=== PATIENT | male | born 1950 | race Caucasian/White ===

== ENCOUNTER 2019-10-24 09:00 | Observation (INO) | payer MEDICARE, OTHER, SELFPAY ==
[2019-10-24] VITALS (35 sets, daily range): BP systolic 107–151; BP diastolic 73–107; PULSE 61–119; RESP 15–30; TEMP 36.2–37.1; O2SAT 95–99; BMI 28.7
--- NOTE | ~2019-10-24 | XR_ITS ---
EXAMINATION: XR chest 2V DATE: 10/24/2019 09:44 INDICATION: Shortness of breath and hypotension TECHNIQUE: PA and lateral views of the chest are obtained. COMPARISON: None available FINDINGS: There are minimal airspace opacities of the right middle lobe. There is no pleural effusion or pneumothorax. The cardiomediastinal silhouette is normal. There is moderate thoracic spondylosis. A cardiac loop recorder is implanted in the left anterior chest wall. IMPRESSION: 1. Minimal opacities of the right middle lobe, consistent with atelectasis versus pneumonia. Reviewed, dictated and finalized at location B. IMPRESSION: 1. Minimal opacities of the right middle lobe, consistent with atelectasis vers us pneumonia.
--- NOTE | 2019-10-24 09:10 | ECG_ITS ---
Measurements Intervals [place] Rate: 97 P: CT: 0 QRS: -2 QRSD: 97 T: 62 QT: 355 QTc: 453 Interpretive Statements ATRIAL FIBRILLATION INCOMPLETE RIGHT BUNDLE BRANCH BLOCK BASELINE ARTIFACT- II, III, AVF ABNORMAL ECG Electronically Signed On 10-24-2019 10:02:33 CDT by Mathew Grove D.O.
[2019-10-24 09:33] LABS: Basophils Percent Auto 0.7 % (0.2-1.2); Eosinophils Absolute Auto 0.3 K/mm3 (0-0.3); Eosinophils Percent Auto 4.9 % (0-4.4); Hematocrit 42.9 % (42.0-52.0); Hemoglobin 14.4 g/dL (14.0-18.0); Immature Granulocyte Absolute 0.01 K/mm3 (0.00-0.031); Immature Granulocyte Percent A 0.2 % (0-0.5); Lymphocytes Absolute Auto 2.38 K/mm3 (0.9-3.2); Lymphocytes Percent Auto 39.9 % (18.3-44.2); Mean Corpuscular HGB Conc 33.6 g/dl (32-36); Mean Corpuscular Hemoglobin 30.3 pg (26-34); Mean Corpuscular Volume 90.1 fl (80-100); Mean Platelet Volume 9.9 fl (7.4-10.4); Monocytes Absolute Auto 0.5 K/mm3 (0.1-0.6); Monocytes Percent Auto 8.7 % (2.6-8.5); Neutrophils Absolute Auto 2.7 K/mm3 (1.3-6.7); Neutrophils Percent Auto 45.6 % (45.5-73.1); Platelet Count Result 158 k/mm3 (150-375); Red Blood Count 4.76 M/mm3 (4.6-6.20); Red Cell Distribution Width 14.1 % (11.5-14.5)
[2019-10-24 09:39] LABS: Anion Gap 14.1 mmol/L (7-16); Blood Urea Nitrogen 9 mg/dL (9-20); Calcium 8.9 mg/dL (8.4-10.2); Carbon Dioxide 23 mmol/L (22-30); Chloride 100 mmol/L (98-107); Estimated CRCL calculation 86 ml/min; Estimated Glomerular Filt Rate > 60; Glucose 112 mg/dL (75-110); Potassium 4.1 mmol/L (3.4-5.0); Sodium 133 mmol/L (137-145)
[2019-10-24] MEDS: dilTIAZem HCl INJ 25 MG/5 ML VIAL 10 MG IV PUSH (09:58)
--- NOTE | 2019-10-24 09:58 | ED.ARRPALP ---
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 It makes him feel short of breath. He has chronic COPD, but does not wear oxygen at home. He has had no cough, fever,, or sweats. He quit smoking 7 years ago. He does have intermittent wheezing. He has coronary artery disease with a stent. He is on Xarelto. His legs swell up every day, and that overnight they clear. He does not have chest pain. He has pain in his feet at night. He has not been sick in the last couple weeks. MD complaint: rapid heart beat and irregular heart beat Onset (ago): hour(s) Duration: constant Severity: moderate Context: occurred during rest Arrhythmia history: atrial fibrillation and on anti-coagulants Associated symptoms: shortness of breath Related Data Home Medications Medication Instructions Recorded Confirmed albuterol sulfate 2 puff INHALATION QID 10/24/19 atorvastatin 80 mg PO DAILY 10/24/19 levothyroxine 125 mcg PO DAILY 10/24/19 loratadine 10 mg PO DAILY 10/24/19 metoprolol tartrate 50 mg PO DAILY 10/24/19 rivaroxaban 20 mg PO DAILY 10/24/19 sotalol 80 mg PO BID 10/24/19 tiotropium bromide 2 puff INHALATION DAILY 10/24/19 Allergies Allergy/AdvReac Type Severity Reaction Status Date / Time No Known Allergies Allergy Verified 10/24/19 09:01 Review of Systems Review of Systems: Narrative: CONSTITUTIONAL: Denies fever, chills, or sweats. EYES: Denies visual changes, redness, or discharge. ENT: Denies rhinorrhea, congestion, sore throat, or otalgia. CARDIOVASCULAR: Denies chest pain, but has palpitations, and edema. RESPIRATORY: Denies cough, but has some shortness of breath. GASTROINTESTINAL: Denies abdominal pain, nausea, vomiting, or diarrhea. GENITOURINARY: Denies dysuria or hematuria. SKIN: Denies rash or itching. MUSCULOSKELETAL: Denies back pain, joint pain, or myalgia. NEUROLOGIC: Denies headache, numbness, or weakness. PSYCHIATRIC: Denies anxiety or depression. [facility] Past Medical History Medical History Atrial fibrillation with rapid ventricular response Social History Social History (Updated 10/24/19 @ 10:22 by Catia Ahmadi MD) Smoking status: Former smoker Alcohol intake: current Substance use: never Gender identity (if verbalized by the patient): Male Exam Narrative: Exam Narrative: GENERAL: Elderly, disheveled, man in no distress. HEAD: Normocephalic, atraumatic. EYES: PERRLA and EOMI. ENT: Nares clear, no rhinorrhea or epistaxis. Mucous membranes moist. NECK: Supple. CHEST: Clear to auscultation. No respiratory distress. HEART: Irregular rhythm. no murmur heard. Normal peripheral pulses. ABDOMEN: Soft, nontender, nondistended, normal active bowel sounds. EXTREMITIES: Normal range of motion. Moderate edema. SKIN: Warm, dry, no rash. NEURO: No focal deficits. Alert and oriented x3. PSYCH: Normal mood and affect. Const: General: no acute distress and alert Orientation/consciousness: patient oriented x3 Course Reevaluation(s) Reevaluation #1: Checked on the patient and his heart rate is down to 76. He is much more comfortable. I explained about the admission process and that he would see 1 of our cardiologists. His windows desktop engineer is at the [place]. Date: 10/24/19 Time: 12:15 Consultations Consultation #1: Call the hospitalist for admission. Dr. Antoine accepts, and requests a cardiology consult. Date: 10/24/19 Time: 10:24 Consultation #2: Call Dr. Dorsey, and Araceli Lee called back. She accepts the consult for the group. Date: 10/24/19 Time: 12:12 Vital Signs Vital signs: Vital Signs Temperature 98.1 F 10/24/19 09:10 Pulse Rate 113 H 10/24/19 09:10 Respiratory Rate 30 H 10/24/19 09:10 Blood Pressure 1
[2019-10-24 10:18] LABS: NT Pro B Type Natriuretic Pept 181 PG/ML (5-100); Troponin I < 0.012 ng/mL (0.000-0.034)
--- NOTE | 2019-10-24 13:23 | ADMGEN ---
This patient, Bobby Cabral, was admitted to IMU Room 207-01 @ 1315. pt a/o x3 - IV Cardizem drip infusing at 5 mg/hr- monitor on atrial fibrillation 60's. BP 112/ 74-Denies SOB or any pain. Patient to hospital policies and general routines including ID bracelet, bed and alarms, visiting hours, pain management, procedures, bathroom and other care routines, personal items, smoking policy, room service/diet, and visiting hours. Valuables list has been completed.
--- NOTE | 2019-10-24 14:54 | PM.CNCAR ---
Assessment and Plan Additional Plan 69-year-old man with a history of paroxysmal atrial fibrillation presenting with an asymptomatic recurrence. Since the pasteurizing supervisor at the [place] has been planning rhythm control with sotalol on going to recommend advancing the dosage of that to 120 mg q.12 hours and stopping the metoprolol. Systemic anticoagulation with Xarelto was important when will be continued if AF persists we will plan DC cardioversion probably tomorrow I would recommend having the [employer] rep interrogate the LINQ device to determine the exact onset of the episode of atrial fib at this time Prabhakar Edwards MD [facility] History of Present Illness History of Present Illness Consult date/time: date of service:10/24/19 14:54 Consult reason: atrial fibrillation Reason For Visit: a fib with rvr Narrative: This is a 69-year-old man with a history of atrial fibrillation being seen at the request of the hospitalist for assistance with management and evaluation of this. The patient has not been here at [facility] previously and is unknown to me prior to this encounter. He states he and he has a history of atrial fibrillation and sees a pasteurizing supervisor at the [facility] for evaluation of this and treatment. He indicates that he has a history of atrial fibrillation for about 5 or 6 years he takes sotalol at a dosage of 80 mg twice daily for this and he states that generally he is in normal sinus rhythm. Patient states that he became concerned last night when he started to notice that his a digital sphygmomanometer was reporting his heart rate is being of variable and somewhat chaotic. The patient states that he really was not having much in the way of significant symptoms or complaints at the time he checks his blood pressure several times since then and continues to notice that his heart rate is chaotic and for that reason his brought him into the emergency room. He indicates that none of his physicians are located at this hospital rather he gets his care at the [facility] but his did not want to drive him to the [place] so she came here because is closer to their home. In the emergency room he was found to be in atrial fib with rapid ventricular response he was of course treated with intravenous diltiazem and admitted to the IMU. For his atrial fibrillation he normally takes sotalol at the dosage mentioned above. Interestingly he also takes a low-dose of metoprolol tartrate is well any systemically anticoagulated with Xarelto he is cut compliant with all of his medication. Had a lengthy discussion with the patient about the plans and indicated that he has a recurrence of atrial fibrillation his pasteurizing supervisor at the [place] has obviously been trying to control the rhythm rather images the heart rate. He does mention that he had a [employer] LINQ loop recorder implanted by his pasteurizing supervisor at the [place] about a year ago. He does not specify the exact reason for having that implant performed. Presumably it is to monitor for recurrent AF and AF burden. Review of Systems Constitutional: Constitutional: Reports no additional constitutional complaints Eyes: Eyes: Reports no additional eye complaints ENT: Reports system reviewed and no additional complaints, except as documented Cardiovascular: Cardiovascular: Reports no additional cardiovascular complaints Respiratory: Respiratory: Reports no additional respiratory complaints Gastrointestinal: Gastrointestinal: Reports no additional gastrointestinal complaints Genitourinary: Genitourinary: Reports no additional male genitourinary complaints Musculoskeletal: Musculoskeletal: Reports no additional musculoskeletal complaints Integumentary/Breasts: Skin/Breast: Reports system reviewed and no additional complaints, except as docu Neurologic: Reports system reviewed and no additional complaints, except as documented Psychiatric: Psychiatric: Reports no additional psychiatric compl
[2019-10-24 15:49] LABS: Troponin I < 0.012 ng/mL (0.000-0.034)
[2019-10-24 18:35] LABS: Troponin I < 0.012 ng/mL (0.000-0.034)
[2019-10-24] MEDS: SOTALOL HCL 40 MG, SOTALOL HCL 80 MG 120 MG PO (20:05)
--- NOTE | 2019-10-24 22:00 | PM.IMHP ---
H&P: HPI History of Present Illness Chief complaint: Palpitations, shortness of breath. Narrative: Bobby Cabral is A 69-year-old male with paroxysmal atrial fibrillation, coronary artery disease, hypertension, hypothyroidism, and COPD who presented to the emergency department earlier today for evaluation of palpitations and shortness of breath. He has chronic dyspnea on exertion due to his COPD however he reports increasing short of breath this morning with associated racing heart/palpitations. Last evening he noted that his blood pressure cuff was reporting a variable heart rate that seemed to be chaotic but he was not really symptomatic at that time. He was found to be in atrial fibrillation with rapid ventricular response on arrival to the emergency department, and his heart rate has improved after receiving IV diltiazem in the emergency department. He has intermittent lower extremity edema which improves overnight. He sleeps in bed on 4 pillows, and this is unchanged. He does get short of breath occasionally at nighttime for which he will use his rescue inhaler. He denies concerns for sleep apnea, specifically denying snoring, waking up gasping for air, and daytime somnolence. He has not had exertional chest pain or pleuritic pain. No nausea, vomiting, or sweats. At the time my evaluation he reports feeling much better is not having any palpitations or chest pain. He states compliance with all of his medications. Review of Systems Review of Systems: Narrative: Twelve systems were reviewed with pertinent positives and negatives as per HPI. He has occasional lightheadedness. Weight has remained stable. He occasionally has a cough which he attributes to his COPD. He frequently wheezes who when even walking about the home, and this is unchanged. He has never been diagnosed with BPH but he does could up to urinate 1 to 2 times a night and has noticed that his stream is decreased. No history of venous thromboembolism. Except as documented, all other systems were reviewed and are negative. [facility] Past Medical History Medical History (Updated 10/25/19 @ 00:23 by Delia Shen PA-C) Chronic obstructive pulmonary disease Congestive heart failure Coronary artery disease With history of stent. Followed by a level vial curvature gauger at the [place]. Former smoker Hyperlipidemia Hypertension Hypothyroidism Paroxysmal atrial fibrillation Surgical History Surgical History (Updated 10/25/19 @ 00:22 by Delia Shen PA-C) History of appendectomy History of arthroscopic knee surgery History of heart artery stent History of loop recorder Patient is unclear as to why this was inserted. Family History Family History Father Diabetes mellitus Acute myocardial infarction Mother Anemia Breast cancer Sibling Breast cancer Social History Social History (Updated 10/25/19 @ 00:17 by Delia Shen PA-C) Social History: Surrogate decision maker: Jody Cabral, spouse. Code status: Full code. Smoking packs per day: 1.5 Smoking cigarettes per day: 30.0 Years smoked: 40 Smoking pack-years: 60.00 Smoking status: Former smoker Tobacco type: cigarettes Alcohol intake: former Substance use: never Additional living arrangements comments: The patient lives with his in [place], [place]. Additional occupation/education comments: Retired from working in [employer]. Gender identity (if verbalized by the patient): Male Spiritual care concerns: No Meds Home Medications and Allergies Home Medications Medication Instructions Recorded Confirmed Type albuterol sulfate 2 puff INHALATION QID 10/24/19 10/24/19 History atorvastatin 40 mg PO DAILY 10/24/19 10/24/19 History levothyroxine 125 mcg PO DAILY 10/24/19 10/24/19 History loratadine 10 mg PO DAILY 10/24/19 10/24/19 History metoprolol tartrate 25 mg PO Q12H 10/24/19 10/24/19 History rivavish
[2019-10-25] VITALS (7 sets, daily range): BP systolic 108–134; BP diastolic 71–93; PULSE 62–95; RESP 16–20; TEMP 36.1–36.7; O2SAT 95–97
[2019-10-25 05:20] LABS: Anion Gap 10.1 mmol/L (7-16); Blood Urea Nitrogen 10 mg/dL (9-20); Calcium 8.5 mg/dL (8.4-10.2); Carbon Dioxide 25 mmol/L (22-30); Chloride 102 mmol/L (98-107); Estimated CRCL calculation 79 ml/min; Estimated Glomerular Filt Rate > 60; Glucose 98 mg/dL (75-110); Potassium 4.1 mmol/L (3.4-5.0); Sodium 133 mmol/L (137-145)
[2019-10-25] MEDS: LEVOTHYROXINE SODIUM 125 MCG TABLET PO (05:45)
[2019-10-25] MEDS: LORATADINE 10 MG TABLET PO (08:34)
[2019-10-25] MEDS: ATORVASTATIN 40 MG TABLET PO (08:34)
[2019-10-25] MEDS: SOTALOL HCL 40 MG, SOTALOL HCL 80 MG 120 MG PO (08:34)
[2019-10-25] MEDS: ALBUTEROL SULFATE (*SP) AEROSOL 1 PUFF 2 PUFF INHALATION (08:35)
[2019-10-25] MEDS: RIVAROXABAN 20 MG TABLET PO (08:36)
--- NOTE | 2019-10-25 10:12 | ECG_ITS ---
Measurements Intervals [place] Rate: 66 P: 64 [place]: 174 QRS: 16 QRSD: 89 T: 63 QT: 420 QTc: 441 Interpretive Statements SINUS RHYTHM INCOMPLETE RIGHT BUNDLE BRANCH BLOCK BASELINE ARTIFACT- II, III, AVF BORDERLINE ECG Electronically Signed On 10-25-2019 10:38:37 CDT by Mathew Grove D.O.
--- NOTE | 2019-10-25 10:24 | PM.PNCARD ---
Progress Note: A&P Assessment and Plan (1) PAF (paroxysmal atrial fibrillation): Code(s): I48.0 - Paroxysmal atrial fibrillation Status: Acute Assessment and Plan: Converted to normal sinus rhythm on 10/25/2019 at 8:27 a.m.. Sotalol was increased to 120 mg every 12 hours. EKG this morning reveals a sinus rhythm at a rate of 66 beats per minute. QTc is 433 milliseconds. Interrogation of his loop recorder reveals that he has episodes of paroxysmal atrial fibrillation. Since September 12, 2019 he has had 19 episodes with a % of 80/AF at 16%. He does note that he occasionally misses his 2nd dose of sotalol and metoprolol. He has not missed any doses of Xarelto. Additional Plan OK to discharge from a cardiac standpoint. Follow-up with his stock parts inspector at the [place]. Follow-up with his primary care provider regarding his TSH of 6.460. T4 is still pending. Plan discussed with Dr Dorsey 1100 10/25/2019 Subjective Date/time seen: 10/25/19 10:24 Interval history: Follow-up for: paroxysmal atrial fibrillation, group home use of anticoagulation with Xarelto. Date of service: 10/25/2019 Subjective: Denied chest discomfort, shortness of breath, lightheadedness or palpitations. Review of Systems Constitutional: Constitutional: Denies chills, Denies fatigue and Denies fever(s) Eyes: Eyes: Denies blurry vision ENT: Reports Normal hearing present Cardiovascular: Cardiovascular: Denies chest pain, Denies rapid heart rate, Denies pedal edema, Denies leg edema, Reports dyspnea, Denies dyspnea on exertion and Denies orthopnea Respiratory: Respiratory: Denies cough and Denies dyspnea on exertion Gastrointestinal: Gastrointestinal: Denies nausea and Denies vomiting Genitourinary: Genitourinary: Denies hematuria Musculoskeletal: Musculoskeletal: Denies back pain and Denies myalgias Integumentary/Breasts: Skin/Breast: Denies lesions and Denies erythema Neurologic: Reports Normal hearing present Psychiatric: Psychiatric: Denies anxiety Endocrine: Endocrine: Denies fatigue and Denies flushing Hematologic/Lymphatic: Hematologic/Lymphatic: Denies easy bleeding and Denies easy bruising Allergic/Immunologic: Allergic/Immunologic: Denies throat swelling, Denies tongue swelling and Denies wheezing Exam Const: General: comfortable and no acute distress Other: Pleasant cooperative white male ini no apparent distress watching television laying flat in bed. HENMT: Mouth: Yes dry mucous membranes Eyes: Sclera: sclerae normal Pupils: Equal, round and reactive pupils present Neck: Neck: supple and no JVD Other: carotid pulses intact no bruits are audible Resp: Effort & Inspection: normal respiratory effort and able to speak in complete sentences Auscultation: diminished lung sounds diffuse Other: breath sounds are clear but diminished somewhat in both lung collado Cardio: Rate: regular rate Rhythm: regular rhythm GI: GI Palp: Yes Soft to palpation Auscultation: normal bowel sounds Skin: General skin exam: normal color Lesions: no lesions Rashes: no rashes Neuro: General: patient oriented x3 Cranial nerves: Yes Equal, round and reactive pupils present Cognition (Neuro): normal cognition Speech: normal speech Gait exam (Neuro): Normal gait present Extrem: General: normal to inspection and no clubbing, cyanosis or edema Psych: Appearance: grossly normal Mental Status: mental status grossly normal Speech and movement: Normal speech and movement present Affect: normal affect Attitude: cooperative Thought process: Normal thought process present Thought content: Yes Normal thought content present Insight: Good insight present (Psych) Judgement: Good judgement present (Psych) Objective Data Vital Signs Vital Signs: Vital Signs - 24 hr 10/24/19 10:30 10/24/19 10:31 10/24/19 10:49 Temperature Pulse Rate 76 73 70 Respiratory Rate 19 17 23 H Blood Pressure 117/73
[2019-10-25 13:17] LABS: Total Triiodothyronine (T3) 0.96 NG/ML (0.97-1.69)
--- NOTE | 2019-11-11 16:30 | PM.DS ---
DS: Admitting Diagnosis Admitting Diagnosis Admitting Diagnosis: Palpitations, shortness of breath. DS: Discharge Diagnosis Discharge Diagnosis (1) Atrial fibrillation with rapid ventricular response: Code(s): I48.91 - Unspecified atrial fibrillation Status: Acute Assessment and Plan: Per Dr. Edwards is recommendations, discontinue metoprolol. Continue sotolol. Continue Xarelto for stroke prophylaxis. Pt is stable for discharge (2) Hypertension: Code(s): I10 - Essential (primary) hypertension Status: Acute Assessment and Plan: Blood pressures were reviewed and they are well controlled. (3) Chronic obstructive pulmonary disease: Code(s): J44.9 - Chronic obstructive pulmonary disease, unspecified Status: Acute Assessment and Plan: Patient reports being at his baseline. Continue maintenance inhalers. (4) Hypothyroidism: Code(s): E03.9 - Hypothyroidism, unspecified Status: Acute Assessment and Plan: Continue levothyroxine and check TSH. DS: Summary Time Spent with Patient Time attestation: Total time spent providing and/or coordinating discharge services:40 minutes on day of discharge Exam Narrative: Exam Narrative: General: Well-developed male sitting up in bed in no distress. HEENT: PERRLA Neck: Supple. Respiratory: Lung sounds are clear Cardiovascular: Irregular rate and rhythm with S1-S2. Gastrointestinal: Abdomen is soft, nontender, and nondistended with positive bowel sounds. Skin: Warm and dry. No rash or lesions on limited exam. Extremities: No cyanosis. Mild clubbing of the fingernails. He has trace lower extremity bilaterally. Negative Michelle sign bilaterally. Radial and pedal pulses intact. Neurological: Alert. Cranial nerves 2-12 are grossly intact. No gross focal deficits to casual conversation. Psychiatric: Pleasant and cooperative with normal mood and affect. Judgment and insight intact. Discharge Plan Discharge Attending physician on discharge: Rosalinda Camarena Consulting providers: Eric Dorsey ; Halley Lee ; Papa Benjamin ; Prabhakar Edwards ; Delia Shen ; Mathew Grove Discharging Clinician: Rosalinda Camarena Anticipated Discharge Date/Time: 10/25/19 11:38 Patient Disposition: Home, Self-Care Activity: as tolerated Diet: heart healthy Wound Care Instructions: follow printed instructions Discharge Instructions: Cardiology discharge instructions: ACTIVITY: activity as tolerated with precautions to avoid falls. FOLLOW-UP: Follow-up with relief charge nurse 1-2 weeks. Follow-up with your primary care provider 1-2 weeks regarding your thyroid Follow-up with his relief charge nurse at the [place]. Follow-up with his primary care provider regarding his TSH of 6.460. T4 is still pending. Patient Instructions: Antibiotic Form, Rivaroxaban (By mouth), Heart Failure (DC) Stand Alone Forms: General Discharge Information Follow-up/Referrals: [facility], [Primary Care Provider] - Discharge Medications: New sotalol [Sorine] 120 mg Tablet 120 mg PO Q12HR Qty: 90 RF: 0 Continued atorvastatin 80 mg Tablet 40 mg PO DAILY RF: 0 levothyroxine 125 mcg Tablet 125 mcg PO DAILY RF: 0 albuterol sulfate 90 mcg/actuation Hfa Aerosol Inhaler 2 puff INHALATION QID RF: 0 loratadine 10 mg Tablet 10 mg PO DAILY RF: 0 rivaroxaban 20 mg Tablet 20 mg PO DAILY RF: 0 tiotropium bromide 2.5 mcg/actuation Mist 2 puff INHALATION DAILY RF: 0 Changed sotalol 80 mg Tablet 120 mg PO Q12H Qty: 90 RF: 3 Discontinued metoprolol tartrate 50 mg Tablet
== END 2019-10-25 12:20 | disposition home or self-care (01) ==
LOC: ANHED 10:26 → ANHIMU 14:46
PROVIDERS: Physician Assistant; Admitting Provider Family Medicine; Emergency Provider Emergency Medicine; Visit Provider Family Medicine
DX: I48.0 Paroxysmal atrial fibrillation (principal); R00.2 Palpitations; J44.9 Chronic obstructive pulmonary disease, unspecified; Z87.891 Personal history of nicotine dependence; I25.10 Atherosclerotic heart disease of native coronary artery without angina pectoris; Z95.5 Presence of coronary angioplasty implant and graft; Z79.01 Long term (current) use of anticoagulants; I11.0 Hypertensive heart disease with heart failure; I50.9 Heart failure, unspecified; E03.9 Hypothyroidism, unspecified
CPT/HCPCS: 36415; 71046; 80048; 83880; 84439; 84443; 84480; 84484; 85025; 93005; 94640; 96365; 96366; 99285; A9270; G0378

== ENCOUNTER 2019-12-12 17:23 | Emergency (ER) | payer MEDICARE, OTHER, SELFPAY ==
[2019-12-12 18:14] VITALS: BP 174/95; PULSE 64; RESP 20; TEMP 36.3; O2SAT 100
[2019-12-12 19:28] VITALS: BP 149/93; PULSE 61; RESP 22; O2SAT 97
--- NOTE | 2019-12-12 19:37 | PC.NURSE ---
pt presents to ED Intake desk and notifies this RN and Rafael Sandoval RN that he cannot wait any longer. pt states his ride has to leave.
== END 2019-12-12 19:47 | disposition left against medical advice (07) ==
DX: Z53.21 Procedure and treatment not carried out due to patient leaving prior to being seen by health care provider (principal)
CPT/HCPCS: 99199

== ENCOUNTER 2024-05-01 15:35 | Inpatient (IN) | payer MEDICARE, OTHER, SELFPAY ==
--- NOTE | ~2024-05-01 | XR_ITS ---
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 RESULT: Lines, tubes, and devices: An electronic device projects over the left upper chest. Lungs and pleura: Clear. Cardiomediastinal silhouette: Stable. Other: No acute osseous or upper abdominal finding. IMPRESSION: No acute cardiopulmonary process. Reviewed, dictated and finalized at location K. AL SHELTER WORKER
--- NOTE | ~2024-05-01 | XR_ITS ---
Portable chest x-ray Comparison: 10/24/2019 Clinical History: Shortness of breath Findings: Lungs are clear, without focal consolidation or pleural effusion. Cardiomediastinal silho uette is stable. Bones and soft tissues are unremarkable. Electronic device overlies the upper left c hest. Impression: Clear lungs. Reviewed, dictated and finalized at location M. ROL OFFICER Impression: Clear lungs.
--- NOTE | 2024-05-01 15:35 | ADMGEN ---
This patient, Bobby Cabral, was admitted to 2nd Floor Room 203-1. Patient/family oriented to hospital policies and general routines including ID bracelet, bed and alarms, visiting hours, pain management, procedures, bathroom and other care routines, personal items, smoking policy, room service/diet, and visiting hours. Information on how to activate the Rapid Response Team has been discussed. Patient/Family are encouraged to report perceived risks to care and to ask questions if they do not understand what they are told or what they should do.
--- OUTSIDE RECORDS SUMMARY | 2024-05-01 15:50 | XMS_ITS | Encounter Summary ---
Author Organization [facility] Healthcare Address [address] [place] [address] Care Team Providers Care Welt Edge Rounder Name Role Phone [facility] Primary Care Provider [phone] Pawan Brown MD Unavailable [phone] Encounter Details Date Type Department Care Team (Late st Contact Info) Description 04/26/2024 Orders Only [employer] [facility] at [address] [place] [id number] Cielo Ambrose RN Social History Tobacco Use Types Packs/Day Years Used Date Smoking Tobacco: Former Cigarettes [facility] Utilities Answer Date Recorded In the past 12 months has [employer], gas, oil, or water company threatened to shut off services in your home? No 04/27/2024 Social Connection and Isolat ion Panel [NHANES] Answer Date Recorded In a typical week, how many times do you talk on the phone with family, friends, or neighbors? More than three times a week 04/27/2024 How often do you get togethe r with friends or relatives? More than three times a week 04/27/2024 How often do you attend chur ch or druze services? Never 04/27/2024 Do you belong to any clubs o r organizations such as congregation groups, unions, fraternal or athletic groups, or school groups? No 04/27/2024 How often do you attend meet ings of the clubs or organizations you belong to? Never 04/27/2024 Are you , , di vorced, , never , or living with a partner? 04/27/2024 AUDIT-C Answer Date Recorded Frequency of Alcohol Consumption Not on file 04/22/2024 Q2: How many drinks containi ng alcohol do you have on a typical day when you are drinking? Patient does not drink Frequency of Binge Drinking Not on file 03/31 Overall Financial Resource Strain (CARDIA) Answe r Date Recorded How hard is it for you to pa y for the very basics like food, housing, medical care, and heating? Not hard at all 04/27/2024 PHQ-2 Answer Date Recorded PHQ-2 Total Score (If total score is 3 or more points, staff should administer the PHQ-9) 0 04/21/2024 Hunger Vital Sign Answer Date Recorded Within the past 12 months, y ou worried that your food would run out before you got the money to buy more. Never true 04/27/19 25 Within the past 12 months, t he food you bought just didn't last and you didn't have money to get more. Never true 04/27/2024 PRAPARE - Transportation Answer Date Re corded In the past 12 months, has l ack of transportation kept you from medical appointments or from getting medications? No 03/31 In the past 12 months, has l ack of transportation kept you from meetings, work, or from getting things needed for daily living? No 04/27/2024 Housing Stability Vital Sign Answer Evan e Recorded In the last 12 months, was t here a time when you were not able to pay the mortgage or rent on time? No 04/27/2024 In the past 12 months, how m any times have you moved where you were living? 0 04/27/2024 At any time in the past 12 m [facility], were you homeless or living in a mcc (including now)? No 04/27/2024 Personal Safety Answer Date Recorded Have you ever been in or are you currently in a harmful physical or emotional relationship or is someone making you feel afraid or unsafe? 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
--- OUTSIDE RECORDS SUMMARY | 2024-05-01 15:50 | XMS_ITS | Encounter Summary ---
Author Organization [facility] Healthcare Address [address] [place] [address] Care Team Providers Care Behavior Support Specialist Name Role Phone Mikey [facility] [place] Care Provider [phone] Pawan Brown MD Unavailable [phone] Encounter Details Date Type Department Care Team (Late st Contact Info) Description 04/26/[address] [facility] [address] [place], [place] [id number] Cielo Ambrose RN Social History Tobacco Use Types Packs/Day Years Used Date Smoking Tobacco: Former Cigarettes [facility] Utilities Answer Date Recorded In the past 12 months has [employer] electric, gas, oil, or water company threatened [...] often do you attend chur ch or latter-day services? Never 04/27/2024 Do you belong to any clubs o r organizations such as yazidism groups, unions, fraternal or athletic groups, or [...] any time in the past 12 m [facility], were you homeless or living in a fpc (including now)? 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
--- OUTSIDE RECORDS SUMMARY | 2024-05-01 15:51 | XMS_ITS | Clinical Summary ---
Author Organization [facility] [address] Address [address] [place] [address] Care Team Providers Care Vision Rehabilitation Therapist Name Role Phone Caryn, [facility] Primary Care Provider [phone] Pawan Brown MD Unavailable [phone] Allergies No known active allergies Medications sotaloL (BETAPACE) 120 mg tablet Take 1 tablet (120 mg total) by mouth 2 (two) times a day Active rosuvastatin (CRESTOR) 10 mg tablet Take 1 tablet (10 mg total) by mouth daily Active rivaroxaban (XARELTO) 20 mg tablet Take 1 tablet (20 mg total) by mouth Active furosemide (LASIX) 20 mg tablet Take 1 tablet (20 mg total) by mouth 2 (two) times a day Active digoxin (LANOXIN) 250 mcg (0.25 mg) tablet Take 1 tablet (250 mcg total) by mouth daily 30 tablet 5 05/27/19 25 Active fluticasone propion-salmeter oL (ADVAIR DISKUS) 250-50 mcg/dose diskus inhaler Inhale 1 puff 2 (two) times a day Rinse mouth with water after use. Do not swallow. 60 each 5 Active tiotropium bromide (SPIRIVA RESPIMAT) 2.5 mcg/actuation inhaler Inhale 2 puffs daily 4 g 5 05/26/19 25 Active levothyroxine (SYNTHROID) 125 mcg tablet Take 1 tablet (125 mcg total) by mouth immigration lawyer before breakfast 5 07/02/19 25 Active doxycycline (MONODOX) 100 mg capsuleIndicatio ns:COPD Exacerbation Take 1 capsule (100 mg total) by mouth 2 (two) times a day for 1 dose 5 05/02/19 25 Active aspirin 81 mg enteric coated tablet Take 1 tablet (81 mg total) by mouth daily 04/26/19 25 Discontin ued(Stop Taking at Discharge ) levothyroxine (SYNTHROID) 75 mcg tablet Take 1.5 tablets (112.5 mcg total) by mouth immigration lawyer before breakfast 05/01/19 25 Discontin ued(Stop Taking at Discharge ) Active Problems Problem Noted Date Diagnosed Date Acute on chronic congestive heart failure (CMS/H CC) 04/28/2024 Hypoxia 04/28/2024 COPD exacerbation 04/27/2024 Atrial fibrillation with RVR (CMS/HCC) Tachy-naga syndrome (CMS/HCC) 04/26/2024 Intertrochanteric fracture o f right femur, closed, initial encounter 04/21/2024 Encounters Date Type Department Care Team Description 04/26/2024 8:50 PM SHOP SUPERVISOR - 05/01/2024 2:39 PM SHOP SUPERVISOR Hospital Encounter [facility] Acute Medicine [address] [place] [id number] Bethany Peace MD Petters, Ekanga Sunday, MD Kheirkhahan, Nazanin, MD COPD exacerbation (HCC) (Primary Dx); Acute on chronic congestive heart failure, unspecified heart failure type (HCC); Hypoxia; Atrial fibrillation with RVR (CMS/HCC) (HCC) Discharge Disposition: Discharge to SNF 04/26/2024 8:30 PM SHOP SUPERVISOR - 04/26/2024 11:59 PM SHOP SUPERVISOR Hospital Encounter [facility]ULANCE BILLING Discharge Disposition: Discharge to home or self care 04/26/2024 3:07 PM SHOP SUPERVISOR - 04/26/2024 11:59 PM SHOP SUPERVISOR Hospital Encounter [facility] BILLING Discharge Disposition: Discharge to home or self care 04/26/2024 2:00 PM SHOP SUPERVISOR - 04/26/2024 11:59 PM SHOP SUPERVISOR Hospital Encounter [facility] Cardiology [address] [place] [id number] Bradycardia Discharge Disposition: Discharge to home or self care 04/26/2024 Orders Only Elbe Tank Car Loader at [facility] 2 [facility] [address] [place] [phone] Cielo Ambrose RN 04/26/2024 Documentation [facility] IMU [address] [place] [address] Cielo Ambrose RN 04/22/2024 9:45 AM SHOP SUPERVISOR - 04/22/2024 11:40 AM SHOP SUPERVISOR Surgery [facility] Operating Room [address] [place] [address] Pawan Brown MD CEPHALOMEDULLARY NAILING HIP FIXATION 04/22/2024 9:14 AM SHOP SUPERVISOR Anesthesia Event [facility] Operating Room [address] [place] [address] Isabelle Jacobson MD Williams, Calvin E., MD 04/21/2024 11:14 AM SHOP SUPERVISOR - 04/26/2024 1:35 PM SHOP SUPERVISOR Hospital Encounter [facility] Surgery Care [address] [place] [address] Adrienne Gaviria MD Nations, Matthew Austin, DO Sargsyan, Narine, MD Bradycardia (Primary Dx); Intertrochanteric fracture of right femur, closed, initial encounter ([facility]); Tachy-naga syndrome ([facility]) ([facility]); Atrial fibrillation with RVR ([facility] ([facility]) Discharge Disposition: Discharge to SNF 04/21/2024 10:43 AM SHOP SUPERVISOR - 04/21/2024 11:59 PM SHOP SUPERVISOR Hospital Encounter [facility] Emergency, Room R Discharge Disposition: Discharge to home or self care from Last 3 Months Medical History Medical History Date Comments CHF (congestive heart failure) ([facility] ([facility]) A-fib ([facility] ([facility]) Lung disease Hypothyroidism Social History Tobacco Use Types Packs/Day Years Used Date Smoking Tobacco: Former Cigarettes Tobacco Cessation:Counseling Given: No [employer] Utilities Answer Date Recorded In the past 12 months has [employer], gas, oil, or water [employer] threatened to shut off services in your [...] often do you attend chur ch or holiness services? Never 04/27/2024 Do you belong to any clubs o r organizations such as anabaptist groups, unions, fraternal or athletic groups, or [...] any time in the past 12 m [facility], were you homeless or living in a senior care (including now)? No 04/27/2024 Personal Safety Answer [...] on file Sexual Orientation Not on file Obstetrics History Last Filed Vital Signs Vital Sign Reading Time Taken Comments Blood Pressure 138/80 05/01/2024 7:00 AM SHOP SUPERVISOR Pulse 60 05/01/2024 9:08 AM SHOP SUPERVISOR Temperature 36.4 ??C (97.6 ??F) 05/01/2024 7:00 AM CS T Respiratory Rate 20 05/01/2024 7:00 AM SHOP SUPERVISOR Oxygen Saturation 95% 05/01/2024 1:53 PM SHOP SUPERVISOR Inhaled Oxygen Concentration - - Weight 107.2 kg (236 lb 5.3 oz) 04/30/2024 5:00 AM SHOP SUPERVISOR Height 182.9 cm (6') 04/27/2024 2:49 AM SHOP SUPERVISOR Body Mass Index 32.05 04/27/2024 2:49 AM SHOP SUPERVISOR Plan of Treatment Health Maintenance Due Date Last Done Comments Colon Cancer Screening-Colonoscopy 1950 Hepatitis C Screening 1950 Pneumococcal vaccine 65+ (1 of 2 - PCV) 1958 Hepatitis B Screening 1970 Zoster Vaccine (1 of 2) 2002 DTaP/Tdap/Td Vaccine (1 - Tdap) 09/28/2002 3 Abdominal Aortic Aneurysm (AAA) Screen 2017 Well Visit 65+ 2017 Influenza Vaccine (#1) 2023 Depression Screening 04/21/2025 04/21/2024 Fall Risk Assessment 05/01/2025 05/01/2024 Medical Devices Implanted Type Area Bearing Press Machine Operator Device Identifier Shelf Expiration Date Model / Serial / Lot Synthes Tfn-Advanced Lateral Relief Cut 11mm 170mm Cannulated Femoral [id number] - [id number] Implanted:Qty: 1 on 04/22/2024 by Pawan Brown MD at [facility] Right: Hip Synthes I [id number] 04/29/2033142 S / / [id number] Synthes 10.35mm 115mm Cannulated Femoral Proximal Screw Bone Titanium 04.038.115s - [id number] Implanted:Qty: 1 on 04/22/2024 by Pawan Brown MD at [facility] Right: Hip Synthes I [id number] 09/26/2024 04.038.115 S / / [id number] Synthes 5mm 4.3mm 36mm Lock Self Tap Blunt Tip 2 Lead Tibial T25 Full 04.005.526s - [id number] Implanted:Qty: 1 on 04/22/2024 by Pawan Brown MD at [facility] Right: Hip Synthes 08/27/2033 04.005.526 S / / [id number] Procedures Procedure Name Priority Date/Time Associated Diagnosis Comments EGFR Routine 05/01/2024 3:46 AM SHOP SUPERVISOR DIFFERENTIAL AUTO Routine 05/01/2024 3:4 6 AM SHOP SUPERVISOR CBC WITH AUTO DIFFERENTIAL Routine 05/01/2024 3:46 AM SHOP SUPERVISOR MAGNESIUM Routine 05/01/2024 3:46 AM SHOP SUPERVISOR COMPREHENSIVE METABOLIC PANEL Routine 05/01/2024 3:46 AM SHOP SUPERVISOR EGFR Routine 04/30/2024 2:29 AM SHOP SUPERVISOR DIFFERENTIAL AUTO Routine 04/30/2024 2:2 9 AM SHOP SUPERVISOR CBC WITH AUTO DIFFERENTIAL Routine 04/30/2024 2:29 AM SHOP SUPERVISOR MAGNESIUM Routine 04/30/2024 2:29 AM SHOP SUPERVISOR COMPREHENSIVE METABOLIC PANEL Routine 04/30/2024 2:29 AM SHOP SUPERVISOR EGFR Routine 04/29/2024 2:17 AM SHOP SUPERVISOR DIFFERENTIAL AUTO Routine 04/29/2024 2:1 7 AM SHOP SUPERVISOR CBC WITHOUT DIFFERENTIAL Routine 04/29/2024 2:17 AM SHOP SUPERVISOR CBC WITH AUTO DIFFERENTIAL Routine 04/29/2024 2:17 AM SHOP SUPERVISOR MAGNESIUM Routine 04/29/2024 2:17 AM SHOP SUPERVISOR COMPREHENSIVE METABOLIC PANEL Routine 04/29/2024 2:17 AM SHOP SUPERVISOR EGFR Routine 04/28/2024 3:05 AM SHOP SUPERVISOR DIFFERENTIAL AUTO Routine 04/28/2024 3:0 5 AM SHOP SUPERVISOR DIGOXIN LEVEL Routine 04/28/2024 3:05 AM SHOP SUPERVISOR CBC WITHOUT DIFFERENTIAL Routine 04/28/2024 3:05 AM SHOP SUPERVISOR CBC WITH AUTO DIFFERENTIAL Routine 04/28/2024 3:05 AM SHOP SUPERVISOR MAGNESIUM Routine 04/28/2024 3:05 AM SHOP SUPERVISOR COMPREHENSIVE METABOLIC PANEL Routine 04/28/2024 3:05 AM SHOP SUPERVISOR POCT GLUCOSE DEVICE Routine 04/27/2024 4 :45 PM SHOP SUPERVISOR EGFR Routine 04/27/2024 9:08 AM SHOP SUPERVISOR BASIC METABOLIC PANEL Routine 04/27/2024 9:08 AM SHOP SUPERVISOR CBC WITHOUT DIFFERENTIAL Routine 04/27/2024 9:08 AM SHOP SUPERVISOR MAGNESIUM Routine 04/27/2024 9:08 AM SHOP SUPERVISOR TROPONIN T HIGH-SENSITIVITY 2-HOUR Timed 04/26/2024 11:[address] CHEST PE W CONTRAST ED 04/26/2024 9:55 PM SHOP SUPERVISOR XR CHEST 1 VIEW ED 04/26/2024 9:32 PM SHOP SUPERVISOR ECG 12-LEAD STAT 04/26/2024 9:12 PM SHOP SUPERVISOR T4, FREE Routine 04/26/2024 9:06 PM SHOP SUPERVISOR EGFR STAT 04/26/2024 9:06 PM SHOP SUPERVISOR DIFFERENTIAL AUTO STAT 04/26/2024 9:0 6 PM SHOP SUPERVISOR THYROID FUNCTION CASCADE Routine 04/26/2024 9:06 PM SHOP SUPERVISOR MAGNESIUM Routine 04/26/2024 9:06 PM SHOP SUPERVISOR PRO B-TYPE NATRIURETIC PEPTIDE STAT 04/26/2024 9:06 PM SHOP SUPERVISOR SEPSIS LACTATE WITH REFLEX Routine 04/26/2024 9:06 PM SHOP SUPERVISOR APTT STAT 04/26/2024 9:06 PM SHOP SUPERVISOR TROPONIN T HIGH-SENSITIVITY SERIES (BASELINE, 2HR, 4HR, 6HR) STAT 04/26/2024 9:06 PM SHOP SUPERVISOR COMPREHENSIVE METABOLIC PANEL STAT 04/26/2024 9:06 PM SHOP SUPERVISOR CBC WITH AUTO DIFFERENTIAL STAT 04/26/2024 9:06 PM SHOP SUPERVISOR INFLUENZA A/B, RSV, AND COVID-19 PCR Routine 04/26/2024 9:06 PM SHOP SUPERVISOR EGFR Routine 04/26/2024 3:48 AM SHOP SUPERVISOR DIFFERENTIAL AUTO Routine 04/26/2024 3:4 8 AM SHOP SUPERVISOR CBC WITH AUTO DIFFERENTIAL Routine 04/26/2024 3:48 AM SHOP SUPERVISOR BASIC METABOLIC PANEL Routine 04/26/2024 3:48 AM SHOP SUPERVISOR EGFR Routine 04/25/2024 3:07 AM SHOP SUPERVISOR DIFFERENTIAL AUTO Routine 04/25/2024 3:0 7 AM SHOP SUPERVISOR CBC WITH AUTO DIFFERENTIAL Routine 04/25/2024 3:07 AM SHOP SUPERVISOR BASIC METABOLIC PANEL Routine 04/25/2024 3:07 AM SHOP SUPERVISOR XR CHEST 1 VIEW ED Urgent/IP Urgent 04/24/2024 4:49 AM SHOP SUPERVISOR PRO B-TYPE NATRIURETIC PEPTIDE Add-On 04/24/2024 4:36 AM SHOP SUPERVISOR EGFR Routine 04/24/2024 4:36 AM SHOP SUPERVISOR DIFFERENTIAL AUTO Routine 04/24/2024 4:3 6 AM SHOP SUPERVISOR BLOOD GAS, VENOUS Routine 04/24/2024 4:3 6 AM SHOP SUPERVISOR CBC WITH AUTO DIFFERENTIAL Routine 04/24/2024 4:36 AM SHOP SUPERVISOR BASIC METABOLIC PANEL Routine 04/24/2024 4:36 AM SHOP SUPERVISOR EGFR Routine 04/23/2024 3:30 AM SHOP SUPERVISOR DIFFERENTIAL AUTO Routine 04/23/2024 3:3 0 AM SHOP SUPERVISOR CBC WITHOUT DIFFERENTIAL Routine 04/23/2024 3:30 AM SHOP SUPERVISOR CBC WITH AUTO DIFFERENTIAL Routine 04/23/2024 3:30 AM SHOP SUPERVISOR BASIC METABOLIC PANEL Routine 04/23/2024 3:30 AM SHOP SUPERVISOR XR PELVIS ORTHO VIEW IP Routine 04/22/2024 11:20 AM SHOP SUPERVISOR FL FLUOROSCOPY < 1 HOUR IP Routine 04/22/2024 10:14 AM SHOP SUPERVISOR XR HIP RIGHT 2 OR 3 VIEWS IP Routine 04/22/2024 10:14 AM SHOP SUPERVISOR Intertrochanteric fracture of right femur, closed, initial encounter (HCC) UT AN ELECTIVE ENDOTRACHEAL AIRWAY Routine 04/22/2024 9:55 AM SHOP SUPERVISOR NAILING HIP FIXATION - ASNIS MAGNA 04/22/2024 8:53 AM SHOP SUPERVISOR RIGHT HIP FRACTURE EGFR Routine 04/22/2024 5:13 AM SHOP SUPERVISOR DIFFERENTIAL AUTO Routine 04/22/2024 5:1 3 AM SHOP SUPERVISOR CBC WITH AUTO DIFFERENTIAL Routine 04/22/2024 5:13 AM SHOP SUPERVISOR BASIC METABOLIC PANEL Routine 04/22/2024 5:13 AM SHOP SUPERVISOR TROPONIN T HIGH-SENSITIVITY 4-HR Timed 04/21/2024 4:19 PM SHOP SUPERVISOR TRANSTHORACIC ECHO (TTE) COMPLETE W DOPPLER/CF W CONTRAST STAT 04/21/2024 2:[address] HEAD WO CONTRAST ED 04/21/2024 2 :16 PM SHOP SUPERVISOR TROPONIN T HIGH-SENSITIVITY 2-HOUR Timed 04/21/2024 1:45 PM SHOP SUPERVISOR XR CHEST 1 VIEW ED 04/21/2024 1:39 PM SHOP SUPERVISOR ECG 12-LEAD Routine 04/21/2024 1:27 PM SHOP SUPERVISOR XR PELVIS 1 OR 2 VIEWS ED 04/21/2024 11:45 AM SHOP SUPERVISOR XR HIP RIGHT 2 OR 3 VIEWS ED 04/21/2024 11:45 AM SHOP SUPERVISOR TROPONIN T HIGH-SENSITIVITY SERIES (BASELINE, 2HR, 4HR, 6HR) STAT 04/21/2024 11:30 AM SHOP SUPERVISOR EGFR STAT 04/21/2024 11:30 AM SHOP SUPERVISOR DIFFERENTIAL AUTO STAT 04/21/2024 11: 30 AM SHOP SUPERVISOR PROTIME-INR STAT 04/21/2024 11:30 AM SHOP SUPERVISOR COMPREHENSIVE METABOLIC PANEL STAT 04/21/2024 11:30 AM SHOP SUPERVISOR CBC WITH AUTO DIFFERENTIAL STAT 04/21/2024 11:30 AM SHOP SUPERVISOR from Last 3 Months Results * eGFR (05/01/2024 3:46 AM SHOP SUPERVISOR) eGFR 79 >=60 mL/min/1. 73 m2 Comment: Interpretive Data Reference Interval Normal ?>/= 90 mL/min/1.73m2 Mildly decreased* ? 60 - 89 mL/min/1.73m2 Mildly to moderately decreased ?45 - 59 mL/min/1.73m2 Moderately to severely decreased ??30 - 44 mL/min/1.73m2 Severely decreased ?15 - 29 mL/min/1.73m2 Kidney Failure ?< 15 ??mL/min/1.73m2 *Relative to young adult level Estimated glomerular filtration rate is determined by the 2020 CKD-EPI equation recommended by the National Kidney Foundation (A Unifying Approach to GFR Estimation: Recommendations of the NKF-ASK Task Force on Reassessing the Inclusion of Race in Diagnosing Kidney Disease, JASN 202). The CKD-EPI equation should not be used for patients with unstable renal function and has not been validated in children and those over 70. Current interpretive data was last reviewed 2021. Blood 05/01/2024 3:46 AM SHOP SUPERVISOR 05/01/2024 4:16 AM SHOP SUPERVISOR us Maggi Vaughn MD LAB BLOOD ORDERABLES Fi nal Result [facility] ([place]) 1 [facility] Department [place] [address] * (ABNORMAL) Differential, auto (05/01/2024 3:46 AM SHOP SUPERVISOR) Neutrophil abs 7.3(H) 1.5 - 6.5 K/cumm Imm gran abs 0.1 0.0 - 0.1 K/cumm [facility] ([place]) Lymphocyte abs 2.1 0.8 - 3.3 K/cumm [facility] ([place]) Monocyte abs 1.0(H) 0.2 - 0.8 K/cumm [facility] ([place]) Eosinophil abs 0.0 0.0 - 0.5 K/cumm [facility] ([place]) Basophil abs 0.0 0.0 - 0.1 K/cumm [facility] ([place]) Neutrophil pct 69.5 % [facility] ([place]) Comment: Interpretive Data Percent cell count reference ranges are not reported, since discordance with absolute values may lead to misinterpretation of CBC data. Current Interpretive Data was last revised on 2017. Imm gran pct 1.1 % [facility] ([place]) Comment: Interpretive Data Percent cell count reference ranges are not reported, since discordance with absolute values may lead to misinterpretation of CBC data. Current Interpretive Data was last revised on 2017. Lymphocyte pct 19.7 % [facility] ([place]) Comment: Interpretive Data Percent cell count reference ranges are not reported, since discordance with absolute values may lead to misinterpretation of CBC data. Current Interpretive Data was last revised on 2017. Monocyte pct 9.1 % [facility] ([place]) Comment: Interpretive Data Percent cell count reference ranges are not reported, since discordance with absolute values may lead to misinterpretation of CBC data. Current Interpretive Data was last revised on 2017. Eosinophil pct 0.4 % [facility] ([place]) Comment: Interpretive Data Percent cell count reference ranges are not reported, since discordance with absolute values may lead to misinterpretation of CBC data. Current Interpretive Data was last revised on 2017. Basophil pct 0.2 % [facility] ([place]) Comment: Interpretive Data Percent cell count reference ranges are not reported, since discordance with absolute values may lead to misinterpretation of CBC data. Current Interpretive Data was last revised on 2017. Blood 05/01/2024 3:46 AM SHOP SUPERVISOR 05/01/2024 4:14 AM SHOP SUPERVISOR Maggi Vaughn MD LAB BLOOD ORDERABLES Fi nal Result [facility] ([place]) 1 [facility] Department [place] [address] * (ABNORMAL) CBC with auto differential (05/01/2024 3:46 AM SHOP SUPERVISOR) WBC 10.5(H) 3.8 - 9.9 K/cumm Hgb 12.5(L) 13.0 - 17.5 g/dL [facility] ([place]) Hct 38.0(L) 38.9 - 50.3 % [facility] ([place]) Plt 192 150 - 400 K/cumm [facility] ([place]) MPV 10.2 9.1 - 12.3 fL [facility] ([place]) RBC 3.93(L) 4.30 - 5.80 M/cumm [facility] ([place]) MCV 96.7(H) 81.3 - 96.4 fL [facility] ([place]) MCH 31.8 27.1 - 33.3 pg [facility] ([place]) MCHC 32.9 32.3 - 35.7 g/dL [facility] ([place]) RDW CV 16.4(H) 11.1 - 14.9 % [facility] ([place]) RDW SD 57.0(H) 35.7 - 48.1 fL [facility] ([place]) NRBC abs 0.00 0.00 - 0.01 K/cumm [facility] ([place]) Blood 05/01/2024 3:46 AM SHOP SUPERVISOR 05/01/2024 4:14 AM SHOP SUPERVISOR us Maggi Vaughn MD LAB BLOOD ORDERABLES Fi nal Result [facility]NIE [facility] ([place]) 1 [facility] [place] [address] * Magnesium (05/01/2024 3:46 AM SHOP SUPERVISOR) Magnesium 2.4 1.4 - 2.5 mg/dL Blood 05/01/2024 3:46 AM SHOP SUPERVISOR 05/01/2024 4:16 AM SHOP SUPERVISOR Maggi Vaughn MD LAB BLOOD ORDERABLES Fi nal Result Performing Organization Address [facility] de Phone Number RONNIE GRI[facility] ([place]) 1 [facility] [place] [address] * (ABNORMAL) Comprehensive metabolic panel (05/01/2024 3:46 AM SHOP SUPERVISOR) Pathologist [facility] Sodium 137 135 - 145 mmol/L Potassium, pl 4.5 3.3 - 4.9 mmol/L [facility] ([place]) Chloride 99 97 - 110 mmol/L [facility] ([place]) CO2 26 22 - 32 mmol/L [facility] ([place]) Anion gap 13 2 - 15 mmol/L [facility] ([place]) BUN 34(H) 6 - 25 mg/dL [facility] ([place]) Creatinine 1.02 0.80 - 1.30 mg/dL [facility] ([place]) Glucose 118 70 - 199 mg/dL [facility] ([place]) Comment: Interpretive Data Fasting glucose >/= 126 mg/dl is diagnostic for diabetes. ?? Fasting is defined as no caloric intake for at least 8 hours. Fasting glucose between 100 mg/dl to 125 mg/dl is diagnostic of prediabetes. In a patient with classic symptoms of hyperglycemia or hyperglycemic crisis, a random glucose >/= 200 mg/dl is diagnostic for diabetes. In the absence of unequivocal hyperglycemia, results should be confirmed by repeat testing. The classification and Diagnosis of Diabetes Diabetes Care 2021; 46: S19-S40. Current interpretive data was last revised 2022. Calcium 9.2 8.5 - 10.3 mg/dL [facility] ([place]) Bilirubin, total 0.9 0.1 - 1.2 mg/dL [facility] ([place] Protein, pl 6.1(L) 6.5 - 8.5 g/dL [facility] ([place]) Albumin 3.7 3.5 - 5.0 g/dL [facility] ([place]) Alk phos 74 40 - 130 Units/L [facility] ([place]) ALT 18 7 - 55 Units/L [facility] ([place]) AST 21 10 - 50 Units/L [facility] ([place]) Comment:Slightly Hemolyzed S pecimen Blood 05/01/2024 3:46 AM SHOP SUPERVISOR 05/01/2024 4:16 AM SHOP SUPERVISOR us Maggi Vaughn MD LAB BLOOD ORDERABLES Fi nal Result [facility] ([place]) 1 [facility] Department [place] [address] * eGFR (04/30/2024 2:29 AM SHOP SUPERVISOR) eGFR 79 >=60 mL/min/1. 73 m2 Comment: Interpretive Data Reference Interval Normal ?>/= 90 mL/min/1.73m2 Mildly decreased* ? 60 - 89 mL/min/1.73m2 Mildly to moderately decreased ?45 - 59 mL/min/1.73m2 Moderately to severely decreased ??30 - 44 mL/min/1.73m2 Severely decreased ?15 - 29 mL/min/1.73m2 Kidney Failure ?< 15 ??mL/min/1.73m2 *Relative to young adult level Estimated glomerular filtration rate is determined by the 2020 CKD-EPI equation recommended by the National Kidney Foundation (A Unifying Approach to GFR Estimation: Recommendations of the NKF-ASK Task Force on Reassessing the Inclusion of Race in Diagnosing Kidney Disease, JASN 2020). The CKD-EPI equation should not be used for patients with unstable renal function and has not been validated in children and those over 70. Current interpretive data was last reviewed 2021. Blood 04/30/2024 2:29 AM SHOP SUPERVISOR 04/30/2024 2:59 AM SHOP SUPERVISOR us Maggi Vaughn MD LAB BLOOD ORDERABLES Fi nal Result [facility] ([place]) 1 [facility] Department [place] [address] * (ABNORMAL) Differential, auto (04/30/2024 2:29 AM SHOP SUPERVISOR) Neutrophil abs 7.7(H) 1.5 - 6.5 K/cumm Imm gran abs 0.1 0.0 - 0.1 K/cumm [facility] ([place]) Lymphocyte abs 1.9 0.8 - 3.3 K/cumm [facility] ([place]) Monocyte abs 1.1(H) 0.2 - 0.8 K/cumm [facility] ([place]) Eosinophil abs 0.0 0.0 - 0.5 K/cumm [facility] ([place]) Basophil abs 0.0 0.0 - 0.1 K/cumm [facility] ([place]) Neutrophil pct 71.3 % [facility] ([place]) Comment: Interpretive Data Percent cell count reference ranges are not reported, since discordance with absolute values may lead to misinterpretation of CBC data. Current Interpretive Data was last revised on 2017. Imm gran pct 1.0 % [facility] ([place]) Comment: Interpretive Data Percent cell count reference ranges are not reported, since discordance with absolute values may lead to misinterpretation of CBC data. Current Interpretive Data was last revised on 2017. Lymphocyte pct 17.2 % [facility] ([place]) Comment: Interpretive Data Percent cell count reference ranges are not reported, since discordance with absolute values may lead to misinterpretation of CBC data. Current Interpretive Data was last revised on 2017. Monocyte pct 10.3 % [facility] ([place]) Comment: Interpretive Data Percent cell count reference ranges are not reported, since discordance with absolute values may lead to misinterpretation of CBC data. Current Interpretive Data was last revised on 2017. Eosinophil pct 0.1 % [facility] ([place]) Comment: Interpretive Data Percent cell count reference ranges are not reported, since discordance with absolute values may lead to misinterpretation of CBC data. Current Interpretive Data was last revised on 2017. Basophil pct 0.1 % [facility] ([place]) Comment: Interpretive Data Percent cell count reference ranges are not reported, since discordance with absolute values may lead to misinterpretation of CBC data. Current Interpretive Data was last revised on 2017. Blood 04/30/2024 2:29 AM SHOP SUPERVISOR 04/30/2024 2:58 AM SHOP SUPERVISOR us Maggi Vaughn MD LAB BLOOD ORDERABLES [facility] Result [facility] ([place]) 1 [facility] Department [place] [address] * (ABNORMAL) CBC with auto differential (04/30/2024 2:29 AM SHOP SUPERVISOR) WBC 10.8(H) 3.8 - 9.9 K/cumm Hgb 12.1(L) 13.0 - 17.5 g/dL [facility] ([place]) Hct 36.1(L) 38.9 - 50.3 % [facility] ([place]) Plt 193 150 - 400 K/cumm [facility] ([place]) MPV 10.4 9.1 - 12.3 fL [facility] ([place]) RBC 3.85(L) 4.30 - 5.80 M/cumm [facility] ([place]) MCV 93.8 81.3 - 96.4 fL [facility] ([place]) MCH 31.4 27.1 - 33.3 pg [facility] ([place]) MCHC 33.5 32.3 - 35.7 g/dL [facility] ([place]) RDW CV 16.2(H) 11.1 - 14.9 % [facility] ([place]) RDW SD 53.3(H) 35.7 - 48.1 fL [facility] ([place]) NRBC abs 0.00 0.00 - 0.01 K/cumm [facility] ([place]) Blood 04/30/2024 2:29 AM SHOP SUPERVISOR 04/30/2024 2:58 AM SHOP SUPERVISOR Maggi Vaughn MD LAB BLOOD ORDERABLES Fi nal Result RONNIE [facility] ([place]) 1 [facility] [place] [address] * Magnesium (04/30/2024 2:29 AM SHOP SUPERVISOR) Pathologist [facility] Magnesium 2.5 1.4 - 2.5 mg/dL Blood 04/30/2024 2:29 AM SHOP SUPERVISOR 04/30/2024 2:59 AM SHOP SUPERVISOR Maggi Vauhgn MD LAB BLOOD ORDERABLES Fi nal Result Performing Organization Address City/[facility]/ZIP Co de Phone Number RONNIE G[facility]ER ([place]) 1 [facility] [place] [address] * (ABNORMAL) Comprehensive metabolic panel (04/30/2024 2:29 AM SHOP SUPERVISOR) Sodium 138 135 - 145 mmol/L Potassium, pl 4.2 3.3 - 4.9 mmol/L [facility] ([place]) Chloride 101 97 - 110 mmol/L [facility] ([place] CO2 28 22 - 32 mmol/L [facility] ([place]) Anion gap 9 2 - 15 mmol/L [facility] ([place]) BUN 25 6 - 25 mg/dL [facility] ([place]) Creatinine 1.02 0.80 - 1.30 mg/dL [facility] ([place]) Glucose 112 70 - 199 mg/dL [facility] ([place]) Comment: Interpretive Data Fasting glucose >/= 126 mg/dl is diagnostic for diabetes. ?? Fasting is defined as no caloric intake for at least 8 hours. Fasting glucose between 100 mg/dl to 125 mg/dl is diagnostic of prediabetes. In a patient with classic symptoms of hyperglycemia or hyperglycemic crisis, a random glucose >/= 200 mg/dl is diagnostic for diabetes. In the absence of unequivocal hyperglycemia, results should be confirmed by repeat testing. The classification and Diagnosis of Diabetes Diabetes Care 202; 46: S19-S40. Current interpretive data was last revised 2022. Calcium 8.9 8.5 - 10.3 mg/dL [facility] ([place]) Bilirubin, total 0.8 0.1 - 1.2 mg/dL [facility] ([place]) Protein, pl 6.0(L) 6.5 - 8.5 g/dL [facility] ([place]) Albumin 3.7 3.5 - 5.0 g/dL [facility] ([place]) Alk phos 71 40 - 130 Units/L [facility] ([place]) ALT 15 7 - 55 Units/L [facility] ([place]) AST 22 10 - 50 Units/L [facility] ([place]) Blood 04/30/2024 2:29 AM SHOP SUPERVISOR 04/30/2024 2:59 AM SHOP SUPERVISOR us Maggi Vaughn MD LAB BLOOD ORDERABLES Fi nal Result [facility] ([place]) 1 [facility] Department [place] [address] * eGFR (04/29/2024 2:17 AM SHOP SUPERVISOR) eGFR 81 >=60 mL/min/1. 73 m2 Comment: Interpretive Data Reference Interval Normal ?>/= 90 mL/min/1.73m2 Mildly decreased* ? 60 - 89 mL/min/1.73m2 Mildly to moderately decreased ?45 - 59 mL/min/1.73m2 Moderately to severely decreased ??30 - 44 mL/min/1.73m2 Severely decreased ?15 - 29 mL/min/1.73m2 Kidney Failure ?< 15 ??mL/min/1.73m2 *Relative to young adult level Estimated glomerular filtration rate is determined by the 2020 CKD-EPI equation recommended by the National Kidney Foundation (A Unifying Approach to GFR Estimation: Recommendations of the NKF-ASK Task Force on Reassessing the Inclusion of Race in Diagnosing Kidney Disease, JASN 2020). The CKD-EPI equation should not be used for patients with unstable renal function and has not been validated in children and those over 70. Current interpretive data was last reviewed 2021. Blood 04/29/2024 2:17 AM SHOP SUPERVISOR 04/29/2024 3:48 AM SHOP SUPERVISOR us Maggi Vaughn MD LAB BLOOD ORDERABLES Fi nal Result [facility] ([place]) 1 [facility] Department [place] [address] * Differential, auto (04/29/2024 2:17 AM SHOP SUPERVISOR) Neutrophil abs 6.5 1.5 - 6.5 K/cumm Imm gran abs 0.1 0.0 - 0.1 K/cumm [facility] ([place]) Lymphocyte abs 0.8 0.8 - 3.3 K/cumm [facility] ([place]) Monocyte abs 0.3 0.2 - 0.8 K/cumm [facility] ([place]) Eosinophil abs 0.0 0.0 - 0.5 K/cumm [facility] ([place]) Basophil abs 0.0 0.0 - 0.1 K/cumm [facility] ([place]) Neutrophil pct 84.9 % [facility] ([place]) Comment: Interpretive Data Percent cell count reference ranges are not reported, since discordance with absolute values may lead to misinterpretation of CBC data. Current Interpretive Data was last revised on 2017. Imm gran pct 0.8 % [facility] ([place]) Comment: Interpretive Data Percent cell count reference ranges are not reported, since discordance with absolute values may lead to misinterpretation of CBC data. Current Interpretive Data was last revised on 2017. Lymphocyte pct 10.5 % [facility] ([place]) Comment: Interpretive Data Percent cell count reference ranges are not reported, since discordance with absolute values may lead to misinterpretation of CBC data. Current Interpretive Data was last revised on 2017. Monocyte pct 3.8 % [facility] ([place]) Comment: Interpretive Data Percent cell count reference ranges are not reported, since discordance with absolute values may lead to misinterpretation of CBC data. Current Interpretive Data was last revised on 2017. Eosinophil pct 0.0 % [facility] ([place]) Comment: Interpretive Data Percent cell count reference ranges are not reported, since discordance with absolute values may lead to misinterpretation of CBC data. Current Interpretive Data was last revised on 2017. Basophil pct 0.0 % [facility] ([place]) Comment: Interpretive Data Percent cell count reference ranges are not reported, since discordance with absolute values may lead to misinterpretation of CBC data. Current Interpretive Data was last revised on 2017. Blood 04/29/2024 2:17 AM SHOP SUPERVISOR 04/29/2024 3:46 AM SHOP SUPERVISOR us Maggi Vaughn MD LAB BLOOD ORDERABLES Fi nal Result RONNIE GRIER ([place]) 1 [facility] Department [place] [address] * (ABNORMAL) CBC with auto differential (04/29/2024 2:17 AM SHOP SUPERVISOR) WBC 7.7 3.8 - 9.9 K/cumm Hgb 10.9(L) 13.0 - 17.5 g/dL [facility] ([place]) Hct 32.5(L) 38.9 - 50.3 % [facility] ([place]) Plt 166 150 - 400 K/cumm [facility] ([place]) MPV 10.6 9.1 - 12.3 fL [facility] ([place]) RBC 3.43(L) 4.30 - 5.80 M/cumm [facility] ([place]) MCV 94.8 81.3 - 96.4 fL [facility] ([place]) MCH 31.8 27.1 - 33.3 pg [facility] ([place]) MCHC 33.5 32.3 - 35.7 g/dL [facility] ([place]) RDW CV 15.9(H) 11.1 - 14.9 % [facility] ([place]) RDW SD 52.7(H) 35.7 - 48.1 fL [facility] ([place]) NRBC abs 0.00 0.00 - 0.01 K/cumm [facility] ([place]) Blood 04/29/2024 2:17 AM SHOP SUPERVISOR 04/29/2024 3:46 AM SHOP SUPERVISOR us Maggi Vaughn MD LAB BLOOD ORDERABLES Fi nal Result [facility] ([place]) 1 [facility] Department [place] [address] * (ABNORMAL) CBC without differential (04/29/2024 2:17 AM SHOP SUPERVISOR) WBC 7.7 3.8 - 9.9 K/cumm Hgb 10.9(L) 13.0 - 17.5 g/dL [facility] ([place]) Hct 32.5(L) 38.9 - 50.3 % [facility] ([place]) Plt 166 150 - 400 K/cumm [facility] ([place]) MPV 10.6 9.1 - 12.3 fL [facility] ([place]) RBC 3.43(L) 4.30 - 5.80 M/cumm [facility] ([place]) MCV 94.8 81.3 - 96.4 fL [facility] ([place]) MCH 31.8 27.1 - 33.3 pg [facility] ([place]) MCHC 33.5 32.3 - 35.7 g/dL [facility] ([place]) RDW CV 15.9(H) 11.1 - 14.9 % [facility] ([place]) RDW SD 52.7(H) 35.7 - 48.1 fL [facility] ([place]) NRBC abs 0.00 0.00 - 0.01 K/cumm [facility] ([place]) Blood 04/29/2024 2:17 AM SHOP SUPERVISOR 04/29/2024 3:46 AM SHOP SUPERVISOR Karissa Mchugh MD LAB BLOOD ORDERABLES Umm l Result [facility] ([place]) 1 [facility] [place] [address] * Magnesium (04/29/2024 2:17 AM SHOP SUPERVISOR) Pathologist [facility] Magnesium 2.4 1.4 - 2.5 mg/dL Blood 04/29/2024 2:17 AM SHOP SUPERVISOR 04/29/2024 3:48 AM SHOP SUPERVISOR us Maggi Vaughn MD LAB BLOOD ORDERABLES Fi nal Result Performing Organization Address City/[facility]/ZIP Co de Phone Number [facility] ([place]) 1 [facility] [place] [address] * (ABNORMAL) Comprehensive metabolic panel (04/29/2024 2:17 AM SHOP SUPERVISOR) Sodium 138 135 - 145 mmol/L Potassium, pl 3.9 3.3 - 4.9 mmol/L [facility] ([place]) Chloride 99 97 - 110 mmol/L [facility] ([place]) CO2 29 22 - 32 mmol/L [facility] ([place]) Anion gap 11 2 - 15 mmol/L [facility] ([place]) BUN 24 6 - 25 mg/dL [facility] ([place]) Creatinine 0.99 0.80 - 1.30 mg/dL [facility] ([place]) Glucose 133 70 - 199 mg/dL [facility] ([place]) Comment: Interpretive Data Fasting glucose >/= 126 mg/dl is diagnostic for diabetes. ?? Fasting is defined as no caloric intake for at least 8 hours. Fasting glucose between 100 mg/dl to 125 mg/dl is diagnostic of prediabetes. In a patient with classic symptoms of hyperglycemia or hyperglycemic crisis, a random glucose >/= 200 mg/dl is diagnostic for diabetes. In the absence of unequivocal hyperglycemia, results should be confirmed by repeat testing. The classification and Diagnosis of Diabetes Diabetes Care 202; 46: S19-S40. Current interpretive data was last revised 2022. Calcium 9.1 8.5 - 10.3 mg/dL [facility] ([place]) Bilirubin, total 1.0 0.1 - 1.2 mg/dL [facility] ([place]) Protein, pl 6.1(L) 6.5 - 8.5 g/dL [facility] ([place]) Albumin 3.9 3.5 - 5.0 g/dL [facility] ([place]) Alk phos 70 40 - 130 Units/L [facility] ([place]) ALT 11 7 - 55 Units/L [facility] ([place]) AST 20 10 - 50 Units/L [facility] ([place]) Blood 04/29/2024 2:17 AM SHOP SUPERVISOR 04/29/2024 3:48 AM SHOP SUPERVISOR us Maggi Vaughn MD LAB BLOOD ORDERABLES Fi nal Result [facility] ([place]) 1 [facility] Department [place] [address] * eGFR (04/28/2024 3:05 AM SHOP SUPERVISOR) eGFR 76 >=60 mL/min/1. 73 m2 Comment: Interpretive Data Reference Interval Normal ?>/= 90 mL/min/1.73m2 Mildly decreased* ? 60 - 89 mL/min/1.73m2 Mildly to moderately decreased ?45 - 59 mL/min/1.73m2 Moderately to severely decreased ??30 - 44 mL/min/1.73m2 Severely decreased ?15 - 29 mL/min/1.73m2 Kidney Failure ?< 15 ??mL/min/1.73m2 *Relative to young adult level Estimated glomerular filtration rate is determined by the 2020 CKD-EPI equation recommended by the National Kidney Foundation (A Unifying Approach to GFR Estimation: Recommendations of the NKF-ASK Task Force on Reassessing the Inclusion of Race in Diagnosing Kidney Disease, JASN 2020). The CKD-EPI equation should not be used for patients with unstable renal function and has not been validated in children and those over 70. Current interpretive data was last reviewed 2021. Blood 04/28/2024 3:05 AM SHOP SUPERVISOR 04/28/2024 4:33 AM SHOP SUPERVISOR us Maggi Vaughn MD LAB BLOOD ORDERABLES Fi nal Result [facility] ([place]) 1 [facility] Department [place] [address] * (ABNORMAL) Differential, auto (04/28/2024 3:05 AM SHOP SUPERVISOR) Neutrophil abs 6.9(H) 1.5 - 6.5 K/cumm Imm gran abs 0.0 0.0 - 0.1 K/cumm [facility] ([place]) Lymphocyte abs 0.8 0.8 - 3.3 K/cumm [facility] ([place]) Monocyte abs 0.4 0.2 - 0.8 K/cumm [facility] ([place]) Eosinophil abs 0.0 0.0 - 0.5 K/cumm [facility] ([place]) Basophil abs 0.0 0.0 - 0.1 K/cumm [facility] ([place]) Neutrophil pct 84.8 % [facility] ([place]) Comment: Interpretive Data Percent cell count reference ranges are not reported, since discordance with absolute values may lead to misinterpretation of CBC data. Current Interpretive Data was last revised on 2017. Imm gran pct 0.5 % [facility] ([place]) Comment: Interpretive Data Percent cell count reference ranges are not reported, since discordance with absolute values may lead to misinterpretation of CBC data. Current Interpretive Data was last revised on 2017. Lymphocyte pct 9.9 % [facility] ([place]) Comment: Interpretive Data Percent cell count reference ranges are not reported, since discordance with absolute values may lead to misinterpretation of CBC data. Current Interpretive Data was last revised on 2017. Monocyte pct 4.7 % [facility] ([place]) Comment: Interpretive Data Percent cell count reference ranges are not reported, since discordance with absolute values may lead to misinterpretation of CBC data. Current Interpretive Data was last revised on 2017. Eosinophil pct 0.0 % [facility] ([place]) Comment: Interpretive Data Percent cell count reference ranges are not reported, since discordance with absolute values may lead to misinterpretation of CBC data. Current Interpretive Data was last revised on 2017. Basophil pct 0.1 % [facility] ([place]) Comment: Interpretive Data Percent cell count reference ranges are not reported, since discordance with absolute values may lead to misinterpretation of CBC data. Current Interpretive Data was last revised on 2017. Blood 04/28/2024 3:05 AM SHOP SUPERVISOR 04/28/2024 4:31 AM SHOP SUPERVISOR us Maggi Vaughn MD LAB BLOOD ORDERABLES Fi nal Result [facility] ([place]) 1 [facility] Department [place] [address] * (ABNORMAL) CBC with auto differential (04/28/2024 3:05 AM SHOP SUPERVISOR) WBC 8.1 3.8 - 9.9 K/cumm Hgb 11.1(L) 13.0 - 17.5 g/dL [facility] ([place]) Hct 33.0(L) 38.9 - 50.3 % [facility] ([place]) Plt 164 150 - 400 K/cumm [facility] ([place]) MPV 11.2 9.1 - 12.3 fL [facility] ([place]) RBC 3.51(L) 4.30 - 5.80 M/cumm [facility] ([place]) MCV 94.0 81.3 - 96.4 fL [facility] ([place]) MCH 31.6 27.1 - 33.3 pg [facility] ([place]) MCHC 33.6 32.3 - 35.7 g/dL [facility] ([place]) RDW CV 15.6(H) 11.1 - 14.9 % [facility] ([place]) RDW SD 51.1(H) 35.7 - 48.1 fL [facility] ([place]) NRBC abs 0.00 0.00 - 0.01 K/cumm [facility] ([place]) Blood 04/28/2024 3:05 AM SHOP SUPERVISOR 04/28/2024 4:31 AM SHOP SUPERVISOR us Maggi Vaughn MD LAB BLOOD ORDERABLES Fi nal Result [facility] ([place]) 1 [facility] Department [place] [address] * (ABNORMAL) CBC without differential (04/28/2024 3:05 AM SHOP SUPERVISOR) WBC 8.1 3.8 - 9.9 K/cumm Hgb 11.1(L) 13.0 - 17.5 g/dL [facility] ([place]) Hct 33.0(L) 38.9 - 50.3 % [facility] ([place]) Plt 164 150 - 400 K/cumm [facility] ([place]) MPV 11.2 9.1 - 12.3 fL [facility] ([place]) RBC 3.51(L) 4.30 - 5.80 M/cumm [facility] ([place]) MCV 94.0 81.3 - 96.4 fL [facility] ([place]) MCH 31.6 27.1 - 33.3 pg [facility] ([place]) MCHC 33.6 32.3 - 35.7 g/dL [facility] ([place]) RDW CV 15.6(H) 11.1 - 14.9 % [facility] ([place]) RDW SD 51.1(H) 35.7 - 48.1 fL [facility] ([place]) NRBC abs 0.00 0.00 - 0.01 K/cumm [facility] ([place]) Blood 04/28/2024 3:05 AM SHOP SUPERVISOR 04/28/2024 4:31 AM SHOP SUPERVISOR Karissa Mchugh MD LAB BLOOD ORDERABLES Umm l Result Performing Organization Address [facility]/ZIP Co de Phone Number [facility]IE [facility] ([place]) 1 [facility] [place] [address] * Magnesium (04/28/2024 3:05 AM SHOP SUPERVISOR) Magnesium 2.5 1.4 - 2.5 mg/dL Blood 04/28/2024 3:05 AM SHOP SUPERVISOR 04/28/2024 4:33 AM SHOP SUPERVISOR Maggi Vaughn MD LAB BLOOD ORDERABLES Fi nal Result Performing Organization Address [facility] de Phone Number [facility] ([place]) 1 [facility] [place] [address] * Digoxin level (04/28/2024 3:05 AM SHOP SUPERVISOR) Digoxin 0.7 0.5 - 1.2 ng/mL Comment: Interpretive data The therapeutic range for digoxin varies by indication: Heart failure: 0.5 to 0.8 ng/mL Atrial fibrillation: less than 1.2 ng/mL Toxicity: >2.4. Normal or low digoxin does not rule out toxicity. Current interpretive data was last revised on 2023. Blood 04/28/2024 3:05 AM SHOP SUPERVISOR 04/28/2024 4:33 AM SHOP SUPERVISOR Karissa Mchugh MD LAB BLOOD ORDERABLES Umm l Result Performing Organization Address [facility] [[email or web address]] Co de Phone Number [facility]ONNIE [facility] ([place]) 1 [facility] [place] [address] * (ABNORMAL) Comprehensive metabolic panel (04/28/2024 3:05 AM SHOP SUPERVISOR) Sodium 136 135 - 145 mmol/L Potassium, pl 4.3 3.3 - 4.9 mmol/L [facility] ([place]) Chloride 96(L) 97 - 110 mmol/L [facility] ([place]) CO2 29 22 - 32 mmol/L [facility] ([place]) Anion gap 11 2 - 15 mmol/L [facility] ([place]) BUN 22 6 - 25 mg/dL [facility] ([place]) Creatinine 1.05 0.80 - 1.30 mg/dL [facility] ([place]) Glucose 132 70 - 199 mg/dL [facility] ([place]) Comment: Interpretive Data Fasting glucose >/= 126 mg/dl is diagnostic for diabetes. ?? Fasting is defined as no caloric intake for at least 8 hours. Fasting glucose between 100 mg/dl to 125 mg/dl is diagnostic of prediabetes. In a patient with classic symptoms of hyperglycemia or hyperglycemic crisis, a random glucose >/= 200 mg/dl is diagnostic for diabetes. In the absence of unequivocal hyperglycemia, results should be confirmed by repeat testing. The classification and Diagnosis of Diabetes Diabetes Care 2021; 46: S19-S40. Current interpretive data was last revised 2022. Calcium 9.2 8.5 - 10.3 mg/dL [facility] ([place]) Bilirubin, total 1.2 0.1 - 1.2 mg/dL [facility] ([place]) Protein, pl 6.2(L) 6.5 - 8.5 g/dL [facility] ([place]) Albumin 3.8 3.5 - 5.0 g/dL [facility] ([place]) Alk phos 70 40 - 130 Units/L [facility] ([place]) ALT 9 7 - 55 Units/L [facility] ([place]) AST 25 10 - 50 Units/L [facility] ([place]) Comment: Hemolysis present. ??Results may be affected. Slightly Hemolyzed Specimen Blood 04/28/2024 3:05 AM SHOP SUPERVISOR 04/28/2024 4:33 AM SHOP SUPERVISOR Maggi Vaughn MD LAB BLOOD ORDERABLES Fi nal Result [facility] ([place]) 1 [facility] Department [place] [address] * POCT glucose (04/27/2024 4:45 PM SHOP SUPERVISOR) Pathologist [facility] Glucose, POC 153 70 - 199 mg/dL Blood 04/27/2024 4:45 PM SHOP SUPERVISOR 04/27/2024 4:45 PM SHOP SUPERVISOR Karissa Mchugh MD LAB POCT ORDERABLES - DEV ICE Final Result Performing Organization Address City/[facility] [[email or web address]] Co de Phone Number [facility]ONNIE G[facility] ([place]) 1 [facility] [employer] [place] [address] * eGFR (04/27/2024 9:08 AM SHOP SUPERVISOR) [facility] eGFR 80 >=60 mL/min/1. 73 m2 Comment: Interpretive Data Reference Interval Normal ?>/= 90 mL/min/1.73m2 Mildly decreased* ? 60 - 89 mL/min/1.73m2 Mildly to moderately decreased ?45 - 59 mL/min/1.73m2 Moderately to severely decreased ??30 - 44 mL/min/1.73m2 Severely decreased ?15 - 29 mL/min/1.73m2 Kidney Failure ?< 15 ??mL/min/1.73m2 *Relative to young adult level Estimated glomerular filtration rate is determined by the 2020 CKD-EPI equation recommended by the National Kidney Foundation (A Unifying Approach to GFR Estimation: Recommendations of the NKF-ASK Task Force on Reassessing the Inclusion of Race in Diagnosing Kidney Disease, JASN 2020). The CKD-EPI equation should not be used for patients with unstable renal function and has not been validated in children and those over 70. Current interpretive data was last reviewed 2021. Blood 04/27/2024 9:08 AM SHOP SUPERVISOR 04/27/2024 9:11 AM SHOP SUPERVISOR Karissa Mchugh MD LAB BLOOD ORDERABLES Umm l Result Performing Organization Address City/[facility]/ZIP Co de Phone Number [facility] ([place]) 1 [facility] [employer] [place] [address] * (ABNORMAL) CBC without differential (04/27/2024 9:08 AM SHOP SUPERVISOR) WBC 6.5 3.8 - 9.9 K/cumm Hgb 12.4(L) 13.0 - 17.5 g/dL [facility] ([place]) Hct 36.8(L) 38.9 - 50.3 % [facility] ([place]) Plt 158 150 - 400 K/cumm [facility] ([place]) MPV 10.7 9.1 - 12.3 fL [facility] ([place]) RBC 3.99(L) 4.30 - 5.80 M/cumm [facility] ([place]) MCV 92.2 81.3 - 96.4 fL [facility] ([place]) MCH 31.1 27.1 - 33.3 pg [facility] ([place]) MCHC 33.7 32.3 - 35.7 g/dL [facility] ([place]) RDW CV 15.1(H) 11.1 - 14.9 % [facility] ([place]) RDW SD 49.1(H) 35.7 - 48.1 fL [facility] ([place]) NRBC abs 0.00 0.00 - 0.01 K/cumm [facility] ([place]) Blood 04/27/2024 9:08 AM SHOP SUPERVISOR 04/27/2024 9:11 AM SHOP SUPERVISOR us Karissa Mchugh MD LAB BLOOD ORDERABLES Umm l Result Performing Organization Address City/[facility]/ZIP Co de Phone Number [facility] ([place]) 1 [facility] [employer] [place] [address] * Magnesium (04/27/2024 9:08 AM SHOP SUPERVISOR) Magnesium 2.2 1.4 - 2.5 mg/dL Blood 04/27/2024 9:08 AM SHOP SUPERVISOR 04/27/2024 9:55 AM SHOP SUPERVISOR us Maggi Vaughn MD LAB BLOOD ORDERABLES Fi nal Result [facility] ([place]) 1 [facility] Department [place] [address] * (ABNORMAL) Basic metabolic panel (04/27/2024 9:08 AM SHOP SUPERVISOR) Sodium 134(L) 135 - 145 mmol/L Potassium, pl 4.5 3.3 - 4.9 mmol/L [facility] ([place]) Chloride 94(L) 97 - 110 mmol/L [facility] ([place]) CO2 26 22 - 32 mmol/L [facility] ([place]) Anion gap 14 2 - 15 mmol/L [facility] ([place]) BUN 22 6 - 25 mg/dL [facility] ([place]) Creatinine 1.01 0.80 - 1.30 mg/dL [facility] ([place]) Comment:Icteric sample, test results may be affected. Glucose 178 70 - 199 mg/dL [facility] ([place]) Comment: Interpretive Data Fasting glucose >/= 126 mg/dl is diagnostic for diabetes. ?? Fasting is defined as no caloric intake for at least 8 hours. Fasting glucose between 100 mg/dl to 125 mg/dl is diagnostic of prediabetes. In a patient with classic symptoms of hyperglycemia or hyperglycemic crisis, a random glucose >/= 200 mg/dl is diagnostic for diabetes. In the absence of unequivocal hyperglycemia, results should be confirmed by repeat testing. The classification and Diagnosis of Diabetes Diabetes Care 202; 46: S19-S40. Current interpretive data was last revised 2022. Calcium 9.2 8.5 - 10.3 mg/dL [facility] ([place]) Blood 04/27/2024 9:08 AM SHOP SUPERVISOR 04/27/2024 9:11 AM SHOP SUPERVISOR Karissa Mchugh MD LAB BLOOD ORDERABLES Umm l Result Performing Organization Address [facility] [[email or web address]] Co de Phone Number RONNIE [facility]RI[facility] ([place]) 1 [facility] [place] [address] * Troponin T high-sensitivity 2-hour (04/26/2024 11:40 PM SHOP SUPERVISOR) Trop T hs 13 <=22 ng/L Comment: Interpretive Data For further hscTnT resources including the diagnostic algorithm and an aid in interpretation, copy and paste this link: [email or web address].testcatalog.org/show/[email or web address] Current Interpretive Data last revised 2020. Trop T hs delta 1 ng/L [facility] ([place]) Trop T hs interp Insignificant [facility] ([place]) Blood 04/26/2024 11:4 0 PM SHOP SUPERVISOR 04/26/2024 11:43 PM SHOP SUPERVISOR Rosa Elena IBARRA LAB BLOOD ORDERABLES Umm l Result Performing Organization Address [facility] [[email or web address]] Co de Phone Number RONNIE GRIER ([place]) [address] [facility] [place] [address] * CT Chest PE (CTA) W Contrast (04/26/2024 9:55 PM SHOP SUPERVISOR) Anatomical Region Laterality Modality Body N/A Computed Tomogra phy 04/26/2024 9:56 PM SHOP SUPERVISOR Narrative 04/26/2024 10:12 PM SHOP SUPERVISOR EXAM DESCRIPTION: ?? CT CHEST PE (CTA) W CONTRAST REASON FOR STUDY: ?? Chest pain, PE suspected, high prob ?? Pt had hip replacement on Thursday, shortness of breath and low O2 saturations today at the rehab facility. Concern for PE ?? TECHNIQUE: CT angiogram of the chest performed with intravenous contrast using helical scanning technique with dynamic intravenous contrast injection. Reconstructed coronal and sagittal MPR images reviewed. All images stored on PACS. ?? 3D MIP images rendered on scanning unit and reviewed at time of interpretation. ??Automated exposure control was used as a dose optimization technique for this examination. CONTRAST TYPE/DOSE: ?? 100mL of IOVERSOL 350 MG IODINE/ML INTRAVENOUS SYRINGE ?? injected COMPARISON: ?? 04/18/2024, 09/16/2024 FINDINGS: VASCULATURE: ?? No CT evidence of pulmonary embolism. ??Normal size of the main pulmonary arteries no aortic aneurysm or aortic dissection. ?? Coronary artery atherosclerotic calcifications are present. LUNGS: ?? Moderate upper lobe predominant bilateral pulmonary emphysema with scattered bilateral pulmonary parenchymal scarring most pronounced in the left lung apex. ??No confluence pulmonary parenchymal consolidation or pulmonary edema. ??Left anterior pleural/juxtapleural nodular thickening/scarring ?? measuring up to 6 mm at slice position 46. ??There is a right lower lobe juxta diaphragmatic noncalcified solid pulmonary nodule measuring 5 mm at slice position 95. ??A few additional pulmonary micro nodules measuring smaller than 3 mm are also present. ??Mild bilateral bronchial wall thickening. PLEURA: ?? No pleural effusion. ??No pneumothorax. MEDIASTINUM/BUCK: ?? No identified masses or lymphadenopathy. ??No supraclavicular lymphadenopathy. ??The esophagus is within normal limits. HEART: ?? Heart size is normal with no pericardial effusion. AXILLA: ?? No adenopathy. CHEST WALL: ?? No masses. ??No subcutaneous air. HARDWARE/LINES/TUBES: ?? None. UPPER ABDOMEN: ?? No significant abnormality. MUSCULOSKELETAL: ?? No acute fractures or aggressive osseous lesions. ??Mild osteopenia. IMPRESSION: 1. ??No CT evidence of pulmonary embolism. 2. ??Noncalcified pulmonary nodules measuring up to 5 mm. ??According to updated Fleischner Society guidelines, if the patient is at high risk for development of lung cancer, follow-up chest CT in 12 months could be considered. Reference :Radiographics. 2018 Nov-Dec;38(5):5721-4173 3. ??Moderate upper lobe predominant bilateral pulmonary emphysema. THIS IS AN ELECTRONICALLY VERIFIED FINAL REPORT 04/26/2024 10:12 PM - Electronically signed by ??Eleuterio Bullard M.D. AT: AT D: ??04/26/2024 10:12 PM T: ??04/26/2024 10:12 PM Report ID: [id number] Reading Location: ??[id number] Procedure Note Eleuterio Bullard MD - 04/26/2024 EXAM DESCRIPTION: CT CHEST PE (CTA) W CONTRAST REASON FOR STUDY: Chest pain, PE suspected, high prob Pt had hip replacement on Thursday, shortness of breath and low R1jnbfbwecent today at the rehab facility. Concern for PE TECHNIQUE: CT angiogram of the chest performed with intravenous contrastusing helical scanning technique with dynamic intravenous contrast injection. Reconstructed coronal and sagittal MPR images reviewed. All images storedon PACS. 3D MIP images rendered on scanning unit and reviewed at time of interpretation. Automated exposure control was used as a doseoptimization technique for this examination. CONTRAST TYPE/DOSE: 100mL of IOVERSOL 350 MG IODINE/ML INTRAVENOUSSYRINGE injected COMPARISON: 04/18/2024, 09/16/2024 FINDINGS: VASCULATURE: No CT evidence of pulmonary embolism. Normal size of themain pulmonary arteries no aortic aneurysm or aortic dissection. Coronaryartery atherosclerotic calcifications are present. LUNGS: Moderate upper lobe predominant bilateral pulmonary emphysemawith scattered bilateral pulmonary parenchymal scarring most pronounced in theleft lung apex. No confluence pulmonary parenchymal consolidation or pulmonary edema. Left anterior pleural/juxtapleural nodular thickening/scarring measuring up to 6 mm at slice position 46. There is a right lower lobejuxta diaphragmatic noncalcified solid pulmonary nodule measuring 5 mm at slice position 95. A few additional pulmonary micro nodules measuring smallerthan 3 mm are also present. Mild bilateral bronchial wall thickening. PLEURA: No pleural effusion. No pneumothorax. MEDIASTINUM/BUCK: No identified masses or lymphadenopathy. No supraclavicular lymphadenopathy. The esophagus is within normal limits. HEART: Heart size is normal with no pericardial effusion. AXILLA: No adenopathy. CHEST WALL: No masses. No subcutaneous air. HARDWARE/LINES/TUBES: None. UPPER ABDOMEN: No significant abnormality. MUSCULOSKELETAL: No acute fractures or aggressive osseous lesions. Mild osteopenia. IMPRESSION: 1. No CT evidence of pulmonary embolism. 2. Noncalcified pulmonary nodules measuring up to 5 mm. According toupdated Fleischner Society guidelines, if the patient is at high risk fordevelopment of lung cancer, follow-up chest CT in 12 months could be considered. Reference :Radiographics. 2018 Nov-Dec;38(5):5784-8644 3. Moderate upper lobe predominant bilateral pulmonary emphysema. THIS IS AN ELECTRONICALLY VERIFIED FINAL REPORT 04/26/2024 10:12 PM - Electronically signed by Eleuterio Bullard M.D. AT: AT Report ID: [id number] Reading Location: [id number] Rosa Elena IBARRA IMG CT PROCEDURES Final R esult * XR Chest 1 Vw Portable (04/26/2024 9:32 PM SHOP SUPERVISOR) Anatomical Region Laterality Modality Body, Chest N/A Computed Radiogr aphy 04/26/2024 9:34 PM SHOP SUPERVISOR Narrative 04/26/2024 9:40 PM SHOP SUPERVISOR EXAM DESCRIPTION: XR CHEST 1 VIEW REASON FOR STUDY: sob ?? PT BIBEMS from [facility] w c/o SOB, HR in the 150's. Recent dx of A-fib, hx of COPD and CHF. Pt was satting 95% on 5L. EMS gave douneb on route. Pt had right hip surgery and was discharged to [facility] today. Pt denies any pain and is satting 97 on RA upon ED ?? arrival. ? TECHNIQUE: Frontal radiographic view(s) of the chest. COMPARISON: 04/24/2024. FINDINGS: LUNGS: ??Low lung volumes. ??No focal opacity, pleural effusion, or pneumothorax. ?? HEART/MEDIASTINUM: ??Cardiac silhouette normal in size. Mediastinal and hilar contours appear normal. LINES/TUBES: ??None. BONES: ??No acute osseous abnormality. IMPRESSION: Low lung volumes. ??No evidence of an acute cardiopulmonary abnormality. THIS IS AN ELECTRONICALLY VERIFIED FINAL REPORT 04/26/2024 9:40 PM - Electronically signed by ??Tom Miranda M.D. CH: D: ??04/26/2024 9:40 PM T: ??04/26/2024 9:40 PM Report ID: [id number] Reading Location: ??[id number] Procedure Note Tom Miranda Jr., MD - 04/26/2024 EXAM DESCRIPTION: XR CHEST 1 VIEW REASON FOR STUDY: sob PT BIBEMS from [facility] w c/o SOB, HR in the 150's. Recent dx of A-fib, hx ofCOPD and CHF. Pt was satting 95% on 5L. EMS gave douneb on route. Pt had righthip surgery and was discharged to [facility] today. Pt denies any pain and issatting 97 on RA upon ED arrival. TECHNIQUE: Frontal radiographic view(s) of the chest. COMPARISON: 04/24/2024. FINDINGS: LUNGS: Low lung volumes. No focal opacity, pleural effusion, or pneumothorax. HEART/MEDIASTINUM: Cardiac silhouette normal in size. Mediastinal andhilar contours appear normal. LINES/TUBES: None. BONES: No acute osseous abnormality. IMPRESSION: Low lung volumes. No evidence of an acute cardiopulmonary abnormality. THIS IS AN ELECTRONICALLY VERIFIED FINAL REPORT 04/26/2024 9:40 PM - Electronically signed by Tom Miranda M.D. CH: ANAHI Report ID: [id number] Reading Location: [id number] Rosa Elena IBARRA IMG XR PROCEDURES Final R esult * ECG 12 lead (04/26/2024 9:12 PM SHOP SUPERVISOR) 04/26/2024 9:12 PM SHOP SUPERVISOR Narrative [facility] - 04/27/2024 6:40 AM SHOP SUPERVISOR Vent Rate: 124 bpm RR Interval: 481 msec UT Interval: 0 msec QRS Duration: 139 msec QT Interval: 360 msec QTC Interval: 434 msec P-R-T Java: [id number] - 27 - 20 degrees IMPRESSION: ATRIAL FIBRILLATION WITH RAPID VENTRICULAR RESPONSE INDETERMINATE AXIS RIGHT BUNDLE BRANCH BLOCK ??[120+ ms QRS DURATION, UPRIGHT V1, 40+ ms S IN I/aVL/V4/V5/V6] ST DEPRESSION, CONSIDER SUBENDOCARDIAL INJURY ??[0.1+ mV ST DEPRESSION] ABNORMAL ECG NO CHANGE FROM PREVIOUS TRACING NOTED Electronically Signed By: Ruiz Arreaga MD Rosa Elena IBARRA ECG ORDERABLES Final Res ult [facility] * Troponin T high-sensitivity series (baseline, 2hr, 4hr, 6hr) (04/26/2024 9:06 PM SHOP SUPERVISOR) Pathologist [facility] Trop T hs 12 <=22 ng/L Comment: Interpretive Data For further hscTnT resources including the diagnostic algorithm and an aid in interpretation, copy and paste this link: https://nrl.testcatalog.org/show/hsTrop Current Interpretive Data last revised 2020. Blood 04/26/2024 9:06 PM SHOP SUPERVISOR 04/26/2024 9:09 PM SHOP SUPERVISOR Rosa Elena IBARRA LAB BLOOD ORDERABLES Umm l Result Performing Organization Address City/[facility]/ZIP Co de Phone Number [facility] ([place]) 1 [facility] [place] [address] * Influenza A/B, RSV, and COVID-19 PCR Nasopharyngeal (04/26/2024 9:06 PM SHOP SUPERVISOR) [facility] COVID-19 RNA Negative Negative Influenza A RNA Negative Negative [facility] ([place]) Influenza B RNA Negative Negative [facility] ([place]) RSV RNA Negative Negative [facility] ([place]) Comment: Interpretive data: Testing performed by [facility]. This test is performed using the [employer]pi[employer] Xpert Xpress CoV-2/Flu/RSV plus assay. This is a multiplex, real- time reverse transcriptase PCR assay intended for the qualitative detection of nucleic acid from SARS-CoV-2, influenza A, influenza B, and respiratory syncytial virus. This assay has been cleared by the [place] Food and Drug administration. The performance characteristics have been verified by the [facility]. ?? Results must be considered in the clinical context, and a negative result does not rule out infection. Interpretive Data last revised 2023 Nasopharyngeal 04/26/2024 9: 06 PM SHOP SUPERVISOR 04/26/2024 9:09 PM SHOP SUPERVISOR Narrative [facility] ([place]) - 04/26/2024 9:47 PM SHOP SUPERVISOR Is the Patient experiencing symptoms consistent with COVID?->Yes Rosa Elena IBARRA LAB MICROBIOLOGY - GENERA L ORDERABLES Final Result [facility] ([place]) 1 [facility] [place] [address] * Sepsis Lactate w/ Reflex (04/26/2024 9:06 PM SHOP SUPERVISOR) Pathologist [facility] Sepsis Lactate 2.0 0.7 - 2.0 mmol/L Blood 04/26/2024 9:06 PM SHOP SUPERVISOR 04/26/2024 9:09 PM SHOP SUPERVISOR Rosa Elena IBARRA LAB BLOOD ORDERABLES Umm l Result Performing Organization Address City/[facility]/ZIP Co de Phone Number [facility] ([place]) 1 [facility] [place] [address] * eGFR (04/26/2024 9:06 PM SHOP SUPERVISOR) eGFR 70 >=60 mL/min/1. 73 m2 Comment: Interpretive Data Reference Interval Normal ?>/= 90 mL/min/1.73m2 Mildly decreased* ? 60 - 89 mL/min/1.73m2 Mildly to moderately decreased ?45 - 59 mL/min/1.73m2 Moderately to severely decreased ??30 - 44 mL/min/1.73m2 Severely decreased ?15 - 29 mL/min/1.73m2 Kidney Failure ?< 15 ??mL/min/1.73m2 *Relative to young adult level Estimated glomerular filtration rate is determined by the 2020 CKD-EPI equation recommended by the National Kidney Foundation (A Unifying Approach to GFR Estimation: Recommendations of the NKF-ASK Task Force on Reassessing the Inclusion of Race in Diagnosing Kidney Disease, JASN 2020). The CKD-EPI equation should not be used for patients with unstable renal function and has not been validated in children and those over 70. Current interpretive data was last reviewed 2021. Blood 04/26/2024 9:06 PM SHOP SUPERVISOR 04/26/2024 9:09 PM SHOP SUPERVISOR us Rosa Elena IBARRA LAB BLOOD ORDERABLES Umm bernal Result [facility] ([place]) 1 [facility] Department [place] [address] * Differential, auto (04/26/2024 9:06 PM SHOP SUPERVISOR) Neutrophil abs 6.1 1.5 - 6.5 K/cumm Imm gran abs 0.0 0.0 - 0.1 K/cumm [facility] ([place]) Lymphocyte abs 1.8 0.8 - 3.3 K/cumm [facility] ([place]) Monocyte abs 0.7 0.2 - 0.8 K/cumm [facility] ([place]) Eosinophil abs 0.2 0.0 - 0.5 K/cumm [facility] ([place]) Basophil abs 0.0 0.0 - 0.1 K/cumm [facility] ([place]) Neutrophil pct 68.7 % [facility] ([place]) Comment: Interpretive Data Percent cell count reference ranges are not reported, since discordance with absolute values may lead to misinterpretation of CBC data. Current Interpretive Data was last revised on 2017. Imm gran pct 0.5 % [facility] ([place]) Comment: Interpretive Data Percent cell count reference ranges are not reported, since discordance with absolute values may lead to misinterpretation of CBC data. Current Interpretive Data was last revised on 2017. Lymphocyte pct 20.3 % [facility] ([place]) Comment: Interpretive Data Percent cell count reference ranges are not reported, since discordance with absolute values may lead to misinterpretation of CBC data. Current Interpretive Data was last revised on 2017. Monocyte pct 7.9 % [facility] ([place]) Comment: Interpretive Data Percent cell count reference ranges are not reported, since discordance with absolute values may lead to misinterpretation of CBC data. Current Interpretive Data was last revised on 2017. Eosinophil pct 2.1 % [facility] ([place]) Comment: Interpretive Data Percent cell count reference ranges are not reported, since discordance with absolute values may lead to misinterpretation of CBC data. Current Interpretive Data was last revised on 2017. Basophil pct 0.5 % [facility] ([place]) Comment: Interpretive Data Percent cell count reference ranges are not reported, since discordance with absolute values may lead to misinterpretation of CBC data. Current Interpretive Data was last revised on 2017. Blood 04/26/2024 9:06 PM SHOP SUPERVISOR 04/26/2024 9:09 PM SHOP SUPERVISOR us Rosa Elena IBARRA LAB BLOOD ORDERABLES Umm bernal Result [facility] ([place]) 1 [facility] Department [place] [address] * (ABNORMAL) Pro B-type natriuretic peptide (04/26/2024 9:06 PM SHOP SUPERVISOR) NT-proBNP 1,996(H) <=300 pg/mL Comment: Interpretive Comments: A. Dyspnea in Acute Care Setting All Ages: ?< 300 pg/ml, acute heart failure unlikely. < 50 yrs: ?300 - 450 pg/ml, further investigation warranted. ? > 450 pg/ml, acute heart failure likely. 50 - 74 yrs: ? 300 - 900 pg/ml, further investigation warranted. ? > 900 pg/ml, acute heart failure likely . > or = 75 yrs: ? 450 - 1800 pg/ml, further investigation warranted. ? > 1800 pg/ml, acute heart failure likely. B. Non-acute Setting < 75 yrs ? < 125 pg/ml, rules out heart failure. ? > or = 125 pg/ml, further investigation warranted. > or = 75 yrs ?< 450 pg/ml, rules out heart failure. ? > or = 450 pg/ml, further investigation warranted. - Knowledge of each individual patient's NT-proBNP range may be more useful than using similar cut-points for every patient. Please note that marked elevations in NT-proBNP levels may be observed in state other than Left Ventricular Congestive Failure, including: acute coronary syndromes, right heart strain/failure (including pulmonary embolism and cor pulmonale), critical illness, renal failure, as well as advanced age. - References: 1. Sheila VITALE et.al. Eur Heart J. 2006:27:330-337. 2. Tyra RW, Cintia AM. J. AM Rupa Cardiol: Cardiovasc Imag. 2009;2: 216- 225. Interpretive Data Last Revised Date: 2017. Blood 04/26/2024 9:06 PM SHOP SUPERVISOR 04/26/2024 9:20 PM SHOP SUPERVISOR us Rosa Elena IBARRA LAB BLOOD ORDERABLES Umm l Result [facility] ([place] 1 [facility] Department [place] [address] * (ABNORMAL) Thyroid Function [place] (04/26/2024 9:06 PM SHOP SUPERVISOR) TSH 10.28(H) 0.30 - 4.20 mcIUnit/mL Blood 04/26/2024 9:06 PM SHOP SUPERVISOR 04/26/2024 9:20 PM SHOP SUPERVISOR Rosa Elena IBARRA LAB BLOOD ORDERABLES Umm l Result [facility] ([place]) 1 [facility] Department [place] [address] * (ABNORMAL) CBC with auto differential (04/26/2024 9:06 PM SHOP SUPERVISOR) [facility] WBC 8.9 3.8 - 9.9 K/cumm Hgb 12.9(L) 13.0 - 17.5 g/dL [facility] ([place]) Hct 38.4(L) 38.9 - 50.3 % [facility] ([place]) Plt 159 150 - 400 K/cumm [facility] ([place]) MPV 10.7 9.1 - 12.3 fL [facility] ([place]) RBC 4.19(L) 4.30 - 5.80 M/cumm [facility] ([place]) MCV 91.6 81.3 - 96.4 fL [facility] ([place]) MCH 30.8 27.1 - 33.3 pg [facility] ([place]) MCHC 33.6 32.3 - 35.7 g/dL [facility] ([place]) RDW CV 14.6 11.1 - 14.9 % [facility] ([place]) RDW SD 48.3(H) 35.7 - 48.1 fL [facility] ([place]) NRBC abs 0.02(H) 0.00 - 0.01 K/cumm [facility] ([place]) Blood 04/26/2024 9:06 PM SHOP SUPERVISOR 04/26/2024 9:09 PM SHOP SUPERVISOR Rosa Elena IBARRA LAB BLOOD ORDERABLES Umm l Result [facility] ([place]) 1 [facility] Department [place] [address] * aPTT (04/26/2024 9:06 PM SHOP SUPERVISOR) [facility] aPTT 35 28 - 38 sec [facility] ([place]) Comment: Interpretive Data Heparin therapeutic range: 66.0 - 100.0 seconds. Range based on correlation with therapeutic heparin activity range of 0.3 - 0.7 Units/mL. Current interpretive data was last revised on 2022. Blood 04/26/2024 9:06 PM SHOP SUPERVISOR 04/26/2024 9:09 PM SHOP SUPERVISOR Rosa Elena IBARRA LAB BLOOD ORDERABLES Umm l Result [facility] ([place]) 1 [facility] [place] [address] * T4, free (04/26/2024 9:06 PM SHOP SUPERVISOR) Free T4 1.59 0.90 - 1.70 ng/dL Blood 04/26/2024 9:06 PM SHOP SUPERVISOR 04/26/2024 9:20 PM SHOP SUPERVISOR Narrative [facility] ([place]) - 04/26/2024 11:37 PM SHOP SUPERVISOR This test was reflexed from a TSH result. Rosa Elena IBARRA LAB BLOOD ORDERABLES Umm l Result Performing Organization Address [facility] [[email or web address]] Co de Phone Number [facility] ([place]) 1 [facility] [place] [address] * Magnesium (04/26/2024 9:06 PM SHOP SUPERVISOR) Magnesium 2.4 1.4 - 2.5 mg/dL Blood 04/26/2024 9:06 PM SHOP SUPERVISOR 04/26/2024 9:20 PM SHOP SUPERVISOR Rosa Elena IBARRA LAB BLOOD ORDERABLES Umm l Result [facility]IE [facility] ([place]) 1 [facility] [place] [address] * (ABNORMAL) Comprehensive metabolic panel (04/26/2024 9:06 PM SHOP SUPERVISOR) Sodium 134(L) 135 - 145 mmol/L Potassium, pl 3.8 3.3 - 4.9 mmol/L [facility] ([place]) Chloride 92(L) 97 - 110 mmol/L [facility] ([place]) CO2 31 22 - 32 mmol/L [facility] ([place]) Anion gap 12 2 - 15 mmol/L [facility] ([place]) BUN 21 6 - 25 mg/dL [facility] ([place]) Creatinine 1.12 0.80 - 1.30 mg/dL [facility] ([place]) Comment:Icteric sample, test results may be affected. Glucose 122 70 - 199 mg/dL [facility] ([place]) Comment: Interpretive Data Fasting glucose >/= 126 mg/dl is diagnostic for diabetes. ?? Fasting is defined as no caloric intake for at least 8 hours. Fasting glucose between 100 mg/dl to 125 mg/dl is diagnostic of prediabetes. In a patient with classic symptoms of hyperglycemia or hyperglycemic crisis, a random glucose >/= 200 mg/dl is diagnostic for diabetes. In the absence of unequivocal hyperglycemia, results should be confirmed by repeat testing. The classification and Diagnosis of Diabetes Diabetes Care 2021; 46: S19-S40. Current interpretive data was last revised 2022. Calcium 9.4 8.5 - 10.3 mg/dL [facility] ([place]) Bilirubin, total 1.4(H) 0.1 - 1.2 mg/dL [facility] ([place]) Protein, pl 7.0 6.5 - 8.5 g/dL [facility] ([place]) Albumin 4.0 3.5 - 5.0 g/dL [facility] ([place]) Alk phos 80 40 - 130 Units/L [facility] ([place]) ALT 10 7 - 55 Units/L [facility] ([place]) AST 24 10 - 50 Units/L [facility] ([place]) Blood 04/26/2024 9:06 PM SHOP SUPERVISOR 04/26/2024 9:09 PM SHOP SUPERVISOR Rosa Elena IBARRA LAB BLOOD ORDERABLES Umm l Result [facility] ([place]) 1 [facility] Department [place] [address] * eGFR (04/26/2024 3:48 AM SHOP SUPERVISOR) [facility] eGFR 70 >=60 mL/min/1. 73 m2 Comment: Interpretive Data Reference Interval Normal ?>/= 90 mL/min/1.73m2 Mildly decreased* ? 60 - 89 mL/min/1.73m2 Mildly to moderately decreased ?45 - 59 mL/min/1.73m2 Moderately to severely decreased ??30 - 44 mL/min/1.73m2 Severely decreased ?15 - 29 mL/min/1.73m2 Kidney Failure ?< 15 ??mL/min/1.73m2 *Relative to young adult level Estimated glomerular filtration rate is determined by the 2020 CKD-EPI equation recommended by the National Kidney Foundation (A Unifying Approach to GFR Estimation: Recommendations of the NKF-ASK Task Force on Reassessing the Inclusion of Race in Diagnosing Kidney Disease, JASN 2020). The CKD-EPI equation should not be used for patients with unstable renal function and has not been validated in children and those over 70. Current interpretive data was last reviewed 2021. Blood 04/26/2024 3:48 AM SHOP SUPERVISOR 04/26/2024 3:53 AM SHOP SUPERVISOR us Anjali Meza MD LAB BLOOD ORDERABLES F inal Result [facility] ([place]) 1 [facility] Department [place] [address] * Differential, auto (04/26/2024 3:48 AM SHOP SUPERVISOR) Pathologist [facility] Neutrophil abs 4.4 1.5 - 6.5 K/cumm Imm gran abs 0.0 0.0 - 0.1 K/cumm [facility] ([place]) Lymphocyte abs 2.1 0.8 - 3.3 K/cumm [facility] ([place]) Monocyte abs 0.7 0.2 - 0.8 K/cumm [facility] ([place]) Eosinophil abs 0.2 0.0 - 0.5 K/cumm [facility] ([place]) Basophil abs 0.1 0.0 - 0.1 K/cumm [facility] ([place]) Neutrophil pct 59.5 % [facility] ([place]) Comment: Interpretive Data Percent cell count reference ranges are not reported, since discordance with absolute values may lead to misinterpretation of CBC data. Current Interpretive Data was last revised on 2017. Imm gran pct 0.4 % [facility] ([place]) Comment: Interpretive Data Percent cell count reference ranges are not reported, since discordance with absolute values may lead to misinterpretation of CBC data. Current Interpretive Data was last revised on 2017. Lymphocyte pct 27.7 % [facility] ([place]) Comment: Interpretive Data Percent cell count reference ranges are not reported, since discordance with absolute values may lead to misinterpretation of CBC data. Current Interpretive Data was last revised on 2017. Monocyte pct 9.4 % [facility] ([place]) Comment: Interpretive Data Percent cell count reference ranges are not reported, since discordance with absolute values may lead to misinterpretation of CBC data. Current Interpretive Data was last revised on 2017. Eosinophil pct 2.3 % [facility] ([place]) Comment: Interpretive Data Percent cell count reference ranges are not reported, since discordance with absolute values may lead to misinterpretation of CBC data. Current Interpretive Data was last revised on 2017. Basophil pct 0.7 % [facility] ([place]) Comment: Interpretive Data Percent cell count reference ranges are not reported, since discordance with absolute values may lead to misinterpretation of CBC data. Current Interpretive Data was last revised on 2017. Blood 04/26/2024 3:48 AM SHOP SUPERVISOR 04/26/2024 3:56 AM SHOP SUPERVISOR us Anjali Meza MD LAB BLOOD ORDERABLES F inal Result [facility] ([place]) 1 [facility] [employer] [place] [address] * (ABNORMAL) CBC with auto differential (04/26/2024 3:48 AM SHOP SUPERVISOR) Pathologist [facility] WBC 7.5 3.8 - 9.9 K/cumm Hgb 12.3(L) 13.0 - 17.5 g/dL [facility] ([place]) Hct 36.5(L) 38.9 - 50.3 % [facility] ([place]) Plt 139(L) 150 - 400 K/cumm [facility] ([place]) MPV 10.7 9.1 - 12.3 fL [facility] ([place]) RBC 3.95(L) 4.30 - 5.80 M/cumm [facility] ([place]) MCV 92.4 81.3 - 96.4 fL [facility] ([place]) MCH 31.1 27.1 - 33.3 pg [facility] ([place]) MCHC 33.7 32.3 - 35.7 g/dL [facility] ([place]) RDW CV 14.6 11.1 - 14.9 % [facility] ([place]) RDW SD 48.9(H) 35.7 - 48.1 fL [facility] ([place]) NRBC abs 0.00 0.00 - 0.01 K/cumm [facility] ([place]) Blood 04/26/2024 3:48 AM SHOP SUPERVISOR 04/26/2024 3:56 AM SHOP SUPERVISOR us Anjali Meza MD LAB BLOOD ORDERABLES F inal Result [facility] ([place]) 1 [facility] [place] [address] * (ABNORMAL) Basic metabolic panel (04/26/2024 3:48 AM SHOP SUPERVISOR) Pathologist [facility] Sodium 135 135 - 145 mmol/L Potassium, pl 3.5 3.3 - 4.9 mmol/L [facility] ([place]) Chloride 93(L) 97 - 110 mmol/L [facility] ([place]) CO2 28 22 - 32 mmol/L [facility] ([place]) Anion gap 14 2 - 15 mmol/L [facility] ([place]) BUN 25 6 - 25 mg/dL [facility] ([place]) Creatinine 1.12 0.80 - 1.30 mg/dL [facility] ([place]) Glucose 112 70 - 199 mg/dL [facility] ([place]) Comment: Interpretive Data Fasting glucose >/= 126 mg/dl is diagnostic for diabetes. ?? Fasting is defined as no caloric intake for at least 8 hours. Fasting glucose between 100 mg/dl to 125 mg/dl is diagnostic of prediabetes. In a patient with classic symptoms of hyperglycemia or hyperglycemic crisis, a random glucose >/= 200 mg/dl is diagnostic for diabetes. In the absence of unequivocal hyperglycemia, results should be confirmed by repeat testing. The classification and Diagnosis of Diabetes Diabetes Care 202; 46: S19-S40. Current interpretive data was last revised 2022. Calcium 9.0 8.5 - 10.3 mg/dL [facility] ([place]) Blood 04/26/2024 3:48 AM SHOP SUPERVISOR 04/26/2024 3:53 AM SHOP SUPERVISOR us Anjali Meza MD LAB BLOOD ORDERABLES F inal Result [facility] ([place]) 1 [facility] Department [place] [address] * eGFR (04/25/2024 3:07 AM SHOP SUPERVISOR) eGFR 65 >=60 mL/min/1. 73 m2 Comment: Interpretive Data Reference Interval Normal ?>/= 90 mL/min/1.73m2 Mildly decreased* ? 60 - 89 mL/min/1.73m2 Mildly to moderately decreased ?45 - 59 mL/min/1.73m2 Moderately to severely decreased ??30 - 44 mL/min/1.73m2 Severely decreased ?15 - 29 mL/min/1.73m2 Kidney Failure ?< 15 ??mL/min/1.73m2 *Relative to young adult level Estimated glomerular filtration rate is determined by the 2020 CKD-EPI equation recommended by the National Kidney Foundation (A Unifying Approach to GFR Estimation: Recommendations of the NKF-ASK Task Force on Reassessing the Inclusion of Race in Diagnosing Kidney Disease, JASN 2020). The CKD-EPI equation should not be used for patients with unstable renal function and has not been validated in children and those over 70. Current interpretive data was last reviewed 2021. Blood 04/25/2024 3:07 AM SHOP SUPERVISOR 04/25/2024 4:31 AM SHOP SUPERVISOR us Anjali Meza MD LAB BLOOD ORDERABLES F inal Result [facility] ([place]) 1 [facility] Department [place] [address] * (ABNORMAL) Differential, auto (04/25/2024 3:07 AM SHOP SUPERVISOR) Neutrophil abs 5.3 1.5 - 6.5 K/cumm Imm gran abs 0.0 0.0 - 0.1 K/cumm [facility] ([place]) Lymphocyte abs 2.1 0.8 - 3.3 K/cumm [facility] ([place]) Monocyte abs 0.9(H) 0.2 - 0.8 K/cumm [facility] ([place]) Eosinophil abs 0.1 0.0 - 0.5 K/cumm [facility] ([place]) Basophil abs 0.0 0.0 - 0.1 K/cumm [facility] ([place]) Neutrophil pct 62.6 % [facility] ([place]) Comment: Interpretive Data Percent cell count reference ranges are not reported, since discordance with absolute values may lead to misinterpretation of CBC data. Current Interpretive Data was last revised on 2017. Imm gran pct 0.5 % [facility] ([place]) Comment: Interpretive Data Percent cell count reference ranges are not reported, since discordance with absolute values may lead to misinterpretation of CBC data. Current Interpretive Data was last revised on 2017. Lymphocyte pct 24.8 % [facility] ([place]) Comment: Interpretive Data Percent cell count reference ranges are not reported, since discordance with absolute values may lead to misinterpretation of CBC data. Current Interpretive Data was last revised on 2017. Monocyte pct 10.1 % [facility] ([place]) Comment: Interpretive Data Percent cell count reference ranges are not reported, since discordance with absolute values may lead to misinterpretation of CBC data. Current Interpretive Data was last revised on 2017. Eosinophil pct 1.5 % [facility] ([place]) Comment: Interpretive Data Percent cell count reference ranges are not reported, since discordance with absolute values may lead to misinterpretation of CBC data. Current Interpretive Data was last revised on 2017. Basophil pct 0.5 % [facility] ([place]) Comment: Interpretive Data Percent cell count reference ranges are not reported, since discordance with absolute values may lead to misinterpretation of CBC data. Current Interpretive Data was last revised on 2017. Blood 04/25/2024 3:07 AM SHOP SUPERVISOR 04/25/2024 3:26 AM SHOP SUPERVISOR us Anjali Meza MD LAB BLOOD ORDERABLES F inal Result [facility] ([place]) 1 [facility] Department [place] [address] * (ABNORMAL) CBC with auto differential (04/25/2024 3:07 AM SHOP SUPERVISOR) WBC 8.4 3.8 - 9.9 K/cumm Hgb 12.2(L) 13.0 - 17.5 g/dL [facility] ([place]) Hct 37.4(L) 38.9 - 50.3 % [facility] ([place]) Plt 108(L) 150 - 400 K/cumm [facility] ([place]) MPV 10.7 9.1 - 12.3 fL [facility] ([place]) RBC 3.95(L) 4.30 - 5.80 M/cumm [facility] ([place]) MCV 94.7 81.3 - 96.4 fL [facility] ([place]) MCH 30.9 27.1 - 33.3 pg [facility] ([place]) MCHC 32.6 32.3 - 35.7 g/dL [facility] ([place]) RDW CV 14.6 11.1 - 14.9 % [facility] ([place]) RDW SD 51.0(H) 35.7 - 48.1 fL [facility] ([place]) NRBC abs 0.00 0.00 - 0.01 K/cumm [facility] ([place]) Blood 04/25/2024 3:07 AM SHOP SUPERVISOR 04/25/2024 3:26 AM SHOP SUPERVISOR us Anjali Meza MD LAB BLOOD ORDERABLES F inal Result [facility] ([place]) 1 [facility] Department [place] [address] * (ABNORMAL) Basic metabolic panel (04/25/2024 3:07 AM SHOP SUPERVISOR) Sodium 135 135 - 145 mmol/L Potassium, pl 3.9 3.3 - 4.9 mmol/L [facility] ([place]) Chloride 96(L) 97 - 110 mmol/L [facility] ([place]) CO2 23 22 - 32 mmol/L [facility] ([place]) Anion gap 16(H) 2 - 15 mmol/L [facility] ([place]) BUN 28(H) 6 - 25 mg/dL [facility] ([place]) Creatinine 1.19 0.80 - 1.30 mg/dL [facility] ([place]) Glucose 106 70 - 199 mg/dL [facility] ([place]) Comment: Interpretive Data Fasting glucose >/= 126 mg/dl is diagnostic for diabetes. ?? Fasting is defined as no caloric intake for at least 8 hours. Fasting glucose between 100 mg/dl to 125 mg/dl is diagnostic of prediabetes. In a patient with classic symptoms of hyperglycemia or hyperglycemic crisis, a random glucose >/= 200 mg/dl is diagnostic for diabetes. In the absence of unequivocal hyperglycemia, results should be confirmed by repeat testing. The classification and Diagnosis of Diabetes Diabetes Care 2021; 46: S19-S40. Current interpretive data was last revised 2022. Calcium 8.7 8.5 - 10.3 mg/dL [facility] ([place]) Blood 04/25/2024 3:07 AM SHOP SUPERVISOR 04/25/2024 3:26 AM SHOP SUPERVISOR us Anjali Meza MD LAB BLOOD ORDERABLES F inal Result [facility] ([place]) 1 [facility] Department [place] [address] * XR CHEST 1 VIEW PORTABLE (04/24/2024 4:49 AM SHOP SUPERVISOR) Anatomical Region Laterality Modality Body, Chest N/A Computed Radiogr aphy 04/24/2024 5:46 AM SHOP SUPERVISOR Narrative 04/24/2024 5:46 AM SHOP SUPERVISOR EXAM DESCRIPTION: ?? XR CHEST 1 VIEW REASON FOR STUDY: ?? Shortness of breath ?? SOB Tonight. ?Ex-Smoker ??AFIB ??CHF ?? TECHNIQUE: Single radiographic view of the chest. COMPARISON: ?? Chest x-ray of April 21, 2024. FINDINGS: LUNGS/PLEURA: ?? No focal consolidation or pneumothorax. No pleural effusion. ?? There is no significant change as compared to previous study. ?? HEART/MEDIASTINUM: Cardiac silhouette is ??normal. ??Remaining mediastinal silhouettes are unremarkable. HARDWARE/LINES/TUBES: ?? EKG leads overlie the film. BONES: ?? No acute findings. IMPRESSION: ??No acute cardiopulmonary abnormality. THIS IS AN ELECTRONICALLY VERIFIED FINAL REPORT 04/24/2024 5:46 AM - Electronically signed by ??Addie Mackenzie M.D. SN: SN D: ??04/24/2024 5:46 AM T: ??04/24/2024 5:46 AM Report ID: [id number] Reading Location: ??[id number] Procedure Addie Lester MD - 04/24/2024 EXAM DESCRIPTION: XR CHEST 1 VIEW REASON FOR STUDY: Shortness of breath SOB Tonight. Ex-Smoker AFIB CHF TECHNIQUE: Single radiographic view of the chest. COMPARISON: Chest x-ray of April 21, 2024. FINDINGS: LUNGS/PLEURA: No focal consolidation or pneumothorax. No pleuraleffusion. There is no significant change as compared to previous study. HEART/MEDIASTINUM: Cardiac silhouette is normal. Remaining mediastinal silhouettes are unremarkable. HARDWARE/LINES/TUBES: EKG leads overlie the film. BONES: No acute findings. IMPRESSION: No acute cardiopulmonary abnormality. THIS IS AN ELECTRONICALLY VERIFIED FINAL REPORT 04/24/2024 5:46 AM - Electronically signed by Addie Mackenzie M.D. SN: SN Report ID: [id number] Reading Location: [id number] Jeremias Arredondo MD IMG XR PROCEDURES Final Result * eGFR (04/24/2024 4:36 AM SHOP SUPERVISOR) eGFR 69 >=60 mL/min/1. 73 m2 Comment: Interpretive Data Reference Interval Normal ?>/= 90 mL/min/1.73m2 Mildly decreased* ? 60 - 89 mL/min/1.73m2 Mildly to moderately decreased ?45 - 59 mL/min/1.73m2 Moderately to severely decreased ??30 - 44 mL/min/1.73m2 Severely decreased ?15 - 29 mL/min/1.73m2 Kidney Failure ?< 15 ??mL/min/1.73m2 *Relative to young adult level Estimated glomerular filtration rate is determined by the 2020 CKD-EPI equation recommended by the National Kidney Foundation (A Unifying Approach to GFR Estimation: Recommendations of the NKF-ASK Task Force on Reassessing the Inclusion of Race in Diagnosing Kidney Disease, JASN 2020). The CKD-EPI equation should not be used for patients with unstable renal function and has not been validated in children and those over 70. Current interpretive data was last reviewed 2021. Blood 04/24/2024 4:36 AM SHOP SUPERVISOR 04/24/2024 4:58 AM SHOP SUPERVISOR us Anjali Meza MD LAB BLOOD ORDERABLES F inal Result [facility] ([place]) 1 [facility] Department [place] [address] * Differential, auto (04/24/2024 4:36 AM SHOP SUPERVISOR) Neutrophil abs 6.3 1.5 - 6.5 K/cumm Imm gran abs 0.1 0.0 - 0.1 K/cumm [facility] ([place]) Lymphocyte abs 2.0 0.8 - 3.3 K/cumm [facility] ([place]) Monocyte abs 0.8 0.2 - 0.8 K/cumm [facility] ([place]) Eosinophil abs 0.1 0.0 - 0.5 K/cumm [facility] ([place]) Basophil abs 0.0 0.0 - 0.1 K/cumm [facility] ([place]) Neutrophil pct 68.4 % [facility] ([place]) Comment: Interpretive Data Percent cell count reference ranges are not reported, since discordance with absolute values may lead to misinterpretation of CBC data. Current Interpretive Data was last revised on 2017. Imm gran pct 0.5 % [facility] ([place]) Comment: Interpretive Data Percent cell count reference ranges are not reported, since discordance with absolute values may lead to misinterpretation of CBC data. Current Interpretive Data was last revised on 2017. Lymphocyte pct 21.7 % [facility] ([place]) Comment: Interpretive Data Percent cell count reference ranges are not reported, since discordance with absolute values may lead to misinterpretation of CBC data. Current Interpretive Data was last revised on 2017. Monocyte pct 8.1 % [facility] ([place]) Comment: Interpretive Data Percent cell count reference ranges are not reported, since discordance with absolute values may lead to misinterpretation of CBC data. Current Interpretive Data was last revised on 2017. Eosinophil pct 1.0 % [facility] ([place]) Comment: Interpretive Data Percent cell count reference ranges are not reported, since discordance with absolute values may lead to misinterpretation of CBC data. Current Interpretive Data was last revised on 2017. Basophil pct 0.3 % [facility] ([place]) Comment: Interpretive Data Percent cell count reference ranges are not reported, since discordance with absolute values may lead to misinterpretation of CBC data. Current Interpretive Data was last revised on 2017. Blood 04/24/2024 4:36 AM SHOP SUPERVISOR 04/24/2024 4:50 AM SHOP SUPERVISOR us Anjali Meza MD LAB BLOOD ORDERABLES F inal Result [facility] ([place]) 1 [facility] Department [place] [address] * (ABNORMAL) Pro B-type natriuretic peptide (04/24/2024 4:36 AM SHOP SUPERVISOR) NT-proBNP 1,533(H) <=300 pg/mL Comment: Interpretive Comments: A. Dyspnea in Acute Care Setting All Ages: ?< 300 pg/ml, acute heart failure unlikely. < 50 yrs: ?300 - 450 pg/ml, further investigation warranted. ? > 450 pg/ml, acute heart failure likely. 50 - 74 yrs: ? 300 - 900 pg/ml, further investigation warranted. ? > 900 pg/ml, acute heart failure likely . > or = 75 yrs: ? 450 - 1800 pg/ml, further investigation warranted. ? > 1800 pg/ml, acute heart failure likely. B. Non-acute Setting < 75 yrs ? < 125 pg/ml, rules out heart failure. ? > or = 125 pg/ml, further investigation warranted. > or = 75 yrs ?< 450 pg/ml, rules out heart failure. ? > or = 450 pg/ml, further investigation warranted. - Knowledge of each individual patient's NT-proBNP range may be more useful than using similar cut-points for every patient. Please note that marked elevations in NT-proBNP levels may be observed in state other than Left Ventricular Congestive Failure, including: acute coronary syndromes, right heart strain/failure (including pulmonary embolism and cor pulmonale), critical illness, renal failure, as well as advanced age. - References: 1. Sheila VITALE et.al. Eur Heart J. 2006:27:330-337. 2. Tyra RW, Cintia WANG. J. AM Rupa Cardiol: Cardiovasc Imag. 2009;2: 216- 225. Interpretive Data Last Revised Date: 2017. Blood 04/24/2024 4:36 AM SHOP SUPERVISOR 04/24/2024 10:26 AM SHOP SUPERVISOR us Vianney Mclain DO LAB BLOOD ORDERABLES F inal Result [facility] ([place]) 0 [facility] Department [place] [address] * (ABNORMAL) CBC with auto differential (04/24/2024 4:36 AM SHOP SUPERVISOR) WBC 9.2 3.8 - 9.9 K/cumm Hgb 11.8(L) 13.0 - 17.5 g/dL [facility] ([place]) Hct 35.2(L) 38.9 - 50.3 % [facility] ([place]) Plt 104(L) 150 - 400 K/cumm [facility] ([place]) MPV 10.7 9.1 - 12.3 fL [facility] ([place]) RBC 3.79(L) 4.30 - 5.80 M/cumm [facility] ([place]) MCV 92.9 81.3 - 96.4 fL [facility] ([place]) MCH 31.1 27.1 - 33.3 pg [facility] ([place]) MCHC 33.5 32.3 - 35.7 g/dL [facility] ([place]) RDW CV 14.9 11.1 - 14.9 % [facility] ([place]) RDW SD 50.7(H) 35.7 - 48.1 fL [facility] ([place]) NRBC abs 0.00 0.00 - 0.01 K/cumm [facility] ([place]) Blood 04/24/2024 4:36 AM SHOP SUPERVISOR 04/24/2024 4:50 AM SHOP SUPERVISOR us Anjali Meza MD LAB BLOOD ORDERABLES F inal Result [facility] ([place]) 1 [facility] Department [place] [address] * Blood gas, venous (04/24/2024 4:36 AM SHOP SUPERVISOR) pH, Venous 7.42 7.32 - 7.43 PCO2, Venous 45 40 - 50 mmHg [facility] ([place]) PO2, Venous 162 mmHg [facility] A ([place]) Comment: Interpretive Data No reference range established. Current interpretive data was last revised 2017. HCO3 Venous, Calculated 29 20 - 30 mmol/L [facility] ([place]) BE, venous 4 mmol/L [facility] ([place]) Comment: Interpretive Data No Reference Range Established Current Interpretive Data was last revised on 2017. Blood 04/24/2024 4:36 AM SHOP SUPERVISOR 04/24/2024 4:56 AM SHOP SUPERVISOR us Jeremias Arredondo MD LAB BLOOD ORDERABLES Final Resu lt [facility] ([place]) 1 [facility] Department [place] [address] * (ABNORMAL) Basic metabolic panel (04/24/2024 4:36 AM SHOP SUPERVISOR) Sodium 134(L) 135 - 145 mmol/L Potassium, pl 4.1 3.3 - 4.9 mmol/L [facility] ([place]) Chloride 97 97 - 110 mmol/L [facility] ([place] CO2 26 22 - 32 mmol/L [facility] ([place]) Anion gap 11 2 - 15 mmol/L [facility] ([place]) BUN 25 6 - 25 mg/dL [facility] ([place]) Creatinine 1.14 0.80 - 1.30 mg/dL [facility] ([place]) Glucose 124 70 - 199 mg/dL [facility] ([place]) Comment: Interpretive Data Fasting glucose >/= 126 mg/dl is diagnostic for diabetes. ?? Fasting is defined as no caloric intake for at least 8 hours. Fasting glucose between 100 mg/dl to 125 mg/dl is diagnostic of prediabetes. In a patient with classic symptoms of hyperglycemia or hyperglycemic crisis, a random glucose >/= 200 mg/dl is diagnostic for diabetes. In the absence of unequivocal hyperglycemia, results should be confirmed by repeat testing. The classification and Diagnosis of Diabetes Diabetes Care 202; 46: S19-S40. Current interpretive data was last revised 2022. Calcium 8.7 8.5 - 10.3 mg/dL [facility] ([place]) Blood 04/24/2024 4:36 AM SHOP SUPERVISOR 04/24/2024 4:50 AM SHOP SUPERVISOR us Anjali Meza MD LAB BLOOD ORDERABLES F inal Result [facility]IE [facility] ([place]) 1 [facility] Department [place] [address] * eGFR (04/23/2024 3:30 AM SHOP SUPERVISOR) eGFR 69 >=60 mL/min/1. 73 m2 Comment: Interpretive Data Reference Interval Normal ?>/= 90 mL/min/1.73m2 Mildly decreased* ? 60 - 89 mL/min/1.73m2 Mildly to moderately decreased ?45 - 59 mL/min/1.73m2 Moderately to severely decreased ??30 - 44 mL/min/1.73m2 Severely decreased ?15 - 29 mL/min/1.73m2 Kidney Failure ?< 15 ??mL/min/1.73m2 *Relative to young adult level Estimated glomerular filtration rate is determined by the 2020 CKD-EPI equation recommended by the National Kidney Foundation (A Unifying Approach to GFR Estimation: Recommendations of the NKF-ASK Task Force on Reassessing the Inclusion of Race in Diagnosing Kidney Disease, JASN 2020). The CKD-EPI equation should not be used for patients with unstable renal function and has not been validated in children and those over 70. Current interpretive data was last reviewed 2021. Blood 04/23/2024 3:30 AM SHOP SUPERVISOR 04/23/2024 3:46 AM SHOP SUPERVISOR us Anjali Meza MD LAB BLOOD ORDERABLES F inal Result [facility] ([place]) 1 [facility] Department [place] [address] * (ABNORMAL) Differential, auto (04/23/2024 3:30 AM SHOP SUPERVISOR) Neutrophil abs 8.6(H) 1.5 - 6.5 K/cumm Imm gran abs 0.1 0.0 - 0.1 K/cumm [facility] ([place]) Lymphocyte abs 1.5 0.8 - 3.3 K/cumm [facility] ([place]) Monocyte abs 0.9(H) 0.2 - 0.8 K/cumm [facility] ([place]) Eosinophil abs 0.1 0.0 - 0.5 K/cumm [facility] ([place]) Basophil abs 0.0 0.0 - 0.1 K/cumm [facility] ([place]) Neutrophil pct 77.6 % [facility] ([place]) Comment: Interpretive Data Percent cell count reference ranges are not reported, since discordance with absolute values may lead to misinterpretation of CBC data. Current Interpretive Data was last revised on 2017. Imm gran pct 0.5 % [facility] ([place]) Comment: Interpretive Data Percent cell count reference ranges are not reported, since discordance with absolute values may lead to misinterpretation of CBC data. Current Interpretive Data was last revised on 2017. Lymphocyte pct 13.1 % [facility] ([place]) Comment: Interpretive Data Percent cell count reference ranges are not reported, since discordance with absolute values may lead to misinterpretation of CBC data. Current Interpretive Data was last revised on 2017. Monocyte pct 8.1 % [facility] ([place]) Comment: Interpretive Data Percent cell count reference ranges are not reported, since discordance with absolute values may lead to misinterpretation of CBC data. Current Interpretive Data was last revised on 2017. Eosinophil pct 0.5 % [facility] ([place]) Comment: Interpretive Data Percent cell count reference ranges are not reported, since discordance with absolute values may lead to misinterpretation of CBC data. Current Interpretive Data was last revised on 2017. Basophil pct 0.2 % [facility] ([place]) Comment: Interpretive Data Percent cell count reference ranges are not reported, since discordance with absolute values may lead to misinterpretation of CBC data. Current Interpretive Data was last revised on 2017. Blood 04/23/2024 3:30 AM SHOP SUPERVISOR 04/23/2024 3:47 AM SHOP SUPERVISOR us Anjali Meza MD LAB BLOOD ORDERABLES F inal Result [facility] ([place]) 1 [facility] Department [place] [address] * (ABNORMAL) CBC with auto differential (04/23/2024 3:30 AM SHOP SUPERVISOR) WBC 11.1(H) 3.8 - 9.9 K/cumm Hgb 12.5(L) 13.0 - 17.5 g/dL [facility] ([place]) Hct 38.7(L) 38.9 - 50.3 % [facility] ([place]) Plt 106(L) 150 - 400 K/cumm [facility] ([place]) MPV 10.3 9.1 - 12.3 fL [facility] ([place]) RBC 4.08(L) 4.30 - 5.80 M/cumm [facility] ([place]) MCV 94.9 81.3 - 96.4 fL [facility] ([place]) MCH 30.6 27.1 - 33.3 pg [facility] ([place]) MCHC 32.3 32.3 - 35.7 g/dL [facility] ([place]) RDW CV 14.8 11.1 - 14.9 % [facility] ([place]) RDW SD 51.6(H) 35.7 - 48.1 fL [facility] ([place]) NRBC abs 0.00 0.00 - 0.01 K/cumm [facility] ([place]) Blood 04/23/2024 3:30 AM SHOP SUPERVISOR 04/23/2024 3:47 AM SHOP SUPERVISOR us Anjali Meza MD LAB BLOOD ORDERABLES F inal Result [facility] ([place]) 1 [facility] [place] [address] * (ABNORMAL) CBC without differential (04/23/2024 3:30 AM SHOP SUPERVISOR) WBC 11.1(H) 3.8 - 9.9 K/cumm Hgb 12.5(L) 13.0 - 17.5 g/dL [facility] ([place]) Hct 38.7(L) 38.9 - 50.3 % [facility] ([place]) Plt 106(L) 150 - 400 K/cumm [facility] ([place]) MPV 10.3 9.1 - 12.3 fL [facility] ([place]) RBC 4.08(L) 4.30 - 5.80 M/cumm [facility] ([place]) MCV 94.9 81.3 - 96.4 fL [facility] ([place]) MCH 30.6 27.1 - 33.3 pg [facility] ([place]) MCHC 32.3 32.3 - 35.7 g/dL [facility] ([place]) RDW CV 14.8 11.1 - 14.9 % [facility] ([place]) RDW SD 51.6(H) 35.7 - 48.1 fL [facility] ([place]) NRBC abs 0.00 0.00 - 0.01 K/cumm [facility] ([place]) Blood 04/23/2024 3:30 AM SHOP SUPERVISOR 04/23/2024 3:47 AM SHOP SUPERVISOR us Kamilah IBARRA LAB BLOOD ORDERABLES Final Result [facility] ([place]) 1 [facility] Department [place] [address] * (ABNORMAL) Basic metabolic panel (04/23/2024 3:30 AM SHOP SUPERVISOR) Sodium 131(L) 135 - 145 mmol/L Potassium, pl 4.5 3.3 - 4.9 mmol/L [facility] ([place]) Chloride 96(L) 97 - 110 mmol/L [facility] ([place]) CO2 22 22 - 32 mmol/L [facility] ([place]) Anion gap 13 2 - 15 mmol/L [facility] ([place]) BUN 25 6 - 25 mg/dL [facility] ([place]) Creatinine 1.14 0.80 - 1.30 mg/dL [facility] ([place]) Glucose 134 70 - 199 mg/dL [facility] ([place]) Comment: Interpretive Data Fasting glucose >/= 126 mg/dl is diagnostic for diabetes. ?? Fasting is defined as no caloric intake for at least 8 hours. Fasting glucose between 100 mg/dl to 125 mg/dl is diagnostic of prediabetes. In a patient with classic symptoms of hyperglycemia or hyperglycemic crisis, a random glucose >/= 200 mg/dl is diagnostic for diabetes. In the absence of unequivocal hyperglycemia, results should be confirmed by repeat testing. The classification and Diagnosis of Diabetes Diabetes Care 202; 46: S19-S40. Current interpretive data was last revised 2022. Calcium 8.6 8.5 - 10.3 mg/dL [facility] ([place]) Blood 04/23/2024 3:30 AM SHOP SUPERVISOR 04/23/2024 3:46 AM SHOP SUPERVISOR us Anjali Meza MD LAB BLOOD ORDERABLES F inal Result [facility] ([place]) 1 [facility] Department [place] [address] * XR Pelvis Ortho View (04/22/2024 11:20 AM SHOP SUPERVISOR) Anatomical Region Laterality Modality Body, Pelvis N/A Computed Radiogr aphy 04/22/2024 12:1 9 PM SHOP SUPERVISOR Narrative 04/22/2024 12:19 PM SHOP SUPERVISOR EXAM DESCRIPTION: XR PELVIS ORTHO VIEW REASON FOR STUDY: in pacu s/p right hip nailing ?? Post op right hip nailing ? FINDINGS: Single-view submitted with comparison 04/21/2024. There has been interval reduction and nailing of an intertrochanteric proximal right femur fracture. ??Soft tissue gas is present. ??Arterial atherosclerosis is present. IMPRESSION: Interval reduction and nailing of an intertrochanteric proximal right femur fracture. THIS IS AN ELECTRONICALLY VERIFIED FINAL REPORT 04/22/2024 12:19 PM - Electronically signed by ??Prabhakar Perdomo M.D. MF: JUAN C D: ??04/22/2024 12:19 PM T: ??04/22/2024 12:19 PM Report ID: [id number] Reading Location: ??[id number] Procedure Note Prabhakar Perdomo MD - 04/22/2024 EXAM DESCRIPTION: XR PELVIS ORTHO VIEW REASON FOR STUDY: in pacu s/p right hip nailing Post op right hip nailing FINDINGS: Single-view submitted with comparison 04/21/2024. There has been interval reduction and nailing of an intertrochantericproximal right femur fracture. Soft tissue gas is present. Arterialatherosclerosis is present. IMPRESSION: Interval reduction and nailing of an intertrochanteric proximal rightfemur fracture. THIS IS AN ELECTRONICALLY VERIFIED FINAL REPORT 04/22/2024 12:19 PM - Electronically signed by Prabhakar Perdomo M.D. MF: JUAN C Report ID: [id number] Reading Location: [id number] Kamilah IBARRA IMG XR PROCEDURES Fin al Result * FL Fluoroscopy < 1 Hour (04/22/2024 10:14 AM SHOP SUPERVISOR) Narrative [facility] - 04/22/2024 10:15 AM SHOP SUPERVISOR The images from this study are not interpreted by Radiology. ??Please refer to the physician's procedure / OR operative note. us Pawan Brown MD IMG FLUOROSCOPY PROCEDUR ES Final Result Performing Organization Address City/State/[facility] [[email or web address]] Co de Phone Number [facility] * XR Hip Right 2 or 3 Views (04/22/2024 10:14 AM SHOP SUPERVISOR) Anatomical Region Laterality Modality Lower Extremities, Hip, Pelvis Right R adio Fluoroscopy 04/22/2024 11:1 4 AM SHOP SUPERVISOR Narrative 04/22/2024 11:15 AM SHOP SUPERVISOR EXAM DESCRIPTION: XR HIP RIGHT 2 OR 3 VIEWS REASON FOR STUDY: pain ?? Right hip nailing ??Fluoro time: 25.2 sec ??Mgy: 5 ? FINDINGS: Multiple fluoroscopic images consisting of ??2 ??view(s) submitted with comparison ??04/19/2024 . ?? Dose area product equals ??0.85871 ??mGym*2. Fluoroscopic images demonstrate an in progress ??reduction and nailing of an intertrochanteric proximal right femur fracture . ??Soft tissue gas is present. IMPRESSION: In progress reduction and nailing of an intertrochanteric proximal right femur fracture. THIS IS AN ELECTRONICALLY VERIFIED FINAL REPORT 04/22/2024 11:15 AM - Electronically signed by ??Prabhakar Perdomo M.D. MF: JUAN C D: ??04/22/2024 11:15 AM T: ??04/22/2024 11:15 AM Report ID: [id number] Reading Location: ??[id number] Procedure Note Prabhakar Perdomo MD - 04/22/2024 EXAM DESCRIPTION: XR HIP RIGHT 2 OR 3 VIEWS REASON FOR STUDY: pain Right hip nailing Fluoro time: 25.2 sec Mgy: 5 FINDINGS: Multiple fluoroscopic images consisting of 2 view(s) submitted with comparison 04/19/2024 . Dose area product equals 0.80453 mGym*2. Fluoroscopic images demonstrate an in progress reduction and nailing ofan intertrochanteric proximal right femur fracture . Soft tissue gas ispresent. IMPRESSION: In progress reduction and nailing of an intertrochanteric proximal right femur fracture. THIS IS AN ELECTRONICALLY VERIFIED FINAL REPORT 04/22/2024 11:15 AM - Electronically signed by Prabhakar Perdomo M.D. MF: JUAN C Report ID: [id number] Reading Location: [id number] Pawan Brown MD IMG XR PROCEDURES Final Result * UT AN ELECTIVE ENDOTRACHEAL AIRWAY (04/22/2024 9:55 AM SHOP SUPERVISOR) Narrative Amara Egan CRNA - 04/22/2024 9:55 AM SHOP SUPERVISOR Amara Egan CRNA ? 04/22/2024 ??9:57 AM Airway Patient location: OR Urgency: elective Indications for airway management: anesthesia Difficult airway: no Staff: Placed by: MARBLEIZER: [place], Amara A., MARBLEIZER Emergent airway documentation: Risks and benefits discussed: yes Consent obtained: yes Consent given by: patient Airway prep: Preoxygenated: yes Patient position: sniffing Mask difficulty assessment: 0 - not attempted Spontaneous ventilation during airway: absent Sedation level during airway: GA Final airway details: Final airway type: endotracheal airway Tube type: ETT ETT size: 7.5 mm Cuffed: yes Technique used for successful ETT placement: video laryngoscopy Devices/Methods used in placement: cricoid pressure and stylet Insertion site: oral Video blade type: Chun Blade size: 4 Cormack-Lehane (video): grade IIa - partial view of glottis Cuff inflated with: air ETT to lips: 22 cm Placement verified by: auscultation and CO2 detection Airway secured with: silk tape Number of attempts: 1 Additional comments: rsi us Isabelle Jacobson MD ANESTHESIA ORDERABLES Fi nal Result * eGFR (04/22/2024 5:13 AM SHOP SUPERVISOR) eGFR 63 >=60 mL/min/1. 73 m2 Comment: Interpretive Data Reference Interval Normal ?>/= 90 mL/min/1.73m2 Mildly decreased* ? 60 - 89 mL/min/1.73m2 Mildly to moderately decreased ?45 - 59 mL/min/1.73m2 Moderately to severely decreased ??30 - 44 mL/min/1.73m2 Severely decreased ?15 - 29 mL/min/1.73m2 Kidney Failure ?< 15 ??mL/min/1.73m2 *Relative to young adult level Estimated glomerular filtration rate is determined by the 2020 CKD-EPI equation recommended by the National Kidney Foundation (A Unifying Approach to GFR Estimation: Recommendations of the NKF-ASK Task Force on Reassessing the Inclusion of Race in Diagnosing Kidney Disease, JASN 2020). The CKD-EPI equation should not be used for patients with unstable renal function and has not been validated in children and those over 70. Current interpretive data was last reviewed 2021. Blood 04/22/2024 5:13 AM SHOP SUPERVISOR 04/22/2024 6:14 AM SHOP SUPERVISOR us Anjali Meza MD LAB BLOOD ORDERABLES F inal Result [facility] ([place]) 1 [facility] Department [place] [address] * (ABNORMAL) Differential, auto (04/22/2024 5:13 AM SHOP SUPERVISOR) Neutrophil abs 8.3(H) 1.5 - 6.5 K/cumm Imm gran abs 0.1 0.0 - 0.1 K/cumm [facility] ([place]) Lymphocyte abs 1.8 0.8 - 3.3 K/cumm [facility] ([place]) Monocyte abs 0.7 0.2 - 0.8 K/cumm [facility] ([place]) Eosinophil abs 0.0 0.0 - 0.5 K/cumm [facility] ([place]) Basophil abs 0.0 0.0 - 0.1 K/cumm [facility] ([place]) Neutrophil pct 75.9 % [facility] ([place]) Comment: Interpretive Data Percent cell count reference ranges are not reported, since discordance with absolute values may lead to misinterpretation of CBC data. Current Interpretive Data was last revised on 2017. Imm gran pct 0.6 % [facility] ([place]) Comment: Interpretive Data Percent cell count reference ranges are not reported, since discordance with absolute values may lead to misinterpretation of CBC data. Current Interpretive Data was last revised on 2017. Lymphocyte pct 16.3 % [facility] ([place]) Comment: Interpretive Data Percent cell count reference ranges are not reported, since discordance with absolute values may lead to misinterpretation of CBC data. Current Interpretive Data was last revised on 2017. Monocyte pct 6.6 % [facility] ([place]) Comment: Interpretive Data Percent cell count reference ranges are not reported, since discordance with absolute values may lead to misinterpretation of CBC data. Current Interpretive Data was last revised on 2017. Eosinophil pct 0.2 % [facility] ([place]) Comment: Interpretive Data Percent cell count reference ranges are not reported, since discordance with absolute values may lead to misinterpretation of CBC data. Current Interpretive Data was last revised on 2017. Basophil pct 0.4 % [facility] ([place]) Comment: Interpretive Data Percent cell count reference ranges are not reported, since discordance with absolute values may lead to misinterpretation of CBC data. Current Interpretive Data was last revised on 2017. Blood 04/22/2024 5:13 AM SHOP SUPERVISOR 04/22/2024 6:14 AM SHOP SUPERVISOR us Anjali Meza MD LAB BLOOD ORDERABLES F inal Result [facility] ([place]) 1 [facility] Department [place] [address] * (ABNORMAL) CBC with auto differential (04/22/2024 5:13 AM SHOP SUPERVISOR) WBC 10.9(H) 3.8 - 9.9 K/cumm Hgb 14.5 13.0 - 17.5 g/dL [facility] ([place]) Hct 43.7 38.9 - 50.3 % [facility] ([place]) Plt 128(L) 150 - 400 K/cumm [facility] ([place]) MPV 10.2 9.1 - 12.3 fL [facility] ([place]) RBC 4.67 4.30 - 5.80 M/cumm [facility] ([place]) MCV 93.6 81.3 - 96.4 fL [facility] ([place]) MCH 31.0 27.1 - 33.3 pg [facility] ([place]) MCHC 33.2 32.3 - 35.7 g/dL [facility] ([place]) RDW CV 15.1(H) 11.1 - 14.9 % [facility] ([place]) RDW SD 52.3(H) 35.7 - 48.1 fL [facility] ([place]) NRBC abs 0.00 0.00 - 0.01 K/cumm [facility] ([place]) Blood 04/22/2024 5:13 AM SHOP SUPERVISOR 04/22/2024 6:14 AM SHOP SUPERVISOR us Anjali Meza MD LAB BLOOD ORDERABLES F inal Result [facility] ([place]) 1 [facility] Department [place] [address] * Basic metabolic panel (04/22/2024 5:13 AM SHOP SUPERVISOR) Sodium 136 135 - 145 mmol/L Potassium, pl 4.7 3.3 - 4.9 mmol/L [facility] ([place]) Chloride 97 97 - 110 mmol/L [facility] ([place]) CO2 26 22 - 32 mmol/L [facility] ([place]) Anion gap 13 2 - 15 mmol/L [facility] ([place]) BUN 19 6 - 25 mg/dL [facility] ([place]) Creatinine 1.22 0.80 - 1.30 mg/dL [facility] ([place]) Comment:Icteric sample, test results may be affected. Glucose 148 70 - 199 mg/dL [facility] ([place] Comment: Interpretive Data Fasting glucose >/= 126 mg/dl is diagnostic for diabetes. ?? Fasting is defined as no caloric intake for at least 8 hours. Fasting glucose between 100 mg/dl to 125 mg/dl is diagnostic of prediabetes. In a patient with classic symptoms of hyperglycemia or hyperglycemic crisis, a random glucose >/= 200 mg/dl is diagnostic for diabetes. In the absence of unequivocal hyperglycemia, results should be confirmed by repeat testing. The classification and Diagnosis of Diabetes Diabetes Care 2021; 46: S19-S40. Current interpretive data was last revised 2022. Calcium 9.2 8.5 - 10.3 mg/dL [facility] ([place]) Blood 04/22/2024 5:13 AM SHOP SUPERVISOR 04/22/2024 6:14 AM SHOP SUPERVISOR us Anjali Meza MD LAB BLOOD ORDERABLES F inal Result Performing Organization Address [facility] [[email or web address]] Co de Phone Number RONN[facility] GRIER ([place]) 1 [facility] [place] [address] * Troponin T high-sensitivity 4-hour (04/21/2024 4:19 PM SHOP SUPERVISOR) Trop T hs 8 <=22 ng/L Comment: Interpretive Data For further hscTnT resources including the diagnostic algorithm and an aid in interpretation, copy and paste this link: https://nrl.testcatalog.org/show/hsTrop Current Interpretive Data last revised 2020. Trop T hs delta 0 ng/L [facility] ([place]) Trop T hs interp Insignificant [facility] ([place]) Blood 04/21/2024 4:19 PM SHOP SUPERVISOR 04/21/2024 4:22 PM SHOP SUPERVISOR Adrienne Gaviria MD LAB BLOOD ORDERABLES Umm l Result Performing Organization Address [facility] [[email or web address]] Co de Phone Number RONN[facility] G[facility] ([place]) 1 [facility] [place] [address] * TRANSTHORACIC ECHO (TTE) COMPLETE W DOPPLER/CF W CONTRAST (04/21/2024 2:45 PM SHOP SUPERVISOR) LV EF 60 % CONS SCIMAGE Anatomical Region Laterality Modality Ultrasound 04/21/2024 2:24 PM SHOP SUPERVISOR Narrative 04/21/2024 4:44 PM SHOP SUPERVISOR [address] [place] [address] Echocardiogram Report Patient Name: ELEN CABRAL L : 1950 Study Date: 04/21/2024 2:24:19 PM Gender: M Tech: AA Location: ED02 Ref Provider: VIANNEY MCLAIN ?Height(Cm): BSA: ??Weight(Kg): Quality: Good Order Provider: VIANNEY MCLAIN ?? PROCEDURES: Echocardiographic Report: Transthoracic echocardiogram with complete 2D, M-Mode, color Doppler examination and contrast. ?? INDICATIONS: cardiac clearance for broken hip surgery. ?? MEASUREMENTS: 2D/MM ?Value ?Range ?Doppler ?Value ? Range Estimated EF ? 60 % ?MARCO Vmax ? 2.38 cm2 LA Dimension MM ?4.07 cm ?[ 3.00 - 4.00 ] ?AV Mean PG ? 3 mmHg AoR Diam MM ?2.81 cm ?[ 3.10 - 3.70 ] ?AV Peak Sy ?1.06 m/s ?[ 1.00 - 1.70 ] ACS MM ? 1.69 cm ?[ 1.50 - 2.60 ] ?AV VTI ? 20.85 cm LVOT Diam ?2.21 cm LVOT Peak Sy ?0.66 m/s ?[ 0.70 - 1.10 ] LVOT VTI ? 12.46 cm MV E Peak Sy ?0.57 m/s ?[ 0.60 - 1.30 ] MV A Peak Sy ?0.57 m/s ?[ 1.00 - 1.20 ] MV Mean PG ? 1 mmHg MV PHT ? 58 msec ? [ 20 - 100 ] MVA ?2.10 MV Decel Time ?235 msec ?[ 104 - 258 ] PV Peak Sy ?0.68 m/s ?[ 0.40 - 0.80 ] TR Peak Sy ?2.34 m/s ?[ 1.00 - 2.80 ] TR Peak PG ? 22 mmHg RVSP ? 27.00 mmHg ?[ 10.00 - 36.00 ] E` ? 0.05 m/s E/E` ? 10.65 ? [ <= 10.00 ] PA Pressure ?5.00 mmHg ? [ 10.00 - 36.00 ] 2D/MM ?Value ?Range ?Doppler ?Value ? Range - ?? FINDINGS: Atrial Septum: The atrial septum is not well visualized. Left Ventricle: Normal left ventricular size. Left ventricle not well visualized. Normal global left ventricular systolic function. Ejection Fraction is estimated to be 60 %. Left Atrium: The left atrium is normal in size. Right Ventricle: Normal right ventricular size. Normal right ventricular systolic function. Right Atrium: The right atrium is normal in size. Aortic Valve: Aortic valve not well visualized. Mitral Valve: Normal structure of the mitral valve. Mitral valve is not well visualized. Pulmonic Valve: Pulmonic valve not well visualized. Tricuspid Valve: Tricuspid valve not well visualized. Pericardium: Normal pericardium with no significant pericardial effusion. Aorta: Aortic root not well visualized. IVC: The IVC is not well visualized. ?? CONCLUSIONS: Normal left ventricular size. Left ventricle not well visualized. Normal global left ventricular systolic function. Ejection Fraction is estimated to be 60 %. Normal right ventricular size. Normal right ventricular systolic function. Normal structure of the mitral valve. Mitral valve is not well visualized. Aortic valve not well visualized. Tricuspid valve not well visualized. Technically difficult study with limited views. Electronically Signed By: Terence Mas MD [facility] 04/21/2024 4:43:44 PM SHOP SUPERVISOR Procedure Note Terence Mas MD - 04/21/[address] [address] Echocardiogram Report Patient Name: ELEN CABRAL L : 1950 Study Date: 04/21/2024 2:24:19 PM Gender: M Tech: Location: [address] Provider: VIANNEY MCLAIN Height(Cm): BSA: Weight(Kg): Quality: Good Order Provider: VIANNEY MCLAIN PROCEDURES: Echocardiographic Report: Transthoracic echocardiogram with complete 2D, M-Mode, color Dopplerexamination and contrast. INDICATIONS: cardiac clearance for broken hip surgery. MEASUREMENTS: 2D/MM Value Range Doppler ValueRange Estimated EF 60 % MARCO Vmax 2.38cm2 LA Dimension MM 4.07 cm [ 3.00 - 4.00 ] AV Mean PG 3 mmHg AoR Diam MM 2.81 cm [ 3.10 - 3.70 ] AV Peak Sy 1.06 m/s[ 1.00 - 1.70 ] ACS MM 1.69 cm [ 1.50 - 2.60 ] AV VTI 20.85cm LVOT Diam 2.21 cm LVOT Peak Sy 0.66 m/s [ 0.70 - 1.10 ] LVOT VTI 12.46 cm MV E Peak Sy 0.57 m/s [ 0.60 - 1.30 ] MV A Peak Sy 0.57 m/s [ 1.00 - 1.20 ] MV Mean PG 1 mmHg MV PHT 58 msec [ 20 - 100 ] MVA 2.10 MV Decel Time 235 msec [ 104 - 258 ] PV Peak Sy 0.68 m/s [ 0.40 - 0.80 ] TR Peak Sy 2.34 m/s [ 1.00 - 2.80 ] TR Peak PG 22 mmHg RVSP 27.00 mmHg [ 10.00 - 36.00 ] E` 0.05 m/s E/E` 10.65 [ <= 10.00 ] PA Pressure 5.00 mmHg [ 10.00 - 36.00 ] 2D/MM Value Range Doppler ValueRange - FINDINGS: Atrial Septum: The atrial septum is not well visualized. Left Ventricle: Normal left ventricular size. Left ventricle not well visualized. Normalglobal left ventricular systolic function. Ejection Fraction is estimated to be 60%. Left Atrium: The left atrium is normal in size. Right Ventricle: Normal right ventricular size. Normal right ventricular systolicfunction. Right Atrium: The right atrium is normal in size. Aortic Valve: Aortic valve not well visualized. Mitral Valve: Normal structure of the mitral valve. Mitral valve is not wellvisualized. Pulmonic Valve: Pulmonic valve not well visualized. Tricuspid Valve: Tricuspid valve not well visualized. Pericardium: Normal pericardium with no significant pericardial effusion. Aorta: Aortic root not well visualized. IVC: The IVC is not well visualized. CONCLUSIONS: Normal left ventricular size. Left ventricle not well visualized. Normalglobal left ventricular systolic function. Ejection Fraction is estimated to be 60%. Normal right ventricular size. Normal right ventricular systolicfunction. Normal structure of the mitral valve. Mitral valve is not wellvisualized. Aortic valve not well visualized. Tricuspid valve not well visualized. Technically difficult study with limited views. Electronically Signed By: Terence MANZANARES 04/21/2024 4:43:44 PM SHOP SUPERVISOR Vianney Joel [facility] DO CV ECHO PROCEDURES Fin al Result * CT Head WO Contrast (04/21/2024 2:16 PM SHOP SUPERVISOR) Anatomical Region Laterality Modality Head and Neck N/A Computed Tomogra phy 04/21/2024 2:24 PM SHOP SUPERVISOR Narrative 04/21/2024 2:25 PM SHOP SUPERVISOR EXAM DESCRIPTION: CT HEAD WO CONTRAST REASON FOR STUDY: No provided patient complaints in a patient status post fall on ice today, and denies closed head injury or LOC pursuant to event. Per imaging record, right hip fracture. TECHNIQUE: Axial images acquired through the brain without intravenous contrast. ??Images stored on PACS. ?? Automated exposure control was used as a dose optimization technique for this examination. COMPARISON: No prior neuro imaging available at time of interpretation. FINDINGS: BRAIN: ?? No acute intra-axial hemorrhage. ??No edema, mass effect, midline shift, or herniation. ? No evidence of acute territorial ischemia/infarct. ?No suspicious focal white matter lesions with preservation of the parson-white junction. EXTRA-AXIAL SPACES: ?? No extra-axial fluid collection. ??No unenhanced CT evidence of extra-axial mass. ?? CALVARIUM: ?? No acute calvarial fracture. SINUSES/MASTOIDS: ?? Paranasal sinuses clear. ??Mastoid air cells well-developed and well aerated. ORBITS: ?? No acute abnormality. ??Ocular lenses and globes normal in conformation and position. OTHER: ?? No other significant abnormality. IMPRESSION: No acute intracranial process. THIS IS AN ELECTRONICALLY VERIFIED FINAL REPORT 04/21/2024 2:25 PM - Electronically signed by ??Wilmer Johnson M.D. JINA: JINA D: ??04/21/2024 2:25 PM T: ??04/21/2024 2:25 PM Report ID: [id number] Reading Location: ??[id number] Procedure Note Wilmer Johnson MD - 04/21/2024 EXAM DESCRIPTION: CT HEAD WO CONTRAST REASON FOR STUDY: No provided patient complaints in a patient status postfall on ice today, and denies closed head injury or LOC pursuant to event. Per imaging record, right hip fracture. TECHNIQUE: Axial images acquired through the brain without intravenous contrast. Images stored on PACS. Automated exposure control was used asa dose optimization technique for this examination. COMPARISON: No prior neuro imaging available at time of interpretation. FINDINGS: BRAIN: No acute intra-axial hemorrhage. No edema, mass effect, midline shift, or herniation. No evidence of acute territorialischemia/infarct. No suspicious focal white matter lesions with preservation of thegray-white junction. EXTRA-AXIAL SPACES: No extra-axial fluid collection. No unenhanced CT evidence of extra-axial mass. CALVARIUM: No acute calvarial fracture. SINUSES/MASTOIDS: Paranasal sinuses clear. Mastoid air cellswell-developed and well aerated. ORBITS: No acute abnormality. Ocular lenses and globes normal in conformation and position. OTHER: No other significant abnormality. IMPRESSION: No acute intracranial process. THIS IS AN ELECTRONICALLY VERIFIED FINAL REPORT 04/21/2024 2:25 PM - Electronically signed by Wilmer Johnson M.D. JINA: JINA Report ID: [id number] Reading Location: [place] [address] us Adrienne Gaviria MD IMG CT PROCEDURES Final R esult * Troponin T high-sensitivity 2-hour (04/21/2024 1:45 PM SHOP SUPERVISOR) Trop T hs 7 <=22 ng/L Comment: Interpretive Data For further hscTnT resources including the diagnostic algorithm and an aid in interpretation, copy and paste this link: https://nrl.testcatalog.org/show/hsTrop Current Interpretive Data last revised 2020. Trop T hs delta -1 ng/L [facility] ([place]) Trop T hs interp Insignificant [facility] ([place]) Blood 04/21/2024 1:45 PM SHOP SUPERVISOR 04/21/2024 1:48 PM SHOP SUPERVISOR us Adrienne Gaviria MD LAB BLOOD ORDERABLES Umm l Result [facility] ([place]) 1 [facility] Department [place] [address] * XR Chest 1 Vw Portable (04/21/2024 1:39 PM SHOP SUPERVISOR) Anatomical Region Laterality Modality Body, Chest N/A Computed Radiogr aphy 04/21/2024 1:51 PM SHOP SUPERVISOR Narrative 04/21/2024 1:52 PM SHOP SUPERVISOR EXAM DESCRIPTION: ?? XR CHEST 1 VIEW REASON FOR STUDY: ?? fx ?? Fell earlier---fx right hip ?? TECHNIQUE: ??Single-view COMPARISON: ??None available FINDINGS: Central vascularity have normal caliber. ??Aortic arch well-defined on the left. Lungs are well expanded without consolidation, effusion or pneumothorax. IMPRESSION: No acute findings. THIS IS AN ELECTRONICALLY VERIFIED FINAL REPORT 04/21/2024 1:52 PM - Electronically signed by ??Elen Fraser M.D. RB: RB D: ??04/21/2024 1:52 PM T: ??04/21/2024 1:52 PM Report ID: [id number] Reading Location: ??[id number] Procedure Note Elen Fraser MD - 04/21/2024 EXAM DESCRIPTION: XR CHEST 1 VIEW REASON FOR STUDY: fx Fell earlier---fx right hip TECHNIQUE: Single-view COMPARISON: None available FINDINGS: Central vascularity have normal caliber. Aortic arch well-defined on the left. Lungs are well expanded without consolidation, effusion or pneumothorax. IMPRESSION: No acute findings. THIS IS AN ELECTRONICALLY VERIFIED FINAL REPORT 04/21/2024 1:52 PM - Electronically signed by Elen Fraser M.D. RB: RB Report ID: [id number] Reading Location: [id number] Adrienne Gaviria MD IMG XR PROCEDURES Final R esult * ECG 12 lead (04/21/2024 1:27 PM SHOP SUPERVISOR) 04/21/2024 1:27 PM SHOP SUPERVISOR Narrative [facility] - 04/22/2024 1:26 PM SHOP SUPERVISOR Vent Rate: 119 bpm RR Interval: 504 msec UT Interval: 0 msec QRS Duration: 135 msec QT Interval: 357 msec QTC Interval: 427 msec P-R-T Java: [id number] - 59 - 59 degrees IMPRESSION: ATRIAL FIBRILLATION WITH RAPID VENTRICULAR RESPONSE INDETERMINATE AXIS RIGHT BUNDLE BRANCH BLOCK ??[120+ ms QRS DURATION, UPRIGHT V1, 40+ ms S IN I/aVL/V4/V5/V6] ABNORMAL ECG INTERPRETATION BASED ON A DEFAULT AGE OF 40 YEARS Compared to prior EKG atrial fibrillation has replaced sinus bradycardia Electronically Signed By: Terence MURPHYB us Anjali Meza MD ECG ORDERABLES Final Result [facility] * XR Pelvis 1 or 2 Views (04/21/2024 11:45 AM SHOP SUPERVISOR) Anatomical Region Laterality Modality Body, Pelvis N/A Computed Radiogr aphy 04/21/2024 12:0 5 PM SHOP SUPERVISOR Narrative 04/21/2024 12:08 PM SHOP SUPERVISOR EXAM DESCRIPTION: XR PELVIS 1 OR 2 VIEWS; XR HIP RIGHT 2 OR 3 VIEWS REASON FOR STUDY: fall ?? s/p fall with right hip pain. Pt slipped and fell on the ice ? TECHNIQUE: AP ??radiographic view(s) of the ??pelvis and frontal and frogleg lateral views of the right hip . COMPARISON: None FINDINGS: BONES/JOINTS: There is an acute intratrochanteric fracture of the right proximal femur, with a degree of impaction, displacement and mild angulation. ?? There is osteoarthritis of both hips. ??No other evidence of acute fracture. ?? The pubic rami are intact. ??The SI joints are symmetric in appearance. SOFT TISSUES: Atherosclerotic calcifications. ??Pelvic phleboliths. IMPRESSION: 1. ?? Acute comminuted, mildly displaced, angulated and impacted intratrochanteric fracture of the right proximal femur. 2. ?? Osteoarthritis of the hips and SI joints. THIS IS AN ELECTRONICALLY VERIFIED FINAL REPORT 04/21/2024 12:08 PM - Electronically signed by ??Cortney Islas M.D. TW: OSEAS D: ??04/21/2024 12:08 PM T: ??04/21/2024 12:08 PM Report ID: [id number] Reading Location: ??[id number] Procedure Note Cortney Islas MD - 04/21/2024 EXAM DESCRIPTION: XR PELVIS 1 OR 2 VIEWS; XR HIP RIGHT 2 OR 3 VIEWS REASON FOR STUDY: fall s/p fall with right hip pain. Pt slipped and fell on the ice TECHNIQUE: AP radiographic view(s) of the pelvis and frontal and frogleg lateral views of the right hip . COMPARISON: None FINDINGS: BONES/JOINTS: There is an acute intratrochanteric fracture of the right proximal femur, with a degree of impaction, displacement and mildangulation. There is osteoarthritis of both hips. No other evidence of acutefracture. The pubic rami are intact. The SI joints are symmetric in appearance. SOFT TISSUES: Atherosclerotic calcifications. Pelvic phleboliths. IMPRESSION: 1. Acute comminuted, mildly displaced, angulated and impacted intratrochanteric fracture of the right proximal femur. 2. Osteoarthritis of the hips and SI joints. THIS IS AN ELECTRONICALLY VERIFIED FINAL REPORT 04/21/2024 12:08 PM - Electronically signed by Cortney Islas M.D. TW: OSEAS Report ID: [id number] Reading Location: [id number] us Anjali Meza MD IMG XR PROCEDURES Umm l Result * XR Hip Right 2 or 3 Views (04/21/2024 11:45 AM SHOP SUPERVISOR) Anatomical Region Laterality Modality Lower Extremities, Hip, Pelvis Right C omputed Radiography 04/21/2024 12:0 5 PM SHOP SUPERVISOR Narrative 04/21/2024 12:08 PM SHOP SUPERVISOR EXAM DESCRIPTION: XR PELVIS 1 OR 2 VIEWS; XR HIP RIGHT 2 OR 3 VIEWS REASON FOR STUDY: fall ?? s/p fall with right hip pain. Pt slipped and fell on the ice ? TECHNIQUE: AP ??radiographic view(s) of the ??pelvis and frontal and frogleg lateral views of the right hip . COMPARISON: None FINDINGS: BONES/JOINTS: There is an acute intratrochanteric fracture of the right proximal femur, with a degree of impaction, displacement and mild angulation. ?? There is osteoarthritis of both hips. ??No other evidence of acute fracture. ?? The pubic rami are intact. ??The SI joints are symmetric in appearance. SOFT TISSUES: Atherosclerotic calcifications. ??Pelvic phleboliths. IMPRESSION: 1. ?? Acute comminuted, mildly displaced, angulated and impacted intratrochanteric fracture of the right proximal femur. 2. ?? Osteoarthritis of the hips and SI joints. THIS IS AN ELECTRONICALLY VERIFIED FINAL REPORT 04/21/2024 12:08 PM - Electronically signed by ??Cortney Islas M.D. TW: OSEAS D: ??04/21/2024 12:08 PM T: ??04/21/2024 12:08 PM Report ID: [id number] Reading Location: ??[id number] Procedure Note Cortney Islas MD - 04/21/2024 EXAM DESCRIPTION: XR PELVIS 1 OR 2 VIEWS; XR HIP RIGHT 2 OR 3 VIEWS REASON FOR STUDY: fall s/p fall with right hip pain. Pt slipped and fell on the ice TECHNIQUE: AP radiographic view(s) of the pelvis and frontal and frogleg lateral views of the right hip . COMPARISON: None FINDINGS: BONES/JOINTS: There is an acute intratrochanteric fracture of the right proximal femur, with a degree of impaction, displacement and mildangulation. There is osteoarthritis of both hips. No other evidence of acutefracture. The pubic rami are intact. The SI joints are symmetric in appearance. SOFT TISSUES: Atherosclerotic calcifications. Pelvic phleboliths. IMPRESSION: 1. Acute comminuted, mildly displaced, angulated and impacted intratrochanteric fracture of the right proximal femur. 2. Osteoarthritis of the hips and SI joints. THIS IS AN ELECTRONICALLY VERIFIED FINAL REPORT 04/21/2024 12:08 PM - Electronically signed by Cortney Islas M.D. TW: TW Report ID: [id number] Reading Location: [id number] us Anjali Meza MD IMG XR PROCEDURES Umm l Result * Troponin T high-sensitivity series (baseline, 2hr, 4hr, 6hr) (04/21/2024 11:30 AM SHOP SUPERVISOR) Trop T hs 8 <=22 ng/L Comment: Interpretive Data For further hscTnT resources including the diagnostic algorithm and an aid in interpretation, copy and paste this link: https://nrl.testcatalog.org/show/hsTrop Current Interpretive Data last revised 2020. Blood 04/21/2024 11:3 0 AM SHOP SUPERVISOR 04/21/2024 1:37 PM [employer] SUPERVISOR us Adrienne Gaviria MD LAB BLOOD ORDERABLES Umm l Result [facility] [place]) 1 [facility] Department [place] [address] * eGFR (04/21/2024 11:30 AM SHOP SUPERVISOR) eGFR 66 >=60 mL/min/1. 73 m2 Comment: Interpretive Data Reference Interval Normal ?>/= 90 mL/min/1.73m2 Mildly decreased* ? 60 - 89 mL/min/1.73m2 Mildly to moderately decreased ?45 - 59 mL/min/1.73m2 Moderately to severely decreased ??30 - 44 mL/min/1.73m2 Severely decreased ?15 - 29 mL/min/1.73m2 Kidney Failure ?< 15 ??mL/min/1.73m2 *Relative to young adult level Estimated glomerular filtration rate is determined by the 2020 CKD-EPI equation recommended by the National Kidney Foundation (A Unifying Approach to GFR Estimation: Recommendations of the NKF-ASK Task Force on Reassessing the Inclusion of Race in Diagnosing Kidney Disease, JASN 2020). The CKD-EPI equation should not be used for patients with unstable renal function and has not been validated in children and those over 70. Current interpretive data was last reviewed 2021. Blood 04/21/2024 11:3 0 AM SHOP SUPERVISOR 04/21/2024 11:31 AM SHOP SUPERVISOR us Anjali Meza MD LAB BLOOD ORDERABLES F inal Result [facility] ([place] 1 [facility] Department [place] [address] * Differential, auto (04/21/2024 11:30 AM SHOP SUPERVISOR) Neutrophil abs 6.2 1.5 - 6.5 K/cumm Imm gran abs 0.0 0.0 - 0.1 K/cumm [facility] ([place]) Lymphocyte abs 2.0 0.8 - 3.3 K/cumm [facility] ([place]) Monocyte abs 0.5 0.2 - 0.8 K/cumm [facility] ([place]) Eosinophil abs 0.3 0.0 - 0.5 K/cumm [facility] ([place]) Basophil abs 0.1 0.0 - 0.1 K/cumm [facility] ([place]) Neutrophil pct 68.5 % [facility] ([place]) Comment: Interpretive Data Percent cell count reference ranges are not reported, since discordance with absolute values may lead to misinterpretation of CBC data. Current Interpretive Data was last revised on 2017. Imm gran pct 0.4 % [facility] ([place]) Comment: Interpretive Data Percent cell count reference ranges are not reported, since discordance with absolute values may lead to misinterpretation of CBC data. Current Interpretive Data was last revised on 2017. Lymphocyte pct 22.5 % [facility] ([place]) Comment: Interpretive Data Percent cell count reference ranges are not reported, since discordance with absolute values may lead to misinterpretation of CBC data. Current Interpretive Data was last revised on 2017. Monocyte pct 5.2 % [facility] ([place]) Comment: Interpretive Data Percent cell count reference ranges are not reported, since discordance with absolute values may lead to misinterpretation of CBC data. Current Interpretive Data was last revised on 2017. Eosinophil pct 2.8 % [facility] ([place]) Comment: Interpretive Data Percent cell count reference ranges are not reported, since discordance with absolute values may lead to misinterpretation of CBC data. Current Interpretive Data was last revised on 2017. Basophil pct 0.6 % [facility] ([place]) Comment: Interpretive Data Percent cell count reference ranges are not reported, since discordance with absolute values may lead to misinterpretation of CBC data. Current Interpretive Data was last revised on 2017. Blood 04/21/2024 11:3 0 AM SHOP SUPERVISOR 04/21/2024 11:32 AM SHOP SUPERVISOR us Anjali Meza MD LAB BLOOD ORDERABLES F inal Result [facility] ([place]) 1 [facility] Department [place] [address] * (ABNORMAL) CBC with auto differential (04/21/2024 11:30 AM SHOP SUPERVISOR) WBC 9.0 3.8 - 9.9 K/cumm Hgb 15.5 13.0 - 17.5 g/dL [facility]) Hct 46.1 38.9 - 50.3 % [facility]) Plt 145(L) 150 - 400 K/cumm [facility] ([place]) MPV 10.1 9.1 - 12.3 fL [facility] ([place]) RBC 4.98 4.30 - 5.80 M/cumm [facility] ([place]) MCV 92.6 81.3 - 96.4 fL [facility] ([place]) MCH 31.1 27.1 - 33.3 pg [facility] ([place]) MCHC 33.6 32.3 - 35.7 g/dL [facility] ([place]) RDW CV 14.6 11.1 - 14.9 % [facility] ([place]) RDW SD 49.8(H) 35.7 - 48.1 fL [facility] ([place]) NRBC abs 0.00 0.00 - 0.01 K/cumm [facility] ([place]) Blood 04/21/2024 11:3 0 AM SHOP SUPERVISOR 04/21/2024 11:32 AM SHOP SUPERVISOR us Anjali Meza MD LAB BLOOD ORDERABLES F inal Result Performing Organization Address City/[facility] [[email or web address]] Co de Phone Number [facility] ([place]) [address] [place] [address] [employer] [place] [address] * (ABNORMAL) Protime-INR (04/21/2024 11:30 AM SHOP SUPERVISOR) PT 25.0(H) 9.7 - 13.0 sec [facility] ([place]) INR 2.28(H) 0.90 - 1.20 [facility] ([place]) Comment: Interpretive data Oral anticoagulant therapeutic ranges: Venous thromboembolism prophylaxis or treatment: 2.0-3.0 CARDIOLOGY Standard range: 2.0-3.0 High-intensity range: 2.5-3.5 Refer to indication-specific guidelines for appropriate target ranges for prosthetic heart valve replacement. Current interpretive data was last revised on 2019. Blood 04/21/2024 11:3 0 AM SHOP SUPERVISOR 04/21/2024 11:31 AM SHOP SUPERVISOR us Anjali Meza MD LAB BLOOD ORDERABLES F inal Result [facility] ([place]) 1 [facility] [place] [address] * Comprehensive metabolic panel (04/21/2024 11:30 AM SHOP SUPERVISOR) Sodium 138 135 - 145 mmol/L Potassium, pl 4.3 3.3 - 4.9 mmol/L [facility] Chloride 99 97 - 110 mmol/L [facility]) CO2 29 22 - 32 mmol/L [facility]) Anion gap 9 2 - 15 mmol/L [facility]) BUN 12 6 - 25 mg/dL [facility]) Creatinine 1.18 0.80 - 1.30 mg/dL [facility]) Glucose 135 70 - 199 mg/dL [facility]) Comment: Interpretive Data Fasting glucose >/= 126 mg/dl is diagnostic for diabetes. ?? Fasting is defined as no caloric intake for at least 8 hours. Fasting glucose between 100 mg/dl to 125 mg/dl is diagnostic of prediabetes. In a patient with classic symptoms of hyperglycemia or hyperglycemic crisis, a random glucose >/= 200 mg/dl is diagnostic for diabetes. In the absence of unequivocal hyperglycemia, results should be confirmed by repeat testing. The classification and Diagnosis of Diabetes Diabetes Care 2021; 46: S19-S40. Current interpretive data was last revised 2022. Calcium 9.4 8.5 - 10.3 mg/dL [facility] Bilirubin, total 0.7 0.1 - 1.2 mg/dL [facility] ([place]) Protein, pl 6.9 6.5 - 8.5 g/dL [facility]) Albumin 4.0 3.5 - 5.0 g/dL [facility]) Alk phos 92 40 - 130 Units/L [facility]) ALT 13 7 - 55 Units/L [facility]) AST 18 10 - 50 Units/L [facility]) Blood 04/21/2024 11:3 0 AM SHOP SUPERVISOR 04/21/2024 11:31 AM SHOP SUPERVISOR us Anjali Meza MD LAB BLOOD ORDERABLES F inal Result [facility] ([place]) 1 [facility] Department [place] [address] from Last 3 Months Insurance MEDICARE [facility] [employer] [facility] MEDICARE FOR LIFE Advance Directives For more information, please contact: [phone] * Full Code (Latest Code Status on File) Date Activated Date Inactivated Comments 04/27/2024 2:43 AM * Full Code Date Activated Date Inactivated Comments 04/22/2024 1:10 PM 04/26/2024 5:35 PM * Full Code Date Activated Date Inactivated Comments 04/21/2024 3:34 PM 04/22/2024 1:10 PM Care Teams Vision Rehabilitation Therapist Relationship Specialty Start Date End Date [facility] [address] [place] [address] PCP - General 10/24/19 Pawan Brown MD [address] [facility] [place] [address] Surgeon Orthopedic Surgery 04/26/24
--- OUTSIDE RECORDS SUMMARY | 2024-05-01 15:51 | XMS_ITS | Referral Summary ---
Author Organization [facility] [address] Address [address] [place] [address] Care Team Providers Care Appian Bpm Developer Name Role Phone Caryn [facility] Primary Care Provider [phone] Pawan Brown MD Unavailable [phone] Encounters Date Type Department Care Team Description 04/26/2024 8:50 PM OBSTETRICS GYN PHYSICIAN - 05/01/2024 2:39 PM OBSTETRICS GYN PHYSICIAN Hospital Encounter [facility] Acute Medicine [address] [place] [address] Bethany Peace MD Petters, Ekanga Sunday, MD Kheirkhahan, Nazanin, MD COPD exacerbation (HCC) (Primary Dx); Acute on chronic congestive heart failure, unspecified heart failure type (HCC); Hypoxia; Atrial fibrillation with RVR (CMS/HCC) (HCC) Discharge Disposition: Discharge to SNF 04/26/2024 8:30 PM OBSTETRICS GYN PHYSICIAN - 04/26/2024 11:59 PM OBSTETRICS GYN PHYSICIAN Hospital Encounter [facility] Discharge Disposition: Discharge to home or self care 04/26/2024 3:07 PM OBSTETRICS GYN PHYSICIAN - 04/26/2024 11:59 PM OBSTETRICS GYN PHYSICIAN Hospital Encounter [facility] Discharge Disposition: Discharge to home or self care 04/26/2024 2:00 PM OBSTETRICS GYN PHYSICIAN - 04/26/2024 11:59 PM OBSTETRICS GYN PHYSICIAN Hospital Encounter [facility] Cardiology [address] [place] [address] Bradycardia Discharge Disposition: Discharge to home or self care 04/26/2024 Orders Only [place] [employer] at [facility] 2 [facility] [address] [place] [address] Cielo Ambrose RN 04/26/2024 Documentation [facility] IMU [address] [place] [address] Cielo Ambrose RN 04/21/2024 11:14 AM OBSTETRICS GYN PHYSICIAN - 04/26/2024 1:35 PM OBSTETRICS GYN PHYSICIAN Hospital Encounter [facility] Surgery Care [address] [place] [address] Adrienne Gaviria MD Nations, Matthew Austin, DO Sargsyan, Narine, MD Bradycardia (Primary Dx); Intertrochanteric fracture of right femur, closed, initial encounter (HCC); Tachy-naga syndrome (CMS/HCC) (HCC); Atrial fibrillation with RVR (CMS/HCC) (HCC) Discharge Disposition: Discharge to SNF 04/22/2024 9:45 AM OBSTETRICS GYN PHYSICIAN - 04/22/2024 11:40 AM OBSTETRICS GYN PHYSICIAN Surgery [facility] Operating Room [address] [place] [address] Pawan Brown MD CEPHALOMEDULLARY NAILING HIP FIXATION 04/22/2024 9:14 AM OBSTETRICS GYN PHYSICIAN Anesthesia Event [facility] Operating Room [address] [place] [id number] Isabelle Jacobson MD Williams, Calvin E., MD 04/21/2024 10:43 AM OBSTETRICS GYN PHYSICIAN - 04/21/2024 11:59 PM OBSTETRICS GYN PHYSICIAN Hospital Encounter [facility] Emergency, Room R Discharge Disposition: Discharge to home or self care from Last 3 Months Allergies No known active allergies Medications sotaloL [...] 1 tablet (125 mcg total) by mouth onion topper before breakfast 5 07/02/19 25 Active doxycycline [...] 1.5 tablets (112.5 mcg total) by mouth onion topper before breakfast 05/01/19 25 Discontin ued(Stop Taking at Discharge ) Active Problems Problem Noted Date Diagnosed Date Acute on chronic congestive heart failure ([facility]) 04/28/2024 Hypoxia 04/28/2024 COPD exacerbation 04/27/2024 Atrial fibrillation with RVR ([facility]) Tachy-naga syndrome ([facility]) 04/26/2024 Intertrochanteric fracture o f right femur, closed, initial encounter 04/21/2024 Social History Tobacco Use Types Packs/Day Years Used Date Smoking Tobacco: Former Cigarettes Tobacco Cessation:Counseling Given: No [facility] Utilities Answer Date Recorded In the past 12 months has ki work, oil, or water [employer] threatened to shut off services in your [...] week 04/27/2024 How often do you attend [facility] or restorationism services? Never 04/27/2024 Do you belong to any clubs o r organizations such as hinduism groups, unions, fraternal or athletic groups, or [...] any time in the past 12 m [facility], were you homeless or living in a skilled nursing (including now)? No 04/27/2024 Personal Safety Answer [...] on file Sexual Orientation Not on file Last Filed Vital Signs Vital Sign Reading Time Taken Comments Blood Pressure 138/80 05/01/2024 7:00 AM OBSTETRICS GYN PHYSICIAN Pulse 60 05/01/2024 9:08 AM OBSTETRICS GYN PHYSICIAN Temperature 36.4 ??C (97.6 ??F) 05/01/2024 7:00 AM CS T Respiratory Rate 20 05/01/2024 7:00 AM OBSTETRICS GYN PHYSICIAN Oxygen Saturation 95% 05/01/2024 1:53 PM OBSTETRICS GYN PHYSICIAN Inhaled Oxygen Concentration - - Weight 107.2 kg (236 lb 5.3 oz) 04/30/2024 5:00 AM OBSTETRICS GYN PHYSICIAN Height 182.9 cm (6') 04/27/2024 2:49 AM OBSTETRICS GYN PHYSICIAN Body Mass Index 32.05 04/27/2024 2:49 AM OBSTETRICS GYN PHYSICIAN Plan of Treatment Not on file Medical Devices Implanted Type Area Automobile Inspector Device Identifier Shelf Expiration Date Model / Serial / Lot Synthes Tfn-Advanced Lateral Relief Cut 11mm 170mm Cannulated Femoral 04.037.142s - [id number] Implanted:Qty: 1 on 04/22/2024 by Pawan Brown MD at [facility] Right: Hip Synthes I [id number] 04/29/2033 04.037.142 S / / [id number] Synthes 10.35mm 115mm Cannulated Femoral Proximal Screw Bone Titanium 04.038.115s - [id number] Implanted:Qty: 1 on 04/22/2024 by Pawan Brown MD at [facility] Right: Hip Synthes I [id number] 09/26/2024 04.038.115 S / / [id number] Synthes 5mm 4.3mm 36mm Lock Self Tap Blunt Tip 2 Lead Tibial T25 Full 04.005.526s - [id number] Implanted:Qty: 1 on 04/22/2024 by Pawan Brown MD at [facility] Right: Hip Synthes 08/27/2033 04.005.526 S / / [id number] Procedures Procedure Name Priority Date/Time Associated Diagnosis Comments EGFR Routine 05/01/2024 3:46 AM OBSTETRICS GYN PHYSICIAN DIFFERENTIAL AUTO Routine 05/01/2024 3:4 6 AM OBSTETRICS GYN PHYSICIAN CBC WITH AUTO DIFFERENTIAL Routine 05/01/2024 3:46 AM OBSTETRICS GYN PHYSICIAN MAGNESIUM Routine 05/01/2024 3:46 AM OBSTETRICS GYN PHYSICIAN COMPREHENSIVE METABOLIC PANEL Routine 05/01/2024 3:46 AM OBSTETRICS GYN PHYSICIAN EGFR Routine 04/30/2024 2:29 AM OBSTETRICS GYN PHYSICIAN DIFFERENTIAL AUTO Routine 04/30/2024 2:2 9 AM OBSTETRICS GYN PHYSICIAN CBC WITH AUTO DIFFERENTIAL Routine 04/30/2024 2:29 AM OBSTETRICS GYN PHYSICIAN MAGNESIUM Routine 04/30/2024 2:29 AM OBSTETRICS GYN PHYSICIAN COMPREHENSIVE METABOLIC PANEL Routine 04/30/2024 2:29 AM OBSTETRICS GYN PHYSICIAN EGFR Routine 04/29/2024 2:17 AM OBSTETRICS GYN PHYSICIAN DIFFERENTIAL AUTO Routine 04/29/2024 2:1 7 AM OBSTETRICS GYN PHYSICIAN CBC WITHOUT DIFFERENTIAL Routine 04/29/2024 2:17 AM OBSTETRICS GYN PHYSICIAN CBC WITH AUTO DIFFERENTIAL Routine 04/29/2024 2:17 AM OBSTETRICS GYN PHYSICIAN MAGNESIUM Routine 04/29/2024 2:17 AM OBSTETRICS GYN PHYSICIAN COMPREHENSIVE METABOLIC PANEL Routine 04/29/2024 2:17 AM OBSTETRICS GYN PHYSICIAN EGFR Routine 04/28/2024 3:05 AM OBSTETRICS GYN PHYSICIAN DIFFERENTIAL AUTO Routine 04/28/2024 3:0 5 AM OBSTETRICS GYN PHYSICIAN DIGOXIN LEVEL Routine 04/28/2024 3:05 AM OBSTETRICS GYN PHYSICIAN CBC WITHOUT DIFFERENTIAL Routine 04/28/2024 3:05 AM OBSTETRICS GYN PHYSICIAN CBC WITH AUTO DIFFERENTIAL Routine 04/28/2024 3:05 AM OBSTETRICS GYN PHYSICIAN MAGNESIUM Routine 04/28/2024 3:05 AM OBSTETRICS GYN PHYSICIAN COMPREHENSIVE METABOLIC PANEL Routine 04/28/2024 3:05 AM OBSTETRICS GYN PHYSICIAN POCT GLUCOSE DEVICE Routine 04/27/2024 4 :45 PM OBSTETRICS GYN PHYSICIAN EGFR Routine 04/27/2024 9:08 AM OBSTETRICS GYN PHYSICIAN BASIC METABOLIC PANEL Routine 04/27/2024 9:08 AM OBSTETRICS GYN PHYSICIAN CBC WITHOUT DIFFERENTIAL Routine 04/27/2024 9:08 AM OBSTETRICS GYN PHYSICIAN MAGNESIUM Routine 04/27/2024 9:08 AM OBSTETRICS GYN PHYSICIAN TROPONIN T HIGH-SENSITIVITY 2-HOUR Timed 04/26/2024 11:[address] CHEST PE W CONTRAST ED 04/26/2024 9:55 PM OBSTETRICS GYN PHYSICIAN XR CHEST 1 VIEW ED 04/26/2024 9:32 PM OBSTETRICS GYN PHYSICIAN ECG 12-LEAD STAT 04/26/2024 9:12 PM OBSTETRICS GYN PHYSICIAN T4, FREE Routine 04/26/2024 9:06 PM OBSTETRICS GYN PHYSICIAN EGFR STAT 04/26/2024 9:06 PM OBSTETRICS GYN PHYSICIAN DIFFERENTIAL AUTO STAT 04/26/2024 9:0 6 PM OBSTETRICS GYN PHYSICIAN THYROID FUNCTION CASCADE Routine 04/26/2024 9:06 PM OBSTETRICS GYN PHYSICIAN MAGNESIUM Routine 04/26/2024 9:06 PM OBSTETRICS GYN PHYSICIAN PRO B-TYPE NATRIURETIC PEPTIDE STAT 04/26/2024 9:06 PM OBSTETRICS GYN PHYSICIAN SEPSIS LACTATE WITH REFLEX Routine 04/26/2024 9:06 PM OBSTETRICS GYN PHYSICIAN APTT STAT 04/26/2024 9:06 PM OBSTETRICS GYN PHYSICIAN TROPONIN T HIGH-SENSITIVITY SERIES (BASELINE, 2HR, 4HR, 6HR) STAT 04/26/2024 9:06 PM OBSTETRICS GYN PHYSICIAN COMPREHENSIVE METABOLIC PANEL STAT 04/26/2024 9:06 PM OBSTETRICS GYN PHYSICIAN CBC WITH AUTO DIFFERENTIAL STAT 04/26/2024 9:06 PM OBSTETRICS GYN PHYSICIAN INFLUENZA A/B, RSV, AND COVID-19 PCR Routine 04/26/2024 9:06 PM OBSTETRICS GYN PHYSICIAN EGFR Routine 04/26/2024 3:48 AM OBSTETRICS GYN PHYSICIAN DIFFERENTIAL AUTO Routine 04/26/2024 3:4 8 AM OBSTETRICS GYN PHYSICIAN CBC WITH AUTO DIFFERENTIAL Routine 04/26/2024 3:48 AM OBSTETRICS GYN PHYSICIAN BASIC METABOLIC PANEL Routine 04/26/2024 3:48 AM OBSTETRICS GYN PHYSICIAN EGFR Routine 04/25/2024 3:07 AM OBSTETRICS GYN PHYSICIAN DIFFERENTIAL AUTO Routine 04/25/2024 3:0 7 AM OBSTETRICS GYN PHYSICIAN CBC WITH AUTO DIFFERENTIAL Routine 04/25/2024 3:07 AM OBSTETRICS GYN PHYSICIAN BASIC METABOLIC PANEL Routine 04/25/2024 3:07 AM OBSTETRICS GYN PHYSICIAN XR CHEST 1 VIEW ED Urgent/IP Urgent 04/24/2024 4:49 AM OBSTETRICS GYN PHYSICIAN PRO B-TYPE NATRIURETIC PEPTIDE Add-On 04/24/2024 4:36 AM OBSTETRICS GYN PHYSICIAN EGFR Routine 04/24/2024 4:36 AM OBSTETRICS GYN PHYSICIAN DIFFERENTIAL AUTO Routine 04/24/2024 4:3 6 AM OBSTETRICS GYN PHYSICIAN BLOOD GAS, VENOUS Routine 04/24/2024 4:3 6 AM OBSTETRICS GYN PHYSICIAN CBC WITH AUTO DIFFERENTIAL Routine 04/24/2024 4:36 AM OBSTETRICS GYN PHYSICIAN BASIC METABOLIC PANEL Routine 04/24/2024 4:36 AM OBSTETRICS GYN PHYSICIAN EGFR Routine 04/23/2024 3:30 AM OBSTETRICS GYN PHYSICIAN DIFFERENTIAL AUTO Routine 04/23/2024 3:3 0 AM OBSTETRICS GYN PHYSICIAN CBC WITHOUT DIFFERENTIAL Routine 04/23/2024 3:30 AM OBSTETRICS GYN PHYSICIAN CBC WITH AUTO DIFFERENTIAL Routine 04/23/2024 3:30 AM OBSTETRICS GYN PHYSICIAN BASIC METABOLIC PANEL Routine 04/23/2024 3:30 AM OBSTETRICS GYN PHYSICIAN XR PELVIS ORTHO VIEW IP Routine 04/22/2024 11:20 AM OBSTETRICS GYN PHYSICIAN FL FLUOROSCOPY < 1 HOUR IP Routine 04/22/2024 10:14 AM OBSTETRICS GYN PHYSICIAN XR HIP RIGHT 2 OR 3 VIEWS IP Routine 04/22/2024 10:14 AM OBSTETRICS GYN PHYSICIAN Intertrochanteric fracture of right femur, closed, initial encounter (HCC) [place] AN ELECTIVE ENDOTRACHEAL AIRWAY Routine 04/22/2024 9:55 AM OBSTETRICS GYN PHYSICIAN NAILING HIP FIXATION - ASNIS MAGNA 04/22/2024 8:53 AM OBSTETRICS GYN PHYSICIAN RIGHT HIP FRACTURE EGFR Routine 04/22/2024 5:13 AM OBSTETRICS GYN PHYSICIAN DIFFERENTIAL AUTO Routine 04/22/2024 5:1 3 AM OBSTETRICS GYN PHYSICIAN CBC WITH AUTO DIFFERENTIAL Routine 04/22/2024 5:13 AM OBSTETRICS GYN PHYSICIAN BASIC METABOLIC PANEL Routine 04/22/2024 5:13 AM OBSTETRICS GYN PHYSICIAN TROPONIN T HIGH-SENSITIVITY 4-HR Timed 04/21/2024 4:19 PM OBSTETRICS GYN PHYSICIAN TRANSTHORACIC ECHO (TTE) COMPLETE W DOPPLER/CF W CONTRAST STAT 04/21/2024 2:[address] HEAD WO CONTRAST ED 04/21/2024 2 :16 PM OBSTETRICS GYN PHYSICIAN TROPONIN T HIGH-SENSITIVITY 2-HOUR Timed 04/21/2024 1:45 PM OBSTETRICS GYN PHYSICIAN XR CHEST 1 VIEW ED 04/21/2024 1:39 PM OBSTETRICS GYN PHYSICIAN ECG 12-LEAD Routine 04/21/2024 1:27 PM OBSTETRICS GYN PHYSICIAN XR PELVIS 1 OR 2 VIEWS ED 04/21/2024 11:45 AM OBSTETRICS GYN PHYSICIAN XR HIP RIGHT 2 OR 3 VIEWS ED 04/21/2024 11:45 AM OBSTETRICS GYN PHYSICIAN TROPONIN T HIGH-SENSITIVITY SERIES (BASELINE, 2HR, 4HR, 6HR) STAT 04/21/2024 11:30 AM OBSTETRICS GYN PHYSICIAN EGFR STAT 04/21/2024 11:30 AM OBSTETRICS GYN PHYSICIAN DIFFERENTIAL AUTO STAT 04/21/2024 11: 30 AM OBSTETRICS GYN PHYSICIAN PROTIME-INR STAT 04/21/2024 11:30 AM OBSTETRICS GYN PHYSICIAN COMPREHENSIVE METABOLIC PANEL STAT 04/21/2024 11:30 AM OBSTETRICS GYN PHYSICIAN CBC WITH AUTO DIFFERENTIAL STAT 04/21/2024 11:30 AM OBSTETRICS GYN PHYSICIAN from Last 3 Months Results * eGFR (05/01/2024 3:46 AM OBSTETRICS GYN PHYSICIAN) [facility] [address] eGFR 79 >=60 mL/min/1. 73 m2 Comment: [...] last reviewed 2021. Blood 05/01/2024 3:46 AM OBSTETRICS GYN PHYSICIAN 05/01/2024 4:16 AM OBSTETRICS GYN PHYSICIAN us Maggi Vaughn MD LAB BLOOD ORDERABLES Fi nal Result RONNIE [facility] 1 [facility] Department [place] [address] * (ABNORMAL) Differential, auto (05/01/2024 3:46 AM OBSTETRICS GYN PHYSICIAN) Neutrophil abs 7.3(H) 1.5 - 6.5 K/cumm [...] Neutrophil pct 69.5 % [facility] ([place]) Comment: Interpretive [...] revised on 2017. Blood 05/01/2024 3:46 AM OBSTETRICS GYN PHYSICIAN 05/01/2024 4:14 AM OBSTETRICS GYN PHYSICIAN us Maggi Vaughn MD LAB BLOOD ORDERABLES Fi nal Result RONNIE [facility] ([place]) 1 [facility] Department [place] [address] * (ABNORMAL) CBC with auto differential (05/01/2024 3:46 AM OBSTETRICS GYN PHYSICIAN) WBC 10.5(H) 3.8 - 9.9 K/cumm Hgb [...] [facility]) Blood 05/01/2024 3:46 AM OBSTETRICS GYN PHYSICIAN 05/01/2024 4:14 AM OBSTETRICS GYN PHYSICIAN us Maggi Vaughn MD LAB BLOOD ORDERABLES Fi nal Result Performing Organization Address City/[facility]/ZIP Co de Phone Number RONNIE [facility] ([place]) 1 [facility] [employer] [place] [address] * Magnesium (05/01/2024 3:46 AM OBSTETRICS GYN PHYSICIAN) Magnesium 2.4 1.4 - 2.5 mg/dL Blood 05/01/2024 3:46 AM OBSTETRICS GYN PHYSICIAN 05/01/2024 4:16 AM OBSTETRICS GYN PHYSICIAN Maggi Vaughn MD LAB BLOOD ORDERABLES Fi nal Result RONNIE [facility] ([place]) 1 [facility] [employer] [place] [address] * (ABNORMAL) Comprehensive metabolic panel (05/01/2024 3:46 AM OBSTETRICS GYN PHYSICIAN) Sodium 137 135 - 145 mmol/L Potassium, [...] Bilirubin, total 0.9 0.1 - 1.2 mg/dL [facility] ([place]) Protein, pl 6.1(L) 6.5 - 8.5 g/dL [facility]) Albumin 3.7 3.5 - 5.0 g/dL [facility]) Alk phos 74 40 - 130 Units/L [facility] ALT 18 7 - 55 Units/L [facility] AST 21 10 - 50 Units/L [facility]) Comment:Slightly Hemolyzed S pecimen Blood 05/01/2024 3:46 AM OBSTETRICS GYN PHYSICIAN 05/01/2024 4:16 AM OBSTETRICS GYN PHYSICIAN Maggi Vaughn MD LAB BLOOD ORDERABLES Fi nal Result [facility]NIE [facility] ([place]) 1 [facility] [employer] [place] [address] * eGFR (04/30/2024 2:29 AM OBSTETRICS GYN PHYSICIAN) eGFR 79 >=60 mL/min/1. 73 m2 Comment: [...] last reviewed 2021. Blood 04/30/2024 2:29 AM OBSTETRICS GYN PHYSICIAN 04/30/2024 2:59 AM OBSTETRICS GYN PHYSICIAN us Maggi Vaughn MD LAB BLOOD ORDERABLES Fi nal Result RONNIE [facility] ([place]) 1 [facility] Department [place] [employer] [place] [address] * (ABNORMAL) Differential, auto (04/30/2024 2:29 AM OBSTETRICS GYN PHYSICIAN) Neutrophil abs 7.7(H) 1.5 - 6.5 K/cumm [...] revised on 2017. Blood 04/30/2024 2:29 AM OBSTETRICS GYN PHYSICIAN 04/30/2024 2:58 AM OBSTETRICS GYN PHYSICIAN Maggi Vaughn MD LAB BLOOD ORDERABLES Fi nal Result [facility] 1 [facility] [employer] [place] [address] * (ABNORMAL) CBC with auto differential (04/30/2024 2:29 AM OBSTETRICS GYN PHYSICIAN) WBC 10.8(H) 3.8 - 9.9 K/cumm Hgb [...] RDW CV 16.2(H) 11.1 - 14.9 % [facility]) RDW SD 53.3(H) 35.7 - 48.1 fL [facility]) NRBC abs 0.00 0.00 - 0.01 K/cumm [facility]) Blood 04/30/2024 2:29 AM OBSTETRICS GYN PHYSICIAN 04/30/2024 2:58 AM OBSTETRICS GYN PHYSICIAN Maggi Vaughn MD LAB BLOOD ORDERABLES Fi nal Result [facility] ([place]) 1 [facility] [place] [employer] [place] [address] * Magnesium (04/30/2024 2:29 AM OBSTETRICS GYN PHYSICIAN) Magnesium 2.5 1.4 - 2.5 mg/dL Blood 04/30/2024 2:29 AM OBSTETRICS GYN PHYSICIAN 04/30/2024 2:59 AM OBSTETRICS GYN PHYSICIAN us Maggi Vaughn MD LAB BLOOD ORDERABLES Fi nal Result [facility] ([place]) 1 [facility] Department [place] [address] * (ABNORMAL) Comprehensive metabolic panel (04/30/2024 2:29 AM OBSTETRICS GYN PHYSICIAN) Sodium 138 135 - 145 mmol/L Potassium, pl 4.2 3.3 - 4.9 mmol/L [facility] Chloride 101 97 - 110 mmol/L [facility] CO2 28 22 - 32 mmol/L [facility]) Anion gap 9 2 - 15 mmol/L [facility] BUN 25 6 - 25 mg/dL [facility] Creatinine 1.02 0.80 - 1.30 mg/dL [facility]) Glucose 112 70 - 199 mg/dL [facility] Comment: Interpretive Data Fasting glucose [...] Alk phos 71 40 - 130 Units/L [facility]) ALT 15 7 - 55 Units/L [facility] AST 22 10 - 50 Units/L [facility]) Blood 04/30/2024 2:29 AM OBSTETRICS GYN PHYSICIAN 04/30/2024 2:59 AM OBSTETRICS GYN PHYSICIAN us Maggi Vaughn MD LAB BLOOD ORDERABLES Fi nal Result [facility] ([place]) 1 [facility] Department [place] [address] * eGFR (04/29/2024 2:17 AM OBSTETRICS GYN PHYSICIAN) eGFR 81 >=60 mL/min/1. 73 m2 Comment: [...] last reviewed 2021. Blood 04/29/2024 2:17 AM OBSTETRICS GYN PHYSICIAN 04/29/2024 3:48 AM OBSTETRICS GYN PHYSICIAN us Maggi Vaughn MD LAB BLOOD ORDERABLES Fi nal Result [facility] 1 [facility] Department [place] [address] * Differential, auto (04/29/2024 2:17 AM OBSTETRICS GYN PHYSICIAN) Neutrophil abs 6.5 1.5 - 6.5 K/cumm Imm gran abs 0.1 0.0 - 0.1 K/cumm [facility]) Lymphocyte abs 0.8 0.8 - 3.3 K/cumm [facility]) Monocyte abs 0.3 0.2 - 0.8 K/cumm [facility]) Eosinophil abs 0.0 0.0 - 0.5 K/cumm [facility]) Basophil abs 0.0 0.0 - 0.1 K/cumm [facility] ([place]) Neutrophil pct 84.9 % [facility]) Comment: Interpretive Data Percent cell count reference [...] 2017. Monocyte pct 3.8 % [facility] Comment: Interpretive Data Percent cell count reference [...] revised on 2017. Blood 04/29/2024 2:17 AM OBSTETRICS GYN PHYSICIAN 04/29/2024 3:46 AM OBSTETRICS GYN PHYSICIAN us Maggi Vaughn MD LAB BLOOD ORDERABLES Fi nal Result [facility] ([place]) 1 [facility] Department [place] [address] * (ABNORMAL) CBC with auto differential (04/29/2024 2:17 AM OBSTETRICS GYN PHYSICIAN) WBC 7.7 3.8 - 9.9 K/cumm Hgb [...] [facility]) Blood 04/29/2024 2:17 AM OBSTETRICS GYN PHYSICIAN 04/29/2024 3:46 AM OBSTETRICS GYN PHYSICIAN us Maggi Vaughn MD LAB BLOOD ORDERABLES Fi nal Result [facility] ([place]) 1 [facility] Department [place] [address] * (ABNORMAL) CBC without differential (04/29/2024 2:17 AM OBSTETRICS GYN PHYSICIAN) WBC 7.7 3.8 - 9.9 K/cumm Hgb [...] [facility]) Blood 04/29/2024 2:17 AM OBSTETRICS GYN PHYSICIAN 04/29/2024 3:46 AM OBSTETRICS GYN PHYSICIAN us Karissa Mchugh MD LAB BLOOD ORDERABLES Umm l Result [facility] ([place]) 1 [facility] Department [place] [address] * Magnesium (04/29/2024 2:17 AM OBSTETRICS GYN PHYSICIAN) Pathologist [facility] Magnesium 2.4 1.4 - 2.5 mg/dL Blood 04/29/2024 2:17 AM OBSTETRICS GYN PHYSICIAN 04/29/2024 3:48 AM OBSTETRICS GYN PHYSICIAN us Maggi Vaughn MD LAB BLOOD ORDERABLES Fi nal Result [facility] ([place]) 1 [facility] Department [place] [address] * (ABNORMAL) Comprehensive metabolic panel (04/29/2024 2:17 AM OBSTETRICS GYN PHYSICIAN) Sodium 138 135 - 145 mmol/L Potassium, pl 3.9 3.3 - 4.9 mmol/L [facility] Chloride 99 97 - 110 mmol/L [facility] CO2 29 22 - 32 mmol/L [facility] Anion gap 11 2 - 15 mmol/L [facility]) BUN 24 6 - 25 mg/dL [facility]) Creatinine 0.99 0.80 - 1.30 mg/dL [facility]) Glucose 133 70 - 199 mg/dL [facility] ([place]) [...] ([place]) ALT 11 7 - 55 Units/L [facility] ([place]) AST 20 10 - 50 Units/L [facility] ([place]) Blood 04/29/2024 2:17 AM OBSTETRICS GYN PHYSICIAN 04/29/2024 3:48 AM OBSTETRICS GYN PHYSICIAN Maggi Vaughn MD LAB BLOOD ORDERABLES Fi nal Result RONNIE [facility] ([place]) 1 [facility] Department [place] [address] * eGFR (04/28/2024 3:05 AM OBSTETRICS GYN PHYSICIAN) eGFR 76 >=60 mL/min/1. 73 m2 Comment: [...] last reviewed 2021. Blood 04/28/2024 3:05 AM OBSTETRICS GYN PHYSICIAN 04/28/2024 4:33 AM OBSTETRICS GYN PHYSICIAN us Maggi Vaughn MD LAB BLOOD ORDERABLES Fi nal Result RON[facility]IE [facility] ([place]) 1 [facility] Department of Laboratories [place], [place] [id number] * (ABNORMAL) Differential, auto (04/28/2024 3:05 AM OBSTETRICS GYN PHYSICIAN) Neutrophil abs 6.9(H) 1.5 - 6.5 K/cumm Imm gran abs 0.0 0.0 - 0.1 K/cumm [facility]) Lymphocyte abs 0.8 0.8 - 3.3 K/cumm [facility] ([place]) Monocyte abs 0.4 0.2 - 0.8 K/cumm [facility] ([place]) Eosinophil abs 0.0 0.0 - 0.5 K/cumm [facility] ([place]) Basophil abs 0.0 0.0 - 0.1 K/cumm [facility] ([place]) Neutrophil pct 84.8 % [facility] ([place]) Comment: Interpretive Data Percent cell count reference ranges are not reported, since discordance with absolute values may lead to misinterpretation of CBC data. Current Interpretive Data was last revised on 2017. Imm gran pct 0.5 % [facility] ([place]) Comment: Interpretive Data Percent cell count reference ranges are not reported, since discordance with absolute values may lead to misinterpretation of CBC data. Current Interpretive Data was last revised on 2017. Lymphocyte pct 9.9 % [facility] ([place]) Comment: Interpretive Data Percent cell count reference ranges are not reported, since discordance with absolute values may lead to misinterpretation of CBC data. Current Interpretive Data was last revised on 2017. Monocyte pct 4.7 % [facility] ([place]) Comment: Interpretive Data Percent cell count reference [...] revised on 2017. Blood 04/28/2024 3:05 AM OBSTETRICS GYN PHYSICIAN 04/28/2024 4:31 AM OBSTETRICS GYN PHYSICIAN Maggi Vaughn MD LAB BLOOD ORDERABLES Fi nal Result [facility] ([place]) 1 [facility] [place] [address] * (ABNORMAL) CBC with auto differential (04/28/2024 3:05 AM OBSTETRICS GYN PHYSICIAN) WBC 8.1 3.8 - 9.9 K/cumm Hgb 11.1(L) 13.0 - 17.5 g/dL [facility] ([place]) Hct 33.0(L) 38.9 - 50.3 % [facility] ([place]) Plt 164 150 - 400 K/cumm [facility] [...] [facility] ([place]) Blood 04/28/2024 3:05 AM OBSTETRICS GYN PHYSICIAN 04/28/2024 4:31 AM OBSTETRICS GYN PHYSICIAN us Maggi Vaughn MD LAB BLOOD ORDERABLES Fi nal Result [facility] ([place]) 1 [facility] [employer] [place] [address] * (ABNORMAL) CBC without differential (04/28/2024 3:05 AM OBSTETRICS GYN PHYSICIAN) WBC 8.1 3.8 - 9.9 K/cumm Hgb 11.1(L) 13.0 - 17.5 g/dL [facility] ([place]) Hct 33.0(L) 38.9 - 50.3 % [facility] ([place]) Plt 164 150 - 400 K/cumm CERNER [...] [facility] ([place]) Blood 04/28/2024 3:05 AM OBSTETRICS GYN PHYSICIAN 04/28/2024 4:31 AM OBSTETRICS GYN PHYSICIAN us Karissa Mchugh MD LAB BLOOD ORDERABLES Umm l Result [facility] ([place]) 1 [facility] [employer] [place] [address] * Magnesium (04/28/2024 3:05 AM OBSTETRICS GYN PHYSICIAN) Magnesium 2.5 1.4 - 2.5 mg/dL Blood 04/28/2024 3:05 AM OBSTETRICS GYN PHYSICIAN 04/28/2024 4:33 AM OBSTETRICS GYN PHYSICIAN Maggi Vaughn MD LAB BLOOD ORDERABLES Fi nal Result Performing Organization Address [facility] Co de Phone Number RONNIE GRIER ([place]) 1 [place] [address] * Digoxin level (04/28/2024 3:05 AM OBSTETRICS GYN PHYSICIAN) Digoxin 0.7 0.5 - 1.2 ng/mL Comment: Interpretive data The therapeutic range for digoxin varies by indication: Heart failure: 0.5 to 0.8 ng/mL Atrial fibrillation: less than 1.2 ng/mL Toxicity: >2.4. Normal or low digoxin does not rule out toxicity. Current interpretive data was last revised on 2023. Blood 04/28/2024 3:05 AM OBSTETRICS GYN PHYSICIAN 04/28/2024 4:33 AM OBSTETRICS GYN PHYSICIAN Karissa Mchugh MD LAB BLOOD ORDERABLES Umm l Result Performing Organization Address City/[facility]/ZIP Co de Phone Number RONNIE GRIER ([place]) 1 [place] [address] * (ABNORMAL) Comprehensive metabolic panel (04/28/2024 3:05 AM OBSTETRICS GYN PHYSICIAN) Sodium 136 135 - 145 mmol/L Potassium, pl 4.3 3.3 - 4.9 mmol/L [facility] ([place]) Chloride 96(L) 97 - 110 mmol/L [facility] ([place]) CO2 29 22 - 32 mmol/L [facility] ([place]) Anion gap 11 2 - 15 mmol/L [facility] ([place]) BUN 22 6 - 25 mg/dL [facility] ([place]) Creatinine 1.05 0.80 - 1.30 mg/dL [facility] ([place]) Glucose 132 70 - 199 mg/dL [facility] ([place]) Comment: Interpretive Data Fasting glucose >/= [...] Slightly Hemolyzed Specimen Blood 04/28/2024 3:05 AM OBSTETRICS GYN PHYSICIAN 04/28/2024 4:33 AM OBSTETRICS GYN PHYSICIAN Maggi Vaughn MD LAB BLOOD ORDERABLES Fi nal Result Performing Organization Address City/[facility]/ZIP Co de Phone Number RONNIE GRIER ([place]) 1 [facility] [employer] [address] * POCT glucose (04/27/2024 4:45 PM OBSTETRICS GYN PHYSICIAN) Glucose, POC 153 70 - 199 mg/dL Blood 04/27/2024 4:45 PM OBSTETRICS GYN PHYSICIAN 04/27/2024 4:45 PM OBSTETRICS GYN PHYSICIAN Karissa Mchugh MD LAB POCT ORDERABLES - DEV ICE Final Result RONNIE GRIER ([place]) 1 [facility] [place] [address] * eGFR (04/27/2024 9:08 AM OBSTETRICS GYN PHYSICIAN) eGFR 80 >=60 mL/min/1. 73 m2 Comment: [...] last reviewed 2021. Blood 04/27/2024 9:08 AM OBSTETRICS GYN PHYSICIAN 04/27/2024 9:11 AM OBSTETRICS GYN PHYSICIAN us Karissa Mchugh MD LAB BLOOD ORDERABLES Umm gabe Result RONNIE GRIER ([place]) 1 [facility] Department [place] [address] * (ABNORMAL) CBC without differential (04/27/2024 9:08 AM OBSTETRICS GYN PHYSICIAN) WBC 6.5 3.8 - 9.9 K/cumm Hgb [...] 49.1(H) 35.7 - 48.1 fL [facility] ([place]) NRBC abs 0.00 0.00 - 0.01 K/cumm [facility] ([place]) Blood 04/27/2024 9:08 AM OBSTETRICS GYN PHYSICIAN 04/27/2024 9:11 AM OBSTETRICS GYN PHYSICIAN us Karissa Mchugh MD LAB BLOOD ORDERABLES Umm l Result Performing Organization Address City/[facility]/ZIP Co de Phone Number RONNIE GRIER ([place]) 1 [facility] [employer] [place] [address] * Magnesium (04/27/2024 9:08 AM OBSTETRICS GYN PHYSICIAN) Magnesium 2.2 1.4 - 2.5 mg/dL Blood 04/27/2024 9:08 AM OBSTETRICS GYN PHYSICIAN 04/27/2024 9:55 AM OBSTETRICS GYN PHYSICIAN us Maggi Vaughn MD LAB BLOOD ORDERABLES Fi nal Result Performing Organization Address City/[facility]/ZIP Co de Phone Number RONNIE GRIER ([place]) 1 [facility] Department [place] [employer] [place] [address] * (ABNORMAL) Basic metabolic panel (04/27/2024 9:08 AM OBSTETRICS GYN PHYSICIAN) Sodium 134(L) 135 - 145 mmol/L Potassium, pl 4.5 3.3 - 4.9 mmol/L [facility] ([place]) Chloride 94(L) 97 - 110 mmol/L [facility] ([place]) CO2 26 22 - 32 mmol/L [facility] ([place]) Anion gap 14 2 - 15 mmol/L [facility] ([place]) BUN 22 6 - 25 mg/dL [facility] ([place]) Creatinine 1.01 0.80 - 1.30 mg/dL [facility] ([place]) Comment:Icteric sample, test results may be affected. Glucose 178 70 - 199 mg/dL [facility] ([place]) Comment: Interpretive Data Fasting glucose >/= [...] 2022. Calcium 9.2 8.5 - 10.3 mg/dL [facility] ([place]) Blood 04/27/2024 9:08 AM OBSTETRICS GYN PHYSICIAN 04/27/2024 9:11 AM OBSTETRICS GYN PHYSICIAN Karissa Mchugh MD LAB BLOOD ORDERABLES Umm l Result [facility] ([place]) 1 [facility] Department [place] [address] * Troponin T high-sensitivity 2-hour (04/26/2024 11:40 PM OBSTETRICS GYN PHYSICIAN) Pathologist [facility] Trop T hs 13 <=22 ng/L Comment: Interpretive Data For further hscTnT resources including the diagnostic algorithm and an aid in interpretation, copy and paste this link: https://nrl.testcatalog.org/show/hsTrop Current Interpretive Data last revised 2020. Trop T hs delta 1 ng/L [facility] ([place]) Trop T hs interp Insignificant [facility] ([place]) Blood 04/26/2024 11:4 0 PM OBSTETRICS GYN PHYSICIAN 04/26/2024 11:43 PM OBSTETRICS GYN PHYSICIAN Rosa Elena IBARRA LAB BLOOD ORDERABLES Umm l Result RONNIE GRIER ([place]) 1 [facility] Department [place] [address] * CT Chest PE (CTA) W Contrast (04/26/2024 9:55 PM OBSTETRICS GYN PHYSICIAN) Anatomical Region Laterality Modality Body N/A Computed Tomogra phy 04/26/2024 9:56 PM OBSTETRICS GYN PHYSICIAN Narrative 04/26/2024 10:12 PM OBSTETRICS GYN PHYSICIAN EXAM DESCRIPTION: ?? CT CHEST PE (CTA) [...] months could be considered. Reference :Radiographics. 2018 Nov-Dec;38(5):4850-3666 3. ??Moderate upper lobe predominant bilateral pulmonary emphysema. THIS IS AN ELECTRONICALLY VERIFIED FINAL REPORT 04/26/2024 10:12 PM - Electronically signed by ??Eleuterio Bullard M.D. AT: AT D: ??04/26/2024 10:12 PM T: ??04/26/2024 10:12 PM Report ID: [id number] Reading Location: ??[id number] Procedure Note Eleuterio Bullard MD - 04/26/2024 EXAM DESCRIPTION: CT CHEST PE (CTA) W CONTRAST REASON FOR STUDY: Chest pain, PE suspected, high prob Pt had hip replacement on Thursday, shortness of breath and low [id number] today at the rehab facility. Concern for [...] months could be considered. Reference :Radiographics. 2018 Nov-Dec;38(5):8936-0806 3. Moderate upper lobe predominant bilateral pulmonary emphysema. THIS IS AN ELECTRONICALLY VERIFIED FINAL REPORT 04/26/2024 10:12 PM - Electronically signed by Eleuterio Bullard M.D. AT: AT Report ID: [id number] Reading Location: [id number] Rosa Elena IBARRA IMRangel CT PROCEDURES Final R esult * XR Chest 1 Vw Portable (04/26/2024 9:32 PM OBSTETRICS GYN PHYSICIAN) Anatomical Region Laterality Modality Body, Chest N/A Computed Radiogr aphy 04/26/2024 9:34 PM OBSTETRICS GYN PHYSICIAN Narrative 04/26/2024 9:40 PM OBSTETRICS GYN PHYSICIAN EXAM DESCRIPTION: XR CHEST 1 VIEW REASON FOR STUDY: sob ?? PT BIBEMS from [facility] w c/o SOB, HR in the 150's. Recent dx of A-fib, hx of COPD and CHF. Pt was satting 95% on 5L. EMS gave douneb on route. Pt had right hip surgery and was discharged to [facility] today. Pt denies any pain and is [...] PM T: ??04/26/2024 9:40 PM Report ID: [id number] Reading Location: ??[id number] Procedure Note Tom Miranda Jr., MD - 04/26/2024 EXAM DESCRIPTION: XR CHEST 1 VIEW REASON FOR STUDY: sob PT BIBEMS from [facility] w c/o SOB, HR in the 150's. Recent dx of A-fib, hx ofCOPD and CHF. Pt was satting 95% on 5L. EMS gave douneb on route. Pt had righthip surgery and was discharged to [facility] today. Pt denies any pain and issatting [...] Electronically signed by Tom Miranda M.D. CH: Report ID: [id number] Reading Location: [id number] Rosa Elena IBARRA IMG XR PROCEDURES Final R esult * ECG 12 lead (04/26/2024 9:12 PM OBSTETRICS GYN PHYSICIAN) 04/26/2024 9:12 PM OBSTETRICS GYN PHYSICIAN Narrative [facility] - 04/27/2024 6:40 AM OBSTETRICS GYN PHYSICIAN Vent Rate: 124 bpm RR Interval: 481 msec [place] Interval: 0 msec QRS Duration: 139 msec QT Interval: 360 msec QTC Interval: 434 msec P-R-T [place]: 24202 - 27 - 20 degrees IMPRESSION: ATRIAL FIBRILLATION WITH RAPID VENTRICULAR RESPONSE INDETERMINATE AXIS RIGHT BUNDLE BRANCH BLOCK ??[120+ ms QRS DURATION, UPRIGHT V1, 40+ ms S IN I/aVL/V4/V5/V6] ST DEPRESSION, CONSIDER SUBENDOCARDIAL INJURY ??[0.1+ mV ST DEPRESSION] ABNORMAL ECG NO CHANGE FROM PREVIOUS TRACING NOTED Electronically Signed By: Ruiz Arreaga MD Rosa Elena IBARRA ECG ORDERABLES Final Res ult [facility] * Troponin T high-sensitivity series (baseline, 2hr, 4hr, 6hr) (04/26/2024 9:06 PM OBSTETRICS GYN PHYSICIAN) Trop T hs 12 <=22 ng/L Comment: Interpretive Data For further hscTnT resources including the diagnostic algorithm and an aid in interpretation, copy and paste this link: https://nrl.testcatalog.org/show/hsTrop Current Interpretive Data last revised 2020. Blood 04/26/2024 9:06 PM OBSTETRICS GYN PHYSICIAN 04/26/2024 9:09 PM OBSTETRICS GYN PHYSICIAN Rosa Elena IBARRA LAB BLOOD ORDERABLES Umm l Result Performing Organization Address City/[facility]/ZIP Co de Phone Number RONNIE [facility] ([place]) 1 [facility] Department [place] [address] * Influenza A/B, RSV, and COVID-19 PCR Nasopharyngeal (04/26/2024 9:06 PM OBSTETRICS GYN PHYSICIAN) Pathologist [facility] COVID-19 RNA Negative Negative Influenza A RNA Negative Negative [facility] ([place]) Influenza B RNA Negative Negative [facility] ER [facility] ([place]) RSV RNA Negative Negative [facility] ([place]) Comment: Interpretive data: Testing performed by [facility]. This test is performed using the [employer]ally Xpert Xpress CoV-2/Flu/RSV plus assay. This is a multiplex, real- time reverse transcriptase PCR assay intended for the qualitative detection of nucleic acid from SARS-CoV-2, influenza A, influenza B, and respiratory syncytial virus. This assay has been cleared by the [place] Food and Drug administration. The performance characteristics have been verified by the [facility]. ?? Results must be considered in the clinical context, and a negative result does not rule out infection. Interpretive Data last revised 2023 Nasopharyngeal 04/26/2024 9: 06 PM OBSTETRICS GYN PHYSICIAN 04/26/2024 9:09 PM OBSTETRICS GYN PHYSICIAN Narrative [facility] ([place]) - 04/26/2024 9:47 PM OBSTETRICS GYN PHYSICIAN Is the Patient experiencing symptoms consistent with COVID?->Yes Rosa Elena IBARRA LAB MICROBIOLOGY - GENERA L ORDERABLES Final Result RONNIE GRIER ([place]) 1 [facility] Department [place] [address] * Sepsis Lactate w/ Reflex (04/26/2024 9:06 PM OBSTETRICS GYN PHYSICIAN) Pathologist [facility] Sepsis Lactate 2.0 0.7 - 2.0 mmol/L Blood 04/26/2024 9:06 PM OBSTETRICS GYN PHYSICIAN 04/26/2024 9:09 PM OBSTETRICS GYN PHYSICIAN Rosa Elena IBARRA LAB BLOOD ORDERABLES Umm l Result Performing Organization Address [facility] Co de Phone Number RONNIE GRIER ([place]) 1 [facility] Department [place] [address] * eGFR (04/26/2024 9:06 PM OBSTETRICS GYN PHYSICIAN) eGFR 70 >=60 mL/min/1. 73 m2 Comment: [...] last reviewed 2021. Blood 04/26/2024 9:06 PM OBSTETRICS GYN PHYSICIAN 04/26/2024 9:09 PM OBSTETRICS GYN PHYSICIAN Rosa Elena IBARRA LAB BLOOD ORDERABLES Umm l Result [facility] ([place]) 1 [facility] Department [place] [address] * Differential, auto (04/26/2024 9:06 PM OBSTETRICS GYN PHYSICIAN) Neutrophil abs 6.1 1.5 - 6.5 K/cumm [...] Neutrophil pct 68.7 % [facility] ([place]) Comment: Interpretive Data Percent cell count reference [...] revised on 2017. Monocyte pct 7.9 % [facility] ([place]) Comment: Interpretive Data Percent cell count reference ranges are not reported, since discordance with absolute values may lead to misinterpretation of CBC data. Current Interpretive Data was last revised on 2017. Eosinophil pct 2.1 % [facility] ([place]) Comment: Interpretive [...] revised on 2017. Blood 04/26/2024 9:06 PM OBSTETRICS GYN PHYSICIAN 04/26/2024 9:09 PM OBSTETRICS GYN PHYSICIAN us Rosa Elena IBARRA LAB BLOOD ORDERABLES Umm gabe Result [facility] ([place]) 1 [facility] Department [place] [address] * (ABNORMAL) Pro B-type natriuretic peptide (04/26/2024 9:06 PM OBSTETRICS GYN PHYSICIAN) NT-proBNP 1,996(H) <=300 pg/mL Comment: Interpretive Comments: [...] et.al. Eur Heart J. 2006:27:330-337. 2. Tyra DEUTSCH, Cintia WANG. J. AM Rupa Cardiol: Cardiovasc Imag. 2009;2: 216- 225. Interpretive Data Last Revised Date: 2017. Blood 04/26/2024 9:06 PM OBSTETRICS GYN PHYSICIAN 04/26/2024 9:20 PM OBSTETRICS GYN PHYSICIAN Rosa Elena IBARRA LAB BLOOD ORDERABLES Umm l Result Performing Organization Address [facility]/ZIP Co de Phone Number [facility] ([place]) 1 [facility] [employer] [address] * (ABNORMAL) Thyroid Function [place] (04/26/2024 9:06 PM OBSTETRICS GYN PHYSICIAN) TSH 10.28(H) 0.30 - 4.20 mcIUnit/mL Blood 04/26/2024 9:06 PM OBSTETRICS GYN PHYSICIAN 04/26/2024 9:20 PM OBSTETRICS GYN PHYSICIAN Rosa Elena IBARRA LAB BLOOD ORDERABLES Umm l Result Performing Organization Address City/[facility]/ZIP Co de Phone Number [facility] ([place]) 1 [facility] [place] [place] [address] * (ABNORMAL) CBC with auto differential (04/26/2024 9:06 PM OBSTETRICS GYN PHYSICIAN) WBC 8.9 3.8 - 9.9 K/cumm Hgb 12.9(L) 13.0 - 17.5 g/dL [facility] ([place]) Hct 38.4(L) 38.9 - 50.3 % [facility] ([place]) Plt 159 150 - 400 K/cumm [facility] ([place]) MPV 10.7 9.1 - 12.3 fL [facility] ([place]) RBC 4.19(L) 4.30 - 5.80 M/cumm [facility] ([place]) MCV 91.6 81.3 - 96.4 fL [facility] ([place]) MCH 30.8 27.1 - 33.3 pg [facility] ([place]) MCHC 33.6 32.3 - 35.7 g/dL [facility] ([place]) RDW CV 14.6 11.1 - 14.9 % [facility] ([place]) RDW SD 48.3(H) 35.7 - 48.1 fL [facility] ([place]) NRBC abs 0.02(H) 0.00 - 0.01 K/cumm [facility] ([place]) Blood 04/26/2024 9:06 PM OBSTETRICS GYN PHYSICIAN 04/26/2024 9:09 PM OBSTETRICS GYN PHYSICIAN Rosa Elena IBARRA LAB BLOOD ORDERABLES Umm l Result Performing Organization Address City/[facility]/ZIP Co de Phone Number RONNIE GRIER ([place]) 1 [facility] [employer] [place] [address] * aPTT (04/26/2024 9:06 PM OBSTETRICS GYN PHYSICIAN) aPTT 35 28 - 38 sec [facility] ([place]) Comment: Interpretive Data Heparin therapeutic range: 66.0 - 100.0 seconds. Range based on correlation with therapeutic heparin activity range of 0.3 - 0.7 Units/mL. Current interpretive data was last revised on 2022. Blood 04/26/2024 9:06 PM OBSTETRICS GYN PHYSICIAN 04/26/2024 9:09 PM OBSTETRICS GYN PHYSICIAN Rosa Elena IBARRA LAB BLOOD ORDERABLES Umm l Result Performing Organization Address City/[facility]/ZIP Co de Phone Number RONNIE GRIER ([place]) 1 [facility] [employer] [place] [address] * T4, free (04/26/2024 9:06 PM OBSTETRICS GYN PHYSICIAN) Pathologist [facility] Free T4 1.59 0.90 - 1.70 ng/dL Blood 04/26/2024 9:06 PM OBSTETRICS GYN PHYSICIAN 04/26/2024 9:20 PM OBSTETRICS GYN PHYSICIAN Narrative RONNIE GRIER ([place]) - 04/26/2024 11:37 PM OBSTETRICS GYN PHYSICIAN This test was reflexed from a TSH result. Rosa Elena IBARRA LAB BLOOD ORDERABLES Umm l Result RONNIE GRIER ([place]) 1 [facility] [place] [address] * Magnesium (04/26/2024 9:06 PM OBSTETRICS GYN PHYSICIAN) [facility] [address] Magnesium 2.4 1.4 - 2.5 mg/dL Blood 04/26/2024 9:06 PM OBSTETRICS GYN PHYSICIAN 04/26/2024 9:20 PM OBSTETRICS GYN PHYSICIAN Rosa Elena IBARRA LAB BLOOD ORDERABLES Umm l Result RONNIE GRIER ([place]) 1 [facility] [place] [address] * (ABNORMAL) Comprehensive metabolic panel (04/26/2024 9:06 PM OBSTETRICS GYN PHYSICIAN) [facility] [address] Sodium 134(L) 135 - 145 mmol/L Potassium, pl 3.8 3.3 - 4.9 mmol/L [facility] ([place]) Chloride 92(L) 97 - 110 mmol/L [facility] ([place]) CO2 31 22 - 32 mmol/L [facility] ([place]) Anion gap 12 2 - 15 mmol/L [facility] ([place]) BUN 21 6 - 25 mg/dL [facility] ([place]) Creatinine 1.12 0.80 - 1.30 mg/dL [facility] ([place]) Comment:Icteric sample, test results may be affected. Glucose 122 70 - 199 mg/dL [facility] ([place]) Comment: Interpretive Data Fasting glucose >/= [...] [facility] ([place]) Blood 04/26/2024 9:06 PM OBSTETRICS GYN PHYSICIAN 04/26/2024 9:09 PM OBSTETRICS GYN PHYSICIAN Rosa Elena IBARRA LAB BLOOD ORDERABLES Umm bernal Result [facility] ([place]) 1 [facility] Department [place] [address] * eGFR (04/26/2024 3:48 AM OBSTETRICS GYN PHYSICIAN) eGFR 70 >=60 mL/min/1. 73 m2 Comment: [...] last reviewed 2021. Blood 04/26/2024 3:48 AM OBSTETRICS GYN PHYSICIAN 04/26/2024 3:53 AM OBSTETRICS GYN PHYSICIAN us Anjali Meza MD LAB BLOOD ORDERABLES F inal Result [facility] ([place]) 1 [facility] Department [place] [address] * Differential, auto (04/26/2024 3:48 AM OBSTETRICS GYN PHYSICIAN) Neutrophil abs 4.4 1.5 - 6.5 K/cumm [...] revised on 2017. Blood 04/26/2024 3:48 AM OBSTETRICS GYN PHYSICIAN 04/26/2024 3:56 AM OBSTETRICS GYN PHYSICIAN us Anjali Meza MD LAB BLOOD ORDERABLES F inal Result RONNIE GRIER ([place]) 1 [facility] Department [place] [address] * (ABNORMAL) CBC with auto differential (04/26/2024 3:48 AM OBSTETRICS GYN PHYSICIAN) WBC 7.5 3.8 - 9.9 K/cumm Hgb 12.3(L) 13.0 - 17.5 g/dL [facility] ([place]) Hct 36.5(L) 38.9 - 50.3 % [facility] ([place]) Plt 139(L) 150 - 400 K/cumm [facility] ([place]) MPV 10.7 9.1 - 12.3 [...] NRBC abs 0.00 0.00 - 0.01 K/cumm [facility] Blood 04/26/2024 3:48 AM OBSTETRICS GYN PHYSICIAN 04/26/2024 3:56 AM OBSTETRICS GYN PHYSICIAN us Anjali Meza MD LAB BLOOD ORDERABLES F inal Result [facility] ([place]) 1 [facility] Department [place] [address] * (ABNORMAL) Basic metabolic panel (04/26/2024 3:48 AM OBSTETRICS GYN PHYSICIAN) Sodium 135 135 - 145 mmol/L Potassium, pl 3.5 3.3 - 4.9 mmol/L [facility] Chloride 93(L) 97 - 110 mmol/L [facility] ([place]) CO2 28 22 - 32 mmol/L [facility] ([place]) Anion gap 14 2 - 15 mmol/L [facility] BUN 25 6 - 25 mg/dL [facility] ([place] Creatinine 1.12 0.80 - 1.30 mg/dL [facility] ([place]) Glucose 112 70 - 199 mg/dL [facility] ([place]) [...] 2022. Calcium 9.0 8.5 - 10.3 mg/dL RONNIE GRIER ([place]) Blood 04/26/2024 3:48 AM OBSTETRICS GYN PHYSICIAN 04/26/2024 3:53 AM OBSTETRICS GYN PHYSICIAN us Anjali Meza MD LAB BLOOD ORDERABLES F inal Result RONNIE [facility] ([place]) 1 [facility] Department [place] [address] * eGFR (04/25/2024 3:07 AM OBSTETRICS GYN PHYSICIAN) eGFR 65 >=60 mL/min/1. 73 m2 Comment: [...] last reviewed 2021. Blood 04/25/2024 3:07 AM OBSTETRICS GYN PHYSICIAN 04/25/2024 4:31 AM OBSTETRICS GYN PHYSICIAN us Anjali Meza MD LAB BLOOD ORDERABLES F inal Result [facility] ([place] 1 [facility] Department [place] [address] * (ABNORMAL) Differential, auto (04/25/2024 3:07 AM OBSTETRICS GYN PHYSICIAN) Neutrophil abs 5.3 1.5 - 6.5 K/cumm [...] revised on 2017. Blood 04/25/2024 3:07 AM OBSTETRICS GYN PHYSICIAN 04/25/2024 3:26 AM OBSTETRICS GYN PHYSICIAN us Anjali Meza MD LAB BLOOD ORDERABLES F inal Result [facility] ([place]) 1 [facility] Department [place] [address] * (ABNORMAL) CBC with auto differential (04/25/2024 3:07 AM OBSTETRICS GYN PHYSICIAN) WBC 8.4 3.8 - 9.9 K/cumm Hgb 12.2(L) 13.0 - 17.5 g/dL [facility] ([place]) Hct 37.4(L) 38.9 - 50.3 % [...] - 0.01 K/cumm [facility] ([place]) Blood 04/25/2024 3:07 AM OBSTETRICS GYN PHYSICIAN 04/25/2024 3:26 AM OBSTETRICS GYN PHYSICIAN us Anjali Meza MD LAB BLOOD ORDERABLES F inal Result [facility] ([place]) 1 [facility] Department [place] [address] * (ABNORMAL) Basic metabolic panel (04/25/2024 3:07 AM OBSTETRICS GYN PHYSICIAN) Sodium 135 135 - 145 mmol/L Potassium, pl 3.9 3.3 - 4.9 mmol/L [facility] ([place]) Chloride 96(L) 97 - 110 mmol/L [facility] ([place]) CO2 23 22 - 32 mmol/L [facility] ([place]) Anion gap 16(H) 2 - 15 mmol/L [facility] ([place]) BUN 28(H) 6 - 25 mg/dL [facility] ([place]) Creatinine 1.19 0.80 - 1.30 mg/dL [facility] ([place]) Glucose 106 70 - 199 mg/dL [facility] ([place]) [...] - 10.3 mg/dL [facility] ([place]) Blood 04/25/2024 3:07 AM OBSTETRICS GYN PHYSICIAN 04/25/2024 3:26 AM OBSTETRICS GYN PHYSICIAN us Anjali Meza MD LAB BLOOD ORDERABLES F inal Result [facility] [place]) 1 [facility] Department [place] [address] * XR CHEST 1 VIEW PORTABLE (04/24/2024 4:49 AM OBSTETRICS GYN PHYSICIAN) Anatomical Region Laterality Modality Body, Chest N/A Computed Radiogr aphy 04/24/2024 5:46 AM OBSTETRICS GYN PHYSICIAN Narrative 04/24/2024 5:46 AM OBSTETRICS GYN PHYSICIAN EXAM DESCRIPTION: ?? XR CHEST 1 VIEW [...] AM T: ??04/24/2024 5:46 AM Report ID: [id number] Reading Location: ??[id number] Procedure Note Addie Mackenzie MD - 04/24/2024 EXAM DESCRIPTION: XR CHEST [...] Addie Mackenzie M.D. SN: SN Report ID: [id number] Reading Location: [place] [address] us Jeremias Arredondo MD IMG XR PROCEDURES Final Result * eGFR (04/24/2024 4:36 AM OBSTETRICS GYN PHYSICIAN) eGFR 69 >=60 mL/min/1. 73 m2 Comment: [...] last reviewed 2021. Blood 04/24/2024 4:36 AM OBSTETRICS GYN PHYSICIAN 04/24/2024 4:58 AM OBSTETRICS GYN PHYSICIAN us Anjali Meza MD LAB BLOOD ORDERABLES F inal Result [facility] ([place]) 1 [facility] Department [place] [address] * Differential, auto (04/24/2024 4:36 AM OBSTETRICS GYN PHYSICIAN) Neutrophil abs 6.3 1.5 - 6.5 K/cumm [...] revised on 2017. Blood 04/24/2024 4:36 AM OBSTETRICS GYN PHYSICIAN 04/24/2024 4:50 AM OBSTETRICS GYN PHYSICIAN us Anjali Meza MD LAB BLOOD ORDERABLES F inal Result [facility] ([place]) 1 [facility] Department [place] [address] * (ABNORMAL) Pro B-type natriuretic peptide (04/24/2024 4:36 AM OBSTETRICS GYN PHYSICIAN) NT-proBNP 1,533(H) <=300 pg/mL Comment: Interpretive Comments: [...] et.al. Eur Heart J. 2006:27:330-337. 2. Tyra DEUTSCH, Cintia WANG. J. AM Rupa Cardiol: Cardiovasc Imag. 2009;2: 216- 225. Interpretive Data Last Revised Date: 2017. Blood 04/24/2024 4:36 AM OBSTETRICS GYN PHYSICIAN 04/24/2024 10:26 AM OBSTETRICS GYN PHYSICIAN Vianney Joel [facility] DO LAB BLOOD ORDERABLES F inal Result [facility] ([place]) 1 [facility] Department [place] [address] * (ABNORMAL) CBC with auto differential (04/24/2024 4:36 AM OBSTETRICS GYN PHYSICIAN) WBC 9.2 3.8 - 9.9 K/cumm Hgb 11.8(L) 13.0 - 17.5 g/dL [facility] ([place]) Hct 35.2(L) 38.9 - 50.3 % [facility] ([place]) Plt 104(L) 150 - 400 K/cumm [facility] ([place]) MPV 10.7 9.1 - 12.3 fL [facility] ([place]) RBC 3.79(L) 4.30 - 5.80 M/cumm [facility] ([place]) MCV 92.9 81.3 - 96.4 fL [facility] ([place]) MCH 31.1 27.1 - 33.3 pg [facility] ([place]) MCHC 33.5 32.3 - 35.7 g/dL [facility] ([place]) RDW CV 14.9 11.1 - 14.9 % [facility] ([place]) RDW SD 50.7(H) 35.7 - 48.1 fL [facility] ([place]) NRBC abs 0.00 0.00 - 0.01 K/cumm [facility] [place]) Blood 04/24/2024 4:36 AM OBSTETRICS GYN PHYSICIAN 04/24/2024 4:50 AM OBSTETRICS GYN PHYSICIAN us Anjali Meza MD LAB BLOOD ORDERABLES F inal Result Performing Organization Address [facility] Co de Phone Number [facility] ([place]) 1 [facility] Department [place] [address] * Blood gas, venous (04/24/2024 4:36 AM OBSTETRICS GYN PHYSICIAN) Pathologist [facility] pH, Venous 7.42 7.32 - 7.43 PCO2, Venous 45 40 - 50 mmHg [facility] ([place]) PO2, Venous 162 mmHg [facility] ([place]) Comment: Interpretive Data No reference range established. Current interpretive data was last revised 2017. HCO3 Venous, Calculated 29 20 - 30 mmol/L [facility] BE, venous 4 mmol/L [facility] ([place]) Comment: Interpretive Data No Reference Range Established Current Interpretive Data was last revised on 2017. Blood 04/24/2024 4:36 AM OBSTETRICS GYN PHYSICIAN 04/24/2024 4:56 AM OBSTETRICS GYN PHYSICIAN us Jeremias Arredondo MD LAB BLOOD ORDERABLES Final Resu lt Performing Organization Address [facility] Co de Phone Number [facility] ([place]) 1 [facility] Department [place] [address] * (ABNORMAL) Basic metabolic panel (04/24/2024 4:36 AM OBSTETRICS GYN PHYSICIAN) Sodium 134(L) 135 - 145 mmol/L Potassium, pl 4.1 3.3 - 4.9 mmol/L [facility] ([place]) Chloride 97 97 - 110 mmol/L [facility] ([place]) CO2 26 22 - 32 mmol/L [facility]) Anion gap 11 2 - 15 mmol/L [facility] ([place]) BUN 25 6 - 25 mg/dL [facility] ([place]) Creatinine 1.14 0.80 - 1.30 mg/dL [facility] ([place]) Glucose 124 70 - 199 mg/dL [facility] ([place]) Comment: Interpretive Data Fasting glucose [...] 2022. Calcium 8.7 8.5 - 10.3 mg/dL [facility] ([place]) Blood 04/24/2024 4:36 AM OBSTETRICS GYN PHYSICIAN 04/24/2024 4:50 AM OBSTETRICS GYN PHYSICIAN us Anjali Meza MD LAB BLOOD ORDERABLES F inal Result [facility] ([place]) 1 [facility] Department [place] [address] * eGFR (04/23/2024 3:30 AM OBSTETRICS GYN PHYSICIAN) eGFR 69 >=60 mL/min/1. 73 m2 Comment: [...] last reviewed 2021. Blood 04/23/2024 3:30 AM OBSTETRICS GYN PHYSICIAN 04/23/2024 3:46 AM OBSTETRICS GYN PHYSICIAN us Anjali Meza MD LAB BLOOD ORDERABLES F inal Result [facility] ([place]) 1 [facility] Department [place] [address] * (ABNORMAL) Differential, auto (04/23/2024 3:30 AM OBSTETRICS GYN PHYSICIAN) Neutrophil abs 8.6(H) 1.5 - 6.5 K/cumm [...] revised on 2017. Blood 04/23/2024 3:30 AM OBSTETRICS GYN PHYSICIAN 04/23/2024 3:47 AM OBSTETRICS GYN PHYSICIAN us Anjali Meza MD LAB BLOOD ORDERABLES F inal Result [facility] ([place]) 1 [facility] Department [place] [address] * (ABNORMAL) CBC with auto differential (04/23/2024 3:30 AM OBSTETRICS GYN PHYSICIAN) WBC 11.1(H) 3.8 - 9.9 K/cumm Hgb [...] [facility] ([place]) Blood 04/23/2024 3:30 AM OBSTETRICS GYN PHYSICIAN 04/23/2024 3:47 AM OBSTETRICS GYN PHYSICIAN us Anjali Meza MD LAB BLOOD ORDERABLES F inal Result [facility] ([place]) 1 [facility] Department [place] [address] * (ABNORMAL) CBC without differential (04/23/2024 3:30 AM OBSTETRICS GYN PHYSICIAN) WBC 11.1(H) 3.8 - 9.9 K/cumm Hgb [...] [facility] ([place]) Blood 04/23/2024 3:30 AM OBSTETRICS GYN PHYSICIAN 04/23/2024 3:47 AM OBSTETRICS GYN PHYSICIAN Kamilah IBARRA LAB BLOOD ORDERABLES Final Result [facility] ([place]) 1 [facility] Department [place] [address] * (ABNORMAL) Basic metabolic panel (04/23/2024 3:30 AM OBSTETRICS GYN PHYSICIAN) Sodium 131(L) 135 - 145 mmol/L Potassium, [...] 2022. Calcium 8.6 8.5 - 10.3 mg/dL [facility] ([place]) Blood 04/23/2024 3:30 AM OBSTETRICS GYN PHYSICIAN 04/23/2024 3:46 AM OBSTETRICS GYN PHYSICIAN us Anjali Meza MD LAB BLOOD ORDERABLES F inal Result [facility] [place]) 5 [facility] Department [place] [address] * XR Pelvis Ortho View (04/22/2024 11:20 AM OBSTETRICS GYN PHYSICIAN) Anatomical Region Laterality Modality Body, Pelvis N/A Computed Radiogr aphy 04/22/2024 12:1 9 PM OBSTETRICS GYN PHYSICIAN Narrative 04/22/2024 12:19 PM OBSTETRICS GYN PHYSICIAN EXAM DESCRIPTION: XR PELVIS ORTHO VIEW REASON [...] PM T: ??04/22/2024 12:19 PM Report ID: [id number] Reading Location: ??[id number] Procedure Note Prabhakar Perdomo MD - 04/22/2024 [...] Perdomo M.D. MF: JUAN C Report ID: [id number] Reading Location: [id number] us Kamilah IBARRA IMG XR PROCEDURES Fin al Result * [place] Fluoroscopy < 1 Hour (04/22/2024 10:14 AM OBSTETRICS GYN PHYSICIAN) Narrative [facility] - 04/22/2024 10:15 AM OBSTETRICS GYN PHYSICIAN The images from this study are not interpreted by Radiology. ??Please refer to the physician's procedure / OR operative note. us Pawan Brown MD IMG FLUOROSCOPY PROCEDUR ES Final Result [facility] * XR Hip Right 2 or 3 Views (04/22/2024 10:14 AM OBSTETRICS GYN PHYSICIAN) Anatomical Region Laterality Modality Lower Extremities, Hip, Pelvis Right R adio Fluoroscopy 04/22/2024 11:1 4 AM OBSTETRICS GYN PHYSICIAN Narrative 04/22/2024 11:15 AM OBSTETRICS GYN PHYSICIAN EXAM DESCRIPTION: XR HIP RIGHT 2 OR 3 VIEWS REASON FOR STUDY: pain ?? Right hip nailing ??Fluoro time: 25.2 sec ??Mgy: 5 ? FINDINGS: Multiple fluoroscopic images consisting of ??2 ??view(s) submitted with comparison ??04/19/2024 . ?? Dose area product equals ??0.61263 ??mGym*2. Fluoroscopic images demonstrate an in progress [...] AM T: ??04/22/2024 11:15 AM Report ID: [id number] Reading Location: ??[id number] Procedure Note Prabhakar Perdomo MD - 04/22/2024 EXAM DESCRIPTION: XR HIP RIGHT 2 OR 3 VIEWS REASON FOR STUDY: pain Right hip nailing Fluoro time: 25.2 sec Mgy: 5 FINDINGS: Multiple fluoroscopic images consisting of 2 view(s) submitted with comparison 04/19/2024 . Dose area product equals 0.62289 mGym*2. Fluoroscopic images demonstrate an in progress reduction and nailing ofan intertrochanteric proximal right femur fracture . Soft tissue gas ispresent. IMPRESSION: In progress reduction and nailing of an intertrochanteric proximal right femur fracture. THIS IS AN ELECTRONICALLY VERIFIED FINAL REPORT 04/22/2024 11:15 AM - Electronically signed by Prabhakar Perdomo M.D. MF: JUAN C Report ID: [id number] Reading Location: [place] [address] us Pawan Brown MD IMG XR PROCEDURES Final Result * [place] AN ELECTIVE ENDOTRACHEAL AIRWAY (04/22/2024 9:55 AM OBSTETRICS GYN PHYSICIAN) Narrative Amara Egan CRNA - 04/22/2024 9:55 AM OBSTETRICS GYN PHYSICIAN Amara Egan CRNA ? 04/22/2024 ??9:57 AM Airway Patient location: OR Urgency: elective Indications for airway management: anesthesia Difficult airway: no Staff: Placed by: ASSISTED LIVING EXECUTIVE DIRECTOR: Amara Egan CRNA Emergent airway documentation: Risks and benefits discussed: [...] nal Result * eGFR (04/22/2024 5:13 AM OBSTETRICS GYN PHYSICIAN) eGFR 63 >=60 mL/min/1. 73 m2 Comment: [...] last reviewed 2021. Blood 04/22/2024 5:13 AM OBSTETRICS GYN PHYSICIAN 04/22/2024 6:14 AM OBSTETRICS GYN PHYSICIAN us Anjali Meza MD LAB BLOOD ORDERABLES F inal Result [facility] ([place]) 1 [employer] Department [place] [address] * (ABNORMAL) Differential, auto (04/22/2024 5:13 AM OBSTETRICS GYN PHYSICIAN) Neutrophil abs 8.3(H) 1.5 - 6.5 K/cumm [...] revised on 2017. Blood 04/22/2024 5:13 AM OBSTETRICS GYN PHYSICIAN 04/22/2024 6:14 AM OBSTETRICS GYN PHYSICIAN us Anjali Meza MD LAB BLOOD ORDERABLES F inal Result [facility] ([place]) 1 [facility] [place] [address] * (ABNORMAL) CBC with auto differential (04/22/2024 5:13 AM OBSTETRICS GYN PHYSICIAN) WBC 10.9(H) 3.8 - 9.9 K/cumm Hgb [...] [facility] ([place]) Blood 04/22/2024 5:13 AM OBSTETRICS GYN PHYSICIAN 04/22/2024 6:14 AM OBSTETRICS GYN PHYSICIAN us Anjali Meza MD LAB BLOOD ORDERABLES F inal Result [facility] ([place]) 1 [facility] [employer] [place] [address] * Basic metabolic panel (04/22/2024 5:13 AM OBSTETRICS GYN PHYSICIAN) Sodium 136 135 - 145 mmol/L Potassium, pl 4.7 3.3 - 4.9 mmol/L [facility] ([place]) Chloride 97 97 - 110 mmol/L [facility] ([place]) CO2 26 22 - 32 mmol/L [facility] ([place]) Anion gap 13 2 - 15 mmol/L [facility] BUN 19 6 - 25 mg/dL [facility] Creatinine 1.22 0.80 - 1.30 mg/dL [facility] ([place]) Comment:Icteric sample, test results may be affected. Glucose 148 70 - 199 mg/dL [facility] ([place]) Comment: Interpretive Data Fasting glucose [...] 2022. Calcium 9.2 8.5 - 10.3 mg/dL [facility] ([place]) Blood 04/22/2024 5:13 AM OBSTETRICS GYN PHYSICIAN 04/22/2024 6:14 AM OBSTETRICS GYN PHYSICIAN us Anjali Meza MD LAB BLOOD ORDERABLES F inal Result [facility] ([place]) 1 [facility] Department [place] [address] * Troponin T high-sensitivity 4-hour (04/21/2024 4:19 PM OBSTETRICS GYN PHYSICIAN) Trop T hs 8 <=22 ng/L Comment: Interpretive Data For further hscTnT resources including the diagnostic algorithm and an aid in interpretation, copy and paste this link: https://nrl.testcatalog.org/show/hsTrop Current Interpretive Data last revised 2020. Trop T hs delta 0 ng/L [facility] ([place]) Trop T hs interp Insignificant [facility] ([place]) Blood 04/21/2024 4:19 PM OBSTETRICS GYN PHYSICIAN 04/21/2024 4:22 PM OBSTETRICS GYN PHYSICIAN us Adrienne Gaviria MD LAB BLOOD ORDERABLES Umm gabe Result [facility] ([place]) 1 [facility] Department [place] [address] * TRANSTHORACIC ECHO (TTE) COMPLETE W DOPPLER/CF W CONTRAST (04/21/2024 2:45 PM OBSTETRICS GYN PHYSICIAN) LV EF 60 % CONS SCIMAGE Anatomical Region Laterality Modality Ultrasound 04/21/2024 2:24 PM OBSTETRICS GYN PHYSICIAN Narrative 04/21/2024 4:44 PM OBSTETRICS GYN PHYSICIAN [address] [address] Echocardiogram Report Patient Name: ELEN CABRAL L [...] views. Electronically Signed By: Terence Mas MD [facility] 04/21/2024 4:43:44 PM OBSTETRICS GYN PHYSICIAN Procedure Note Terence Mas MD - 04/21/[address] [address] Echocardiogram Report Patient Name: ELEN CABRAL L : 1950 Study Date: 04/21/2024 2:24:19 PM Gender: M Tech: AA Location: [address] Provider: VIANNEY MCLAIN Height(Cm): BSA: Weight(Kg): [...] views. Electronically Signed By: Terence Mas MD Lori 04/21/2024 4:43:44 PM OBSTETRICS GYN PHYSICIAN Vianney Joel [facility] DO CV ECHO PROCEDURES Fin al Result * CT Head WO Contrast (04/21/2024 2:16 PM OBSTETRICS GYN PHYSICIAN) Anatomical Region Laterality Modality Head and Neck N/A Computed Tomogra phy 04/21/2024 2:24 PM OBSTETRICS GYN PHYSICIAN Narrative 04/21/2024 2:25 PM OBSTETRICS GYN PHYSICIAN EXAM DESCRIPTION: CT HEAD WO CONTRAST REASON [...] PM T: ??04/21/2024 2:25 PM Report ID: [id number] Reading Location: ??[id number] Procedure Note Wilmer Johnson MD - 04/21/2024 [...] Wilmer Johnson M.D. JINA: JINA Report ID: [id number] Reading Location: [place] [address] Adrienne Gaviria MD IMG CT PROCEDURES Final R esult * Troponin T high-sensitivity 2-hour (04/21/2024 1:45 PM OBSTETRICS GYN PHYSICIAN) Trop T hs 7 <=22 ng/L Comment: Interpretive Data For further hscTnT resources including the diagnostic algorithm and an aid in interpretation, copy and paste this link: https://nrl.testcatalog.org/show/hsTrop Current Interpretive Data last revised 2020. Trop T hs delta -1 ng/L [facility] ([place]) Trop T hs interp Insignificant [facility] ([place]) Blood 04/21/2024 1:45 PM OBSTETRICS GYN PHYSICIAN 04/21/2024 1:48 PM OBSTETRICS GYN PHYSICIAN Adrienne Gaviria MD LAB BLOOD ORDERABLES Umm l Result [facility] ([place]) 1 [facility] Department [place] [address] * XR Chest 1 Vw Portable (04/21/2024 1:39 PM OBSTETRICS GYN PHYSICIAN) Anatomical Region Laterality Modality Body, Chest N/A Computed Radiogr aphy 04/21/2024 1:51 PM OBSTETRICS GYN PHYSICIAN Narrative 04/21/2024 1:52 PM OBSTETRICS GYN PHYSICIAN EXAM DESCRIPTION: ?? XR CHEST 1 VIEW [...] Electronically signed by ??Elen Fraser M.D. RB: SHABBIR D: ??04/21/2024 1:52 PM T: ??04/21/2024 1:52 PM Report ID: [id number] Reading Location: ??[id number] Procedure Note Elen Fraser MD - 04/21/2024 [...] Electronically signed by Elen Fraser M.D. RB: SHABBIR Report ID: [id number] Reading Location: [id number] Adrienne Gaviria MD IMG XR PROCEDURES Final R esult * ECG 12 lead (04/21/2024 1:27 PM OBSTETRICS GYN PHYSICIAN) 04/21/2024 1:27 PM OBSTETRICS GYN PHYSICIAN Narrative [facility] - 04/22/2024 1:26 PM OBSTETRICS GYN PHYSICIAN Vent Rate: 119 bpm RR Interval: 504 msec [place] Interval: 0 msec QRS Duration: 135 msec QT Interval: 357 msec QTC Interval: 427 msec P-R-T [place]: [id number] - 59 - 59 degrees IMPRESSION: ATRIAL FIBRILLATION WITH RAPID VENTRICULAR RESPONSE INDETERMINATE AXIS RIGHT BUNDLE BRANCH BLOCK ??[120+ ms QRS DURATION, UPRIGHT V1, 40+ ms S IN I/aVL/V4/V5/V6] ABNORMAL ECG INTERPRETATION BASED ON A DEFAULT AGE OF 40 YEARS Compared to prior EKG atrial fibrillation has replaced sinus bradycardia Electronically Signed By: Terence Mas MD [facility] us Anjali Meza MD ECG ORDERABLES Final Result [facility] * XR Pelvis 1 or 2 Views (04/21/2024 11:45 AM OBSTETRICS GYN PHYSICIAN) Anatomical Region Laterality Modality Body, Pelvis N/A Computed Radiogr aphy 04/21/2024 12:0 5 PM OBSTETRICS GYN PHYSICIAN Narrative 04/21/2024 12:08 PM OBSTETRICS GYN PHYSICIAN EXAM DESCRIPTION: XR PELVIS 1 OR 2 [...] PM T: ??04/21/2024 12:08 PM Report ID: [id number] Reading Location: ??[id number] Procedure Note Cortney Islas MD - 04/21/2024 [...] Cortney Islas M.D. TW: TW Report ID: [id number] Reading Location: [id number] us Anjali Meza MD IMG XR PROCEDURES Umm l Result * XR Hip Right 2 or 3 Views (04/21/2024 11:45 AM OBSTETRICS GYN PHYSICIAN) Anatomical Region Laterality Modality Lower Extremities, Hip, Pelvis Right C omputed Radiography 04/21/2024 12:0 5 PM OBSTETRICS GYN PHYSICIAN Narrative 04/21/2024 12:08 PM OBSTETRICS GYN PHYSICIAN EXAM DESCRIPTION: XR PELVIS 1 OR 2 [...] Electronically signed by ??Cortney Islas M.D. TW: TW D: ??04/21/2024 12:08 PM T: ??04/21/2024 12:08 PM Report ID: [id number] Reading Location: ??[id number] Procedure Note Cortney Islas MD - 04/21/2024 [...] Cortney Islas M.D. TW: OSEAS Report ID: [id number] Reading Location: [place] [address] us Anjali Meza MD IMG XR PROCEDURES Umm l Result * Troponin T high-sensitivity series (baseline, 2hr, 4hr, 6hr) (04/21/2024 11:30 AM OBSTETRICS GYN PHYSICIAN) Trop T hs 8 <=22 ng/L Comment: Interpretive Data For further hscTnT resources including the diagnostic algorithm and an aid in interpretation, copy and paste this link: https://nrl.testcatalog.org/show/hsTrop Current Interpretive Data last revised 2020. Blood 04/21/2024 11:3 0 AM OBSTETRICS GYN PHYSICIAN 04/21/2024 1:37 PM OBSTETRICS GYN PHYSICIAN us Adrienne Gaviria MD LAB BLOOD ORDERABLES Umm l Result [facility] [place]) 1 [facility] Department [place] [address] * eGFR (04/21/2024 11:30 AM OBSTETRICS GYN PHYSICIAN) eGFR 66 >=60 mL/min/1. 73 m2 Comment: [...] reviewed 2021. Blood 04/21/2024 11:3 0 AM OBSTETRICS GYN PHYSICIAN 04/21/2024 11:31 AM OBSTETRICS GYN PHYSICIAN us Anjali Meza MD LAB BLOOD ORDERABLES F inal Result [facility] ([place]) 1 [facility] Department [place] [address] * Differential, auto (04/21/2024 11:30 AM OBSTETRICS GYN PHYSICIAN) Neutrophil abs 6.2 1.5 - 6.5 K/cumm [...] Neutrophil pct 68.5 % [facility] ([place]) Comment: Interpretive Data Percent cell count reference [...] on 2017. Blood 04/21/2024 11:3 0 AM OBSTETRICS GYN PHYSICIAN 04/21/2024 11:32 AM OBSTETRICS GYN PHYSICIAN us Anjali Meza MD LAB BLOOD ORDERABLES F inal Result [facility] ([place]) 1 [facility] Department [place] [address] * (ABNORMAL) CBC with auto differential (04/21/2024 11:30 AM OBSTETRICS GYN PHYSICIAN) WBC 9.0 3.8 - 9.9 K/cumm Hgb [...] 14.9 % [facility] ([place]) RDW SD 49.8(H) 35.7 - 48.1 fL [facility] ([place]) NRBC abs 0.00 0.00 - 0.01 K/cumm [facility] ([place]) Blood 04/21/2024 11:3 0 AM OBSTETRICS GYN PHYSICIAN 04/21/2024 11:32 AM OBSTETRICS GYN PHYSICIAN us Anjali Meza MD LAB BLOOD ORDERABLES F inal Result [facility] ([place]) 1 [facility] [place] [address] * (ABNORMAL) Protime-INR (04/21/2024 11:30 AM OBSTETRICS GYN PHYSICIAN) PT 25.0(H) 9.7 - 13.0 sec [facility] ([place]) INR 2.28(H) 0.90 - 1.20 [facility] ([place]) Comment: Interpretive data Oral anticoagulant therapeutic ranges: Venous thromboembolism prophylaxis or treatment: 2.0-3.0 CARDIOLOGY Standard range: 2.0-3.0 High-intensity range: 2.5-3.5 Refer to indication-specific guidelines for appropriate target ranges for prosthetic heart valve replacement. Current interpretive data was last revised on 2019. Blood 04/21/2024 11:3 0 AM OBSTETRICS GYN PHYSICIAN 04/21/2024 11:31 AM OBSTETRICS GYN PHYSICIAN Anjali Meza MD LAB BLOOD ORDERABLES F inal Result Performing Organization Address City/[facility] Co de Phone Number [facility] ([place]) 1 [facility] [place] [address] * Comprehensive metabolic panel (04/21/2024 11:30 AM OBSTETRICS GYN PHYSICIAN) Sodium 138 135 - 145 mmol/L Potassium, pl 4.3 3.3 - 4.9 mmol/L [facility] ([place]) Chloride 99 97 - 110 mmol/L [facility] ([place]) CO2 29 22 - 32 mmol/L [facility] ([place]) Anion gap 9 2 - 15 mmol/L [facility] ([place]) BUN 12 6 - 25 mg/dL [facility] ([place]) Creatinine 1.18 0.80 - 1.30 mg/dL [facility] ([place]) Glucose 135 70 - 199 mg/dL [facility] ([place]) Comment: Interpretive Data Fasting glucose >/= [...] [facility]) Blood 04/21/2024 11:3 0 AM OBSTETRICS GYN PHYSICIAN 04/21/2024 11:31 AM OBSTETRICS GYN PHYSICIAN us Anjali Meza MD LAB BLOOD ORDERABLES F inal Result [facility] ([place]) 1 [facility] Department [place] [address] from Last 3 Months Insurance MEDICARE [employer] [facility] MEDICARE [facility] [employer] [facility] Advance Directives For more information, please contact: [phone] * Full Code (Latest Code Status on File) Date Activated Date Inactivated Comments 04/27/2024 2:43 AM * Full Code Date Activated Date Inactivated Comments 04/22/2024 1:10 PM 04/26/2024 5:35 PM * Full Code Date Activated Date Inactivated Comments 04/21/2024 3:34 PM 04/22/2024 1:10 PM Care Teams Appian Bpm Developer Relationship Specialty Start Date End Date [facility] [address] [place] [address] PCP - General 10/24/19 Pawan Brown MD [address] [facility] [address] [place] [address] Surgeon Orthopedic Surgery 04/26/24
--- OUTSIDE RECORDS SUMMARY | 2024-05-01 15:51 | XMS_ITS | Encounter Summary ---
Author Organization [facility] Healthcare Address [address] [place] [address] Care Team Providers Care National Sales Associate Name Role Phone Caryn [facility] Primary Care Provider [phone] Pawan Brown MD Unavailable [phone] Reason for Visit * Reason Comments Shortness of Breath * Auth/Cert (Routine) Specialty Diagnoses / Procedures Referred By Contac t Referred To Contact Diagnoses Hypoxia COPD exacerbation (HCC) Atrial fibrillation with RVR (CMS/HCC) (HCC) Acute on chronic congestive heart failure, unspecified heart failure type (HCC) Procedures na Referral ID Status Reason Start Date Expiration Date Visits Re quested Visits Authorized [id number] 1 1 Encounter Details Date Type Department Care Team (Latest Contact Info) Description 04/26/2024 8:50 PM HOME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 - 05/01/2024 2:39 PM HOME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 Hospital Encounter [facility] Acute Medicine [address] [place] [address] Bethany Peace MD [address] [place] [address] Maggi Vaughn MD [address] [place] [address] Karissa Mchugh MD [address] [place] [address] COPD exacerbation (HCC) (Primary Dx); Acute on chronic congestive heart failure, unspecified heart failure type (HCC); Hypoxia; Atrial fibrillation with RVR (CMS/HCC) (HCC) Discharge Disposition: Discharge to SNF Social History Tobacco Use Types Packs/Day Years Used Date Smoking Tobacco: Former Cigarettes [facility] Utilities Answer Date Recorded In the past 12 months has th e electric, gas, oil, or water company threatened [...] often do you attend chur ch or religion services? Never 04/27/2024 Do you belong to any clubs o r organizations such as voodoo groups, unions, fraternal or athletic groups, or [...] any time in the past 12 m ont, were you homeless or living in a long-term (including now)? No 04/27/2024 Personal Safety Answer [...] on file documented as of this encounter Last Filed Vital Signs Vital Sign Reading Time Taken Comments Blood Pressure 138/80 05/01/2024 7:00 AM HOME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 Pulse 60 05/01/2024 9:08 AM HOME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 Temperature 36.4 ??C (97.6 ??F) 05/01/2024 7:00 AM CS T Respiratory Rate 20 05/01/2024 7:00 AM HOME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 Oxygen Saturation 95% 05/01/2024 1:53 PM HOME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 Inhaled Oxygen Concentration - - Weight 107.2 kg (236 lb 5.3 oz) 04/30/2024 5:00 AM HOME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 Height 182.9 cm (6') 04/27/2024 2:49 AM HOME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 Body Mass Index 32.05 04/27/2024 2:49 AM HOME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 documented in this encounter Discharge Summaries * Karissa Mchugh MD - 05/01/2024 12:12 PM CST Images from the original note were not included. Inpatient Discharge Summary Patient Name - Elen Cabral Patient Age - 73 yrs Patient - [id number] [facility] - [id number] Document Creation Date: 05/01/2024 Admitting Provider, : Maggi Vaughn MD Discharge Provider, : Karissa Mchugh MD Primary Care Physician at Discharge: Mikey Rubin [phone] Admission Date: 04/26/2024 Discharge Date/time: 05/01/2024 Admission Location: [facility] LOS - LOS: 4 days DETAILS OF HOSPITAL STAY Hospital Problems/Diagnoses Principal Problem: Atrial fibrillation with RVR (CMS/HCC) ([facility]) Active Problems: COPD exacerbation (HCC) Acute on chronic congestive heart failure (CMS/[facility]) ([facility]) Hypoxia Reason for Hospitalization: 73-year-old male with medical history significant for CAD status post stents, diastolic CHF, COPD, atrial fibrillation on Xarelto, hypothyroidism hyperlipidemia and other comorbidities presented to ED with complaints of shortness of breaths. Of note patient was discharged from the hospital yesterday after he had a mechanical fall with right hip intertrochanteric fracture status post surgery on 04/22/2024. Patient reports after he got to rehab he started having some shortness of breath, endorses wheezing, he denies any chest pain, nausea, vomiting, abdominal pain, lightheadedness, diarrhea. Due to his shortness of breaths he was brought to the ED for further evaluation. In the ED vital signs significant for heart rate up to 137, respiratory rate up to 28, blood pressure soft 87/71 improved to 1 0 3/66, oxygen sats in the 90s. Lab work done shows elevated pro BNP 1996, TSH 10.28, troponin x2 unremarkable, hemoglobin 12.9, remaining lab work unremarkable. Rapid COVID rapid flu RSV negative. CTA chest shows no evidence of PE but noncalcified pulmonary nodules measuring up to 5 mm. Chest x-ray shows low lung volume no evidence of acute cardiopulmonary abnormality.Patient received DuoNeb, 125 mg IV Solu-Medrol, 500 cc normal saline bolus, cardiology consulted recommend continuing patient's home rate-controlling medication at this time. Patient was admitted forfurther management. Hospital Course: Acute hypoxic respiratory failure Severe COPD exacerbation Patient presented with chief complaint of shortness of breath FEV1 of 16% CTA was negative for PE Patient started on steroids and DuoNeb treatments plus doxycycline Patient required supplemental oxygen to maintain saturations in the 90s At time of discharge amputated walked is noted patient desatted into the low 80s with exertion patient recovered with 2 L. Patient will require 2 L oxygen for discharge Patient finished 5 day course of steroids, will need 1 last dose of doxycycline to finish course Discharged on home inhalers Advair and Spiriva Patient will need to follow up with pulmonology as outpatient AFib RVR -Patient was found initially to have a heart rate of up to 150 This is potentially tachycardia/bradycardia syndrome and patient will probably need a pacemaker, [facility] Currently past 24 hours heart rate has been controlled per Cardiology recommendation if patient becomes AFib RVR again to start patient on Cardizem 120 For now continue with digoxin 0.25 daily and Xarelto Patient currently with controlled rate Will need to follow up with [facility] in 2-3 weeks Hypothyroidism TSH found to be 10.28 patient's home medication with Synthroid 112.5 given the TSH finding Synthroid has been increased to 125 --> repeat TSH in 6 weeks Diastolic CHF not in exacerbation Will continue Lasix home medication Resume home medication Recent right hip intertrochanteric fracture status post surgery on 04/22/2024 PT/OT consult placed Fall precaution. SNF in [facility] swing bed Follow-up with as out pt CAD s/p 2013 Continue with Crestor Discharge Details Physical Exam at Discharge: Discharge Condition: stable Pulse: 60 Resp: 20 BP: 138/80 Temp: 36.4 ??C (97.6 ??F) Weight: 107.2 kg (236 lb 5.3 oz) Pertinent Exam Findings at Discharge: General: Patient no acute distress, on 2 L nc Eyes: EOMI, PAMELA, sclare non icteric Neck: supple, no cervical LAD Pharynx: No gross oral lesion, tongue midline, mucosa moist Lungs: Clear to auscultation Heart: [id number], no significant murmur or gallop Abd: +BS, Non Tender, Non distended, No gross hepatomegaly Lower Ext: +edema, pedal artery pulses are palpable bilaterally Neuro: No new deficits appreciated, alert and oriented X4, normal speech, moves all 4 extremities Musculoskeletal: no gross joint erythema, edema, tenderness Skin: no new changes Discharge Disposition: Discharge to SNF Code Status at Discharge: Full Code Active Issues & Recommended Plan for Follow-up: Acute hypoxic respiratory failure- patient will require 2 L of oxygen Will need to follow up with pulmonology COPD exacerbation- 1 dose of doxycycline , continue with Dorothea p.r.n., continue with Advair and Spiriva inhalers---follow-up with pulmonology AFib RVR- patient will need to follow up via Cardiology in 2-3 weeks Hypothyroidism- Synthroid increased to 125, will need TSH in 6 weeks Allergies: Patient has no known allergies. Discharge Medications: Your medication list START taking these medications Instructions Last Dose Given Next Dose Due doxycycline monohydrate 100 mg capsule Commonly known as: MONODOX 100 mg, oral, 2 times daily CHANGE how you take these medications Instructions Last Dose Given Next Dose Due levothyroxine 125 mcg tablet Commonly known as: SYNTHROID Start taking on: May 02, 2024 What changed: medication strength how much to take 125 mcg, oral, Daily (early AM) CONTINUE taking these medications Instructions Last Dose Given Next Dose Due digoxin 250 mcg (0.25 mg) tablet Commonly known as: LANOXIN 250 mcg, oral, Daily fluticasone propion-salmeteroL 250-50 mcg/dose diskus inhaler Commonly known as: ADVAIR DISKUS 1 puff, inhalation, 2 times daily, Rinse mouth with water after use. Do not swallow. furosemide 20 mg tablet Commonly known as: LASIX 20 mg, 2 times daily rivaroxaban 20 mg tablet Commonly known as: XARELTO 20 mg rosuvastatin 10 mg tablet Commonly known as: CRESTOR 10 mg, Daily sotaloL 120 mg tablet Commonly known as: BETAPACE 120 mg, 2 times daily tiotropium bromide 2.5 mcg/actuation inhaler Commonly known as: SPIRIVA RESPIMAT 2 puffs, inhalation, Daily Where to Get Your Medications Information about where to get these medications is not yet available Ask your nurse or doctor about these medications doxycycline monohydrate 100 mg capsule levothyroxine 125 mcg tablet Time Spent in Discharge Process: I have spent 40 minutes on discharge planning activities. Time spent was on discharge exam and parent/patient education Test Results Pending at Discharge (If Blank, None Found): Operative Procedures Performed (If Blank, None Found): Outpatient Follow-Up: Contact Information for Follow-ups [facility] Relationship: PCP - General [address] [facility] [address] Next Steps: Schedule an appointment as soon as possible for a visit in 1 week(s) Instructions: follow up after hospital visit Pawan Brown MD Specialty: Orthopedic Surgery Relationship: Surgeon [address] [place] [place] [address] Next Steps: Schedule an appointment as soon as possible for a visit Instructions: follow up after hospital visit Please schedule an appointment with the following provider(s): Caryn Mikey [facility] Jolie [address] Mikey [facility] [place] [address] Schedule an appointment as soon as possible for a visit in 1 week(s) follow up after hospital visit Pawan Brown MD [address] [place] [address] [address] [place] [address] Schedule an appointment as soon as possible for a visit follow up after hospital visit ANCILLARY INFORMATION Other Procedures & Diagnostic Tests: ECG 12 lead Result Date: 04/27/2024 Vent Rate: 124 bpm RR Interval: 481 msec HI Interval: 0 msec QRS Duration: 139 msec QT Interval: 360 msec QTC Interval: 434 msec P-R-T Rincon: [id number] - 27 - 20 degrees IMPRESSION: ATRIAL FIBRILLATION WITH RAPID VENTRICULAR RESPONSE INDETERMINATE AXIS RIGHT BUNDLE BRANCH BLOCK [120+ ms QRS DURATION, UPRIGHT V1, 40+ ms S IN I/aVL/V4/V5/V6] ST DEPRESSION, CONSIDER SUBENDOCARDIAL INJURY [0.1+ mV ST DEPRESSION] ABNORMAL ECG NO CHANGE FROM PREVIOUS TRACING NOTED Electronically Signed By: Ruiz Arreaga MD CT Chest PE (CTA) W Contrast Result Date: 04/26/2024 EXAM DESCRIPTION: CT CHEST PE (CTA) W CONTRAST REASON FOR STUDY: Chest pain, PE suspected, high prob Pt had hip replacement on Thursday, shortness of breath and low O2 saturations today at the rehab facility. Concern for PE TECHNIQUE: CT angiogram of the chest performed with intravenous contrast using helical scanning technique with dynamic intravenous contrast injection. Reconstructed coronal andsagittal MPR images reviewed. All images stored on PACS. 3D MIP images rendered on scanning unit and reviewed at time of interpretation. Automated exposure control was used as a dose optimization technique for this examination. CONTRAST TYPE/DOSE: 100mL of IOVERSOL 350 MG IODINE/ML INTRAVENOUS SYRINGE injected COMPARISON: 04/18/2024, 09/16/2024 FINDINGS: VASCULATURE: No CT evidence of pulmonary embolism. Normal size of the main pulmonary arteries no aortic aneurysm or aortic dissection. Coronary artery atherosclerotic calcifications are present. LUNGS: Moderate upper lobe predominant bilateral pulmonary emphysema with scattered bilateral pulmonary parenchymal scarring most pronounced in theleft lung apex. No confluence pulmonary parenchymal consolidation or pulmonary edema. Left anteriorpleural/juxtapleural nodular thickening/scarring measuring up to 6 mm at slice position 46. There is a right lower lobe juxta diaphragmatic noncalcified solid pulmonary nodule measuring 5 mm at sliceposition 95. A few additional pulmonary micro nodules measuring smaller than 3 mm are also present.Mild bilateral bronchial wall thickening. PLEURA: No pleural [...] nodules measuring up to 5 mm. According to updated Fleischner Society guidelines, if the patient is at high risk for development of lung cancer, follow-up chest CT in 12 months could be considered. Reference :Radiographics. 2018 Nov-Dec;38(5):1920-9077 3. Moderate upper lobe predominant bilateral pulmonary emphysema.THIS IS AN ELECTRONICALLY VERIFIED FINAL REPORT 04/26/2024 10:12 PM - Electronically signed by Eleuterio Bullard M.D. AT: AT ReportID: [id number] Reading Location: [place] [address] XR Chest 1 Vw Portable Result Date: 04/26/2024 EXAM DESCRIPTION: XR CHEST 1 VIEW REASON FOR STUDY: sob PT BIBEMS from [facility] w c/o SOB, HR in the 150's. Recent dx of A-fib, hx of COPD and CHF. Pt was satting 95% on 5L. EMS gave douneb on route. Pt had right hip surgery and was discharged to [facility] today. Pt denies any pain and is satting 97 on RA upon ED arrival. TECHNIQUE: Frontal radiographic view(s) of the chest. COMPARISON: 04/24/2024. FINDINGS: LUNGS: Low lung volumes. No focal opacity, pleural effusion, or pneumothorax. HEART/MEDIASTINUM: Cardiac silhouette normal in size. Mediastinal and hilar contours appear normal. LINES/TUBES: None. BONES: No acute osseous abnormality. IMPRESSION: Low lung volumes. No evidence of an acute cardiopu lmonary abnormality. THIS IS AN ELECTRONICALLY VERIFIED FINAL REPORT 04/26/2024 9:40 PM - Electronically signed by Tom Miranda M.D. CH: ANAHI Report ID: [id number] Reading Location: [id number] Recent Labs: Recent Labs Lab Units 05/01/2434504/30/2422804/29/24216 WBC K/cumm 10.5* 10.8* 7.7 7.7 HEMOGLOBIN g/dL 12.5* 12.1* 10.9* 10.9* HEMATOCRIT % 38.0* 36.1* 32.5* 32.5* PLATELETS K/cumm 192 193 166 166 Recent Labs Lab Units 05/01/2434504/30/2422804/29/24216 WBC K/cumm 10.5* 10.8* 7.7 7.7 HEMOGLOBIN g/dL 12.5* 12.1* 10.9* 10.9* HEMATOCRIT % 38.0* 36.1* 32.5* 32.5* PLATELETS K/cumm 192 193 166 166 NEUTROS PCT % 69.5 71.3 84.9 LYMPHS PCT % 19.7 17.2 10.5 MONOS PCT % 9.1 10.3 3.8 EOS PCT % 0.4 0.1 0.0 Recent Labs Lab Units 05/01/2434504/30/2422804/29/24216 SODIUM mmol/L 137 138 138 POTASSIUM PLASMA mmol/L 4.5 4.2 3.9 CHLORIDE mmol/L 99 101 99 CO2 mmol/L 26 28 29 BUN SERUM mg/dL 34* 25 24 CREATININE mg/dL 1.02 1.02 0.99 [id number] mL/min/1.73 m2 79 79 81 GLUCOSE mg/dL 118 112 133 CALCIUM mg/dL 9.2 8.9 9.1 ALBUMIN g/dL 3.7 3.7 3.9 Recent Labs Lab Units 05/01/2434504/30/2422825 0217 SODIUM mmol/L 137 138 138 POTASSIUM PLASMA mmol/L 4.5 4.2 3.9 CHLORIDE mmol/L 99 101 99 CO2 mmol/L 26 28 29 ANIONGAP mmol/L 13 9 11 GLUCOSE mg/dL 118 112 133 BUN SERUM mg/dL 34* 25 24 CREATININE mg/dL 1.02 1.02 0.99 CALCIUM mg/dL 9.2 8.9 9.1 ALBUMIN g/dL 3.7 3.7 3.9 ALK PHOS Units/L 74 71 70 ALT Units/L 18 15 11 AST Units/L 21 22 20 BILIRUBIN TOTAL mg/dL 0.9 0.8 1.0 Recent Labs Lab Units 05/01/24 0346 04/30/249 04/29/24 021 ALK PHOS Units/L 74 71 70 BILIRUBIN TOTAL mg/dL 0.9 0.8 1.0 TOTAL PROTEIN g/dL 6.1* 6.0* 6.1* ALT Units/L 18 15 11 AST Units/L 21 22 20 Recent Labs Lab Units 05/01/24 0346 04/30/24 0229 04/29/24216 MAGNESIUM mg/dL 2.4 2.5 2.4 Recent Labs Lab Units 04/26/24 2106 APTT sec 35 Lab Results Component Value Date GLUCOSE 118 05/01/2024 GLUCOSE 112 04/30/2024 GLUCOSE 133 04/29/2024 Implant Implants Type Not Specified Synthes Tfn-Advanced Lateral Relief Cut 11mm 170mm Cannulated Femoral 142s - [id number] - Implanted (Right) Hip Inventory item: SYNTHES Tfn-advanced Lateral Relief Cut 11mm 170mm Cannulated Femoral 142S Model/Cat number: [id number] Motorcycle Engine Assembler: Synthes I Lot number: [id number] Device identifier: [id number] Device identifier type: [id number] As of 04/22/2024 Status: Implanted Synthes 10.35mm 115mm Cannulated Femoral Proximal Screw Bone Titanium s - [id number] - Implanted (Right) Hip Inventory item: SYNTHES 10.35mm 115mm Cannulated Femoral Proximal Screw Bone Titanium S Model/Cat number: [id number] Motorcycle Engine Assembler: Synthes I Lot number: [id number] Device identifier: [id number] Device identifier type: GS1 As of 04/22/2024 Status: Implanted Synthes 5mm 4.3mm 36mm Lock Self Tap Blunt Tip 2 Lead Tibial T25 Full 526s - [id number] - Implanted (Right) Hip Inventory item: SYNTHES 5mm 4.3mm 36mm Lock Self Tap Blunt Tip 2 Lead Tibial T25 Full 526S Model/Cat number: [id number] Motorcycle Engine Assembler: Synthes Lot number: [id number] As of 04/22/2024 Status: Implanted General Precautions (If Blank, None Found): Weight Bearing Restrictions: Yes RLE Weight Bearing: As tolerated LLE Weight Bearing: As tolerated Weight Bearing Restrictions: Yes Isolation Status: No active isolations Nutritional Status and in-house recommendations: Dietary Orders (From admission, onward) Start Ordered 04/27/24 1700 Oral Nutrition Supplements ([facility]) Select Supplement: Ensure PLUS High Protein - Any Flavor All Meals Question: ([facility]) Select Supplement: Answer: Ensure PLUS High Protein - Any Flavor 04/27/24 1340 04/27/24 0244 Adult Diet Regular Diet effective now Question: ([facility]) Diet Type Answer: Regular 04/27/24 0243 Anticoagulation Indication: INR: 04/21/2024: 2.28 (H) Warfarin Administrations (last 168 hours) None Oxygen Status: O2 Therapy for the past 12 hrs: O2 Therapy O2 Flow Rate (L/min) 05/01/24 0832 None (Room air) -- 05/01/24 0700 Supplemental oxygen 1 L/min 05/01/24 0146 Supplemental oxygen 1 L/min Wound Care Instructions Wound 04/22/24 Incision Hip/trochanter Right;Lateral (Active) Wound Image 04/27/24 0314 Dressing Status Clean/Dry/Intact 05/01/24 0900 Site Assessment Clean;Dry 04/29/24 202 Micaela-wound Assessment Other (Comment) 04/28/24 0740 Interventions Cleansed 04/28/24 1230 Dressing Island dressing 04/28/24 2100 Margins Attached edges 04/28/24 1230 Closure Steri-strips 04/28/24 1230 Wound 04/27/24 Other (comment) Gluteal Cleft (vertical crease between the buttocks) (Active) Wound Image 04/27/24 0343 Dressing Status Clean/Dry/Intact 05/01/24 0900 Site Assessment Boring 04/28/24 2100 Shape & Pattern Circular 04/28/24 0740 Micaela-wound Assessment Dry;Intact 04/28/24 2100 Dressing Triad hydro 04/29/242020 Wound 04/22/24 Incision Hip/trochanter Right;Lateral (Active) Wound Image 04/27/24 0314 Dressing Status Clean/Dry/Intact 05/01/24 0900 Site Assessment Clean;Dry 04/29/242020 Micaela-wound Assessment Other (Comment) 04/28/24 0740 Interventions Cleansed 04/28/24 1230 Dressing [place] dressing 04/28/24 2100 Margins Attached edges 04/28/24 1230 Closure Steri-strips 04/28/24 1230 Wound 04/27/24 Other (comment) Gluteal Cleft (vertical crease between the buttocks) (Active) Wound Image 04/27/24 0343 Dressing Status Clean/Dry/Intact 05/01/24 0900 Site Assessment Boring 04/28/24 2100 Shape & Pattern Circular 04/28/24 0740 Micaela-wound Assessment Dry;Intact 04/28/24 2100 Dressing Triad hydro 04/29/242020 Other Instructions Call provider for: Call provider for: Temperature -Temperature greater than 101 degrees F Call provider for: difficulty breathing or chest pain Call provider for: extreme fatigue Call provider for: hives Call provider for: persistent dizziness or light-headedness Call provider for: persistent nausea or vomiting Call provider for: redness, tenderness, or signs of infection (pain, swelling, redness, odor or green/yellow discharge around incision site) Call provider for: severe uncontrolled pain Call provider for: headache, visual disturbances, weakness and speech changes Active LDAs (If Blank, None Found): Peripheral IV 04/26/24 20 G Anterior;Distal;Right;Upper Arm (Active) Placement Date/Time: 04/26/242112 Size (Gauge): 20 G Location Orientation: Anterior;Distal;Right;Upper Location: Arm Patient Emergency Contact: Primary Emergency Contact: JODY CABRAL Immunization Status at Discharge There is no immunization history on file for this patient. Karissa Mchugh MD 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 documented in this encounter Discharge Instructions * Discharge Instr - Diet* Rafael Calderon - 04/27/2024 11:06 AM HOME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 Continue to follow a Low Sodium diet and limit sodium intake to less than 2,000mg per day. Avoid foods that are high sources of sodium, such as fast foods, fried/breaded foods, pickled foods, canned goods, deli meats and gravies/sauces. Use alternatives to season foods such as . SAMANTHA and other he rbs. Additional resources are available online from the [place] [employer] at www.heart.org/en/healthy-living/healthy-eating If poor intakes and/or unintended weight loss occur on discharge follow up with primary care physician. Call [facility] Dietitian's office at [phone] for questions about your diet. If interested in nutrition counseling, ask your doctor for referral and call [phone] to make an appointment. Oral nutritional supplement 2 - 3 x daily until intakes consistently adequate. 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 documented in this encounter Medications at Time of Discharge digoxin (LANOXIN) 250 mcg (0.25 mg) tablet Take 1 tablet (250 mcg total) by mouth daily 30 tablet 04/27/2024 fluticasone propion-salmeteroL (ADVAIR DISKUS) 250-50 mcg/dose diskus inhaler Inhale 1 puff 2 (two) times a day Rinse mouth with water after use. Do not swallow. 60 each 04/26/2024 furosemide (LASIX) 20 mg tablet Take 1 tablet (20 mg total) by mouth 2 (two) times a day rivaroxaban (XARELTO) 20 mg tablet Take 1 tablet (20 mg total) by mouth rosuvastatin (CRESTOR) 10 mg tablet Take 1 tablet (10 mg total) by mouth daily sotaloL (BETAPACE) 120 mg tablet Take 1 tablet (120 mg total) by mouth 2 (two) times a day tiotropium bromide (SPIRIVA RESPIMAT) 2.5 mcg/actuation inhaler Inhale 2 puffs daily 4 g 04/26/2024 5 doxycycline (MONODOX) 100 mg capsuleIndications :COPD Exacerbation Take 1 capsule (100 mg total) by mouth 2 (two) times a day for 1 dose 05/01/2024 5 levothyroxine (SYNTHROID) 125 mcg tablet Take 1 tablet (125 mcg total) by mouth correctional case manager before breakfast 05/02/2024 5 documented as of this encounter Ordered Prescriptions Prescription Sig Dispense Quantity Refills Last Filled Start Date End Date doxycycline (MONODOX) 100 mg capsuleIndications :COPD Exacerbation Take 1 capsule (100 mg total) by mouth 2 (two) times a day for 1 dose 05/01/2024 5 levothyroxine (SYNTHROID) 125 mcg tablet Take 1 tablet (125 mcg total) by mouth correctional case manager before breakfast 05/02/2024 5 documented in this encounter Discharge Disposition Disposition Code Departure Means Destination Comment s Discharge to [facility] documented in this encounter Progress Notes * Karissa Mchugh MD - 04/30/2024 11:38 AM CST Medicine Daily Progress Note SUBJECTIVE 73-year-old male with medical history significant for CAD status post stents, diastolic CHF, COPD, atrial fibrillation on Xarelto, hypothyroidism hyperlipidemia and other comorbidities presented to ED with complaints of shortness of breaths. Pt admitted for afib RVR, acute hypoxic respiratory failur e secondary to COPD exacerbation. Interval History: Patient reports shortness of breath, no desaturation noted comfort place on 1L oxygen saturating at 96%. Will attempt to wean to room air. WBC slight elevation 10.8 OBJECTIVE Vitals: 24hr Min/Max: Temp Min: 36.4 ??C (97.5 ??F) Max: 36.9 ??C (98.4 ??F) Pulse Min: 78 Max: 113 BP Min: 105/81 Max: 156/50 Resp Min: 22 Max: 24 SpO2 Min: 95 % Max: 100 % Most Recent : Vitals: 04/30/24 1120 BP: 107/64 Pulse: 78 Resp: 24 Temp: 36.6 ??C (97.9 ??F) SpO2: 96% I/O last 2 completed shifts: In: 1260 [P.O.:1260] Out: 1250 [Urine:1250] I/O this shift: In: 0 Out: 125 [Urine:125] Physical Exam: General: Patient no acute distress, on 1L NC Eyes: EOMI, PAMELA, sclare non icteric Neck: supple, no cervical LAD Pharynx: No gross oral lesion, tongue midline, mucosa moist Lungs: Clear to auscultation Heart: [id number], no significant murmur or gallop Abd: +BS, Non Tender, Non distended, No gross hepatomegaly Lower Ext: +edema, pedal artery pulses are palpable bilaterally Neuro: No new deficits appreciated, alert and oriented X4, normal speech, moves all 4 extremities Musculoskeletal: no gross joint erythema, edema, tenderness Skin: no new changes Lab/Current Medication Review: Recent Results (from the past 24 hours) Comprehensive metabolic panel Collection Time: 04/30/24 2:29 AM Result Value Ref Range Sodium 138 135 - 145 mmol/L Potassium, pl 4.2 3.3 - 4.9 mmol/L Chloride 101 97 - 110 mmol/L CO2 28 22 - 32 mmol/L Anion gap 9 2 - 15 mmol/L BUN 25 6 - 25 mg/dL Creatinine 1.02 0.80 - 1.30 mg/dL Glucose 112 70 - 199 mg/dL Calcium 8.9 8.5 - 10.3 mg/dL Bilirubin, total 0.8 0.1 - 1.2 mg/dL Protein, pl 6.0 (L) 6.5 - 8.5 g/dL Albumin 3.7 3.5 - 5.0 g/dL Alk phos 71 40 - 130 Units/L ALT 15 7 - 55 Units/L AST 22 10 - 50 Units/L Magnesium Collection Time: 04/30/24 2:29 AM Result Value Ref Range Magnesium 2.5 1.4 - 2.5 mg/dL CBC with auto differential Collection Time: 04/30/24 2:29 AM Result Value Ref Range WBC 10.8 (H) 3.8 - 9.9 K/cumm Hgb 12.1 (L) 13.0 - 17.5 g/dL Hct 36.1 (L) 38.9 - 50.3 % Plt 193 150 - 400 K/cumm MPV 10.4 9.1 - 12.3 fL RBC 3.85 (L) 4.30 - 5.80 M/cumm MCV 93.8 81.3 - 96.4 fL MCH 31.4 27.1 - 33.3 pg MCHC 33.5 32.3 - 35.7 g/dL RDW CV 16.2 (H) 11.1 - 14.9 % RDW SD 53.3 (H) 35.7 - 48.1 fL NRBC abs 0.00 0.00 - 0.01 K/cumm Differential, auto Collection Time: 04/30/24 2:29 AM Result Value Ref Range Neutrophil abs 7.7 (H) 1.5 - 6.5 K/cumm Imm gran abs 0.1 0.0 - 0.1 K/cumm Lymphocyte abs 1.9 0.8 - 3.3 K/cumm Monocyte abs 1.1 (H) 0.2 - 0.8 K/cumm Eosinophil abs 0.0 0.0 - 0.5 K/cumm Basophil abs 0.0 0.0 - 0.1 K/cumm Neutrophil pct 71.3 % Imm gran pct 1.0 % Lymphocyte pct 17.2 % Monocyte pct 10.3 % Eosinophil pct 0.1 % Basophil pct 0.1 % eGFR Collection Time: 04/30/24 2:29 AM Result Value Ref Range eGFR 79 >=60 mL/min/1.73 m2 ECG 12 lead Result Date: 04/27/2024 Narrative: Vent Rate: 124 bpm RR Interval: 481 msec HI Interval: 0 msec QRS Duration: 139 msec QT Interval: 360 msec QTC Interval: 434 msec P-R-T Rincon: [id number] - 27 - 20 degrees IMPRESSION: ATRIAL FIBRILLATION WITH RAPID VENTRICULAR RESPONSE INDETERMINATE AXIS RIGHT BUNDLE BRANCH BLOCK [120+ ms QRS DURATION, UPRIGHT V1, 40+ ms S IN I/aVL/V4/V5/V6] ST DEPRESSION, CONSIDER SUBENDOCARDIAL INJURY [0.1+mV ST DEPRESSION] ABNORMAL ECG NO CHANGE FROM PREVIOUS TRACING NOTED Electronically Signed By: MD Cesar CT Chest PE (CTA) W Contrast Result Date: 04/26/2024 Narrative: EXAM DESCRIPTION: CT CHEST PE (CTA) W [...] images reviewed. All images stored on PACS. 3D MIP images rendered on scanning unit and reviewed at time of interpretation. Automated exposure control was used as a dose optimization technique for this examination. CONTRAST TYPE/DOSE: 100mL of IOVERSOL 350 MG IODINE/ML INTRAVENOUS SYRINGE injected COMPARISON: 04/18/2024, 09/16/2024 FINDINGS: VASCULATURE: No CT evidence of pulmonary embolism. Normal size of the main pulmonary arteries no aortic aneurysm or aortic dissection. Coronary artery atherosclerotic calcifications are present. LUNGS: Moderate upper lobe predominant bilateral pulmonary emphysema with scattered bilateral pulmonary parenchymal scarring most pronounced in the left lung apex. No confluence pulmonary parenchymal consolidation or pulmonary edema. Left anterior pleural/juxtapleural nodular thickening/scarring measuring up to 6 mm at slice position 46. There is a right lower lobe juxta diaphragmatic noncalcified solid pulmonary nodule measuring 5 mm at slice position 95. A few additional pulmonary micro nodules measuring smaller than 3 mm are also present. Mild bilateral bronchial wall thickening. PLEURA: No pleural effusion. No pneumothorax. ME DIASTINUM/BUCK: No identified masses or lymphadenopathy. No supraclavicular lymphadenopathy. The esophagus is within normal limits. HEART: Heart size is normal with no pericardial effusion. AXILLA: No adenopathy. CHEST WALL: No masses. No subcutaneous air. HARDWARE/LINES/TUBES: None. UPPER ABDOMEN:No significant abnormality. MUSCULOSKELETAL: No acute fractures or aggressive osseous lesions. Mildosteopenia. IMPRESSION: 1. No CT evidence of pulmonary embolism. 2. Noncalcified pulmonary nodules measuring up to 5 mm. According to updated Fleischner Society guidelines, if the patient is at high risk for development of lung cancer, follow-up chest CT in 12 months could be considered. Reference :Radiographics. 2018 Nov-Dec;38(5):1669-3451 3. Moderate upper lobe predominant bilateral pulmonary emphysema. THIS IS AN ELECTRONICALLY VERIFIED FINAL REPORT 04/26/2024 10:12 PM - Electronically signed by Eleuterio Bullard M.D. AT: AT Report ID: [id number] Reading Location: [id number] XR Chest 1 Vw Portable Result Date: 04/26/2024 Narrative: EXAM DESCRIPTION: XR CHEST 1 VIEW REASON FOR STUDY: [facility] w c/o SOB, HR in the 150's. Recent dx of A-fib, hx of COPD and CHF. Pt was satting 95% on 5L. EMS gave douneb onroute. Pt had right hip surgery and was discharged to [facility] today. Pt denies any pain and is [id number] on RA upon ED arrival. TECHNIQUE: Frontal radiographic view(s) of the chest. COMPARISON: 04/24/2024. FINDINGS: LUNGS: Low lung volumes. No focal opacity, pleural effusion, or pneumothorax. HEART/MEDIASTINUM: Cardiac silhouette normal in size. Mediastinal and hilar contours appear normal. LINES/TUBES: None. BONES: No acute osseous abnormality. IMPRESSION: Low lung volumes. No evidence of an acute cardiopulmonary abnormality. THIS IS AN ELECTRONICALLY VERIFIED FINAL REPORT 04/26/2024 9:40 PM -Electronically signed by Tom Miranda M.D. CH: ANAHI Report ID: [id number] Reading Location: [id number] XR CHEST 1 VIEW PORTABLE Result Date: 04/24/2024 Narrative: EXAM DESCRIPTION: XR CHEST 1 VIEW REASON FOR STUDY: Shortness of breath SOB Tonight. Ex-Smoker AFIB CHF TECHNIQUE: Single radiographic view of the chest. COMPARISON: Chest x-ray of 2024. FINDINGS: LUNGS/PLEURA: No focal consolidation or pneumothorax. No pleural effusion. There is no significant change as compared to previous study. HEART/MEDIASTINUM: Cardiac silhouette is normal. Remaining mediastinal silhouettes are unremarkable. HARDWARE/LINES/TUBES: EKG leads overlie the film. BONES: No acute findings. IMPRESSION: No acute cardiopulmonary abnormality. THIS IS AN ELECTRONICALLY VERIFIED FINAL REPORT 04/24/2024 5:46 AM - Electronically signed by Addie Mackenzie M.D. SN: Report ID: [id number] Reading Location: [id number] ECG 12 lead Result Date: 04/22/2024 Narrative: Vent Rate: 119 bpm RR Interval: 504 msec HI Interval: 0 msec QRS Duration: 135 msec QT Interval: 357 msec QTC Interval: 427 msec P-R-T Rincon: [id number] - 59 - 59 degrees IMPRESSION: ATRIAL FIBRILLATION WITH RAPID VENTRICULAR RESPONSE INDETERMINATE AXIS RIGHT BUNDLE BRANCH BLOCK [120+ ms QRS DURATION, UPRIGHT V1, 40+ ms S IN I/aVL/V4/V5/V6] ABNORMAL ECG INTERPRETATION BASED ON A DEFAULT AGE OF 40 YEARS Compared to prior EKG atrial fibrillation has replaced sinus bradycardia Electronically Signed By: Terence Mas MD [facility] XR Pelvis Ortho View Result Date: 04/22/2024 Narrative: EXAM DESCRIPTION: XR PELVIS ORTHO VIEW REASON FOR STUDY: in pacu s/p right hip nailing Post op right hip nailing FINDINGS: Single-view submitted with comparison 04/21/2024. There has been interval reduction and nailing of an intertrochanteric proximal right femur fracture. Soft tissue gas is present. Arterial atherosclerosis is present. IMPRESSION: Interval reduction and nailing of an intertrochanteric proximal right femur fracture. THIS IS AN ELECTRONICALLY VERIFIED FINAL REPORT 04/22/2024 12:19 PM - Electronically signed by Prabhakar Perdomo M.D. MF: JUAN C Report ID: [id number] Reading Location: [id number] XR Hip Right 2 or 3 Views Result Date: 04/22/2024 Narrative: EXAM DESCRIPTION: XR HIP RIGHT 2 OR 3 VIEWS REASON FOR STUDY: pain Right hip nailing Fluoro time: 25.2 sec Mgy: 5 FINDINGS: Multiple fluoroscopic images consisting of 2 view(s) submitted with comparison 04/19/2024 . Dose area product equals 0.64916 mGym*2. Fluoroscopic images demonstratean in progress reduction and nailing of an intertrochanteric proximal right femur fracture . Soft tissue gas is present. IMPRESSION: In progress reduction and nailing of an intertrochanteric proximalright femur fracture. THIS IS AN ELECTRONICALLY VERIFIED FINAL REPORT 04/22/2024 11:15 AM - Electronically signed by Prabhakar Perdomo M.D. MF: JUAN C Report ID: [id number] Reading Location: [id number] [place] Fluoroscopy < 1 Hour Result Date: 04/22/2024 Narrative: The images from this study are not interpreted by Radiology. Please refer to the physician's procedure / OR operative note. Transthoracic Echo (TTE) Complete W Doppler/CF Result Date: 04/21/2024 Narrative: [address] [place] [address] Echocardiogram Report Patient Name: ELEN CABRAL L : 1950 Study Date: 04/21/2024 2:24:19 PM Gender: M Tech: AA Location: 02 Ref Provider: VIANNEY MCLAIN Height(Cm): BSA: Weight(Kg): Quality: Good Order Provider: VIANNEY MCLAIN PROCEDURES: Echocardiographic Report: Transthoracic echocardiogram with complete 2D, M-Mode, colorDoppler examination and contrast. INDICATIONS: cardiac clearance for brokenhip surgery. MEASUREMENTS: 2D/MM Value Range Doppler Value Range Estimated EF 60 % MARCO Vmax 2.38 cm2 LA Dimension MM 4.07 cm [ 3.00 - 4.00 ] AV Mean PG 3 mmHg AoR Diam MM 2.81cm [ 3.10 - 3.70 ] AV Peak Sy 1.06 m/s [ 1.00 - 1.70 ] ACS MM 1.69 [...] MV PHT 58 msec [ 20 - 100] MVA 2.10 MV Decel Time 235 msec [ 104 - 258 ] PV Peak Sy 0.68 m/s [ 0.40 - 0.80 ] TR Peak Sy 2.34 m/s [ 1.00 - 2.80 ] TR Peak PG 22 mmHg RVSP 27.00 mmHg [ 10.00 - 36.00 ] E` 0.05 m/s E/E` 10.65 [<= 10.00 ] PA Pressure 5.00 mmHg [ 10.00 - 36.00 ] 2D/MM Value Range Doppler Value Range - ------ FINDINGS: Atrial Septum: The atrial septum is not well visualized. Left Ventricle: Normal left ventricular size. Left ventricle not well visualized. Normal global left ventricular systolic function. Ejection Fraction is estimated to be 60 %. Left Atrium: The left atrium is normal in size. Right Ventricle: Normal right ventricular size. Normal right ventricular systolic function.Right Atrium: The right atrium is normal in [...] Signed By: Terence MANZANARES 04/21/2024 4:43:44 PM 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 CT Head WO Contrast Result Date: 04/21/2024 Narrative: EXAM DESCRIPTION: CT HEAD WO CONTRAST REASON FOR STUDY: No provided patient complaints in a patient status post fall on ice today, and denies closed head injury or LOC pursuant to event. Per imaging record, right hip fracture. TECHNIQUE: Axial images acquired through the brain without intravenous contrast. Images stored on PACS. Automated exposure control was used as a dose optimization technique for this examination. COMPARISON: No prior neuro imaging available at time of interpretation. FINDINGS: BRAIN: No acute intra-axial hemorrhage. No edema, mass effect, midline shift, or herniation. No evidence of acute territorial ischemia/infarct. No suspicious focal white matter lesionswith preservation of the parson-white junction. EXTRA-AXIAL SPACES: No extra-axial fluid collection.No unenhanced CT evidence of extra-axial mass. CALVARIUM: No acute calvarial fracture. SINUSES/MASTOIDS: Paranasal sinuses clear. Mastoid air cells well-developed and well aerated. ORBITS: No acute abnormality. Ocular lenses and globes normal in conformation and position. OTHER: No other significant abnormality. IMPRESSION: No acute intracranial process. THIS IS AN ELECTRONICALLY VERIFIED FINAL REPORT 04/21/2024 2:25 PM - Electronically signed by Wilmer Johnson M.D. JINA: JINA Report ID: [id number] Reading Location: [id number] XR Chest 1 Vw Portable Result Date: 04/21/2024 Narrative: EXAM DESCRIPTION: XR CHEST 1 VIEW REASON FOR STUDY: fx Fell earlier---fx right hip TECHNIQUE: Single-view COMPARISON: None available FINDINGS: Central vascularity have normal caliber. Aortic arch well-defined on the left. Lungs are well expanded without consolidation, effusion or pneumoth orax. IMPRESSION: No acute findings. THIS IS AN ELECTRONICALLY VERIFIED FINAL REPORT 04/21/2024 1:52PM - Electronically signed by Elen Fraser M.D. RB: RB Report ID: [id number] Reading Location: [id number] XR Hip Right 2 or 3 Views Result Date: 04/21/2024 Narrative: EXAM DESCRIPTION: XR PELVIS 1 OR 2 [...] degree of impaction, displacement and mild angulation. There is osteoarthritis of both hips. No other evidence of acute fracture. The pubic rami are intact. The SI joints are symmetric in appearance. SOFT TISSUES: Atherosclerotic calcifications. Pelvic phleboliths. IMPRESSION: 1. Acute comminuted, mildly dis placed, angulated and impacted intratrochanteric fracture of the right proximal femur. 2. Osteoarthritis of the hips and SI joints. THIS IS AN ELECTRONICALLY VERIFIED FINAL REPORT 04/21/2024 12:08 PM - Electronically signed by Cortney Islas M.D. TW: OSEAS Report ID: [id number] Reading Location: [id number] XR Pelvis 1 or 2 Views Result Date: 04/21/2024 Narrative: EXAM DESCRIPTION: XR PELVIS 1 OR 2 [...] degree of impaction, displacement and mild angulation. There is osteoarthritis of both hips. No other evidence of acute fracture. The pubic rami are intact. The SI joints are symmetric in appearance. SOFT TISSUES: Atherosclerotic calcifications. Pelvic phleboliths. IMPRESSION: 1. Acute comminuted, mildly dis placed, angulated and impacted intratrochanteric fracture of the right proximal femur. 2. Osteoarthritis of the hips and SI joints. THIS IS AN ELECTRONICALLY VERIFIED FINAL REPORT 04/21/2024 12:08 PM - Electronically signed by Cortney Islas M.D. TW: OSEAS Report ID: [id number] Reading Location: [id number] Current Facility-Administered Medications Medication Dose Route Frequency Provider Last Rate Last Admin acetaminophen (TYLENOL) tablet 650 mg 650 mg oral Q4H PRN Maggi Vaughn MD 650 mg at 04/30/24 0346 budesonide-formoteroL (SYMBICORT) 80-4.5 mcg/actuation inhaler 2 puff 2 puff inhalation BID (RT) Maggi Vaughn MD 2 puff at 04/30/24 0836 digoxin (LANOXIN) tablet 250 mcg 250 mcg oral Daily Maggi Vaughn MD 250 mcg at 04/30/24 0842 doxycycline (VIBRAMYCIN) tablet/capsule 100 mg 100 mg oral BID - special Maggi Vaughn MD 100 mg at 04/30/24 0703 furosemide (LASIX) tablet 20 mg 20 mg oral BID Karissa Mchugh MD 20 mg at 04/30/24 0842 ipratropium-albuteroL (DUO-NEB) 0.5-2.5 mg/3 mL nebulizer solution 3 mL 3 mL nebulization Q6H CHESTER (RT) Karissa Mchugh MD 3 mL at 04/30/24 0836 levothyroxine (SYNTHROID) tablet 125 mcg 125 mcg oral Daily - 0600 Karissa Mchugh MD 125 mcgat 04/30/24 0703 ondansetron ODT (ZOFRAN-ODT) disintegrating tablet 4 mg 4 mg oral Q6H PRN Maggi Vaughn MD Or ondansetron (ZOFRAN) injection 4 mg 4 mg intravenous Q6H PRN aMggi Vaughn MD pantoprazole DR (PROTONIX) extended release tablet 40 mg 40 mg oral Daily Maggi Vaughn MD 40 mg at 04/30/24 0842 polyethylene glycol (MIRALAX) packet 17 g 17 g oral Daily PRN Maggi Vaughn MD predniSONE (DELTASONE) tablet 40 mg 40 mg oral Daily Karissa Mchugh MD 40 mg at 04/30/24 0842 ramelteon (ROZEREM) tablet 8 mg 8 mg oral Nightly PRN Maggi Vaughn MD rivaroxaban (XARELTO) tablet 20 mg 20 mg oral Daily with dinner Maggi Vaughn MD 20 mg at04/29/24 170 rosuvastatin (CRESTOR) tablet 10 mg 10 mg oral Daily Maggi Vaughn MD 10 mg at 04/30/24 0842 sotaloL (BETAPACE) tablet 120 mg 120 mg oral BID PetKita ordonezrubia Oliveros MD 120 mg at 04/30/24 0842 A/P: Principal Problem: Atrial fibrillation with RVR (CMS/HCC) ([facility]) Active Problems: COPD exacerbation ([facility]) Acute on chronic congestive heart failure (CMS/HCC) ([facility]) Hypoxia Resolved Problems: No resolved hospital problems. Acute hypoxic respiratory failure-resolved Severe COPD exacerbation Patient presented with chief complaint of shortness of breath FEV1 of 16% CTA was negative for PE Patient started on steroids and DuoNeb treatments plus doxycycline Patient required supplemental oxygen to maintain saturations in the 90s Patient wearing 1 L of oxygen secondary to comfort, low wean as tolerated Continue with DuoNebs plus prednisone plus doxycycline At time of discharge patient to resume home inhalers Advair and Spiriva as outpatient Will need a follow-up post discharge AFib RVR -Patient was found initially to have a heart rate of up to 150 This is potentially tachycardia/bradycardia syndrome and patient will probably need a pacemaker, patient would like to do it at a [facility] Currently past 24 hours heart rate has been controlled per Cardiology recommendation if patient becomes AFib RVR again to start patient on Cardizem 120 For now continue with digoxin 0.25 daily and Xarelto 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 Patient currently with controlled rate Hypothyroidism TSH found to be 10.28 patient's home medication with Synthroid 112.5 given the TSH finding Synthroid has been increased to 125 patient will need to repeat TSH in 6 weeks Diastolic CHF not in exacerbation Will continue Lasix home medication Lasix 40 iv once Recent right hip intertrochanteric fracture status post surgery on 04/22/2024 PT/OT consult placed Fall precaution. SNF in [facility] swing bed CAD s/p SD 2013 Continue with Crestor These fluid and electrolyte abnormalities are being treated, evaluated or monitored: No fluid or electrolyte disorders Voice recognition software [employer] Fluency Direct was used dictate and transcribe this document. Wastewater Project Engineer variances may occur. Despite proofreading, typographical errors may occur. 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 * Amelie Miller, OT - 04/30/2024 10:09 AM CST Occupational Therapy Treatment 04/30/24 0955 General Session Type Treatment OT Received On 04/30/24 Safe Environment Arm band checked;Patient found sitting at edge of bed;Gait belt utilized for all out of bed mobility Subjective Agreeable to Therapy Family/Caregiver Present No Precautions Precautions Fall risk RLE Weight Bearing WBAT LLE Weight Bearing WBAT Pain Assessment Pain Assessment No/denies pain Cognition Overall Cognitive Status WFL Arousal/Alertness Alert Attention Span Appears intact Memory Appears intact Current communication Appears Intact Orientation Oriented X4 (person, place, time, situation) Following Commands Follows all commands and directions without difficulty Compliance/Behavior Easy to engage Balance Balance Yes Static Sitting Balance Static Sitting-Balance Support Bilateral upper extremity supported;Feet supported Static Sitting-Sitting Surface Bed Static Sitting-Level of Assistance Independent Static Standing Balance Static Standing-Balance Support Bilateral upper extremity supported Static Standing-Standing Surface Floor Static Standing-Level of Assistance Contact guard ADL ADL Comments (Pt declined need to use the bathroom and grooming) Bed Mobility Bed Mobility Yes Bed Mobility 1 Bed Mobility From 1 Edge of bed Bed Mobility Type 1 To Bed Mobility to 1 Supine Level of Assistance 1 Minimum Assist Transfers Transfer Yes Transfer 1 Transfer From 1 Sit;Bed Transfer Type 1 To and from Transfer to 1 Stand Technique 1 Sit to stand;Stand to sit;Stand and step;To left Transfer Device 1 No device Transfer Level of Assistance 1 Contact Guard Assist Safe Environment End of Therapy Session Safe Environment End of Therapy Session Patient left supine in bed;RN notified;Call light within reach;Overbed table within reach;Bed in lowest position with wheels locked;Bed rails up per protocol Plan Plan Continue with current plan;If this is the last note, consider this the discharge summary Recommendation/Plan OT Recommendation Jail Facility Treatment/Interventions during current admission Bed mobility;Functional mobility training;Functional transfer training Progress during current admission Progressing toward goals 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 * Addie Cheng, PT - 04/30/2024 8:42 AM CST Physical Therapy 04/30/24 0826 PT Last Visit Session Type Treatment Safe Environment Arm band checked;Patient found sitting in chair;Session completed bedside Subjective Agreeable to Therapy (but states he's very out of breath this morning) Family/Caregiver Present No Precautions Precaution Comments 3L O2 Pain Assessment Pain Assessment No/denies pain Cognition Orientation Oriented X4 (person, place, time, situation) Following Commands Follows one step commands without difficulty Seated Seated-Exercise Comments pt was able to perform 10reps of ankle pumps, ankle cirlces, and LAQ before he asked to stop due to being too short of breath Ambulation 1 Ambulation Comments 1 declined Safe Environment End of Therapy Session Safe Environment End of Therapy Session Patient left in recliner;Call light within reach;Overbed table within reach Assessment Prognosis Fair Problem List Decreased endurance;Decreased ADLs;Pain Recommendation/Plan PT Recommendation/Plan Jail Facility PT Time Calculation PT Start Time 0826 PT Stop Time 0834 PT Time Calculation (min) 8 min Multi-Disciplinary Problems (from Physical Therapy) Active Problems Problem: PT [facility] Start Date: 04/27/24 Goal Start Date Expected End Date End Date PT [facility] - [facility] 1 04/27/24 05/04/24 -- Goal Details: Pt to require/be cga>sba with bed mobility consistently to increase functional mobility. Goal Start Date Expected End Date End Date PT [facility] - [facility] 2 04/27/24 05/04/24 -- Goal Details: Pt to require/be sba>cga, protected wb for the RLE with all transfers consistentlyto increase functional mobility and safety. Goal Start Date Expected End Date End Date PT [facility] - [facility] 3 04/27/24 05/04/24 -- Goal Details: Pt to ambulate 75' protected wb RLE with a fww consistently, to increase functional mobility and safety. 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 Pt admitted for afib RVR, acute hypoxic respiratory failur e secondary to COPD exacerbation. Interval History: Patient currently on room air, shortness of breath has improved. OBJECTIVE Vitals: 24hr Min/Max: Temp Min: 36.1 ??C (97 ??F) Max: 36.8 ??C (98.2 ??F) Pulse Min: 57 Max: 90 BP Min: 90/71 Max: 132/75 Resp Min: 22 Max: 24 SpO2 Min: 94 % Max: 100 % Most Recent : Vitals: 04/29/24 1106 BP: 103/66 Pulse: 57 Resp: 23 Temp: 36.8 ??C (98.2 ??F) SpO2: 98% I/O last 2 completed shifts: In: 354 [P.O.:354] Out: 1750 [Urine:1750] I/O this shift: In: 240 [P.O.:240] Out: 150 [Urine:150] Physical Exam: General: Patient no acute distress Eyes: EOMI, PAMELA, sclare non icteric Neck: supple, no cervical LAD Pharynx: No gross oral lesion, tongue midline, mucosa moist Lungs: Clear to auscultation Heart: QOQT4T1, no significant murmur or gallop Abd: +BS, Non Tender, Non distended, No gross hepatomegaly Lower Ext: No gross edema, pedal artery pulses are palpable bilaterally Neuro: No new deficits appreciated, alert and oriented X4, normal speech, moves all 4 extremities Musculoskeletal: no gross joint erythema, edema, tenderness Skin: no new changes Lab/Current Medication Review: Recent Results (from the past 24 hours) Comprehensive metabolic panel Collection Time: 04/29/24 2:17 AM Result Value Ref Range Sodium 138 135 - 145 mmol/L Potassium, pl 3.9 3.3 - 4.9 mmol/L Chloride 99 97 - 110 mmol/L CO2 29 22 - 32 mmol/L Anion gap 11 2 - 15 mmol/L BUN 24 6 - 25 mg/dL Creatinine 0.99 0.80 - 1.30 mg/dL Glucose 133 70 - 199 mg/dL Calcium 9.1 8.5 - 10.3 mg/dL Bilirubin, total 1.0 0.1 - 1.2 mg/dL Protein, pl 6.1 (L) 6.5 - 8.5 g/dL Albumin 3.9 3.5 - 5.0 g/dL Alk phos 70 40 - 130 Units/L ALT 11 7 - 55 Units/L AST 20 10 - 50 Units/L Magnesium Collection Time: 04/29/24 2:17 AM Result Value Ref Range Magnesium 2.4 1.4 - 2.5 mg/dL CBC with auto differential Collection Time: 04/29/24 2:17 AM Result Value Ref Range WBC 7.7 3.8 - 9.9 K/cumm Hgb 10.9 (L) 13.0 - 17.5 g/dL Hct 32.5 (L) 38.9 - 50.3 % Plt 166 150 - 400 K/cumm MPV 10.6 9.1 - 12.3 fL RBC 3.43 (L) 4.30 - 5.80 M/cumm MCV 94.8 81.3 - 96.4 fL MCH 31.8 27.1 - 33.3 pg MCHC 33.5 32.3 - 35.7 g/dL RDW CV 15.9 (H) 11.1 - 14.9 % RDW SD 52.7 (H) 35.7 - 48.1 fL NRBC abs 0.00 0.00 - 0.01 K/cumm CBC without differential Collection Time: 04/29/24 2:17 AM Result Value Ref Range WBC 7.7 3.8 - 9.9 K/cumm Hgb 10.9 (L) 13.0 - 17.5 g/dL Hct 32.5 (L) 38.9 - 50.3 % Plt 166 150 - 400 K/cumm MPV 10.6 9.1 - 12.3 fL RBC 3.43 (L) 4.30 - 5.80 M/cumm MCV 94.8 81.3 - 96.4 fL MCH 31.8 27.1 - 33.3 pg MCHC 33.5 32.3 - 35.7 g/dL RDW CV 15.9 (H) 11.1 - 14.9 % RDW SD 52.7 (H) 35.7 - 48.1 fL NRBC abs 0.00 0.00 - 0.01 K/cumm Differential, auto Collection Time: 04/29/24 2:17 AM Result Value Ref Range Neutrophil abs 6.5 1.5 - 6.5 K/cumm Imm gran abs 0.1 0.0 - 0.1 K/cumm Lymphocyte abs 0.8 0.8 - 3.3 K/cumm Monocyte abs 0.3 0.2 - 0.8 K/cumm Eosinophil abs 0.0 0.0 - 0.5 K/cumm Basophil abs 0.0 0.0 - 0.1 K/cumm Neutrophil pct 84.9 % Imm gran pct 0.8 % Lymphocyte pct 10.5 % Monocyte pct 3.8 % Eosinophil pct 0.0 % Basophil pct 0.0 % eGFR Collection Time: 04/29/24 2:17 AM Result Value Ref Range eGFR 81 >=60 mL/min/1.73 m2 ECG 12 lead Result Date: 04/27/2024 Narrative: Vent Rate: 124 bpm RR Interval: 481 msec HI Interval: 0 msec QRS Duration: 139 msec QT Interval: 360 msec QTC Interval: 434 msec P-R-T Rincon: [id number] - 27 - 20 degrees IMPRESSION: ATRIAL FIBRILLATION WITH RAPID VENTRICULAR RESPONSE INDETERMINATE AXIS RIGHT BUNDLE BRANCH BLOCK [120+ ms QRS DURATION, UPRIGHT V1, 40+ ms S IN I/aVL/V4/V5/V6] ST DEPRESSION, CONSIDER SUBENDOCARDIAL INJURY [0.1+mV ST DEPRESSION] ABNORMAL ECG NO CHANGE FROM PREVIOUS TRACING NOTED Electronically Signed By: MD Cesar CT Chest PE (CTA) W Contrast Result Date: 04/26/2024 Narrative: EXAM DESCRIPTION: CT CHEST PE (CTA) W [...] images reviewed. All images stored on PACS. 3D MIP images rendered on scanning unit and reviewed at time of interpretation. Automated exposure control was used as a dose optimization technique for this examination. CONTRAST TYPE/DOSE: 100mL of IOVERSOL 350 MG IODINE/ML INTRAVENOUS SYRINGE injected COMPARISON: 04/18/2024, 09/16/2024 FINDINGS: VASCULATURE: No CT evidence of pulmonary embolism. Normal size of the main pulmonary arteries no aortic aneurysm or aortic dissection. Coronary artery atherosclerotic calcifications are present. LUNGS: Moderate upper lobe predominant bilateral pulmonary emphysema with scattered bilateral pulmonary parenchymal scarring most pronounced in the left lung apex. No confluence pulmonary parenchymal consolidation or pulmonary edema. Left anterior pleural/juxtapleural nodular thickening/scarring measuring up to 6 mm at slice position 46. There is a right lower lobe juxta diaphragmatic noncalcified solid pulmonary nodule measuring 5 mm at slice position 95. A few additional pulmonary micro nodules measuring smaller than 3 mm are also present. Mild bilateral bronchial wall thickening. PLEURA: No pleural effusion. No pneumothorax. ME DIASTINUM/BUCK: No identified masses or lymphadenopathy. No supraclavicular lymphadenopathy. The esophagus is within normal limits. HEART: Heart size is normal with no pericardial effusion. AXILLA: No adenopathy. CHEST WALL: No masses. No subcutaneous air. HARDWARE/LINES/TUBES: None. UPPER ABDOMEN:No significant abnormality. MUSCULOSKELETAL: No acute fractures or aggressive osseous lesions. Mildosteopenia. IMPRESSION: 1. No CT evidence of pulmonary embolism. 2. Noncalcified pulmonary nodules measuring up to 5 mm. According to updated Fleischner Society guidelines, if the patient is at high risk for development of lung cancer, follow-up chest CT in 12 months could be considered. Reference :Radiographics. 2017-Dec;38(5):9325-4894 3. Moderate upper lobe predominant bilateral pulmonary emphysema. THIS IS AN ELECTRONICALLY VERIFIED FINAL REPORT 04/26/2024 10:12 PM - Electronically signed by Eleuterio Bullard M.D. AT: AT Report ID: [id number] Reading Location: [id number] XR Chest 1 Vw Portable Result Date: 04/26/2024 Narrative: EXAM DESCRIPTION: XR CHEST 1 VIEW REASON FOR STUDY: sob PT BIBEMS from [facility] w c/o SOB, HR in the 150's. Recent dx of A-fib, hx of COPD and CHF. Pt was satting 95% on 5L. EMS gave douneb onroute. Pt had right hip surgery and was discharged to [facility] today. Pt denies any pain and is on RA upon ED arrival. TECHNIQUE: Frontal radiographic view(s) of the chest. COMPARISON: 04/24/2024. FINDINGS: LUNGS: Low lung volumes. No focal opacity, pleural effusion, or pneumothorax. HEART/MEDIASTINUM: Cardiac silhouette normal in size. Mediastinal and hilar contours appear normal. LINES/TUBES: None. BONES: No acute osseous abnormality. IMPRESSION: Low lung volumes. No evidence of an acute cardiopulmonary abnormality. THIS IS AN ELECTRONICALLY VERIFIED FINAL REPORT 04/26/2024 9:40 PM - Electronically signed by Tom Miranda M.D. CH: ANAHI Report ID: [id number] Reading Location: [id number] XR CHEST 1 VIEW PORTABLE Result Date: 04/24/2024 Narrative: EXAM DESCRIPTION: XR CHEST 1 VIEW REASON FOR STUDY: Shortness of breath SOB Tonight. Ex-Smoker AFIB CHF TECHNIQUE: Single radiographic view of the chest. COMPARISON: Chest x-ray of 2024. FINDINGS: LUNGS/PLEURA: No focal consolidation or pneumothorax. No pleural effusion. There is no significant change as compared to previous study. HEART/MEDIASTINUM: Cardiac silhouette is normal. Remaining mediastinal silhouettes are unremarkable. HARDWARE/LINES/TUBES: EKG leads overlie the film. BONES: No acute findings. IMPRESSION: No acute cardiopulmonary abnormality. THIS IS AN ELECTRONICALLY VERIFIED FINAL REPORT 04/24/2024 5:46 AM - Electronically signed by Addie Mackenzie M.D. SN: SN Report ID: [id number] Reading Location: [id number] ECG 12 lead Result Date: 04/22/2024 Narrative: Vent Rate: 119 bpm RR Interval: 504 msec HI Interval: 0 msec QRS Duration: 135 msec QT Interval: 357 msec QTC Interval: 427 msec P-R-T Rincon: 07901 - 59 - 59 degrees IMPRESSION: ATRIAL FIBRILLATION WITH RAPID VENTRICULAR RESPONSE INDETERMINATE AXIS RIGHT BUNDLE BRANCH BLOCK [120+ ms QRS DURATION, UPRIGHT V1, 40+ ms S IN I/aVL/V4/V5/V6] ABNORMAL ECG INTERPRETATION BASED ON A DEFAULT AGE OF 40 YEARS Compared to prior EKG atrial fibrillation has replaced sinus bradycardia Electronically Signed By: Terence Mas MD B XR Pelvis Ortho View Result Date: 04/22/2024 Narrative: EXAM DESCRIPTION: XR PELVIS ORTHO VIEW REASON FOR STUDY: in pacu s/p right hip nailing Post op right hip nailing FINDINGS: Single-view submitted with comparison 04/21/2024. There has been interval reduction and nailing of an intertrochanteric proximal right femur fracture. Soft tissue gas is present. Arterial atherosclerosis is present. IMPRESSION: Interval reduction and nailing of anintertrochanteric proximal right femur fracture. THIS IS AN ELECTRONICALLY VERIFIED FINAL REPORT 04/22/2024 12:19 PM - Electronically signed by Prabhakar Perdomo M.D. MF: JUAN C Report ID: [id number] Reading Location: [place] [address] XR Hip Right 2 or 3 Views Result Date: 04/22/2024 Narrative: EXAM DESCRIPTION: XR HIP RIGHT 2 OR 3 VIEWS REASON FOR STUDY: pain Right hip nailing Fluoro time: 25.2 sec Mgy: 5 FINDINGS: Multiple fluoroscopic images consisting of 2 view(s) submitted with comparison 04/19/2024 . Dose area product equals 0.25051 mGym*2. Fluoroscopic images demonstratean in progress reduction and nailing of an intertrochanteric proximal right femur fracture . Soft tissue gas is present. IMPRESSION: In progress reduction and nailing of an intertrochanteric proximalright femur fracture. THIS IS AN ELECTRONICALLY VERIFIED FINAL REPORT 04/22/2024 11:15 AM - Electronically signed by Prabhakar Perdomo M.D. MF: JUAN C Report ID: [id number] Reading Location: [place] [address] [place] Fluoroscopy < 1 Hour Result Date: 04/22/2024 Narrative: The images from this study are not interpreted by Radiology. Please refer to the physician's procedure / OR operative note. Transthoracic Echo (TTE) Complete W Doppler/CF Result Date: 04/21/2024 Narrative: [address] [place] [address] Echocardiogram Report Patient Name: ELEN CABRAL L : 1950 Study Date: 04/21/2024 2:24:19 PM Gender: M Tech: AA Location: ED02 Ref Provider: VIANNEY MCLAIN Height(Cm): BSA: Weight(Kg): Quality: Good Order Provider: VIANNEY MCLAIN PROCEDURES: Echocardiographic Report: Transthoracic echocardiogram with complete 2D, M-Mode, colorDoppler examination and contrast. INDICATIONS: cardiac clearance for brokenhip surgery. MEASUREMENTS: 2D/MM Value Range Doppler Value Range Estimated EF 60 % MARCO Vmax 2.38 cm2 LA Dimension MM 4.07 cm [ 3.00 - 4.00 ] AV Mean PG 3 mmHg AoR Diam MM 2.81cm [ 3.10 - 3.70 ] AV Peak Sy 1.06 m/s [ 1.00 - 1.70 ] ACS MM 1.69 [...] MV PHT 58 msec [ 20 - 100] MVA 2.10 MV Decel Time 235 msec [ 104 - 258 ] PV Peak Sy 0.68 m/s [ 0.40 - 0.80 ] TR Peak Sy 2.34 m/s [ 1.00 - 2.80 ] TR Peak PG 22 mmHg RVSP 27.00 mmHg [ 10.00 - 36.00 ] E` 0.05 m/s E/E` 10.65 [<= 10.00 ] PA Pressure 5.00 mmHg [ 10.00 - 36.00 ] 2D/MM Value Range Doppler Value Range - ----- FINDINGS: Atrial Septum: The atrial septum is not well visualized. Left Ventricle: Normal left ventricular size. Left ventricle not well visualized. Normal global left ventricular systolic function. Ejection Fraction is estimated to be 60 %. Left Atrium: The left atrium is normalin size. Right Ventricle: Normal right ventricular size. [...] views. Electronically Signed By: Terence Mas MD [facility] 04/21/2024 4:43:44 PM HOME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 CT Head WO Contrast Result Date: 04/21/2024 Narrative: EXAM DESCRIPTION: CT HEAD WO CONTRAST REASON FOR STUDY: No provided patient complaints in a patient status post fall on ice today, and denies closed head injury or LOC pursuant to event. Per imaging record, right hip fracture. TECHNIQUE: Axial images acquired through the brain without intravenous contrast. Images stored on PACS. Automated exposure control was used as a dose optimization technique for this examination. COMPARISON: No prior neuro imaging available at time of interpretation. FINDINGS: BRAIN: No acute intra-axial hemorrhage. No edema, mass effect, midline shift, or herniation. No evidence of acute territorial ischemia/infarct. No suspicious focal white matter lesions with preservation of the parson-white junction. EXTRA-AXIAL SPACES: No extra-axial fluid collection.No unenhanced CT evidence of extra-axial mass. CALVARIUM: No acute calvarial fracture. SINUSES/MASTOIDS: Paranasal sinuses clear. Mastoid air cells well-developed and well aerated. ORBITS: No acute abnormality. Ocular lenses and globes normal in conformation and position. OTHER: No other significant abnormality. IMPRESSION: No acute intracranial process. THIS IS AN ELECTRONICALLY VERIFIED FINAL REPORT 04/21/2024 2:25 PM - Electronically signed by Wilmer Johnson M.D. JINA: JINA Report ID: [id number] Reading Location: [id number] XR Chest 1 Vw Portable Result Date: 04/21/2024 Narrative: EXAM DESCRIPTION: XR CHEST 1 VIEW REASON FOR STUDY: fx Fell earlier---fx right hip TECHNIQUE: Single-view COMPARISON: None available FINDINGS: Central vascularity have normal caliber. Aortic arch well-defined on the left. Lungs are well expanded without consolidation, effusion or pneumot horax. IMPRESSION: No acute findings. THIS IS AN ELECTRONICALLY VERIFIED FINAL REPORT 04/21/2024 1:52 PM - Electronically signed by Elen Fraser M.D. RB: RB Report ID: [id number] Reading Location: [id number] XR Hip Right 2 or 3 Views Result Date: 04/21/2024 Narrative: EXAM DESCRIPTION: XR PELVIS 1 OR 2 [...] degree of impaction, displacement and mild angulation. There is osteoarthritis of both hips. No other evidence of acute fracture. The pubic rami are intact. The SI joints are symmetric in appearance. SOFT TISSUES: Atherosclerotic calcifications. Pelvic phleboliths. IMPRESSION: 1. Acute comminuted, mildly di splaced, angulated and impacted intratrochanteric fracture of the right proximal femur. 2. Osteoarthritis of the hips and SI joints. THIS IS AN ELECTRONICALLY VERIFIED FINAL REPORT 04/21/2024 12:08 PM- Electronically signed by Cortney Isals M.D. TW: OSEAS Report ID: [id number] Reading Location: [id number] XR Pelvis 1 or 2 Views Result Date: 04/21/2024 Narrative: EXAM DESCRIPTION: XR PELVIS 1 OR 2 [...] degree of impaction, displacement and mild angulation. There is osteoarthritis of both hips. No other evidence of acute fracture. The pubic rami are intact. The SI joints are symmetric in appearance. SOFT TISSUES: Atherosclerotic calcifications. Pelvic phleboliths. IMPRESSION: 1. Acute comminuted, mildly dis placed, angulated and impacted intratrochanteric fracture of the right proximal femur. 2. Osteoarthritis of the hips and SI joints. THIS IS AN ELECTRONICALLY VERIFIED FINAL REPORT 04/21/2024 12:08 PM - Electronically signed by Cortney Islas M.D. TW: OSEAS Report ID: [id number] Reading Location: [id number] Current Facility-Administered Medications Medication Dose Route Frequency Provider Last Rate Last Admin acetaminophen (TYLENOL) tablet 650 mg 650 mg oral Q4H PRN Maggi Vaughn MD 650 mg at 04/29/24 0937 budesonide-formoteroL (SYMBICORT) 80-4.5 mcg/actuation inhaler 2 puff 2 puff inhalation BID (RT) Maggi Vaughn MD 2 puff at 04/29/24 0849 digoxin (LANOXIN) tablet 250 mcg 250 mcg oral Daily Maggi Vaughn MD 250 mcg at 04/29/24 0837 doxycycline (VIBRAMYCIN) tablet/capsule 100 mg 100 mg oral BID - special Maggi Vaughn MD100 mg at 04/29/24 0535 furosemide (LASIX) tablet 20 mg 20 mg oral BID Karissa Mchugh MD 20 mg at 04/29/24 0837 ipratropium-albuteroL (DUO-NEB) 0.5-2.5 mg/3 mL nebulizer solution 3 mL 3 mL nebulization Q6H [facility] (RT) Karissa Mchugh MD 3 mL at 04/29/24 0848 levothyroxine (SYNTHROID) tablet 125 mcg 125 mcg oral Daily - 0600 Karissa Mchugh MD 125 mcgat 04/29/24 0535 methylPREDNISolone sodium succinate (SOLU-medrol) preservative free injection 40 mg 40 mg intravenous Q12H [facility] Karissa Mchugh MD 40 mg at 04/29/24 0836 ondansetron ODT (ZOFRAN-ODT) disintegrating tablet 4 mg 4 mg oral Q6H PRN Maggi Vaughn MD Or ondansetron (ZOFRAN) injection 4 mg 4 mg intravenous Q6H PRN Maggi Vaughn MD pantoprazole DR (PROTONIX) extended release tablet 40 mg 40 mg oral Daily Maggi Vaughn MD 40 mg at 04/29/24 0837 polyethylene glycol (MIRALAX) packet 17 g 17 g oral Daily PRN Maggi Vaughn MD ramelteon (ROZEREM) tablet 8 mg 8 mg oral Nightly PRN Maggi Vaughn MD rivaroxaban (XARELTO) tablet 20 mg 20 mg oral Daily with dinner Maggi Vaughn MD 20 mg at04/28/24 1734 rosuvastatin (CRESTOR) tablet 10 mg 10 mg oral Daily Maggi Vaughn MD 10 mg at 04/29/24 0837 sotaloL (BETAPACE) tablet 120 mg 120 mg oral BID PetMaggi ordonez MD 120 mg at 04/29/24 0837 A/P: Principal Problem: Atrial fibrillation with RVR (CMS/HCC) ([facility]) Active Problems: COPD exacerbation (HCC) Acute on chronic congestive heart failure (CMS/HCC) ([facility]) Hypoxia Resolved Problems: No resolved hospital problems. Acute hypoxic respiratory failure-resolved Severe COPD exacerbation Patient presented with chief complaint of shortness of breath FEV1 of 16% CTA was negative for PE Patient started on steroids and DuoNeb treatments plus doxycycline Patient required supplemental oxygen to maintain saturations in the 90s Patient is weaned to room air, saturating at 98% Plan to continue with DuoNebs change to Q 6 schedule, will deescalate steroids to prednisone, continue with Symbicort At time of discharge patient to resume home inhalers Advair and Spiriva as outpatient Will need a follow-up post discharge AFib RVR -Patient was found initially to have a heart rate of up to 150 This is potentially tachycardia/bradycardia syndrome and patient will probably need a pacemaker, patient would like to do it at a [facility] Currently past 24 hours heart rate has been controlled per Cardiology recommendation if patient becomes AFib RVR again to start patient on Cardizem 120 For now continue with digoxin 0.25 daily and Xarelto 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 Patient currently with controlled rate Hypothyroidism TSH found to be 10.28 patient's home medication with Synthroid 112.5 given the TSH finding Synthroid has been increased to 125 patient will need to repeat TSH in 6 weeks Diastolic CHF not in exacerbation Will continue Lasix home medication Recent right hip intertrochanteric fracture status post surgery on 04/22/2024 PT/OT consult placed Fall precaution. [facility], case management coordinator working on SNF in [facility] swing bed CAD s/p SD 2013 Continue with Crestor These fluid and electrolyte abnormalities are being treated, evaluated or monitored: No fluid or electrolyte disorders Voice recognition software [employer] Fluency Direct was used dictate and transcribe this document. Wastewater Project Engineer variances may occur. Despite proofreading, typographical errors may occur. MD Karissa Reyes MD [facility] Date of Service: 04/29/2024 12:00 PM MDM:Moderate 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 * Chance Ovalle, OT - 04/29/2024 11:54 AM CST Occupational Therapy 04/29/24 1141 General Session Type Treatment OT Received On 04/29/24 Safe Environment Arm band checked;Patient found in supine Family/Caregiver Present No Precautions Precautions Fall risk Weight Bearing Restrictions Yes RLE Weight Bearing WBAT Pain Assessment Pain Assessment No/denies pain ADL ADL Comments Pt declined offered grooming or toilet training at this time. Bathing Bath Not bathed/showered Bed Mobility Bed Mobility Yes Bed Mobility 1 Bed Mobility From 1 Supine Bed Mobility Type 1 To Bed Mobility to 1 Edge of bed Level of Assistance 1 Minimum Assist Transfers Transfer Yes Transfer 1 Transfer From 1 Bed Transfer Type 1 To Transfer to 1 Chair with arms Technique 1 Stand and step Transfer Device 1 Wheeled walker Transfer Level of Assistance 1 Minimum Assist Safe Environment End of Therapy Session Safe Environment End of Therapy Session Patient left in recliner;Chair alarm in place and activated;RN notified;Call light within reach;Overbed table within reach Assessment Prognosis Good Plan Plan Continue with current plan;If this is the last note, consider this the discharge summary Recommendation/Plan OT Recommendation Jail Facility OT Time Calculation OT Start Time 1141 OT Stop Time 1151 OT Time Calculation (min) 10 min Multi-Disciplinary Problems (from Occupational Therapy) Active Problems Problem: Dressings Lower Extremities Start Date: 04/27/24 Goal Start Date Expected End Date End Date STG - Patient to complete lower body dressing 04/27/24 05/04/24 -- Goal Details: Min A Problem: Grooming Start Date: 04/27/24 Goal Start Date Expected End Date End Date STG - Patient will complete grooming 04/27/24 05/04/24 -- Goal Details: CGA seated or standing at sink with good safety awareness Problem: Toileting Start Date: 04/27/24 Goal Start Date Expected End Date End Date STG - Patient will complete toileting tasks with 04/27/24 05/04/24 -- Goal Details: SBA including clothing management and hygiene Problem: Transfers Start Date: 04/27/24 Goal Start Date Expected End Date End Date STG - Patient will perform toilet transfer 04/27/24 05/04/24 -- Goal Details: SBA with good safety awareness using WW 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 * Elba Bonner, DORMITORY COUNSELOR - 04/29/2024 9:01 AM CST 04/29/24 0849 Inhalation Therapy Tx Treatment Tolerance Tolerated well SpO2 96 % O2 Therapy None (Room air) Pre-Tx Pulse 82 bpm Pre-Tx Resp 20 bpm Pre-TX Br Sounds Clear;Diminished Post-Tx Pulse 84 Post-Tx Resp 20 Post Tx Br Sounds Clear;Diminished Respiratory Effort Unlabored Respiratory Depth/Rhythm Regular Chest Assessment Symmetrical Cough Non-productive $ MDI/DPI Inhalation tx. One Tx RT Therapist Assist Charges RT Therapist Assist Gases 1 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 * Regina Yanez, OT - 04/28/2024 4:16 PM CST Occupational Therapy 04/28/24 1526 General Session Type Treatment OT Received On 04/28/24 Safe Environment Arm band checked;Patient found sitting in chair;Gait belt utilized for all out of bed mobility Subjective Agreeable to Therapy Family/Caregiver Present No Precautions Precautions Bed/Chair Alarm;Fall risk RLE Weight Bearing WBAT LLE Weight Bearing WBAT Pain Assessment Pain Assessment 0-10 Pain Score 2 Pain Type Surgical pain Pain Location Hip Pain Orientation Right Clinical Progression Not changed Pain Interventions Repositioned Cognition Overall Cognitive Status WFL Orientation Oriented X4 (person, place, time, situation) Compliance/Behavior Easy to engage Static Sitting Balance Static Sitting-Balance Support Bilateral upper extremity supported;Feet supported Static Sitting-Sitting Surface Chair Static Sitting-Level of Assistance Independent Static Standing Balance Static Standing-Balance Support Bilateral upper extremity supported Static Standing-Standing Surface Floor Static Standing-Level of Assistance Minimum assistance ADL ADLS (WDL) (Pt. declined grooming and toileting this session) LE Dressing LE Dressing: Where assessed Sitting;Chair LE Dressing: Level of assistance Maximum Assist LE Dressing: Assistance with Don/doff R sock;Don/doff L sock Bed Mobility Bed Mobility (Pt. received up in chair) Transfer 1 Transfer From 1 Sit;Chair with arms Transfer Type 1 To and from Transfer to 1 Stand Technique 1 Sit to stand;Stand to sit Transfer Device 1 Wheeled walker Transfer Level of Assistance 1 Minimum Assist Trials/Comments 1 Min A for balance and safety, cues for hand placement, no LOB upon standing Transfers 2 Transfer From 2 Chair with arms Transfer Type 2 To and from Transfer to 2 Chair with arms Technique 2 Ambulation Transfer Device 2 Wheeled walker Transfer Level of Assistance 2 Minimum Assist Trials/Comments 2 Min A for balance and safety, pt. completed room mobility x8 feet to/from chair twice during session to simulate distances required for toilet transfers. Pt. a little unsteady but no LOB, cues for WW management Activity Tolerance Activity Tolerance Comments Rest breaks with activity, pt. SOB but SpO2 maintained above 96% on RA during session Safe Environment End of Therapy Session Safe Environment End of Therapy Session Patient left in chair;Call light within reach;Overbed tablewithin reach;Chair alarm in place and activated (Pt. encouraged to elevate LEs when possible to reduce swelling in rafiq feet, pt. states it is not comfortable to elevate his feet in his chair but he will try again later) Assessment Prognosis Good Problem List Decreased mobility;Decreased endurance;Decreased functional mobility;Decreased ADL independence;Decreased balance Plan Plan Continue with current plan;If this is the last note, consider this the discharge summary Recommendation/Plan OT Recommendation Jail Facility Recommend SNF due to Risk of injury at home;Unable to safely care for self in the home;Skilled therapy needed to address care for self in the home;Skilled therapy needed to address functional deficits;Skilled therapy needed for patient to return to prior level of independence Patient at high risk for Falls;Readmission;Injury due to decreased ability to care for self;Injury due to reduced functional status;Injury due to balance deficits;Injury at home as patient has not returned to prior level of function OT Frequency during current admission 5-7x/wk (Mon-Fri, Sat PRN) Treatment/Interventions during current admission ADL/IADL retraining;Balance Training;Functional activity;Functional mobility training;Functional transfer training;Therapeutic activity Progress during current admission Progressing toward goals OT Time Calculation OT Start Time 1526 OT Stop Time 1544 OT Time Calculation (min) 18 min Multi-Disciplinary Problems (from Occupational Therapy) Active Problems Problem: Dressings Lower Extremities Start Date: 04/27/24 Goal Start Date Expected End Date End Date STG - Patient to complete lower body dressing 04/27/24 05/04/24 -- Goal Details: Min A Problem: Grooming Start Date: 04/27/24 Goal Start Date Expected End Date End Date STG - Patient will complete grooming 04/27/24 05/04/24 -- Goal Details: CGA seated or standing at sink with good safety awareness Problem: Toileting Start Date: 04/27/24 Goal Start Date Expected End Date End Date STG - Patient will complete toileting tasks with 04/27/24 05/04/24 -- Goal Details: SBA including clothing management and hygiene Problem: Transfers Start Date: 04/27/24 Goal Start Date Expected End Date End Date STG - Patient will perform toilet transfer 04/27/24 05/04/24 -- Goal Details: SBA with good safety awareness using WW 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 * Elba Bonner RRT - 04/28/2024 12:11 PM CST 04/28/24 0924 Inhalation Therapy Tx SpO2 96 % O2 Therapy Supplemental oxygen O2 Del Method Nasal cannula O2 Flow Rate (L/min) 2 L/min Pre-Tx Pulse 68 bpm Pre-Tx Resp 16 bpm Pre-TX Br Sounds Diminished Patient DID receive a nebulizer. 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 * Elba Bonner RRT - 04/28/2024 12:10 PM CST 04/28/24 0924 Inhalation Therapy Tx Tx. Not Given (reason) (patient with pt/ot) SpO2 96 % O2 Therapy Supplemental oxygen O2 Del Method Nasal cannula O2 Flow Rate (L/min) 2 L/min Pre-Tx Pulse 68 bpm Pre-Tx Resp 16 bpm Pre-TX Br Sounds Diminished Patient DID receive a nebulizer at 0923. 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 * Karissa Mchugh MD - 04/28/2024 11:27 AM CST Medicine Daily Progress Note SUBJECTIVE 73-year-old male with medical history significant for CAD status post stents, diastolic CHF, COPD, atrial fibrillation on Xarelto, hypothyroidism hyperlipidemia and other comorbidities presented to ED with complaints of shortness of breaths. Pt admitted for afib RVR, acute hypoxic respiratory failur e secondary to COPD exacerbation. Interval History: Patient currently reports shortness of breath. Patient reports that he has not received his breathing treatment. Patient also reports cough with phlegm production/ Monitor on tele he has been in normal sinus rhythm-with rates ranging 59-77. OBJECTIVE Vitals: 24hr Min/Max: Temp Min: 36.2 ??C (97.1 ??F) Max: 37 ??C (98.6 ??F) Pulse Min: 58 Max: 77 BP Min: 112/67 Max: 148/71 Resp Min: 18 Max: 24 SpO2 Min: 94 % Max: 100 % Most Recent : Vitals: 04/28/24 1048 BP: 140/88 Pulse: 65 Resp: 20 Temp: 36.4 ??C (97.6 ??F) SpO2: 99% I/O last 2 completed shifts: In: 1660 [P.O.:1660] Out: 1175 [Urine:1175] I/O this shift: In: 118 [P.O.:118] Out: 450 [Urine:450] Physical Exam: General: Patient no acute distress Eyes: EOMI, PAMELA, sclare non icteric Neck: supple, no cervical LAD Pharynx: No gross oral lesion, tongue midline, mucosa moist Lungs: Expiratory wheezing Heart: [id number], no significant murmur or gallop Abd: +BS, Non Tender, Non distended, No gross hepatomegaly Lower Ext: No gross edema, pedal artery pulses are palpable bilaterally Neuro: No new deficits appreciated, alert and oriented X4, normal speech, moves all 4 extremities Musculoskeletal: no gross joint erythema, edema, tenderness Skin: no new changes Lab/Current Medication Review: Recent Results (from the past 24 hours) POCT glucose Collection Time: 04/27/24 4:45 PM Result Value Ref Range Glucose, POC 153 70 - 199 mg/dL Comprehensive metabolic panel Collection Time: 04/28/24 3:05 AM Result Value Ref Range Sodium 136 135 - 145 mmol/L Potassium, pl 4.3 3.3 - 4.9 mmol/L Chloride 96 (L) 97 - 110 mmol/L CO2 29 22 - 32 mmol/L Anion gap 11 2 - 15 mmol/L BUN 22 6 - 25 mg/dL Creatinine 1.05 0.80 - 1.30 mg/dL Glucose 132 70 - 199 mg/dL Calcium 9.2 8.5 - 10.3 mg/dL Bilirubin, total 1.2 0.1 - 1.2 mg/dL Protein, pl 6.2 (L) 6.5 - 8.5 g/dL Albumin 3.8 3.5 - 5.0 g/dL Alk phos 70 40 - 130 Units/L ALT 9 7 - 55 Units/L AST 25 10 - 50 Units/L Magnesium Collection Time: 04/28/24 3:05 AM Result Value Ref Range Magnesium 2.5 1.4 - 2.5 mg/dL CBC with auto differential Collection Time: 04/28/24 3:05 AM Result Value Ref Range WBC 8.1 3.8 - 9.9 K/cumm Hgb 11.1 (L) 13.0 - 17.5 g/dL Hct 33.0 (L) 38.9 - 50.3 % Plt 164 150 - 400 K/cumm MPV 11.2 9.1 - 12.3 fL RBC 3.51 (L) 4.30 - 5.80 M/cumm MCV 94.0 81.3 - 96.4 fL MCH 31.6 27.1 - 33.3 pg MCHC 33.6 32.3 - 35.7 g/dL RDW CV 15.6 (H) 11.1 - 14.9 % RDW SD 51.1 (H) 35.7 - 48.1 fL NRBC abs 0.00 0.00 - 0.01 K/cumm CBC without differential Collection Time: 04/28/24 3:05 AM Result Value Ref Range WBC 8.1 3.8 - 9.9 K/cumm Hgb 11.1 (L) 13.0 - 17.5 g/dL Hct 33.0 (L) 38.9 - 50.3 % Plt 164 150 - 400 K/cumm MPV 11.2 9.1 - 12.3 fL RBC 3.51 (L) 4.30 - 5.80 M/cumm MCV 94.0 81.3 - 96.4 fL MCH 31.6 27.1 - 33.3 pg MCHC 33.6 32.3 - 35.7 g/dL RDW CV 15.6 (H) 11.1 - 14.9 % RDW SD 51.1 (H) 35.7 - 48.1 fL NRBC abs 0.00 0.00 - 0.01 K/cumm Digoxin level Collection Time: 04/28/24 3:05 AM Result Value Ref Range Digoxin 0.7 0.5 - 1.2 ng/mL Differential, auto Collection Time: 04/28/24 3:05 AM Result Value Ref Range Neutrophil abs 6.9 (H) 1.5 - 6.5 K/cumm Imm gran abs 0.0 0.0 - 0.1 K/cumm Lymphocyte abs 0.8 0.8 - 3.3 K/cumm Monocyte abs 0.4 0.2 - 0.8 K/cumm Eosinophil abs 0.0 0.0 - 0.5 K/cumm Basophil abs 0.0 0.0 - 0.1 K/cumm Neutrophil pct 84.8 % Imm gran pct 0.5 % Lymphocyte pct 9.9 % Monocyte pct 4.7 % Eosinophil pct 0.0 % Basophil pct 0.1 % eGFR Collection Time: 04/28/24 3:05 AM Result Value Ref Range eGFR 76 >=60 mL/min/1.73 m2 ECG 12 lead Result Date: 04/27/2024 Narrative: Vent Rate: 124 bpm RR Interval: 481 msec HI Interval: 0 msec QRS Duration: 139 msec QT Interval: 360 msec QTC Interval: 434 msec P-R-T Rincon: 12580 - 27 - 20 degrees IMPRESSION: ATRIAL FIBRILLATION WITH RAPID VENTRICULAR RESPONSE INDETERMINATE AXIS RIGHT BUNDLE BRANCH BLOCK [120+ ms QRS DURATION, UPRIGHT V1, 40+ ms S IN I/aVL/V4/V5/V6] ST DEPRESSION, CONSIDER SUBENDOCARDIAL INJURY [0.1+mV ST DEPRESSION] ABNORMAL ECG NO CHANGE FROM PREVIOUS TRACING NOTED Electronically Signed By: MD Cesar CT Chest PE (CTA) W Contrast Result Date: 04/26/2024 Narrative: EXAM DESCRIPTION: CT CHEST PE (CTA) W [...] images reviewed. All images stored on PACS. 3D MIP images rendered on scanning unit and reviewed at time of interpretation. Automated exposure control was used as a dose optimization technique for this examination. CONTRAST TYPE/DOSE: 100mL of IOVERSOL 350 MG IODINE/ML INTRAVENOUS SYRINGE injected COMPARISON: 04/18/2024, 09/16/2024 FINDINGS: VASCULATURE: No CT evidence of pulmonary embolism. Normal size of the main pulmonary arteries no aortic aneurysm or aortic dissection. Coronary artery atherosclerotic calcifications are present. LUNGS: Moderate upper lobe predominant bilateral pulmonary emphysema with scattered bilateral pulmonary parenchymal scarring most pronounced in the left lung apex. No confluence pulmonary parenchymal consolidation or pulmonary edema. Left anterior pleural/juxtapleural nodular thickening/scarring measuring up to 6 mm at slice position 46. There is a right lower lobe juxta diaphragmatic noncalcified solid pulmonary nodule measuring 5 mm at slice position 95. A few additional pulmonary micro nodules measuring smaller than 3 mm are also present. Mild bilateral bronchial wall thickening. PLEURA: No pleural effusion. No pneumothorax. ME DIASTINUM/BUCK: No identified masses or lymphadenopathy. No supraclavicular lymphadenopathy. The esophagus is within normal limits. HEART: Heart size is normal with no pericardial effusion. AXILLA: No adenopathy. CHEST WALL: No masses. No subcutaneous air. HARDWARE/LINES/TUBES: None. UPPER ABDOMEN:No significant abnormality. MUSCULOSKELETAL: No acute fractures or aggressive osseous lesions. Mildosteopenia. IMPRESSION: 1. No CT evidence of pulmonary embolism. 2. Noncalcified pulmonary nodules measuring up to 5 mm. According to updated Fleischner Society guidelines, if the patient is at high risk for development of lung cancer, follow-up chest CT in 12 months could be considered. Reference :Radiographics. 2018 Nov-Dec;38(5):6743-6440 3. Moderate upper lobe predominant bilateral pulmonary emphysema. THIS IS AN ELECTRONICALLY VERIFIED FINAL REPORT 04/26/2024 10:12 PM - Electronically signed by Eleuterio Bullard M.D. AT: AT Report ID: [id number] Reading Location: [id number] XR Chest 1 Vw Portable Result Date: 04/26/2024 Narrative: EXAM DESCRIPTION: XR CHEST 1 VIEW REASON FOR STUDY: sob PT BIBEMS from [facility] w c/o SOB, HR in the 150's. Recent dx of A-fib, hx of COPD and CHF. Pt was satting 95% on 5L. EMS gave douneb onroute. Pt had right hip surgery and was discharged to [facility] today. Pt denies any pain and is [id number] on RA upon ED arrival. TECHNIQUE: Frontal radiographic view(s) of the chest. COMPARISON: 04/24/2024. FINDINGS: LUNGS: Low lung volumes. No focal opacity, pleural effusion, or pneumothorax. HEART/MEDIASTINUM: Cardiac silhouette normal in size. Mediastinal and hilar contours appear normal. LINES/TUBES: None. BONES: No acute osseous abnormality. IMPRESSION: Low lung volumes. No evidence of an acute cardiopulmonary abnormality. THIS IS AN ELECTRONICALLY VERIFIED FINAL REPORT 04/26/2024 9:40 PM - Electronically signed by Tom Miranda M.D. CH: ANAHI Report ID: [id number] Reading Location: [id number] XR CHEST 1 VIEW PORTABLE Result Date: 04/24/2024 Narrative: EXAM DESCRIPTION: XR CHEST 1 VIEW REASON FOR STUDY: Shortness of breath SOB Tonight. Ex-Smoker AFIB CHF TECHNIQUE: Single radiographic view of the chest. COMPARISON: Chest x-ray of 2024. FINDINGS: LUNGS/PLEURA: No focal consolidation or pneumothorax. No pleural effusion. There is no significant change as compared to previous study. HEART/MEDIASTINUM: Cardiac silhouette is normal. Remaining mediastinal silhouettes are unremarkable. HARDWARE/LINES/TUBES: EKG leads overlie the film. BONES: No acute findings. IMPRESSION: No acute cardiopulmonary abnormality. THIS IS AN ELECTRONICALLY VERIFIED FINAL REPORT 04/24/2024 5:46 AM - Electronically signed by Addie Mackenzie M.D. SN: SN Report ID: [id number] Reading Location: [id number] ECG 12 lead Result Date: 04/22/2024 Narrative: Vent Rate: 119 bpm RR Interval: 504 msec HI Interval: 0 msec QRS Duration: 135 msec QT Interval: 357 msec QTC Interval: 427 msec P-R-T Rincon: 07682 - 59 - 59 degrees IMPRESSION: ATRIAL FIBRILLATION WITH RAPID VENTRICULAR RESPONSE INDETERMINATE AXIS RIGHT BUNDLE BRANCH BLOCK [120+ ms QRS DURATION, UPRIGHT V1, 40+ ms S IN I/aVL/V4/V5/V6] ABNORMAL ECG INTERPRETATION BASED ON A DEFAULT AGE OF 40 YEARS Compared to prior EKG atrial fibrillation has replaced sinus bradycardia Electronically Signed By: Terence Mas MD [facility] XR Pelvis Ortho View Result Date: 04/22/2024 Narrative: EXAM DESCRIPTION: XR PELVIS ORTHO VIEW REASON FOR STUDY: in pacu s/p right hip nailing Post op right hip nailing FINDINGS: Single-view submitted with comparison 04/21/2024. There has been interval reduction and nailing of an intertrochanteric proximal right femur fracture. Soft tissue gas is present. Arterial atherosclerosis is present. IMPRESSION: Interval reduction and nailing of an intertrochanteric proximal right femur fracture. THIS IS AN ELECTRONICALLY VERIFIED FINAL REPORT 04/22/2024 12:19 PM - Electronically signed by Prabhakar Perdomo M.D. MF: JUAN C Report ID: [id number] Reading Location: [id number] XR Hip Right 2 or 3 Views Result Date: 04/22/2024 Narrative: EXAM DESCRIPTION: XR HIP RIGHT 2 OR 3 VIEWS REASON FOR STUDY: pain Right hip nailing Fluoro time: 25.2 sec Mgy: 5 FINDINGS: Multiple fluoroscopic images consisting of 2 view(s) submitted with comparison 04/19/2024 . Dose area product equals 0.28357 mGym*2. Fluoroscopic images demonstratean in progress reduction and nailing of an intertrochanteric proximal right femur fracture . Soft tissue gas is present. IMPRESSION: In progress reduction and nailing of an intertrochanteric proximalright femur fracture. THIS IS AN ELECTRONICALLY VERIFIED FINAL REPORT 04/22/2024 11:15 AM - Electronically signed by Prabhakar Perdomo M.D. MF: JUAN C Report ID: [id number] Reading Location: [id number] Fluoroscopy < 1 Hour Result Date: 04/22/2024 Narrative: The images from this study are not interpreted by Radiology. Please refer to the physician's procedure / OR operative note. Transthoracic Echo (TTE) Complete W Doppler/CF Result Date: 04/21/2024 Narrative: [address] [place] [address] Echocardiogram Report Patient Name: ELEN CABRAL L : 1950 Study Date: 04/21/2024 2:24:19 PM Gender: M Tech: AA Location: ED02 Ref Provider: VIANNEY MCLAIN Height(Cm): BSA: Weight(Kg): Quality: Good Order Provider: VIANNEY MCLAIN PROCEDURES: Echocardiographic Report: Transthoracic echocardiogram with complete 2D, M-Mode, colorDoppler examination and contrast. INDICATIONS: cardiac clearance for brokenhip surgery. MEASUREMENTS: 2D/MM Value Range Doppler Value Range Estimated EF 60 % MARCO Vmax 2.38 cm2 LA Dimension MM 4.07 cm [ 3.00 - 4.00 ] AV Mean PG 3 mmHg AoR Diam MM 2.81 cm [ 3.10 - 3.70 ] AV Peak Sy 1.06 m/s [ 1.00 - 1.70 ] ACS MM 1.69 cm [ 1.50 - 2.60 ] AV VTI 20.85 cm LVOT Diam 2.21 cm LVOT Peak Sy [...] - 36.00 ] E` 0.05 m/s E/E` 10.65[ <= 10.00 ] PA Pressure 5.00 mmHg [ 10.00 - 36.00 ] 2D/MM Value Range Doppler Value Range - --- FINDINGS: Atrial Septum: The atrial septum is [...] valve. Mitral valve is not well visualized. Aorticvalve not well visualized. Tricuspid valve not well visualized. Technically difficult study with limited views. Electronically Signed By: Terence Mas MD [facility] 04/21/2024 4:43:44 PM HOME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 CT Head WO Contrast Result Date: 04/21/2024 Narrative: EXAM DESCRIPTION: CT HEAD WO CONTRAST REASON FOR STUDY: No provided patient complaints in a patient status post fall on ice today, and denies closed head injury or LOC pursuant to event. Per imaging record, right hip fracture. TECHNIQUE: Axial images acquired through the brain without intravenous contrast. Images stored on PACS. Automated exposure control was used as a dose optimization technique for this examination. COMPARISON: No prior neuro imaging available at time of interpretation. FINDINGS: BRAIN: No acute intra-axial hemorrhage. No edema, mass effect, midline shift, or herniation. No evidence of acute territorial ischemia/infarct. No suspicious focal white matter lesionswith preservation of the parson-white junction. EXTRA-AXIAL SPACES: No extra-axial fluid collection. No unenhanced CT evidence of extra-axial mass. CALVARIUM: No acute calvarial fracture. SINUSES/MASTOIDS: Paranasal sinuses clear. Mastoid air cells well-developed and well aerated. ORBITS: No acute abnormality. Ocular lenses and globes normal in conformation and position. OTHER: No other significant abnormality. IMPRESSION: No acute intracranial process. THIS IS AN ELECTRONICALLY VERIFIED FINAL REPORT 04/21/2024 2:25 PM - Electronically signed by Wilmer Johnson M.D. JINA: JINA Report ID: [id number] Reading Location: [id number] XR Chest 1 Vw Portable Result Date: 04/21/2024 Narrative: EXAM DESCRIPTION: XR CHEST 1 VIEW REASON FOR STUDY: fx Fell earlier---fx right hip TECHNIQUE: Single-view COMPARISON: None available FINDINGS: Central vascularity have normal caliber. Aortic arch well-defined on the left. Lungs are well expanded without consolidation, effusion or pneumoth orax. IMPRESSION: No acute findings. THIS IS AN ELECTRONICALLY VERIFIED FINAL REPORT 04/21/2024 1:52PM - Electronically signed by Elen Fraser M.D. RB: RB Report ID: [id number] Reading Location: [id number] XR Hip Right 2 or 3 Views Result Date: 04/21/2024 Narrative: EXAM DESCRIPTION: XR PELVIS 1 OR 2 [...] degree of impaction, displacement and mild angulation. There is osteoarthritis of both hips. No other evidence of acute fracture. The pubic rami are intact. The SI joints are symmetric in appearance. SOFT TISSUES: Atherosclerotic calcifications. Pelvic phleboliths. IMPRESSION: 1. Acute comminuted, mildly dis placed, angulated and impacted intratrochanteric fracture of the right proximal femur. 2. Osteoarthritis of the hips and SI joints. THIS IS AN ELECTRONICALLY VERIFIED FINAL REPORT 04/21/2024 12:08 PM - Electronically signed by Cortney Islas M.D. TW: OSEAS Report ID: [id number] Reading Location: [id number] XR Pelvis 1 or 2 Views Result Date: 04/21/2024 Narrative: EXAM DESCRIPTION: XR PELVIS 1 OR 2 [...] degree of impaction, displacement and mild angulation. There is osteoarthritis of both hips. No other evidence of acute fracture. The pubic rami are intact. The SI joints are symmetric in appearance. SOFT TISSUES: Atherosclerotic calcifications. Pelvic phleboliths. IMPRESSION: 1. Acute comminuted, mildly dis placed, angulated and impacted intratrochanteric fracture of the right proximal femur. 2. Osteoarthritis of the hips and SI joints. THIS IS AN ELECTRONICALLY VERIFIED FINAL REPORT 04/21/2024 12:08 PM - Electronically signed by Cortney Islas M.D. TW: OSEAS Report ID: [id number] Reading Location: [id number] Current Facility-Administered Medications Medication Dose Route Frequency Provider Last Rate Last Admin acetaminophen (TYLENOL) tablet 650 mg 650 mg oral Q4H PRN Maggi Vaughn MD 650 mg at 04/28/24 0829 budesonide-formoteroL (SYMBICORT) 80-4.5 mcg/actuation inhaler 2 puff 2 puff inhalation BID (RT) Maggi Vaughn MD 2 puff at 04/28/24 0924 digoxin (LANOXIN) tablet 250 mcg 250 mcg oral Daily Maggi Vaughn MD 250 mcg at 04/28/24 0808 doxycycline (VIBRAMYCIN) tablet/capsule 100 mg 100 mg oral BID - special Maggi Vaughn MD100 mg at 04/28/24 0545 furosemide (LASIX) tablet 20 mg 20 mg oral BID Karissa Mchugh MD 20 mg at 04/28/24 0808 ipratropium-albuteroL (DUO-NEB) 0.5-2.5 mg/3 mL nebulizer solution 3 mL 3 mL nebulization TID (RT) Karissa Mchugh MD 3 mL at 04/28/24 0923 levothyroxine (SYNTHROID) tablet 125 mcg 125 mcg oral Daily - 0600 Karissa Mchugh MD 125 mcgat 04/28/24 0544 methylPREDNISolone sodium succinate (SOLU-medrol) preservative free injection 40 mg 40 mg intravenous Q12H [place] Karissa Mchugh MD 40 mg at 04/28/24 0807 ondansetron ODT (ZOFRAN-ODT) disintegrating tablet 4 mg 4 mg oral Q6H PRN Maggi Vaughn MD Or ondansetron (ZOFRAN) injection 4 mg 4 mg intravenous Q6H PRN Maggi Vaughn MD pantoprazole DR (PROTONIX) extended release tablet 40 mg 40 mg oral Daily Maggi Vaughn MD 40 mg at 04/28/24 08 polyethylene glycol (MIRALAX) packet 17 g 17 g oral Daily PRN Maggi Vaughn MD ramelteon (ROZEREM) tablet 8 mg 8 mg oral Nightly PRN Maggi Vaughn MD rivaroxaban (XARELTO) tablet 20 mg 20 mg oral Daily with dinner Maggi Vaughn MD 20 mg at04/27/24 1709 rosuvastatin (CRESTOR) tablet 10 mg 10 mg oral Daily Maggi Vaughn MD 10 mg at 04/28/24 08 sotaloL (BETAPACE) tablet 120 mg 120 mg oral BID Maggi Vaughn MD 120 mg at 04/28/24 0807 A/P: Principal Problem: Atrial fibrillation with RVR (CMS/HCC) ([facility]) Active Problems: COPD exacerbation ([facility]) Resolved Problems: No resolved hospital problems. Acute hypoxic respiratory failure Severe COPD exacerbation Patient presented with chief complaint of shortness of breath FEV1 of 16% CTA was negative for PE Patient started on steroids and DuoNeb treatments plus doxycycline Patient required supplemental oxygen to maintain saturations in the 90s Currently on 2 L nasal cannula plan to wean to room air Patient continues to have respiratory distress, will make the DuoNebs Q 4 scheduled, continue with Solu-Medrol Q 12, and Symbicort resume Advair and Spiriva as outpatient AFib RVR -Patient was found initially to have a heart rate of up to 150 This is potentially tachycardia/bradycardia syndrome and patient will probably need a pacemaker, [facility] Currently past 24 hours heart rate has been controlled per Cardiology recommendation if patient becomes AFib RVR again to start patient on Cardizem 120 For now continue with digoxin 0.25 daily and Xarelto Patient needs to 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 Hypothyroidism TSH found to be 10.28 patient's home medication with Synthroid 112.5 given the TSH finding Synthroid has been increased to 125 patient will need to repeat TSH in 6 weeks Diastolic CHF not in exacerbation Will continue Lasix home medication Recent right hip intertrochanteric fracture status post surgery on 04/22/2024 PT/OT consult placed Fall precaution. [facility], case management coordinator working on SNF in [facility] swing bed CAD s/p SD 2013 Continue with Crestor These fluid and electrolyte abnormalities are being treated, evaluated or monitored: No fluid or electrolyte disorders Voice recognition software [employer] Fluency Direct was used dictate and transcribe this document. Wastewater Project Engineer variances may occur. Despite proofreading, typographical errors may occur. MD Karissa Reyes MD [facility] Date of Service: 04/28/2024 11:27 AM MDM:Moderate 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 * Josr Navarro - 04/28/2024 9:41 AM CST Physical Therapy 04/28/24 0900 PT Last Visit Session Type Treatment PT Received On 04/28/24 Safe Environment Arm band checked Subjective Agreeable to Therapy Family/Caregiver Present No Pain Assessment Pain Assessment 0-10 Pain Score 2 Pain Location Abdomen Pain Orientation Lower Cognition Orientation Oriented X4 (person, place, time, situation) Static Sitting Balance Static Sitting-Balance Support Bilateral upper extremity supported Static Sitting-Sitting Surface Bed Static Sitting-Level of Assistance Independent Static Standing Balance Static Standing-Balance Support Bilateral upper extremity supported Static Standing-Standing Surface Floor Static Standing-Level of Assistance Contact guard;Minimum assistance Supine Supine-Exercises Right;Lower extremity Reps/Sets 10 Supine-Motion AROM Bed Mobility 1 Bed Mobility From 1 Edge of bed Bed Mobility Type 1 To Bed Mobility to 1 Supine Level of Assistance 1 Minimum Assist Transfer 1 Transfer From 1 Sit Transfer Type 1 To and from Transfer to 1 Stand Technique 1 Sit to stand;Stand to sit Transfer Device 1 Wheeled walker Transfer Level of Assistance 1 Minimum Assist Ambulation 1 Distance (ft) 1 10 Surface 1 Level tile Device 1 Wheeled walker Safe Environment End of Therapy Session Safe Environment End of Therapy Session Patient left supine in bed;Call light within reach;Overbed table within reach Plan Plan Continue with current plan;If this is the last note, consider this the discharge summary Recommendation/Plan PT Recommendation/Plan Jail Facility Recommend SNF due to Risk of injury at home;Unable to safely care for self in the home;Skilled therapy needed to address care for self in the home;Skilled therapy needed to address functional deficits;Skilled therapy needed for patient to return to prior level of independence PT Time Calculation PT Start Time 902 PT Stop Time 09 PT Time Calculation (min) 24 min Multi-Disciplinary Problems (from Physical Therapy) Active Problems Problem: PT [facility] Start Date: 04/27/24 Goal Start Date Expected End Date End Date PT LTG - [facility] 1 04/27/24 05/04/24 -- Goal Details: Pt to require/be cga>sba with bed mobility consistently to increase functional mobility. Goal Start Date Expected End Date End Date PT LTG - [facility] 2 04/27/24 05/04/24 -- Goal Details: Pt to require/be sba>cga, protected wb for the RLE with all transfers consistentlyto increase functional mobility and safety. Goal Start Date Expected End Date End Date PT LTG - [facility] 3 04/27/24 05/04/24 -- Goal Details: Pt to ambulate 75' protected wb RLE with a fww consistently, to increase functional mobility and safety. Cosigned by Stella Viramontes, YOUTH MINISTER at 04/28/2024 10:16 AM HOME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 Associated attestation - Stella Viramontes, YOUTH MINISTER - 04/28/2024 10:16 AM HOME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 Pt required Min A for all mobility and ambulation. Stella Viramontes, YOUTH MINISTER * Pawan Martin RangelKyle, PT - 04/27/2024 2:16 PM CST Physical Therapy 04/27/24 1332 General Chart Reviewed Yes Session Type Evaluation PT Received On 04/27/24 Safe Environment Arm band checked;Patient found in supine;Session completed bedside;Gait belt utilized for all out of bed mobility Subjective Agreeable to Therapy Additional Pertinent History 04/22/24 Cephalomedullary nailing of right intertrochanteric hip fracture Family/Caregiver Present No Physical Therapy-Patient Goal (S) to go to a rehab facility in [place], pt states that he will notreturn to [facility] from which he was admitted Precautions Precautions Fall risk Weight Bearing Restrictions Yes RLE Weight Bearing Other (Comments) (protected weight bearing per surgeon orders 04/22/24) Home Living Type of Home House Home Layout (S) Two level;Basement (pt states that he lives in the basement, gets in/out through level entry, 35 degree slope that he has to navigate outside, his mil lives on the main level) Home Access Ramped entrance Home Mobility Equipment-Available Single point cane Home Mobility Equipment-Currently Using Single point cane Prior Function Level of [place] (S) Independent with ADLs;Independent functional transfers;Independent with ambulation (prior to surgery, now needs assist w ADL's, transfers and gt) Lives With Spouse;Other (Comment) (mil) Receives Help From Spouse/Significant other Driving Yes (prior to hip fx, yes) Fall within the last 6 months Yes Fall within the last 6 months comment fell on the hill in the yard going to the basement, resultantright hip fx Prior Function Comments had surgery 04/22/24 Pain Assessment Pain Assessment 0-10 Pain Score 3 Pain Type Surgical pain Pain Location Hip Pain Orientation Right Pain Descriptors Aching;Sore Cognition Overall Cognitive Status WFL Orientation Oriented X4 (person, place, time, situation) Compliance/Behavior Easy to engage Balance Balance Yes Static Sitting Balance Static Sitting-Balance Support Bilateral upper extremity supported;Feet supported Static Sitting-Sitting Surface Bed Static Sitting-Level of Assistance Independent Static Standing Balance Static Standing-Balance Support Bilateral upper extremity supported Static Standing-Standing Surface Floor Static Standing-Level of Assistance Contact guard;Minimum assistance Bed Mobility 1 Bed Mobility From 1 Supine Bed Mobility Type 1 To Bed Mobility to 1 Edge of bed Level of Assistance 1 Minimum Assist Bed Mobility Comments 1 assist for RLE and trunk to assume sitting eob Transfer 1 Transfer From 1 Sit;Bed Transfer Type 1 To and from Transfer to 1 Stand Technique 1 Sit to stand;Stand to sit Transfer Device 1 Wheeled walker Transfer Level of Assistance 1 Minimum Assist Trials/Comments 1 dec hand placement, shifts majority of the weight to the LLE Ambulation 1 Distance (ft) 1 25' 2LO2nc Surface 1 Level tile Device 1 Wheeled walker Gait: Requires verbal cues to 1 Follow precautions/weight bearing status;Utilize appropriate gait sequencing Gait Deviations 1 Alea - decreased;Heel strike - decreased;Stance time - decreased;Step length -decreased Quality of Gait 1 cautious Ambulation Comments 1 fall risk, requires 2LO2nc w gt RLE Assessment RLE Assessment X (arom limited due to weakness, gross strength 2>2+/5) RLE Comments hx of R ORIF 04/22/24 LLE Assessment LLE Assessment WFL Basic Mobility - 6 Click How much difficulty does the patient have: Turning over in bed 3 How much difficulty does the patient currently have: Sitting down and standing up from a chair witharms? 3 How much difficulty does the patient have: Moving from lying on back to sitting on the side of the bed? 3 How much difficulty does the patient have: Moving to and from a bed to a chair including wheelchair? 3 How much help does the patient currently need: Walk in hospital room? 3 How much help from another person does the patient currently need: Climbing 3-5 steps with a railing? 2 Total 6 Click Score (range 6-24) 17 Score Interpretation 39.67 Safe Environment End of Therapy Session Safe Environment End of Therapy Session Patient left in chair;RN notified;Call light within reach;Overbed table within reach (pt refuses to elevate LE sitting) Assessment Prognosis Good Problem List Reduced mobility;Gait deviations;Decreased strength;Decreased range of motion;Decreased endurance;Decreased safety awareness;Pain Barriers to Discharge Current Mobility Status Plan Plan Plan of care initiated;If this is the last note, consider this the discharge summary Recommendation/Plan PT Recommendation/Plan Jail Facility (pt states that he refuses to return to [facility] and that his preference is in [place]) Recommend SNF due to Risk of injury at home;Unable to safely care for self in the home;Skilled therapy needed to address care for self in the home;Skilled therapy needed to address functional deficits;Skilled therapy needed for patient to return to prior level of independence Patient at high risk for Falls;Readmission;Injury due to decreased ability to care for self;Injury due to reduced functional status;Injury due to balance deficits PT Frequency during current admission Daily Treatment/Interventions during current admission Bed mobility;Functional transfer training;Gait training;Therapeutic exercise PT Equipment Recommended Wheeled walker (if he is discharged to home from this facility) PT Evaluation Complete Yes PT Time Calculation PT Start Time 1332 PT Stop Time 1413 PT Time Calculation (min) 41 min Multi-Disciplinary Problems (from Physical Therapy) Active Problems Problem: PT Misc Start Date: 04/27/24 Goal Start Date Expected End Date End Date PT LTG - [facility] 1 04/27/24 05/04/24 -- Goal Details: Pt to require/be cga>sba with bed mobility consistently to increase functional mobility. Goal Start Date Expected End Date End Date PT LTG - [facility] 2 04/27/24 05/04/24 -- Goal Details: Pt to require/be sba>cga, protected wb for the RLE with all transfers consistentlyto increase functional mobility and safety. Goal Start Date Expected End Date End Date PT LTG - [facility] 3 04/27/24 05/04/24 -- Goal Details: Pt to ambulate 75' protected wb RLE with a fww consistently, to increase functional mobility and safety. 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 * Regina Yanez, OT - 04/27/2024 12:02 PM CST Occupational Therapy Initial Evaluation Past Medical History: Diagnosis Date A-fib (CMS/HCC) (HCC) CHF (congestive heart failure) (CMS/HCC) (HCC) Hypothyroidism Lung disease 04/27/24 1009 General Chart Reviewed Yes Session Type Evaluation OT Received On 04/27/24 Safe Environment Arm band checked;Patient found sitting at edge of bed;Gait belt utilized for all out of bed mobility Subjective Agreeable to Therapy Additional Pertinent History MH: CAD status post stents, diastolic CHF, COPD, atrial fibrillation on Xarelto, hypothyroidism hyperlipidemia, R hip intertrochanteric fx s/p CM nail ORIF 04/22.(Pt d/c'dto AMRT on 04/26, admitted to [facility] again a few hours later c/o of SOB.) Family/Caregiver Present Yes (Spouse) Occupational Therapy-Patient Goal To go to SNF closer to home Precautions Precautions Fall risk RLE Weight Bearing WBAT LLE Weight Bearing WBAT Precaution Comments Pt. s/p right hip CM nail on 04/22/24 Home Living Type of Home House Home Layout Two level;Basement Home Access Ramped entrance Bathroom Shower/Tub Tub/shower unit Bathroom Toilet Standard Home Mobility Equipment-Available Single point cane Home Mobility Equipment-Currently Using Single point cane (Used PRN) Prior Function Level of [place] Independent with ADLs;Independent functional transfers;Independent with ambulation (IND Prior to fall with hip fracture, has been needing assistance since surgery) Lives With Spouse Receives Help From Spouse/Significant other Fall within the last 6 months Yes Fall within the last 6 months comment One fall leading to previous admission, Prior Function Comments Pt. reports being independent with ADLs and functional mobiltiy before his fracture, he has been needing assistance with ADLs, transfers, and mobility since his hip surgery. [facility] and was readmitted to ED later that same evening ADL ADLS (WDL) (Pt. declined ADLs this session, states he plans on getting cleaned up later today) LE Dressing LE Dressing: Where assessed Sitting;Edge of bed LE Dressing: Level of assistance Maximum Assist LE Dressing: Assistance with Don/doff R sock;Don/doff L sock (Pt. unable to bed forward to reach feet while sitting at EOB) Pain Assessment Pain Assessment 0-10 Pain Score 3 Pain Type Surgical pain Pain Location Hip Pain Orientation Right Clinical Progression Not changed Pain Interventions Repositioned Activity Tolerance Activity Tolerance Comments Rest breaks with activity, pt. denies SOB during session, on RA Cognition Overall Cognitive Status WFL Orientation Oriented X4 (person, place, time, situation) Compliance/Behavior Easy to engage Static Sitting Balance Static Sitting-Balance Support No upper extremity supported;Feet supported Static Sitting-Sitting Surface Bed Static Sitting-Level of Assistance Independent Static Standing Balance Static Standing-Balance Support Bilateral upper extremity supported Static Standing-Standing Surface Floor Static Standing-Level of Assistance Minimum assistance;Contact guard Bed Mobility Bed Mobility (Pt. sitting on EOB upon OT arrival) Transfer 1 Transfer From 1 Bed;Sit Transfer Type 1 To and from Transfer to 1 Stand Technique 1 Sit to stand;Stand to sit Transfer Device 1 Wheeled walker Transfer Level of Assistance 1 Minimum Assist Trials/Comments 1 Min A for balance and safety, no LOB upon standing but pt. a little unsteady Transfers 2 Transfer From 2 Bed Transfer Type 2 To Transfer to 2 Chair with arms Technique 2 Ambulation Transfer Device 2 Wheeled walker Transfer Level of Assistance 2 Minimum Assist;Contact Guard Assist Trials/Comments 2 Min A-CGA for balance and safety during room mobility, pt. walked approx 10 feet in room, no LOB but pt. a little unsteady at times RUE Assessment RUE Assessment WFL LUE Assessment LUE Assessment WFL Daily Activity - 6 Clicks Putting on and taking off regular lower body clothing 2 Bathing 2 Toileting 3 Putting on and taking off upper body clothing 3 Personal Grooming 3 Eating Meals 3 Total Score (range 6-24) 16 Score Interpretation 35.96 Safe Environment End of Therapy Session Safe Environment End of Therapy Session Patient left in chair;Call light within reach;Overbed tablewithin reach (Spouse present in room at end of session) Assessment Prognosis Good Problem List Decreased mobility;Decreased endurance;Decreased functional mobility;Decreased ADL independence;Decreased balance Plan Plan Plan of care initiated;If this is the last note, consider this the discharge summary Recommendation/Plan OT Recommendation Jail Facility Recommend SNF due to Risk of injury at home;Unable to safely care for self in the home;Skilled therapy needed to address care for self in the home;Skilled therapy needed to address functional deficits;Skilled therapy needed for patient to return to prior level of independence Patient at high risk for Falls;Readmission;Injury due to decreased ability to care for self;Injury due to reduced functional status;Injury due to balance deficits;Injury at home as patient has not returned to prior level of function OT Frequency during current admission 5-7x/wk (Mon-Fri, Sat PRN) Treatment/Interventions during current admission ADL/IADL retraining;Balance Training;Functional activity;Functional mobility training;Functional transfer training;Therapeutic activity OT Evaluation Complete Yes OT Time Calculation OT Start Time 1009 OT Stop Time 1025 OT Time Calculation (min) 16 min Multi-Disciplinary Problems (from Occupational Therapy) Active Problems Problem: Dressings Lower Extremities Start Date: 04/27/24 Goal Start Date Expected End Date End Date STG - Patient to complete lower body dressing 04/27/24 05/04/24 -- Goal Details: Min A Problem: Grooming Start Date: 04/27/24 Goal Start Date Expected End Date End Date STG - Patient will complete grooming 04/27/24 05/04/24 -- Goal Details: CGA seated or standing at sink with good safety awareness Problem: Toileting Start Date: 04/27/24 Goal Start Date Expected End Date End Date STG - Patient will complete toileting tasks with 04/27/24 05/04/24 -- Goal Details: SBA including clothing management and hygiene Problem: Transfers Start Date: 04/27/24 Goal Start Date Expected End Date End Date STG - Patient will perform toilet transfer 04/27/24 05/04/24 -- Goal Details: SBA with good safety awareness using WW 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 * Rafael Calderon - 04/27/2024 11:07 AM CST NUTRITION ASSESSMENT Nutrition Status: Patient at risk for malnutrition, but does not meet AAIM (ASPEN) criteria for malnutrition. REASON FOR ASSESSMENT: CHF Encounter Date: 04/27/24 11:07 AM Admission Date: 04/26/2024 LOS: 0 days HPI: Patient is a 73 y.o. male with medical history significant for CAD status post stents, diastolic CHF, COPD, atrial fibrillation on Xarelto, hypothyroidism hyperlipidemia and other comorbidities presented to ED with complaints of shortness of breaths. Of note patient was discharged from the hospital yesterday after he had a mechanical fall with right hip intertrochanteric fracture status post surgery on 04/22/2024. Patient reports after he got to rehab he started having some shortness of breath, endorses wheezing, he denies any chest pain, nausea, vomiting, abdominal pain, lightheadedness, diarrhea. Due to his shortness of breaths he was brought to the ED for further evaluation. In the ED vital signs significant for heart rate up to 137, respiratory rate up to 28, blood pressure soft 87/71 improved to 1 0 3/66, oxygen sats in the 90s. Lab work done shows elevated pro BNP 1995, TSH 10.28, troponin x2 unremarkable, hemoglobin 12.9, remaining lab work unremarkable. Rapid COVID rapid flu RSV negative. CTA chest shows no evidence of PE but noncalcified pulmonary nodules measuring up to 5 mm. Chest x-ray shows low lung volume no evidence of acute cardiopulmonary abnormality.Patient received DuoNeb, 125 mg IV Solu-Medrol, 500 cc normal saline bolus, cardiology consulted recommend continuing patient's home rate-controlling medication at this time. Patient was admitted forfurther management. Objective Past Medical History: Diagnosis Date A-fib ([facility]) (HCC) CHF (congestive heart failure) ([facility]) ([facility]) Hypothyroidism Lung disease No past surgical history on file. Social History Tobacco Use Smoking status: Former Types: Cigarettes Smokeless tobacco: Not on file Substance and Sexual Activity Drug use: Not on file Sexual activity: Not on file Alcohol Use: Unknown (04/22/2024) AUDIT-C Frequency of Alcohol Consumption: Not on file Average Number of Drinks: Patient does not drink Frequency of Binge Drinking: Not on file MEDICATION/LAB REVIEW: Scheduled Meds: budesonide-formoteroL, 2 puff, inhalation, BID (RT) digoxin, 250 mcg, oral, Daily doxycycline, 100 mg, oral, BID - special [Held by Provider] furosemide, 20 mg, oral, BID ipratropium-albuteroL, 3 mL, nebulization, TID (RT) levothyroxine, 112.5 mcg, oral, Daily - 0600 methylPREDNISolone sodium succinate, 40 mg, intravenous, Q8H pantoprazole DR, 40 mg, oral, Daily rivaroxaban, 20 mg, oral, Daily with dinner rosuvastatin, 10 mg, oral, Daily sotaloL, 120 mg, oral, BID Continuous Infusions: PRN Meds: acetaminophen ondansetron ODT OR ondansetron polyethylene glycol ramelteon Recent Labs Lab Units 04/27/24 0908 04/26/24 2106 SODIUM mmol/L 134* 134* POTASSIUM PLASMA mmol/L 4.5 3.8 CHLORIDE mmol/L 94* 92* CO2 mmol/L 26 31 BUN SERUM mg/dL 22 21 CREATININE mg/dL 1.01 1.12 EKU-RDT-MMIGBHG mL/min/1.73 m2 80 70 CALCIUM mg/dL 9.2 9.4 ALBUMIN g/dL -- 4.0 MAGNESIUM mg/dL 2.2 2.4 Recent Labs Lab Units 04/27/24 0908 04/26/24 2106 04/26/24 0348 04/25/24 0307 04/24/24 0436 04/23/24 0330 04/22/24 0513 GLUCOSE mg/dL 178 122 112 106 124 134 148 ALT Date Value Ref Range Status 04/26/2024 10 7 - 55 Units/L Final AST Date Value Ref Range Status 04/26/2024 24 10 - 50 Units/L Final Alk phos Date Value Ref Range Status 04/26/2024 80 40 - 130 Units/L Final No results found for: HGBA1C , HDL , LDLCALC , CHOL , TRIG NURSING ASSESSMENT: Last BM Date: 04/20/24 (reports this is normal for him) Bowel Sounds (All Quadrants): Active Arnaldo Scale Score: 18 Skin Integrity: Surgical incision, Bruising, Other (Comment) (shearing) Vital Signs BP: 126/82 Temp: 36.4 ??C (97.6 ??F) Pulse: 68 Resp: 22 SpO2: 93 % Intake/Output Summary (Last 24 hours) at 04/27/2024 1107 Last data filed at 04/27/2024 0900 Gross per 24 hour Intake 1000 ml Output 200 ml Net 800 ml Adult Malnutrition Scoring Tool (MST) What diet do you follow at home?: Regular Have You Recently Lost Weight Without Trying?: No Have you been eating poorly because of a decreased appetite?: No Malnutrition Screening Tool (MST) Score: 0 Hunger Screen - Admission Within the past 12 months the food we bought just didn't last and we didn't have money to get more.: Never true Within the past 12 months we worried whether our food would run out before we got money to buy more.: Never true Within the past 12 months, you worried that your food would run out before you got the money to buymore.: Never true Within the past 12 months, the food you bought just didn't last and you didn't have money to get more.: Never true Anthropometrics Weight: 103.6 kg (228 lb 6.3 oz) Admission Weight : 103.6 kg Weight Change: 3.80 kg (8.39 lbs) IBW/kg (Calculated) : 80.7 kg Height: 182.9 cm (6') BMI Amputation Adjustment: No Weight in (lb) to have BMI = 25: 183.9 BMI (Calculated): 31 BMI Classification: BMI 30.0 - 34.9 Obese Class I Wt Readings from Last 10 Encounters: 04/27/24 103.6 kg (228 lb 6.3 oz) 04/21/24 99.8 kg (220 lb) ESTIMATED NEEDS: Total Kcal/kg Estimated Needs : 2279.2 Kcal/k. Type of Weight Used for Estimated Kcals: Current Total Protein Estimated Needs (gm): 113.96 Protein Needs Based on g/k.1 Type of Weight Used forEstimated Protein : Current Type of Weight Used for Estimated Fluid Needs: RD determined Total Fluid Estimated Needs Comments::750-1,500mL/day Dietary Orders (From admission, onward) Start Ordered 04/27/24 0244 Adult Diet Regular Diet effective now Question: ([facility]) Diet Type Answer: Regular 04/27/24 0243 Allergies: Reviewed. IMPRESSION: Pt seen for CHF dx. Pt states that his appetite has been poor for several years and that he gets out of breathe when he tries to eat a full meal, he typically eats 5-6 small meals/day at home becauseof this. Pt follows no special diet, has no cultural/religion food preferences, does not eat anything green, and tries to limit salt. Last episode of n/v was 5 days ago. Pt states that he has trouble chewing because he is missing several teeth and does not have dentures. Because of this pt typically eats soft foods at home. Wt hx per chart is limited, pt states that his UBW is around 220 and hisweight fluctuates 5-10lbs every few months. Current PO intake is 33%. AAIM (ASPEN) MALNUTRITION ASSESSMENT: Date of completion: 04/27/24 ASPEN/AND Malnutrition Screening: Patient does not meet malnutrition criteria NUTRITION FOCUSED PHYSICAL EXAM: Completed, physical findings below. Subcutaneous Fat Loss Orbital Region - Surrounding the Eye: Slightly bulged fat pads Cheek Region - Buccal Fat: Flat cheeks Upper Arm Region - Triceps/Biceps: Ample fat tissue obvious between folds of skin Thoracic and Lumbar Region - Ribs, Lower Back, Midaxillary Line: Chest is full, ribs do not show Muscle Loss [place] Region - Temporalis Muscle: Slight depression Clavicle Bone Region - Pectoralis Major, Deltoid, Trapezius Muscles: Not visible in male, visible but not prominent in female Clavicle and Acromion Bone Region - Deltoid Muscle: Rounded, curves at arm/shoulder/neck Dorsal Hand - Interosseous Muscle: Slightly depressed Anterior Thigh and Patellar Region - Quadricep Muscle: Good muscle tone/resistance Posterior Calf Region - Gastrocnemius Muscle: Not well developed NUTRITION DIAGNOSIS: Nutrition Diagnosis 1: Inadequate oral intake Related to: Loss of appetite, Chronic illness/injury Evidenced by: PO under 50%, Patient interview Nutrition Diagnosis 2: Biting/Chewing difficulty Related to: Physiologic issue Evidenced by: Poor dentition, Patient interview, Physical finding INTERVENTION(S): Summary: Medical food supplement, Education, nutrition, Encouragement, Follow up per policy Add Ensure Plus High Protein, any flavor, TID GOAL(S): Oral intake to meet 75% estimated nutritional needs by next assessment, Patient/caregiver able to teach back understanding of role of diet in disease process prior to discharge, Tolerance of medical food supplement by next assessment MONITORING/EVALUATION: Appetite, Diet-related questions, Discharge plans, PO intake, Plan of care, Labs, Weight changes Diet Instructions Continue to follow a Low Sodium diet and limit sodium intake to less than 2,000mg per day. Avoid foods that are high sources of sodium, such as fast foods, fried/breaded foods, pickled foods, canned goods, deli meats and gravies/sauces. Use alternatives to season foods such as Mrs. DASH and other he rbs. Additional resources are available online from the [place] [employer] at www.heart.org/en/healthy-living/healthy-eating If poor intakes and/or unintended weight loss occur on discharge follow up with primary care physician. Call [facility] Dietitian's office at [phone] for questions about your diet. If interested in nutrition counseling, ask your doctor for referral and call [phone] to make an appointment. Oral nutritional supplement 2 - 3 x daily until intakes consistently adequate. Yog[employer] Inpatient Office: [phone] Weekend Coverage: [phone] Cosigned by Tamar Garcia at 04/27/2024 1:39 PM HOME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 * Elba Bonner RRT - 04/27/2024 9:33 AM CST 04/27/24 0925 Inhalation Therapy Tx Stop time 0933 Treatment Tolerance Tolerated well SpO2 93 % O2 Therapy None (Room air) Pre-Tx Pulse 68 bpm Pre-Tx Resp 20 bpm Pre-TX Br Sounds Diminished Post-Tx Pulse 68 Post-Tx Resp 20 Post Tx Br Sounds Diminished Respiratory Effort Unlabored Respiratory Depth/Rhythm Regular Chest Assessment Symmetrical Cough Non-productive $ HHN Inhalation tx. One Tx $ MDI/DPI Inhalation tx. One Tx RT Therapist Assist Charges RT Therapist Assist Gases 1 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 * Elba Bonner RRT - 04/27/2024 9:27 AM CST 04/27/24 0917 RT Protocol Assessment RT Assessment Scoring Needed Bronchodilator Bronchodilator Assessment Scoring Pulmonary Status 3 Surgical Status <30 days ago 0 Chest X-Ray < WEEK 0 Respiratory Pattern 0 Mental Status/LOC 0 Cough 0 Breath Sounds 2 Level of Activity 0 Oxygen Required for SPO2 >92% 0 Bronchodilator Assessment Score 5 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 * Elen Perdomo MD - 04/27/2024 7:18 AM CST Cardiology Progress Note 04/27/24 Chief complaint: Rapid heart rate and shortness of breath Symptoms: Patient was just discharged and he showed back in the emergency room a few hours later with the above symptoms. Heart rate was going around 150 beats per minute in atrial fibrillation and he was pretty hypoxic. Overnight, he is doing much better breathing frazier and his heart rate is now under good control on current medications. He is still on 2 L saturating 96%. Vital Signs: Vitals: 04/27/24 0200 04/27/24 0249 04/27/24 0400 04/27/24 0600 BP: 115/78 128/85 BP Location: Left arm Patient Position: Lying;HOB 30 degrees Pulse: 117 65 63 65 Resp: Temp: 36.2 ??C (97.1 ??F) TempSrc: Temporal SpO2: 98% 98% 98% 96% Weight: 103.6 kg (228 lb 6.3 oz) Height: 182.9 cm (6') Intake/Output Summary (Last 24 hours) at 04/27/2024 0718 Last data filed at 04/27/2024 0550 Gross per 24 hour Intake 500 ml Output 200 ml Net 300 ml Wt Readings from Last 3 Encounters: 04/27/24 103.6 kg (228 lb 6.3 oz) 04/21/24 99.8 kg (220 lb) Temp Min: 35.8 ??C (96.4 ??F) Max: 36.2 ??C (97.1 ??F) Pulse Min: 55 Max: 137 BP Min: 87/71 Max: 128/85 Resp Min: 18 Max: 29 SpO2 Min: 89 % Max: 100 % Current Medications: Current Facility-Administered Medications Medication Dose Route Frequency Provider Last Rate Last Admin acetaminophen (TYLENOL) tablet 650 mg 650 mg oral Q4H PRN Anjali Meza MD 650 mg at 04/21/242111 [START ON 04/23/2024] ascorbic acid (VITAMIN C) tablet/chewable tablet 500 mg 500 mg oral Daily Kamilah Cunningham PA bisacodyl EC (DULCOLAX EC) tablet 10 mg 10 mg oral Daily PRN Kamilah Cunningham PA budesonide-formoteroL (SYMBICORT) 160-4.5 mcg/actuation inhaler 2 puff 2 puff inhalation BID (RT) Vianney Mclain DO calcium carbonate (TUMS) chewable tablet 1,000 mg 400 mg of elemental calcium oral BID PRN Kamilah Cunningham PA ceFAZolin (ANCEF) 2,000 mg/20 mL in sterile water (premix) 2,000 mg 2,000 mg intravenous Q8H Kamilah Cunningham PA famotidine (PEPCID) tablet 20 mg 20 mg oral BID Kamilah Cunningham PA [START ON 04/23/2024] ferrous sulfate tablet 325 mg 65 mg of elemental iron oral Daily with breakfast Kamilah Cunningham PA HYDROcodone-acetaminophen (NORCO) 5-325 mg per tablet 1 tablet 1 tablet oral Q4H PRN Kamilah Cunningham PA ipratropium (ATROVENT) 0.02 % nebulizer solution 0.5 mg 0.5 mg nebulization QID (RT) Vianney Mclain DO 0.5 mg at 04/21/24 1449 ipratropium-albuteroL (DUO-NEB) 0.5-2.5 mg/3 mL nebulizer solution 3 mL 3 mL nebulization Q4H PRN (RT) Vianney Mclain DO magnesium hydroxide (MILK OF MAGNESIA) 80 mg/mL (33.3 mg/mL as elemental magnesium) oral [id number] mL 30 mL oral Daily PRN Kamilah Cunningham PA mineral oil (FLEET MINERAL OIL) enema 133 mL 1 enema rectal Daily PRN Kamilah Cunningham PA morphine injection 2 mg 2 mg intravenous Q4H PRN Anjali Meza MD 2 mg at 04/22/24 0136 [Held by Provider] ondansetron ODT (ZOFRAN-ODT) disintegrating tablet 4 mg 4 mg oral Q6H PRN Anjali Meza MD Or [Held by Provider] ondansetron (ZOFRAN) injection 4 mg 4 mg intravenous Q6H PRN Anjlai Meza MD 4 mg at 04/22/24 0450 ondansetron ODT (ZOFRAN-ODT) disintegrating tablet 4 mg 4 mg oral Q6H PRN Kamilah Cunningham PA Or ondansetron (ZOFRAN) injection 4 mg 4 mg intravenous Q6H PRN Kamilah Cunningham PA prochlorperazine (COMPAZINE) injection 5 mg 5 mg intravenous Q6H PRN Jeremias Arredondo MD 5 mg at 04/22/24 0606 ramelteon (ROZEREM) tablet 8 mg 8 mg oral Nightly PRN Anjali Meza MD senna-docusate (PERICOLACE) 8.6-50 mg per tablet 2 tablet 2 tablet oral BID Kamilah Cunningham PA On 2 L nasal cannula saturating 96%. Patient was found sitting upright on the side of the bed. Controlled atrial fibrillation on my exam. Labs: Recent Labs Lab Units 04/26/24210504/26/24 0348 04/25/24 0307 04/22/24 0513 04/21/24 1130 SODIUM mmol/L 134* 135 135 < > 138 POTASSIUM PLASMA mmol/L 3.8 3.5 3.9 < > 4.3 CHLORIDE mmol/L 92* 93* 96* < > 99 CO2 mmol/L 31 28 23 < > 29 BUN SERUM mg/dL 21 25 28* < > 12 CREATININE mg/dL 1.12 1.12 1.19 < > 1.18 EEN-GXN-JROENLR mL/min/1.73 m2 70 70 65 < > 66 GLUCOSE mg/dL 122 112 106 < > 135 CALCIUM mg/dL 9.4 9.0 8.7 < > 9.4 ALBUMIN g/dL 4.0 -- -- -- 4.0 < > = values in this interval not displayed. Recent Labs Lab Units 04/26/24210504/21/24 1130 ALK PHOS Units/L 80 92 BILIRUBIN TOTAL mg/dL 1.4* 0.7 TOTAL PROTEIN g/dL 7.0 6.9 ALT Units/L 10 13 AST Units/L 24 18 Recent Labs Lab Units 04/26/24210504/26/248 04/25/24 0307 WBC K/cumm 8.9 7.5 8.4 HEMOGLOBIN g/dL 12.9* 12.3* 12.2* HEMATOCRIT % 38.4* 36.5* 37.4* PLATELETS K/cumm 159 139* 108* Recent Labs Lab Units 04/21/24 1130 INR 2.28* Lab Results Component Value Date TSH 10.28 (H) 04/26/2024 FREET4 1.59 04/26/2024 No results found for: CHOL , TRIG , HDL , LDLCALC No results found for: TROPONINT Telemetry: Cardiac Rhythm: Normal sinus rhythm (04/27/24 0600) Cardiology Testing: ProBNP: EKG: Echocardiogram: Stress Test: Cardiac Cath: Impression: Persistent atrial fibrillation for which he has been on Xarelto and sotalol. He could have tachycardia/bradycardia syndrome. Heart rate was fast on re-admission likely due to COPD exacerbation. If more rate control needed, one could start Cardizem CD 120 mg daily. CAD, status post PCI for SD in 2013. Dyslipidemia on Crestor 10 mg daily. No lipid panel on Epic Right hip fracture, status post nailing. Moderate COPD on CTA of the chest. Plan: Continue Xarelto 20 mg p.o. q.p.m.. Continue digoxin 0.25 mg daily. 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 CC: [facility] Karissa Mchugh MD 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 documented in this encounter H&P Notes * Maggi Vaughn MD - 04/27/2024 12:01 AM CST History and Physical Hospitalists services Date of service: Primary care provider: SUBJECTIVE shortness of breaths HPI: 73-year-old male with medical history significant for CAD status post stents, diastolic CHF, COPD, atrial fibrillation on Xarelto, hypothyroidism hyperlipidemia and other comorbidities presented to ED with complaints of shortness of breaths. Of note patient was discharged from the hospital yesterday after he had a mechanical fall with right hip intertrochanteric fracture status post surgery on 04/22/2024. Patient reports after he got to rehab he started having some shortness of breath, endorses wheezing, he denies any chest pain, nausea, vomiting, abdominal pain, lightheadedness, diarrhea. Due to his shortness of breaths he was brought to the ED for further evaluation. In the ED vital signs significant for heart rate up to 137, respiratory rate up to 28, blood pressure soft 87/71 improved to 1 0 3/66, oxygen sats in the 90s. Lab work done shows elevated pro BNP 1995, TSH 10.28, troponin x2 unremarkable, hemoglobin 12.9, remaining lab work unremarkable. Rapid COVID rapid flu RSV negative. CTA chest shows no evidence of PE but noncalcified pulmonary nodules measuring up to 5 mm. Chest x-ray shows low lung volume no evidence of acute cardiopulmonary abnormality.Patient received DuoNeb, 125 mg IV Solu-Medrol, 500 cc normal saline bolus, cardiology consulted recommend continuing patient's home rate-controlling medication at this time. Patient was admitted forfurther management. Past Medical History: Diagnosis Date A-fib (CMS/HCC) (HCC) CHF (congestive heart failure) (CMS/HCC) (HCC) Hypothyroidism Lung disease No past surgical history on file. (Not in a hospital admission) No Known Allergies Social History Tobacco Use Smoking status: Former Types: Cigarettes Smokeless tobacco: Not on file Substance and Sexual Activity Drug use: Not on file Sexual activity: Not on file Alcohol Use: Unknown (04/22/2024) AUDIT-C Frequency of Alcohol Consumption: Not on file Average Number of Drinks: Patient does not drink Frequency of Binge Drinking: Not on file No family history on file. Review of Systems: 14 points ROS done pertinent as in the HPI OBJECTIVE Vitals: Arrival Vitals [04/26/242043] Temp Pulse (!) 133 Resp 25 BP 106/85 SpO2 97 % Temp src Heart Rate Source Patient Position BP Location FiO2 (%) 24hr Min/Max: Temp Min: 35.8 ??C (96.4 ??F) Max: 36.4 ??C (97.5 ??F) Pulse Min: 55 Max: 137 BP Min: 87/71 Max: 124/76 Resp Min: 18 Max: 29 SpO2 Min: 89 % Max: 100 % Most Recent : Vitals: 04/26/24 2355 BP: 103/66 Pulse: 111 Resp: 21 SpO2: 98% No intake or output data in the 24 hours ending 04/27/24 0001 Physical exam: Eyes: EOMI, PAMELA, sclare non icteric Neck: supple, no nuchal ridigity, no gross carotid bruits appreciated ENT: No gross oral lesion, tongue midline, mucosa moist Respiratory: Mild Diffuse expiratory wheezing heard on auscultation bilaterally Cardiovascular: Heart sounds- [id number], no significant murmur or gallop GI: Abdomen-+BS, Non Tender, Non distended, No gross hepatomegaly Lower Ext: No gross edema, pedal artery pulses present bilaterally Neuro: Muscular Strength upper and lower extremities 5/5 bilaterally, sensory intact, cranial nerves 2-12 within normal limits, good coordination, normal speech Musculoskeletal: no gross joint erythema, edema, tenderness Genitourinary: No New change Skin: No new change Psychiatric: Normal affect, good judgment Lab/Radiology/Diagnostic Review: Recent Results (from the past 24 hours) Basic metabolic panel Collection Time: 04/26/24 3:48 AM Result Value Ref Range Sodium 135 135 - 145 mmol/L Potassium, pl 3.5 3.3 - 4.9 mmol/L Chloride 93 (L) 97 - 110 mmol/L CO2 28 22 - 32 mmol/L Anion gap 14 2 - 15 mmol/L BUN 25 6 - 25 mg/dL Creatinine 1.12 0.80 - 1.30 mg/dL Glucose 112 70 - 199 mg/dL Calcium 9.0 8.5 - 10.3 mg/dL CBC with auto differential Collection Time: 04/26/24 3:48 AM Result Value Ref Range WBC 7.5 3.8 - 9.9 K/cumm Hgb 12.3 (L) 13.0 - 17.5 g/dL Hct 36.5 (L) 38.9 - 50.3 % Plt 139 (L) 150 - 400 K/cumm MPV 10.7 9.1 - 12.3 fL RBC 3.95 (L) 4.30 - 5.80 M/cumm MCV 92.4 81.3 - 96.4 fL MCH 31.1 27.1 - 33.3 pg MCHC 33.7 32.3 - 35.7 g/dL RDW CV 14.6 11.1 - 14.9 % RDW SD 48.9 (H) 35.7 - 48.1 fL NRBC abs 0.00 0.00 - 0.01 K/cumm Differential, auto Collection Time: 04/26/24 3:48 AM Result Value Ref Range Neutrophil abs 4.4 1.5 - 6.5 K/cumm Imm gran abs 0.0 0.0 - 0.1 K/cumm Lymphocyte abs 2.1 0.8 - 3.3 K/cumm Monocyte abs 0.7 0.2 - 0.8 K/cumm Eosinophil abs 0.2 0.0 - 0.5 K/cumm Basophil abs 0.1 0.0 - 0.1 K/cumm Neutrophil pct 59.5 % Imm gran pct 0.4 % Lymphocyte pct 27.7 % Monocyte pct 9.4 % Eosinophil pct 2.3 % Basophil pct 0.7 % eGFR Collection Time: 04/26/24 3:48 AM Result Value Ref Range eGFR 70 >=60 mL/min/1.73 m2 CBC with auto differential Collection Time: 04/26/24 9:06 PM Result Value Ref Range WBC 8.9 3.8 - 9.9 K/cumm Hgb 12.9 (L) 13.0 - 17.5 g/dL Hct 38.4 (L) 38.9 - 50.3 % Plt 159 150 - 400 K/cumm MPV 10.7 9.1 - 12.3 fL RBC 4.19 (L) 4.30 - 5.80 M/cumm MCV 91.6 81.3 - 96.4 fL MCH 30.8 27.1 - 33.3 pg MCHC 33.6 32.3 - 35.7 g/dL RDW CV 14.6 11.1 - 14.9 % RDW SD 48.3 (H) 35.7 - 48.1 fL NRBC abs 0.02 (H) 0.00 - 0.01 K/cumm Comprehensive metabolic panel Collection Time: 04/26/24 9:06 PM Result Value Ref Range Sodium 134 (L) 135 - 145 mmol/L Potassium, pl 3.8 3.3 - 4.9 mmol/L Chloride 92 (L) 97 - 110 mmol/L CO2 31 22 - 32 mmol/L Anion gap 12 2 - 15 mmol/L BUN 21 6 - 25 mg/dL Creatinine 1.12 0.80 - 1.30 mg/dL Glucose 122 70 - 199 mg/dL Calcium 9.4 8.5 - 10.3 mg/dL Bilirubin, total 1.4 (H) 0.1 - 1.2 mg/dL Protein, pl 7.0 6.5 - 8.5 g/dL Albumin 4.0 3.5 - 5.0 g/dL Alk phos 80 40 - 130 Units/L ALT 10 7 - 55 Units/L AST 24 10 - 50 Units/L Troponin T high-sensitivity series (baseline, 2hr, 4hr, 6hr) Collection Time: 04/26/24 9:06 PM Result Value Ref Range Trop T hs 12 <=22 ng/L aPTT Collection Time: 04/26/24 9:06 PM Result Value Ref Range aPTT 35 28 - 38 sec Sepsis Lactate w/ Reflex Collection Time: 04/26/24 9:06 PM Result Value Ref Range Sepsis Lactate 2.0 0.7 - 2.0 mmol/L Influenza A/B, RSV, and COVID-19 PCR Nasopharyngeal Collection Time: 04/26/24 9:06 PM Specimen: Nasopharyngeal Result Value Ref Range COVID-19 RNA Negative Negative Influenza A RNA Negative Negative Influenza B RNA Negative Negative RSV RNA Negative Negative Pro B-type natriuretic peptide Collection Time: 04/26/24 9:06 PM Result Value Ref Range NT-proBNP 1,996 (H) <=300 pg/mL Magnesium Collection Time: 04/26/24 9:06 PM Result Value Ref Range Magnesium 2.4 1.4 - 2.5 mg/dL Thyroid Function Summers Collection Time: 04/26/24 9:06 PM Result Value Ref Range TSH 10.28 (H) 0.30 - 4.20 mcIUnit/mL Differential, auto Collection Time: 04/26/24 9:06 PM Result Value Ref Range Neutrophil abs 6.1 1.5 - 6.5 K/cumm Imm gran abs 0.0 0.0 - 0.1 K/cumm Lymphocyte abs 1.8 0.8 - 3.3 K/cumm Monocyte abs 0.7 0.2 - 0.8 K/cumm Eosinophil abs 0.2 0.0 - 0.5 K/cumm Basophil abs 0.0 0.0 - 0.1 K/cumm Neutrophil pct 68.7 % Imm gran pct 0.5 % Lymphocyte pct 20.3 % Monocyte pct 7.9 % Eosinophil pct 2.1 % Basophil pct 0.5 % eGFR Collection Time: 04/26/24 9:06 PM Result Value Ref Range eGFR 70 >=60 mL/min/1.73 m2 T4, free Collection Time: 04/26/24 9:06 PM Result Value Ref Range Free T4 1.59 0.90 - 1.70 ng/dL CT Chest PE (CTA) W Contrast Result Date: 04/26/2024 Narrative: EXAM DESCRIPTION: CT CHEST PE (CTA) W [...] images reviewed. All images stored on PACS. 3D MIP images rendered on scanning unit and reviewed at time of interpretation. Automated exposure control was used as a dose optimization technique for this examination. CONTRAST TYPE/DOSE: 100mL of IOVERSOL 350 MG IODINE/ML INTRAVENOUS SYRINGE injected COMPARISON: 04/18/2024, 09/16/2024 FINDINGS: VASCULATURE: No CT evidence of pulmonary embolism. Normal size of the main pulmonary arteries no aortic aneurysm or aortic dissection. Coronary artery atherosclerotic calcifications are present. LUNGS: Moderate upper lobe predominant bilateral pulmonary emphysema with scattered bilateral pulmonary parenchymal scarring most pronounced in the left lung apex. No confluence pulmonary parenchymal consolidation or pulmonary edema. Left anterior pleural/juxtapleural nodular thickening/scarring measuring up to 6 mm at slice position 46. There is a right lower lobe juxta diaphragmatic noncalcified solid pulmonary nodule measuring 5 mm at slice position 95. A few additional pulmonary micro nodules measuring smaller than 3 mm are also present. Mild bilateral bronchial wall thickening. PLEURA: No pleural effusion. No pneumothorax. ME DIASTINUM/BUCK: No identified masses or lymphadenopathy. No supraclavicular lymphadenopathy. The esophagus is within normal limits. HEART: Heart size is normal with no pericardial effusion. AXILLA: No adenopathy. CHEST WALL: No masses. No subcutaneous air. HARDWARE/LINES/TUBES: None. UPPER ABDOMEN: No significant abnormality. MUSCULOSKELETAL: No acute fractures or aggressive osseous lesions. Mild osteopenia. IMPRESSION: 1. No CT evidence of pulmonary embolism. 2. Noncalcified pulmonary nodulesmeasuring up to 5 mm. According to updated Fleischner Society guidelines, if the patient is at highrisk for development of lung cancer, follow-up chest CT in 12 months could be considered. Reference:Radiographics. 2018 Nov-Dec;38(5):6448-0074 3. Moderate upper lobe predominant bilateral pulmonaryemphysema. THIS IS AN ELECTRONICALLY VERIFIED FINAL REPORT 04/26/2024 10:12 PM - Electronically signed by Eleuterio Bullard M.D. AT: AT Report ID: [id number] Reading Location: [id number] XR Chest 1 Vw Portable Result Date: 04/26/2024 Narrative: EXAM DESCRIPTION: XR CHEST 1 VIEW REASON FOR STUDY: [facility] w c/o SOB, HR in the 150's. Recent dx of A-fib, hx of COPD and CHF. Pt was satting 95% on 5L. EMS gave douneb onroute. Pt had right hip surgery and was discharged to [facility] today. Pt denies any pain and is [id number] on RA upon ED arrival. TECHNIQUE: Frontal radiographic view(s) of the chest. COMPARISON: 04/24/2024. FINDINGS: LUNGS: Low lung volumes. No focal opacity, pleural effusion, or pneumothorax. HEART/MEDIASTINUM: Cardiac silhouette normal in size. Mediastinal and hilar contours appear normal. LINES/TUBES: None. BONES: No acute osseous abnormality. IMPRESSION: Low lung volumes. No evidence of an acute cardiopulmonary abnormality. THIS IS AN ELECTRONICALLY VERIFIED FINAL REPORT 04/26/2024 9:40 PM - Electronically signed by Tom Miranda M.D. CH: ANAHI Report ID: [id number] Reading Location: [id number] XR CHEST 1 VIEW PORTABLE Result Date: 04/24/2024 Narrative: EXAM DESCRIPTION: XR CHEST 1 VIEW REASON FOR STUDY: Shortness of breath SOB Tonight. Ex-Smoker AFIB CHF TECHNIQUE: Single radiographic view of the chest. COMPARISON: Chest x-ray of 2024. FINDINGS: LUNGS/PLEURA: No focal consolidation or pneumothorax. No pleural effusion. There is no significant change as compared to previous study. HEART/MEDIASTINUM: Cardiac silhouette is normal. Remaining mediastinal silhouettes are unremarkable. HARDWARE/LINES/TUBES: EKG leads overlie the film. BONES: No acute findings. IMPRESSION: No acute cardiopulmonary abnormality. THIS IS AN ELECTRONICALLY VERIFIED FINAL REPORT 04/24/2024 5:46 AM - Electronically signed by Addie Mackenzie M.D. SN: Report ID: [id number] Reading Location: [id number] ECG 12 lead Result Date: 04/22/2024 Narrative: Vent Rate: 119 bpm RR Interval: 504 msec HI Interval: 0 msec QRS Duration: 135 msec QT Interval: 357 msec QTC Interval: 427 msec P-R-T Rincon: [id number] - 59 - 59 degrees IMPRESSION: ATRIAL FIBRILLATION WITH RAPID VENTRICULAR RESPONSE INDETERMINATE AXIS RIGHT BUNDLE BRANCH BLOCK [120+ ms QRS DURATION, UPRIGHT V1, 40+ ms S IN I/aVL/V4/V5/V6] ABNORMAL ECG INTERPRETATION BASED ON A DEFAULT AGE OF 40 YEARS Compared to prior EKG atrial fibrillation has replaced sinus bradycardia Electronically Signed By: Terence Mas MD B XR Pelvis Ortho View Result Date: 04/22/2024 Narrative: EXAM DESCRIPTION: XR PELVIS ORTHO VIEW REASON FOR STUDY: in pacu s/p right hip nailing Post op right hip nailing FINDINGS: Single-view submitted with comparison 04/21/2024. There has been interval reduction and nailing of an intertrochanteric proximal right femur fracture. Soft tissue gas is present. Arterial atherosclerosis is present. IMPRESSION: Interval reduction and nailing of an intertrochanteric proximal right femur fracture. THIS IS AN ELECTRONICALLY VERIFIED FINAL REPORT 04/22/2024 12:19 PM - Electronically signed by Prabhakar Perdomo M.D. MF: JUAN C Report ID: [id number] Reading Location: [id number] XR Hip Right 2 or 3 Views Result Date: 04/22/2024 Narrative: EXAM DESCRIPTION: XR HIP RIGHT 2 OR 3 VIEWS REASON FOR STUDY: pain Right hip nailing Fluoro time: 25.2 sec Mgy: 5 FINDINGS: Multiple fluoroscopic images consisting of 2 view(s) submitted with comparison 04/19/2024 . Dose area product equals 0.20014 mGym*2. Fluoroscopic images demonstratean in progress reduction and nailing of an intertrochanteric proximal right femur fracture . Soft tissue gas is present. IMPRESSION: In progress reduction and nailing of an intertrochanteric proximalright femur fracture. THIS IS AN ELECTRONICALLY VERIFIED FINAL REPORT 04/22/2024 11:15 AM - Electronically signed by Prabhakar Perdomo M.D. MF: JUAN C Report ID: [id number] Reading Location: [id number] Fluoroscopy < 1 Hour Result Date: 04/22/2024 Narrative: The images from this study are not interpreted by Radiology. Please refer to the physician's procedure / OR operative note. Transthoracic Echo (TTE) Complete W Doppler/CF Result Date: 04/21/2024 Narrative: [address] [place] [address] Echocardiogram Report Patient Name: ELEN CABRAL L : 1950 Study Date: 04/21/2024 2:24:19 PM Gender: M Tech: AA Location: 02 Ref Provider: VIANNEY MCLAIN Height(Cm): BSA: Weight(Kg): Quality: Good Order Provider: VIANNEY MCLAIN PROCEDURES: Echocardiographic Report: Transthoracic echocardiogram with complete 2D, M-Mode, colorDoppler examination and contrast. INDICATIONS: cardiac clearance for brokenhip surgery. MEASUREMENTS: 2D/MM Value Range Doppler Value Range EstimatedEF 60 % MARCO Vmax 2.38 cm2 LA Dimension MM 4.07 cm [ 3.00 - 4.00 ] AV Mean PG 3 mmHg AoR Diam MM 2.81 cm [ 3.10 - 3.70 ] AV Peak Sy 1.06 m/s [ 1.00 - 1.70 ] ACS MM 1.69 cm [ 1.50 - 2.60 ] AV VTI 20.85 cm LVOT Diam 2.21 cm LVOT Peak Sy [...] - 36.00 ] 2D/MM Value Range Doppler Value Range - ----- FINDINGS: Atrial Septum: The atrial septum is not well visualized. Left Ventricle: Normal left ventricular size. Left ventricle not well visualized. Normal global left ventricular systolic function. Ejection Fraction is estimated to be 60 %. Left Atrium: The left atrium is normalin size. Right Ventricle: Normal right ventricular size. [...] Terence Mas MD Lori 04/21/2024 4:43:44 PM 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 CT Head WO Contrast Result Date: 04/21/2024 Narrative: EXAM DESCRIPTION: CT HEAD WO CONTRAST REASON FOR STUDY: No provided patient complaints in a patient status post fall on ice today, and denies closed head injury or LOC pursuant to event. Per imaging record, right hip fracture. TECHNIQUE: Axial images acquired through the brain without intravenous contrast. Images stored on PACS. Automated exposure control was used as a dose optimization technique for this examination. COMPARISON: No prior neuro imaging available at time of interpretation. FINDINGS: BRAIN: No acute intra-axial hemorrhage. No edema, mass effect, midline shift, or herniation. No evidence of acute territorial ischemia/infarct. No suspicious focal white matter lesionswith preservation of the parson-white junction. EXTRA-AXIAL SPACES: No extra-axial fluid collection. No unenhanced CT evidence of extra-axial mass. CALVARIUM: No acute calvarial fracture. SINUSES/MASTOIDS: Paranasal sinuses clear. Mastoid air cells well-developed and well aerated. ORBITS: No acute abnormality. Ocular lenses and globes normal in conformation and position. OTHER: No other significantabnormality. IMPRESSION: No acute intracranial process. THIS IS AN ELECTRONICALLY VERIFIED FINAL REPORT 04/21/2024 2:25 PM - Electronically signed by Wilmer Johnson M.D. JINA: JCD: 04/21/2024 2:25 PM Report ID: [id number] Reading Location: [id number] XR Chest 1 Vw Portable Result Date: 04/21/2024 Narrative: EXAM DESCRIPTION: XR CHEST 1 VIEW REASON FOR STUDY: fx Fell earlier---fx right hip TECHNIQUE: Single-view COMPARISON: None available FINDINGS: Central vascularity have normal caliber. Aortic arch well-defined on the left. Lungs are well expanded without consolidation, effusion or pneumoth orax. IMPRESSION: No acute findings. THIS IS AN ELECTRONICALLY VERIFIED FINAL REPORT 04/21/2024 1:52PM - Electronically signed by Elen Fraser M.D. RB: SHABBIR Report ID: [id number] Reading Location: [id number] XR Hip Right 2 or 3 Views Result Date: 04/21/2024 Narrative: EXAM DESCRIPTION: XR PELVIS 1 OR 2 [...] degree of impaction, displacement and mild angulation. There is osteoarthritis of both hips. No other evidence of acute fracture. The pubic rami are intact. The SI joints are symmetric in appearance. SOFT TISSUES: Atherosclerotic calcifications. Pelvic phleboliths. IMPRESSION: 1. Acute comminuted, mildly dis placed, angulated and impacted intratrochanteric fracture of the right proximal femur. 2. Osteoarthritis of the hips and SI joints. THIS IS AN ELECTRONICALLY VERIFIED FINAL REPORT 04/21/2024 12:08 PM - Electronically signed by Cortney Islas M.D. TW: OSEAS Report ID: [id number] Reading Location: [id number] XR Pelvis 1 or 2 Views Result Date: 04/21/2024 Narrative: EXAM DESCRIPTION: XR PELVIS 1 OR 2 [...] degree of impaction, displacement and mild angulation. There is osteoarthritis of both hips. No other evidence of acute fracture. The pubic rami are intact. The SI joints are symmetric in appearance. SOFT TISSUES: Atherosclerotic calcifications. Pelvic phleboliths. IMPRESSION: 1. Acute comminuted, mildly di splaced, angulated and impacted intratrochanteric fracture of the right proximal femur. 2. Osteoarthritis of the hips and SI joints. THIS IS AN ELECTRONICALLY VERIFIED FINAL REPORT 04/21/2024 12:08 PM- Electronically signed by Cortney Islas M.D. TW: OSEAS Report ID: [id number] Reading Location: [id number] Current Facility-Administered Medications Medication Dose Route Frequency Provider Last Rate Last Admin midodrine (PROAMATINE) tablet 10 mg 10 mg oral Once Maggi Vaughn MD Current Outpatient Medications Medication Sig Dispense Refill digoxin (LANOXIN) 250 mcg (0.25 mg) tablet Take 1 tablet (250 mcg total) by mouth daily 30 tablet 0 fluticasone propion-salmeteroL (ADVAIR DISKUS) 250-50 mcg/dose diskus inhaler Inhale 1 puff 2 (two)times a day Rinse mouth with water after use. Do not swallow. 60 each 0 furosemide (LASIX) 20 mg tablet Take 1 tablet (20 mg total) by mouth 2 (two) times a day levothyroxine (SYNTHROID) 75 mcg tablet Take 1.5 tablets (112.5 mcg total) by mouth correctional case manager before breakfast rivaroxaban (XARELTO) 20 mg tablet Take 1 tablet (20 mg total) by mouth rosuvastatin (CRESTOR) 10 mg tablet Take 1 tablet (10 mg total) by mouth daily sotaloL (BETAPACE) 120 mg tablet Take 1 tablet (120 mg total) by mouth 2 (two) times a day tiotropium bromide (SPIRIVA RESPIMAT) 2.5 mcg/actuation inhaler Inhale 2 puffs daily 4 g 0 A/P Active Problems: No Active Problems: There are no active problems currently on the Problem List. Please update the Problem List and refresh. Resolved Problems: No resolved hospital problems. Shortness of breaths This is due to COPD exacerbation CTA chest done shows no PE findings as above Continue IV steroids, scheduled breathing treatment, antibiotics Less likely CHF as patient does not appear fluid overloaded on exam Supplemental oxygen maintain oxygen sats in the 90s Atrial fibrillation with RVR Cardiology consulted in the ED recommend continuing home rate-controlling medication Continue telemetry Continue home Xarelto Supplement electrolytes as needed COPD exacerbation Continue scheduled breathing treatment, steroids and antibiotics Diastolic CHF not in exacerbation Hold home Lasix at this time due to soft blood pressure Recent right hip intertrochanteric fracture status post surgery on 04/22/2024 PT/OT consult placed Fall precaution CAD status post stent, hypothyroidism, hyperlipidemia Continue home medication once reconciled These fluid and electrolyte abnormalities are being treated, evaluated or monitored: No fluid or electrolyte disorders DVT prophylaxis xarelto Code status full code Anticipated length of stay to be 2 to 3 days MDM; moderate Voice recognition software [employer] Fluency Direct was used dictate and transcribe this document. Wastewater Project Engineer variances may occur. Despite proofreading, typographical errors may occur. Maggi Vaughn MD Date of Service: 04/27/2024 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 documented in this encounter Nursing Notes * Jody Owens RN - 05/01/2024 1:50 PM CST Ems and Dispatch notified of transfer to [place] 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 * Jody Owens RN - 05/01/2024 1:11 PM CST [facility] 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 documented in this encounter ED Notes * Rosa Elena Joyce PA - 04/26/2024 10:44 PM CST CHIEF COMPLAINT: Chief Complaint Patient presents with Shortness of Breath HPI 12:40 AM Elen Cabral is a 73 y.o. male presenting to the ED c/o sob. Patient was admitted to this facility on 04/21/2024 due to an intertrochanteric right femur fracture with surgery on 04/22/2024, patient was discharged today. Patient states he had sudden onset shortness of breath at 5:30 p.m..He denies chest pain. EMS reports a heart rate in the 150s and oxygen at 95% on 5 L. patient is currently saturating in the 90s on 2 L. he did desaturate into the 80s on room air. History provided by patient PCP: [facility] PAST MEDICAL HISTORY Past Medical History: Diagnosis Date A-fib (CMS/HCC) (HCC) CHF (congestive heart failure) (CMS/[facility]) (HCC) Hypothyroidism Lung disease PAST SURGICAL HISTORY No past surgical history on file. FAMILY HISTORY No family history on file. MEDICATIONS GIVEN IN THE ED Medications ioversoL (OPTIRAY 350) syringe 100 mL (100 mL intravenous Contrast Given 04/26/242143) methylPREDNISolone sodium succinate (SOLU-medrol) preservative free injection 125 mg (125 mg intravenous Given 04/26/242225) ipratropium-albuteroL (DUO-NEB) 0.5-2.5 mg/3 mL nebulizer solution 3 mL (3 mL nebulization Given 04/26/247) sodium chloride 0.9% bolus 500 mL (0 mL intravenous Stopped 04/26/24 2330) sotaloL (BETAPACE) tablet 120 mg (120 mg oral Given 04/26/24 2350) midodrine (PROAMATINE) tablet 10 mg (10 mg oral Given 04/27/24 0036) CURRENT HOME MEDICATIONS No current facility-administered medications for this encounter. Current Outpatient Medications: digoxin (LANOXIN) 250 mcg (0.25 mg) tablet, Take 1 tablet (250 mcg total) by mouth daily, Disp: 30 tablet, Rfl: 0 fluticasone propion-salmeteroL (ADVAIR DISKUS) 250-50 mcg/dose diskus inhaler, Inhale 1 puff 2 (two) times a day Rinse mouth with water after use. Do not swallow., Disp: 60 each, Rfl: 0 furosemide (LASIX) 20 mg tablet, Take 1 tablet (20 mg total) by mouth 2 (two) times a day, Disp: , Rfl: levothyroxine (SYNTHROID) 75 mcg tablet, Take 1.5 tablets (112.5 mcg total) by mouth correctional case manager before breakfast, Disp: , Rfl: rivaroxaban (XARELTO) 20 mg tablet, Take 1 tablet (20 mg total) by mouth, Disp: , Rfl: rosuvastatin (CRESTOR) 10 mg tablet, Take 1 tablet (10 mg total) by mouth daily, Disp: , Rfl: sotaloL (BETAPACE) 120 mg tablet, Take 1 tablet (120 mg total) by mouth 2 (two) times a day, Disp: , Rfl: tiotropium bromide (SPIRIVA RESPIMAT) 2.5 mcg/actuation inhaler, Inhale 2 puffs daily, Disp: 4 g, Rfl: 0 ALLERGIES No Known Allergies SOCIAL HISTORY Social History Tobacco Use Smoking status: Former Types: Cigarettes Smokeless tobacco: Not on file Substance and Sexual Activity Drug use: Not on file Sexual activity: Not on file Alcohol Use: Unknown (04/22/2024) AUDIT-C Frequency of Alcohol Consumption: Not on file Average Number of Drinks: Patient does not drink Frequency of Binge Drinking: Not on file PHYSICAL EXAM TRIAGE VITAL SIGNS: ED Triage Vitals [04/26/242043] Temp Pulse Resp BP SpO2 -- (!) 133 25 106/85 97 % Temp src Heart Rate Source Patient Position BP Location FiO2 (%) -- -- -- -- -- Height Height Method Weight Weight Method -- -- -- -- Physical Exam Vitals and nursing note reviewed. Constitutional: General: He is not in acute distress. HENT: Head: Normocephalic. Right Ear: External ear normal. Left Ear: External ear normal. Nose: Nose normal. Mouth/Throat: Mouth: Mucous membranes are moist. Eyes: Conjunctiva/sclera: Conjunctivae normal. Cardiovascular: Rate and Rhythm: Normal rate and regular rhythm. Pulmonary: Effort: Pulmonary effort is normal. No respiratory distress. Breath sounds: Wheezing (expiratory wheezes throughout) present. Abdominal: General: Bowel sounds are normal. There is no distension. Palpations: Abdomen is soft. Tenderness: There is no abdominal tenderness. There is no guarding or rebound. Musculoskeletal: General: Normal range of motion. Cervical back: Neck supple. Right lower leg: No edema. Left lower leg: No edema. Skin: General: Skin is warm and dry. Neurological: General: No focal deficit present. Mental Status: He is alert. Psychiatric: Mood and Affect: Mood normal. Behavior: Behavior normal. LABS Labs Reviewed CBC WITH AUTO DIFFERENTIAL - Abnormal Result Value WBC 8.9 Hgb 12.9 (*) Hct 38.4 (*) Plt 159 MPV 10.7 RBC 4.19 (*) MCV 91.6 MCH 30.8 MCHC 33.6 RDW CV 14.6 RDW SD 48.3 (*) NRBC abs 0.02 (*) COMPREHENSIVE METABOLIC PANEL - Abnormal Sodium 134 (*) Potassium, pl 3.8 Chloride 92 (*) CO2 31 Anion gap 12 BUN 21 Creatinine 1.12 Glucose 122 Calcium 9.4 Bilirubin, total 1.4 (*) Protein, pl 7.0 Albumin 4.0 Alk phos 80 ALT 10 AST 24 PRO B-TYPE NATRIURETIC PEPTIDE - Abnormal NT-proBNP 1,996 (*) THYROID FUNCTION CASCADE - Abnormal TSH 10.28 (*) INFLUENZA A/B, RSV, AND COVID-19 PCR COVID-19 RNA Negative Influenza A RNA Negative Influenza B RNA Negative RSV RNA Negative Narrative: Is the Patient experiencing symptoms consistent with COVID?->Yes TROPONIN T HIGH-SENSITIVITY SERIES (BASELINE, 2HR, 4HR, 6HR) Trop T hs 12 APTT aPTT 35 SEPSIS LACTATE WITH REFLEX Sepsis Lactate 2.0 MAGNESIUM Magnesium 2.4 DIFFERENTIAL AUTO Neutrophil abs 6.1 Imm gran abs 0.0 Lymphocyte abs 1.8 Monocyte abs 0.7 Eosinophil abs 0.2 Basophil abs 0.0 Neutrophil pct 68.7 Imm gran pct 0.5 Lymphocyte pct 20.3 Monocyte pct 7.9 Eosinophil pct 2.1 Basophil pct 0.5 TROPONIN T HIGH-SENSITIVITY 2-HOUR Trop T hs 13 Trop T hs delta 1 Trop T hs interp Insignificant EGFR eGFR 70 T4, FREE Free T4 1.59 Narrative: This test was reflexed from a TSH result. TROPONIN T HIGH-SENSITIVITY 4-HR TROPONIN T HIGH-SENSITIVITY 6-HOUR RADIOLOGY CT Chest PE (CTA) W Contrast Result Date: 04/26/2024 Narrative: EXAM DESCRIPTION: CT CHEST PE (CTA) W [...] images reviewed. All images stored on PACS. 3D MIP images rendered on scanning unit and reviewed at time of interpretation. Automated exposure control was used as a dose optimization technique for this examination. CONTRAST TYPE/DOSE: 100mL of IOVERSOL 350 MG IODINE/ML INTRAVENOUS SYRINGE injected COMPARISON: 04/18/2024, 09/16/2024 FINDINGS: VASCULATURE: No CT evidence of pulmonary embolism. Normal size of the main pulmonary arteries no aortic aneurysm or aortic dissection. Coronary artery atherosclerotic calcifications are present. LUNGS: Moderate upper lobe predominant bilateral pulmonary emphysema with scattered bilateral pulmonary parenchymal scarring most pronounced in the left lung apex. No confluence pulmonary parenchymal consolidation or pulmonary edema. Left anterior pleural/juxtapleural nodular thickening/scarring measuring up to 6 mm at slice position 46. There is a right lower lobe juxta diaphragmatic noncalcified solid pulmonary nodule measuring 5 mm at slice position 95. A few additional pulmonary micro nodules measuring smaller than 3 mm are also present. Mild bilateral bronchial wall thickening. PLEURA: No pleural effusion. No pneumothorax. ME DIASTINUM/BUCK: No identified masses or lymphadenopathy. No supraclavicular lymphadenopathy. The esophagus is within normal limits. HEART: Heart size is normal with no pericardial effusion. AXILLA: No adenopathy. CHEST WALL: No masses. No subcutaneous air. HARDWARE/LINES/TUBES: None. UPPER ABDOMEN:No significant abnormality. MUSCULOSKELETAL: No acute fractures or aggressive osseous lesions. Mildosteopenia. IMPRESSION: 1. No CT evidence of pulmonary embolism. 2. Noncalcified pulmonary nodules measuring up to 5 mm. According to updated Fleischner Society guidelines, if the patient is at high risk for development of lung cancer, follow-up chest CT in 12 months could be considered. Reference :Radiographics. 2017-Dec;385):9268-7835 3. Moderate upper lobe predominant bilateral pulmonary emphysema. THIS IS AN ELECTRONICALLY VERIFIED FINAL REPORT 04/26/2024 10:12 PM - Electronically signed by Eleuterio Bullard M.D. AT: AT Report ID: [id number] Reading Location: [id number] XR Chest 1 Vw Portable Result Date: 04/26/2024 Narrative: EXAM DESCRIPTION: XR CHEST 1 VIEW REASON FOR STUDY: sob PT BIBEMS from [facility] w c/o SOB, HR in the 150's. Recent dx of A-fib, hx of COPD and CHF. Pt was satting 95% on 5L. EMS gave douneb onroute. Pt had right hip surgery and was discharged to [facility] today. Pt denies any pain and is [id number] on RA upon ED arrival. TECHNIQUE: Frontal radiographic view(s) of the chest. COMPARISON: 04/24/2024. FINDINGS: LUNGS: Low lung volumes. No focal opacity, pleural effusion, or pneumothorax. HEART/MEDIASTINUM: Cardiac silhouette normal in size. Mediastinal and hilar contours appear normal. LINES/TUBES: None. BONES: No acute osseous abnormality. IMPRESSION: Low lung volumes. No evidence of an acute cardiopulmonary abnormality. THIS IS AN ELECTRONICALLY VERIFIED FINAL REPORT 04/26/2024 9:40 PM -Electronically signed by Tom Miranda M.D. CH: ANAHI Report ID: [id number] Reading Location: [id number] XR CHEST 1 VIEW PORTABLE Result Date: 04/24/2024 Narrative: EXAM DESCRIPTION: XR CHEST 1 VIEW REASON FOR STUDY: Shortness of breath SOB Tonight. Ex-Smoker AFIB CHF TECHNIQUE: Single radiographic view of the chest. COMPARISON: Chest x-ray of 2024. FINDINGS: LUNGS/PLEURA: No focal consolidation or pneumothorax. No pleural effusion. There is no significant change as compared to previous study. HEART/MEDIASTINUM: Cardiac silhouette is normal. Remaining mediastinal silhouettes are unremarkable. HARDWARE/LINES/TUBES: EKG leads overlie the film. BONES: No acute findings. IMPRESSION: No acute cardiopulmonary abnormality. THIS IS AN ELECTRONICALLY VERIFIED FINAL REPORT 04/24/2024 5:46 AM - Electronically signed by Addie Mackenzie M.D. SN: SN Report ID: [id number] Reading Location: [place] [id number] ECG 12 lead Result Date: 04/22/2024 Narrative: Vent Rate: 119 bpm RR Interval: 504 msec HI Interval: 0 msec QRS Duration: 135 msec QT Interval: 357 msec QTC Interval: 427 msec P-R-T Rincon: [id number] - 59 - 59 degrees IMPRESSION: ATRIAL FIBRILLATION WITH RAPID VENTRICULAR RESPONSE INDETERMINATE AXIS RIGHT BUNDLE BRANCH BLOCK [120+ ms QRS DURATION, UPRIGHT V1, 40+ ms S IN I/aVL/V4/V5/V6] ABNORMAL ECG INTERPRETATION BASED ON A DEFAULT AGE OF 40 YEARS Compared to prior EKG atrial fibrillation has replaced sinus bradycardia Electronically Signed By: Terence Mas MD [facility] XR Pelvis Ortho View Result Date: 04/22/2024 Narrative: EXAM DESCRIPTION: XR PELVIS ORTHO VIEW REASON FOR STUDY: in pacu s/p right hip nailing Post op right hip nailing FINDINGS: Single-view submitted with comparison 04/21/2024. There has been interval reduction and nailing of an intertrochanteric proximal right femur fracture. Soft tissue gas is present. Arterial atherosclerosis is present. IMPRESSION: Interval reduction and nailing of an intertrochanteric proximal right femur fracture. THIS IS AN ELECTRONICALLY VERIFIED FINAL REPORT 04/22/2024 12:19 PM - Electronically signed by Prabhakar Perdomo M.D. MF: JUAN C Report ID: [id number] Reading Location: [id number] XR Hip Right 2 or 3 Views Result Date: 04/22/2024 Narrative: EXAM DESCRIPTION: XR HIP RIGHT 2 OR 3 VIEWS REASON FOR STUDY: pain Right hip nailing Fluoro time: 25.2 sec Mgy: 5 FINDINGS: Multiple fluoroscopic images consisting of 2 view(s) submitted with comparison 04/19/2024 . Dose area product equals 0.44106 mGym*2. Fluoroscopic images demonstratean in progress reduction and nailing of an intertrochanteric proximal right femur fracture . Soft tissue gas is present. IMPRESSION: In progress reduction and nailing of an intertrochanteric proximalright femur fracture. THIS IS AN ELECTRONICALLY VERIFIED FINAL REPORT 04/22/2024 11:15 AM - Electronically signed by Prabhakar Perdomo M.D. MF: JUANC Report ID: [id number] Reading Location: [id number] FL Fluoroscopy < 1 Hour Result Date: 04/22/2024 Narrative: The images from this study are not interpreted by Radiology. Please refer to the physician's procedure / OR operative note. Transthoracic Echo (TTE) Complete W Doppler/CF Result Date: 04/21/2024 Narrative: [address] [address] Echocardiogram Report Patient Name: ELEN CABRAL L : 1950 Study Date: 04/21/2024 2:24:19 PM Gender: M Tech: Location: ED02 Ref Provider: VIANNEY MCLAIN Height(Cm): BSA: Weight(Kg): Quality: Good Order Provider: VIANNEY MCLAIN PROCEDURES: Echocardiographic Report: Transthoracic echocardiogram with complete 2D, M-Mode, colorDoppler examination and contrast. INDICATIONS: cardiac clearance for brokenhip surgery. MEASUREMENTS: 2D/MM Value Range Doppler Value Range Estimated EF 60 % MARCO Vmax 2.38 cm2 LA Dimension MM 4.07 cm [ 3.00 - 4.00 ] AV Mean PG 3 mmHg AoR Diam MM 2.81cm [ 3.10 - 3.70 ] AV Peak Sy 1.06 m/s [ 1.00 - 1.70 ] ACS MM 1.69 [...] MV PHT 58 msec [ 20 - 100] MVA 2.10 MV Decel Time 235 msec [ 104 - 258 ] PV Peak Sy 0.68 m/s [ 0.40 - 0.80 ] TR Peak Sy 2.34 m/s [ 1.00 - 2.80 ] TR Peak PG 22 mmHg RVSP 27.00 mmHg [ 10.00 - 36.00 ] E` 0.05 m/s E/E` 10.65 [<= 10.00 ] PA Pressure 5.00 mmHg [ 10.00 - 36.00 ] 2D/MM Value Range Doppler Value Range - ------ FINDINGS: Atrial Septum: The atrial septum is not well visualized. Left Ventricle: Normal left ventricular size. Left ventricle not well visualized. Normal global left ventricular systolic function. Ejection Fraction is estimated to be 60 %. Left Atrium: The left atrium is normal in size. Right Ventricle: Normal right ventricular size. Normal right ventricular systolic function.Right Atrium: The right atrium is normal in [...] Terence Mas MD Lori 04/21/2024 4:43:44 PM HOME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 CT Head WO Contrast Result Date: 04/21/2024 Narrative: EXAM DESCRIPTION: CT HEAD WO CONTRAST REASON FOR STUDY: No provided patient complaints in a patient status post fall on ice today, and denies closed head injury or LOC pursuant to event. Per imaging record, right hip fracture. TECHNIQUE: Axial images acquired through the brain without intravenous contrast. Images stored on PACS. Automated exposure control was used as a dose optimization technique for this examination. COMPARISON: No prior neuro imaging available at time of interpretation. FINDINGS: BRAIN: No acute intra-axial hemorrhage. No edema, mass effect, midline shift, or herniation. No evidence of acute territorial ischemia/infarct. No suspicious focal white matter lesionswith preservation of the parson-white junction. EXTRA-AXIAL SPACES: No extra-axial fluid collection.No unenhanced CT evidence of extra-axial mass. CALVARIUM: No acute calvarial fracture. SINUSES/MASTOIDS: Paranasal sinuses clear. Mastoid air cells well-developed and well aerated. ORBITS: No acute abnormality. Ocular lenses and globes normal in conformation and position. OTHER: No other significant abnormality. IMPRESSION: No acute intracranial process. THIS IS AN ELECTRONICALLY VERIFIED FINAL REPORT 04/21/2024 2:25 PM - Electronically signed by Wilmer Johnson M.D. JINA: JINA Report ID: [id number] Reading Location: [id number] XR Chest 1 Vw Portable Result Date: 04/21/2024 Narrative: EXAM DESCRIPTION: XR CHEST 1 VIEW REASON FOR STUDY: fx Fell earlier---fx right hip TECHNIQUE: Single-view COMPARISON: None available FINDINGS: Central vascularity have normal caliber. Aortic arch well-defined on the left. Lungs are well expanded without consolidation, effusion or pneumoth orax. IMPRESSION: No acute findings. THIS IS AN ELECTRONICALLY VERIFIED FINAL REPORT 04/21/2024 1:52PM - Electronically signed by Elen Fraser M.D. RB: SHABBIR Report ID: [id number] Reading Location: [id number] XR Hip Right 2 or 3 Views Result Date: 04/21/2024 Narrative: EXAM DESCRIPTION: XR PELVIS 1 OR 2 [...] degree of impaction, displacement and mild angulation. There is osteoarthritis of both hips. No other evidence of acute fracture. The pubic rami are intact. The SI joints are symmetric in appearance. SOFT TISSUES: Atherosclerotic calcifications. Pelvic phleboliths. IMPRESSION: 1. Acute comminuted, mildly dis placed, angulated and impacted intratrochanteric fracture of the right proximal femur. 2. Osteoarthritis of the hips and SI joints. THIS IS AN ELECTRONICALLY VERIFIED FINAL REPORT 04/21/2024 12:08 PM - Electronically signed by Cortney Islas M.D. TW: TW Report ID: [id number] Reading Location: [id number] XR Pelvis 1 or 2 Views Result Date: 04/21/2024 Narrative: EXAM DESCRIPTION: XR PELVIS 1 OR 2 [...] degree of impaction, displacement and mild angulation. There is osteoarthritis of both hips. No other evidence of acute fracture. The pubic rami are intact. The SI joints are symmetric in appearance. SOFT TISSUES: Atherosclerotic calcifications. Pelvic phleboliths. IMPRESSION: 1. Acute comminuted, mildly dis placed, angulated and impacted intratrochanteric fracture of the right proximal femur. 2. Osteoarthritis of the hips and SI joints. THIS IS AN ELECTRONICALLY VERIFIED FINAL REPORT 04/21/2024 12:08 PM - Electronically signed by Cortney Islas M.D. TW: OSEAS Report ID: [id number] Reading Location: [place] [address] ED COURSE/MEDICAL DECISION MAKING Differential diagnosis included but not limited to COPD exacerbation, pneumonia, viral syndrome, pulmonary embolism, CHF Patient's medical records were reviewed. ED Course as of 04/27/24 0040 Time: 04/26 2150 Value: ECG 12 lead Comment: (Reviewed) By: Rosa Elena Joyce PA Time: 04/26 2150 Value: XR Chest 1 Vw Portable Comment: IMPRESSION: Low lung volumes. No evidence of an acute cardiopulmonary abnormality. By: Rosa Elena Joyce PA Time: 04/26 2231 Value: CT Chest PE (CTA) W Contrast Comment: IMPRESSION: 1. No CT evidence of pulmonary embolism. 2. Noncalcified pulmonary nodules measuring up to 5 mm. According to updated Fleischner Society guidelines, if the patient is at high risk for development of lung cancer, follow-up chest CT in 12 months could be considered. Reference :Radiographics. 2018 Nov-Dec;38(5):5230-2153 3. Moderate upper lobe predominant bilateral pulmonary emphysema. By: Rosa Elena Joyce PA Time: 04/26 2309 Value: TSH(!): 10 Comment: (Reviewed) By: Rosa Elena Joyce PA Time: 04/26 2330 Value: NT-proBNP(!): 1,996 Comment: (Reviewed) By: Rosa Elena Joyce PA Time: 04/26 397 Comment: Discussed case with cardiology who recommeded continuing current medications. Digoxin and sotalol. By: Rosa Elena Joyce PA Time: 04/26 1417 Comment: Dr. Vaughn would like me to discuss case with the security nurse prior to acceptance due to hypotension By: Rosa Elena Joyce PA Time: 04/27 8 Comment: Discussed case with tele ICU physician Dr. Torrez recommends monitoring the patient in the emergency department for a while longer before deciding bed placed By: Rosa Elena Joyce PA Time: 04/27 39 Comment: Care transferred to Dr. Peace By: Rosa Elena Joyce PA Procedures FINAL IMPRESSION COPD exacerbation (HCC) Acute on chronic congestive heart failure, unspecified heart failure type (HCC) Hypoxia Atrial fibrillation with RVR (CMS/HCC) (HCC) DISPOSITION: Pending This examination was transcribed using the [employer] voice recognition system without human tile layer. In an effort to expedite patient care, this report has not been adjusted for typographical, grammatical, and syntax by a trained medical affairs manager. Rosa Elena Joyce PA 04/27/2439 Rosa Elena Joyce PA 04/27/2440 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 * Arabella Strauss RN - 04/26/2024 8:38 PM CST PT BIBEMS from [facility] w c/o SOB, HR in the 150's. Recent dx of A-fib, hx of COPD and CHF. Pt was satting 95% on 5L. EMS gave douneb on route. Pt had right hip surgery and was discharged to [facility] today. Pt denies any pain and is satting 97 on RA upon ED arrival. 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 documented in this encounter Miscellaneous Notes * Plan of Care - Avelina Mccartney RN - 05/01/2024 4:53 AM CST Goals: Clinical Goals for the Shift: Pt will remain free from injury, VSS, maintain comfort Care Home Patient Centered Goal for Treatment: Pt will return to baseline Summary: Problem: Discharge Planning Goal: Understanding discharge needs will improve Outcome: Progressing Flowsheets (Taken 04/28/2024739 by Samantha Horton RN) Understanding of discharge needs will improve: Discuss information regarding discharge instructions Identify discharge learning needs (meds, wound care, etc.) Problem: Fall Risk Goal: Ability to state ways to decrease the risk of falls will improve Outcome: Progressing Flowsheets (Taken 04/28/2024739 by Samantha Horton RN) Ability to state ways to decrease the risk of falls will improve: Teach fall prevention measures Goal: Will remain free from falls Outcome: Progressing Flowsheets (Taken 04/28/2024739 by Samantha Horton RN) Will remain free from falls: Assess risk factors for falls Implement fall prevention measures Goal: Will remain free from injury from falls Outcome: Progressing Flowsheets (Taken 04/28/2024739 by Samantha Horton RN) Will remain free from injury from falls: Provide safe environment for conduction of activities of daily living in hospital environment Problem: Skin Integrity Impairment Risk Goal: Mobility will improve Outcome: Progressing Flowsheets (Taken 04/28/2024739 by Samantha Horton, RN) Mobility will improve: Encourage mobilization to extent of ability, assist with range of motion as needed Encourage turning and repositioning, assist as needed Goal: Understanding of ways to prevent future skin breakdown will improve Outcome: Progressing Flowsheets (Taken 04/28/2024739 by Samantha Horton RN) Understanding of ways to prevent future skin breakdown will improve: Discuss treatments to protect skin integrity Goal: Nutritional status will improve Outcome: Progressing Flowsheets (Taken 04/28/2024739 by Samantha Horton RN) Nutritional status will improve: Assess nutritional status Goal: Risk for impaired skin integrity will decrease Outcome: Progressing Flowsheets (Taken 04/28/2024739 by Samantha Horton RN) Risk for impaired skin integrity will decrease: Identify risk factors for impaired skin integrity and/or pressure injuries Problem: Respiratory Goal: Achieves optimal ventilation and oxygenation Outcome: Progressing Flowsheets (Taken 04/28/2024739 by Samantha Horton RN) Achieves optimal ventilation and oxygenation: Assess for changes in respiratory status Problem: Cardiovascular Goal: Absence of cardiac dysrhythmias or at baseline Outcome: Progressing Flowsheets (Taken 04/28/2024739 by Samantha Horton, CEDRIC) Absence of cardiac dysrhythmias or at baseline: Continuous cardiac monitoring, monitor vital signs,obtain 12 lead EKG if indicated Goal: Maintains optimal cardiac output and hemodynamic stability Outcome: Progressing Flowsheets (Taken 05/01/2024451) Maintain optimal cardiac output and hemodynamic Stability: Monitor vital signs, rhythm, and trends Problem: Skin/Tissue Integrity Goal: Skin integrity remains intact Outcome: Progressing Flowsheets (Taken 05/01/2024451) Skin integrity remains intact: Assess and document risk factors for pressure injury development Goal: Incisions, wounds, or drain sites healing without S/S of infection Outcome: Progressing Flowsheets (Taken 05/01/2024451) Incision(s), Wound(s) or Drain Site(s) healing without S/S of infection: Assess and document skin integrity Problem: Metabolic/Fluid and Electrolytes Goal: Electrolytes maintained within normal limits Outcome: Progressing Flowsheets (Taken 05/01/2024451) Electrolytes maintained within normal limits: Monitor labs and assess patient for signs and symptoms of electrolyte imbalances Problem: Lack of Knowledge Goal: Ability to develop a pain control plan will improve Outcome: Progressing Flowsheets (Taken 04/28/2024739 by Samantha Horton, CEDRIC) Ability to develop a pain control plan will improve: Explain causes of pain and how long pain can be expected to last Problem: Coping Goal: Ability to cope will improve Outcome: Progressing Flowsheets (Taken 05/01/2024451) Ability to cope will Improve: Encourage vebalization of feelings surrounding pain Problem: Health Behavior Goal: Identification of resources available to assist in meeting health care needs will improve Outcome: Progressing Flowsheets (Taken 05/01/2024451) Identification of resources available to assist in meeting health care needs will improve: Collaborate with pain management 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 * Plan of Care - Jody Owens RN - 04/30/2024 3:51 PM CST Goals: Clinical Goals for the Shift: Pt will remain free from injury, VSS, maintain comfort Care Home Patient Centered Goal for Treatment: Pt will return to baseline Summary: Will continue with current plan of care Problem: Discharge Planning Goal: Understanding discharge needs will improve Outcome: Progressing Problem: Fall Risk Goal: Ability to state ways to decrease the risk of falls will improve Outcome: Progressing Goal: Will remain free from falls Outcome: Progressing Goal: Will remain free from injury from falls Outcome: Progressing Problem: Skin Integrity Impairment Risk Goal: Mobility will improve Outcome: Progressing Goal: Understanding of ways to prevent future skin breakdown will improve Outcome: Progressing Goal: Nutritional status will improve Outcome: Progressing Goal: Risk for impaired skin integrity will decrease Outcome: Progressing Problem: Lack of Knowledge Goal: Ability to develop a pain control plan will improve Outcome: Progressing Problem: Medication Goal: Satisfaction with pain management medication regimen will improve Outcome: Progressing 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 * Plan of Leo Mack RN - 04/30/2024 6:34 AM CST Problem: Discharge Planning Goal: Understanding discharge needs will improve Outcome: Ongoing Problem: Fall Risk Goal: Ability to state ways to decrease the risk of falls will improve Outcome: Ongoing Goal: Will remain free from falls Outcome: Ongoing Goal: Will remain free from injury from falls Outcome: Ongoing Problem: Skin Integrity Impairment Risk Goal: Mobility will improve Outcome: Ongoing Goal: Understanding of ways to prevent future skin breakdown will improve Outcome: Ongoing Goal: Nutritional status will improve Outcome: Ongoing Goal: Risk for impaired skin integrity will decrease Outcome: Ongoing Problem: Respiratory Goal: Achieves optimal ventilation and oxygenation Outcome: Ongoing Problem: Cardiovascular Goal: Absence of cardiac dysrhythmias or at baseline Outcome: Ongoing Goal: Maintains optimal cardiac output and hemodynamic stability Outcome: Ongoing Problem: Skin/Tissue Integrity Goal: Skin integrity remains intact Outcome: Ongoing Goal: Incisions, wounds, or drain sites healing without S/S of infection Outcome: Ongoing Problem: Metabolic/Fluid and Electrolytes Goal: Electrolytes maintained within normal limits Outcome: Ongoing Problem: Hematologic Goal: Maintains hematologic stability Outcome: Ongoing Problem: Lack of Knowledge Goal: Ability to develop a pain control plan will improve Outcome: Ongoing Problem: Medication Goal: Satisfaction with pain management medication regimen will improve Outcome: Ongoing Problem: Sensory Goal: Ability to identify factors that increase pain levels will improve while working to decrease the patient's pain levels Outcome: Ongoing Problem: Coping Goal: Ability to cope will improve Outcome: Ongoing Problem: Health Behavior Goal: Identification of resources available to assist in meeting health care needs will improve Outcome: Ongoing Goals: Clinical Goals for the Shift: VSS, comfort and safety Summary: No distress this shift. Pt a&o, calls out appropriately. Uses walker and assist x 1 tochair. 30 day monitor changed this shift. PRN meds for pain given. Urine output more than adequate. 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 * Provider Query - Karissa Mchugh MD - 04/29/2024 4:03 PM CST Specify a diagnosis that reflects the patient???s level of strength and mobility on admission, and document in the medical record and on the form below. Select all that apply: __x_Age related physical debility (frailty) ___Limitation of activity due to disability ___Reduced Mobility ___Other, specify below Additional Provider Response: Clinical Indicators/Treatments: 73 y o M admitted on 04/26 with afib with rvr, copd exacerbation, hx of copd, afib, chf, hypothyroidism, cad, hld - Came in with sob, was in rehab for recent hip surgery after fall, per PT eval supine to edge of bed with min assist with assist for RLE and trunk to assume sitting EOB, transfer from sit to stand with walker with min assist with dec hand placement, shifts majority of weight to LLE, ambulated 25 feet with walker gait deviations with decreased alea, heel strike, stance time and step length - PT recommends returning to SNF for unable to safely care for self at home, address functional deficits, return to prior level of independence, cont pt/ot, fall precautions References: General Debility and Chronic Fatigue Documentation Practices To accurately represent patient acuity under CMS risk-adjustment methodology, please consider and document the following diagnoses, when applicable. Age-related physical debility Postviral fatigue syndrome Consider in patients with excessive and persistent fatigue following a viral illness, such as COVID-19 Myalgic encephalopmyelitis/chronic fatigue syndrome Other post-infection and related fatigue syndromes Neoplastic related fatigue The only diagnostic criteria is if the patient reports fatigue. May also report weariness, malaise,apathy, lassitude, or burnout. Characterized by excessive and persistent exhaustion that is disproportionate to the task done, often interfering with daily activity. Exhibited in 70-100% of patients with cancer. Often begins prior to diagnosis, worsens during treatment, and may persist for months or years after treatment ends Functional Quadriplegia Chronic fatigue Limitation of activities due to disability Bed confinement status Other reduced mobility Applicable to those with impaired mobility, requiring dependence on care providers. May require extensive PT/OT, radha lifts, mobility devices/aids, etc. Debility References Functional Quadriplegia. ICD-9-CM Coding Clinic, 2007 Page: 143 Effective with discharges: December [facility]: Cancer Fatigue From the ICD-10-CM Coding Guidelines, use of terms such as likely, suspected, possible, or probable(associated with a specific diagnosis that is being evaluated, monitored, or treated as if it exists) are acceptable and can be coded in the inpatient setting when documented at the time of discharge. This documentation will become part of the patient???s medical record. 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 * Plan of Care - Tamia Mendiola RN - 04/29/2024 3:44 PM CST Goals: VSS, comfort and safety Clinical Goals for the Shift: pain control, vss, comfort, safety, fall prevention Summary: Patient cooperative with all cares and able to make his needs known. Patient has been accepted for a swing bed at [facility] and will plan on discharging tomorrow. Patient resting quietly with call light within reach. 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 * Plan of Care - Noble Taveras RN - 04/29/2024 12:34 PM CST 04/29/24 1233 Discharge Summary Discharge Disposition alf facility (short term care) Specify Facility [facility] swing bed Facility Contact Number [phone] Recommended Discharge Level of Care alf facility (short term care) Actual Discharge Level of Care alf facility (short term care) Does Actual Level of Care Match Care Team Recommendation? Yes Post Acute Care Plan Home Care Services N/A OP Services N/A DME N/A Post Acute Care Facility N/A Discharge Additional Assistance Does the patient need discharge transport arranged? No Post Discharge Care Provider Post Discharge Care Plan -- Patient accept to [facility] swing bed. He can admit to hospital when medically stable (including the weekend). Please call report to [phone] and fax orders to [phone]. 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 * Plan of Care - Vandana Maloney RN - 04/29/2024 2:12 AM HOME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 Problem: Discharge Planning Goal: Understanding discharge needs will improve Outcome: Ongoing Problem: Fall Risk Goal: Ability to state ways to decrease the risk of falls will improve Outcome: Ongoing Goal: Will remain free from falls Outcome: Ongoing Goal: Will remain free from injury from falls Outcome: Ongoing Problem: Skin Integrity Impairment Risk Goal: Mobility will improve Outcome: Ongoing Goal: Understanding of ways to prevent future skin breakdown will improve Outcome: Ongoing Goal: Nutritional status will improve Outcome: Ongoing Goal: Risk for impaired skin integrity will decrease Outcome: Ongoing Goals: Clinical Goals for the Shift: pain control, vss, comfort, safety, fall prevention Summary: 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 * Plan of Care - Samantha Horton RN - 04/28/2024 3:08 PM CST Goals: Clinical Goals for the Shift: VSs, pain management, free from falls Summary: Patient A&O, VSS. Up to chair with use of walker and assist x1. Tylenol given for painfor right hip/groin pain. at bedside part of day. Voids per urinal. Call light within reach. Comfort and safety provided. Patient has refused to take medications to help him with bowel movement. Problem: Discharge Planning Goal: Understanding discharge needs will improve Outcome: Ongoing Flowsheets (Taken 04/28/2024739) Understanding of discharge needs will improve: Discuss information regarding discharge instructions Identify discharge learning needs (meds, wound care, etc.) Problem: Fall Risk Goal: Ability to state ways to decrease the risk of falls will improve Outcome: Ongoing Flowsheets (Taken 04/28/2024739) Ability to state ways to decrease the risk of falls will improve: Teach fall prevention measures Goal: Will remain free from falls Outcome: Ongoing Flowsheets (Taken 04/28/2024739) Will remain free from falls: Assess risk factors for falls Implement fall prevention measures Goal: Will remain free from injury from falls Outcome: Ongoing Flowsheets (Taken 04/28/2024739) Will remain free from injury from falls: Provide safe environment for conduction of activities of daily living in hospital environment Problem: Skin Integrity Impairment Risk Goal: Mobility will improve Outcome: Ongoing Flowsheets (Taken 04/28/2024739) Mobility will improve: Encourage mobilization to extent of ability, assist with range of motion as needed Encourage turning and repositioning, assist as needed Goal: Understanding of ways to prevent future skin breakdown will improve Outcome: Ongoing Flowsheets (Taken 04/28/2024739) Understanding of ways to prevent future skin breakdown will improve: Discuss treatments to protect skin integrity Goal: Nutritional status will improve Outcome: Ongoing Flowsheets (Taken 04/28/2024739) Nutritional status will improve: Assess nutritional status Goal: Risk for impaired skin integrity will decrease Outcome: Ongoing Flowsheets (Taken 04/28/2024739) Risk for impaired skin integrity will decrease: Identify risk factors for impaired skin integrity and/or pressure injuries Problem: Respiratory Goal: Achieves optimal ventilation and oxygenation Outcome: Ongoing Flowsheets (Taken 04/28/2024739) Achieves optimal ventilation and oxygenation: Assess for changes in respiratory status Problem: Cardiovascular Goal: Absence of cardiac dysrhythmias or at baseline Outcome: Ongoing Flowsheets (Taken 04/28/2024739) Absence of cardiac dysrhythmias or at baseline: Continuous cardiac monitoring, monitor vital signs,obtain 12 lead EKG if indicated Problem: Lack of Knowledge Goal: Ability to develop a pain control plan will improve Outcome: Ongoing Flowsheets (Taken 04/28/2024 0740) Ability to develop a pain control plan will improve: Explain causes of pain and how long pain can be expected to last Problem: Medication Goal: Satisfaction with pain management medication regimen will improve Outcome: Ongoing Flowsheets (Taken 04/28/2024739) Satisfaction with pain management medication regimen will improve: Assess satisfaction with pain management regimen Problem: Sensory Goal: Ability to identify factors that increase pain levels will improve while working to decrease the patient's pain levels Outcome: Ongoing Flowsheets (Taken 04/28/2024739) Ability to identify factors that increase pain levels will improve while working to decrease patients pain levels: Assess pain status Problem: Coping Goal: Ability to cope will improve Outcome: Ongoing Flowsheets (Taken 04/28/2024739) Ability to cope will Improve: Encourage vebalization of feelings surrounding pain Problem: Health Behavior Goal: Identification of resources available to assist in meeting health care needs will improve Outcome: Ongoing 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 * Plan of Care - Noble Taveras RN - 04/28/2024 1:38 PM CST CM received phone call from [facility] stating that the doctor is already gone for the day but they will review this referral and get back to me tomorrow morning (04/29/24). 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 * Plan of Care - Flako Landers RN - 04/28/2024 5:03 AM HOME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 Problem: Discharge Planning Goal: Understanding discharge needs will improve Outcome: Ongoing Problem: Fall Risk Goal: Ability to state ways to decrease the risk of falls will improve Outcome: Ongoing Goal: Will remain free from falls Outcome: Ongoing Goal: Will remain free from injury from falls Outcome: Ongoing Problem: Skin Integrity Impairment Risk Goal: Mobility will improve Outcome: Ongoing Goal: Understanding of ways to prevent future skin breakdown will improve Outcome: Ongoing Goal: Nutritional status will improve Outcome: Ongoing Goal: Risk for impaired skin integrity will decrease Outcome: Ongoing Problem: Respiratory Goal: Achieves optimal ventilation and oxygenation Outcome: Ongoing Problem: Cardiovascular Goal: Absence of cardiac dysrhythmias or at baseline Outcome: Ongoing Problem: Lack of Knowledge Goal: Ability to develop a pain control plan will improve Outcome: Ongoing Problem: Medication Goal: Satisfaction with pain management medication regimen will improve Outcome: Ongoing Problem: Sensory Goal: Ability to identify factors that increase pain levels will improve while working to decrease the patient's pain levels Outcome: Ongoing Problem: Coping Goal: Ability to cope will improve Outcome: Ongoing Problem: Health Behavior Goal: Identification of resources available to assist in meeting health care needs will improve Outcome: Ongoing Goals: Clinical Goals for the Shift: VSS, decrease pain, safety Summary: Pt VSS. Pt on 2L NC. Pt received PRN tylenol and ice for R hip pain. Pt repositions self in bed. Call light in reach and bed alarm on. 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 * Plan of Care - Samantha Horton RN - 04/27/2024 4:14 PM CST Goals: Clinical Goals for the Shift: VSS, breathing better, HR stable, provide comfort and safety Summary: Patient A&O, VSS. Patient placed on O2 at 2L this morning for feeling SOB. Prior to working with therapy patient had removed his oxygen and O2 sats noted to be 88% and he was placed backon 2L and came back up to 95% per continuous pulse ox. Patient had not c/o pain this shift but doesneed help moving his leg. Up to chair, voids per urinal. Comfort and safety provided, call light within reach. Problem: Discharge Planning Goal: Understanding discharge needs will improve Outcome: Ongoing Flowsheets (Taken 04/27/2024 0810) Understanding of discharge needs will improve: Discuss information regarding discharge instructions Identify discharge learning needs (meds, wound care, etc.) Problem: Fall Risk Goal: Ability to state ways to decrease the risk of falls will improve Outcome: Ongoing Flowsheets (Taken 04/27/2024 0810) Ability to state ways to decrease the risk of falls will improve: Teach fall prevention measures Goal: Will remain free from falls Outcome: Ongoing Flowsheets (Taken 04/27/2024 08) Will remain free from falls: Assess risk factors for falls Implement fall prevention measures Goal: Will remain free from injury from falls Outcome: Ongoing Flowsheets (Taken 04/27/2024809) Will remain free from injury from falls: Provide safe environment for conduction of activities of daily living in hospital environment Problem: Skin Integrity Impairment Risk Goal: Mobility will improve Outcome: Ongoing Flowsheets (Taken 04/27/2024809) Mobility will improve: Encourage mobilization to extent of ability, assist with range of motion as needed Encourage turning and repositioning, assist as needed Goal: Understanding of ways to prevent future skin breakdown will improve Outcome: Ongoing Flowsheets (Taken 04/27/2024809) Understanding of ways to prevent future skin breakdown will improve: Discuss treatments to protect skin integrity Goal: Nutritional status will improve Outcome: Ongoing Flowsheets (Taken 04/27/2024809) Nutritional status will improve: Assess nutritional status Goal: Risk for impaired skin integrity will decrease Outcome: Ongoing Flowsheets (Taken 04/27/2024809) Risk for impaired skin integrity will decrease: Identify risk factors for impaired skin integrity and/or pressure injuries Monitor skin integrity, appearance and temperature Implement precautions to protect skin integrity Problem: Respiratory Goal: Achieves optimal ventilation and oxygenation Outcome: Ongoing Flowsheets (Taken 04/27/2024809) Achieves optimal ventilation and oxygenation: Assess for changes in respiratory status Problem: Cardiovascular Goal: Absence of cardiac dysrhythmias or at baseline Outcome: Ongoing Flowsheets (Taken 04/27/2024809) Absence of cardiac dysrhythmias or at baseline: Continuous cardiac monitoring, monitor vital signs,obtain 12 lead EKG if indicated 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 * Incidental Note - Karissa Mchugh MD - 04/27/2024 3:41 PM CST Progress update- no charge Patient found to be in AFib with heart rates up to 150 and he was also pretty hypoxic Overnight heart rate now under control on current medication Patient currently requiring 2 L of oxygen saturating about 96% Discussed case with Dr. 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 [facility]domo [facility] --> will decrease Solu-Medrol to q.12 Continue with DuoNeb Hypothyroidism TSH found to be 10.28----> currently on Synthroid 112.5 will increase to 125 Patient will need repeat TSH in 6 weeks Karissa Mchugh MD 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 * Plan of Care - Noble Taveras RN - 04/27/2024 2:25 PM CST [facility]erral [facility] bed 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 * Initial Assessments - Noble Tavears RN - 04/27/2024 10:33 AM CST CM Initial Assessment Interview Note Information Obtained From: Patient (04/27/24 1032) Admission Source: ED via EMS from [facility] Impression: Patient brought to ED from [facility] for elevated heart rate and shortness of breath Plan Includes: cardiology consult Primary Source of Transportation: Does the patient need discharge transport arranged?: No (04/27/24 1032) Health Insurance Coverage: Medicare Prescription Coverage: yes Pharmacy: [facility] Pharm[facility] - Fax or Paper Script Only - send e-rx to [facility] [address] [facility] [id number] Primary Care Provider: Mikey Rubin Prior to Admission: Functional Status: Minimal assist with ADLs Primary Caregiver: Self Support System: Spouse/Significant Other Home Care Services: No Outpatient Services: No Durable Medical Equipment: None Living Arrangements: Spouse/significant other Type of Residence: Private residence Medication management: Independent (04/27/24 1032) SDOH: Transportation: In the past 12 months, has lack of transportation kept you from medical appointments or from getting medications?: No In the past 12 months, has lack of transportation kept you from meetings, work, or from getting things needed for daily living?: No (04/27/24 1033) Financial Resource: How hard is it for you to pay for the very basics like food, housing, medical care, and heating?: Not hard at all (04/27/241032) Housing: In the last 12 months, was there a time when you were not able to pay the mortgage or rent on time?: No In the past 12 months, how many times have you moved where you were living?: 0 At any time in the past 12 months, were you homeless or living in a long-term (including now)?: No (04/27/241032) Utilities: No, (04/27/241032) Social Connections: In a typical week, how many times do you talk on the phone with family, friends, or neighbors?: More than three times a week How often do you get together with friends or relatives?: More than three times a week How often do you attend voodoo or religion services?: Never Do you belong to any clubs or organizations such as voodoo groups, unions, fraternal or athletic groups, or school groups?: No How often do you attend meetings of the clubs or organizations you belong to?: Never Are you , , , , never , or living with a partner?: (04/27/241032) Food Insecurity: Within the past 12 months, you worried that your food would run out before you got the money to buymore.: Never true Within the past 12 months, the food you bought just didn't last and you didn't have money to get more.: Never true (04/27/241032) Alcohol Use: PHQ Screening Potential discharge needs include: OP Services: Dialysis: Behavioral Health Services: Behavioral Health Services: No (04/27/241031) Anticipated Level of Care: Anticipated discharge level of care: alf facility (short term care) Pt/Family agrees with Anticipated Level of Care: Yes (04/27/241031) Patient expects to be Discharged to: Jail Facility (short term care), (04/27/241031) Additional Information: Discharge plan discussed with the patient. He lives home with his but was just sent to [facility] for short term rehab. Patient was not happy at allthe time he was at the facility and does not want to return. He would like to go to [facility] at discharge. Will send referrals as needed. Patient's Identified Problem/Goal Problem: Ensure acute medical needs are met and that patient has a safe discharge plan. Goal: Secure a discharge plan that patient/family are agreeable with and ensure patient has continuum of care. Case management will follow for discharge planning and send referrals as needed. Goals include: To assure continuity of care, To maximize coping skills, To assure patient is in a safe environment and To assure access to community resources. Plan includes: 1. Collaboration with Patient, Provider, Direct Care Nurse, Telephone Solicitor, and other members of theHealth Care Team to assure needed interventions completed. 2. Return patient to optimal level of self-care post discharge. 3. Marker Machine Attendant will follow for Discharge Planning - interventions as needed 4. Anticipated level of care at discharge 5. Planned Discharge Disposition Noble Taveras RN 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 * Plan of Care - Naye Shelton LCSW - 04/27/2024 10:04 AM CST 04/27/24 1002 Type Readmission </= 30 Days? Yes High Utilizer >/= 4 Hospitalizations in 12 Months? No Is this Patient Active with an Outpatient Case Management Program? No Record Review of Prior Admission Was this Readmission Planned? No Disposition at Prior Admit D/C SNF Was the D/C Location what the Care Team Recommended? Yes Functional Status at Index D/C Bed to chair If 6-Click Score on Previous Admission was < 17 was PT/OT Ordered? Yes Cognitive Status at Index D/C A&O x3 High Risk Medications Anticoagulants Is Patient ACO No Patient Interview Patient Discharged prior to Interview No Did Patient have assigned PCP on Discharge? Yes Was Appointment made on Index Discharge? No Who Provided the Information Patient In Patient's own words, what led to return to Hospital Short of breath and racing heartbeat (elevated heart rate). Was Patient Discharged to Home No Did Patient Contact Provider prior to Admission No Primary Readmission Reason Complications from previous admission (likely related to) (Pt readmitted within 24 hours of DC.) 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 * Plan of Care - Lynsey Escoto RN - 04/27/2024 3:58 AM CST Goals: Clinical Goals for the Shift: VSS, HR stable, rest comfortably Summary: VSS, pt arrived to floor in NSR. Now resting comfortably. Problem: Discharge Planning Goal: Understanding discharge needs will improve Outcome: Ongoing Problem: Fall Risk Goal: Ability to state ways to decrease the risk of falls will improve Outcome: Ongoing Goal: Will remain free from falls Outcome: Ongoing Goal: Will remain free from injury from falls Outcome: Ongoing Problem: Skin Integrity Impairment Risk Goal: Mobility will improve Outcome: Ongoing Goal: Understanding of ways to prevent future skin breakdown will improve Outcome: Ongoing Goal: Nutritional status will improve Outcome: Ongoing Goal: Risk for impaired skin integrity will decrease Outcome: Ongoing Problem: Respiratory Goal: Achieves optimal ventilation and oxygenation Outcome: Ongoing Problem: Cardiovascular Goal: Absence of cardiac dysrhythmias or at baseline Outcome: Ongoing 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 * ED Re-evaluation Note - Bethany Peace MD - 04/27/2024 12:26 AM CST ED Re-evaluation Assumed care of patient from [facility] 73 y/o M sudden onset SOB 1730, HR 150s, hypoxic, now on 2L. Pmhx: afib on dig and sotalol. Right hip fracture 04/21, surgery 04/22, discharged today. Pt had some lower blood pressure readings. Hospitalist Roderick has ordered midodrine. D/w cardio, recommends home meds. Hospitalist will come and eval ICU Shan recommends observation in ED. Vitals: 04/27/24 0130 04/27/24 0200 04/27/24 0249 04/27/24 0400 BP: 128/94 115/78 128/85 BP Location: Left arm Patient Position: Lying;HOB 30 degrees Pulse: 114 117 65 63 Resp: Temp: 36.2 ??C (97.1 ??F) TempSrc: Temporal SpO2: 98% 98% 98% 98% Weight: 103.6 kg (228 lb 6.3 oz) Height: 182.9 cm (6') PE: No acute distress, no respiratory distress, tachycardic Results for orders placed or performed during the hospital encounter of 04/26/24 Influenza A/B, RSV, and COVID-19 PCR Nasopharyngeal Collection Time: 04/26/24 9:06 PM Specimen: Nasopharyngeal Result Value Ref Range COVID-19 RNA Negative Negative Influenza A RNA Negative Negative Influenza B RNA Negative Negative RSV RNA Negative Negative CBC with auto differential Collection Time: 04/26/24 9:06 PM Result Value Ref Range WBC 8.9 3.8 - 9.9 K/cumm Hgb 12.9 (L) 13.0 - 17.5 g/dL Hct 38.4 (L) 38.9 - 50.3 % Plt 159 150 - 400 K/cumm MPV 10.7 9.1 - 12.3 fL RBC 4.19 (L) 4.30 - 5.80 M/cumm MCV 91.6 81.3 - 96.4 fL MCH 30.8 27.1 - 33.3 pg MCHC 33.6 32.3 - 35.7 g/dL RDW CV 14.6 11.1 - 14.9 % RDW SD 48.3 (H) 35.7 - 48.1 fL NRBC abs 0.02 (H) 0.00 - 0.01 K/cumm Comprehensive metabolic panel Collection Time: 04/26/24 9:06 PM Result Value Ref Range Sodium 134 (L) 135 - 145 mmol/L Potassium, pl 3.8 3.3 - 4.9 mmol/L Chloride 92 (L) 97 - 110 mmol/L CO2 31 22 - 32 mmol/L Anion gap 12 2 - 15 mmol/L BUN 21 6 - 25 mg/dL Creatinine 1.12 0.80 - 1.30 mg/dL Glucose 122 70 - 199 mg/dL Calcium 9.4 8.5 - 10.3 mg/dL Bilirubin, total 1.4 (H) 0.1 - 1.2 mg/dL Protein, pl 7.0 6.5 - 8.5 g/dL Albumin 4.0 3.5 - 5.0 g/dL Alk phos 80 40 - 130 Units/L ALT 10 7 - 55 Units/L AST 24 10 - 50 Units/L Troponin T high-sensitivity series (baseline, 2hr, 4hr, 6hr) Collection Time: 04/26/24 9:06 PM Result Value Ref Range Trop T hs 12 <=22 ng/L aPTT Collection Time: 04/26/24 9:06 PM Result Value Ref Range aPTT 35 28 - 38 sec Sepsis Lactate w/ Reflex Collection Time: 04/26/24 9:06 PM Result Value Ref Range Sepsis Lactate 2.0 0.7 - 2.0 mmol/L Pro B-type natriuretic peptide Collection Time: 04/26/24 9:06 PM Result Value Ref Range NT-proBNP 1,996 (H) <=300 pg/mL Magnesium Collection Time: 04/26/24 9:06 PM Result Value Ref Range Magnesium 2.4 1.4 - 2.5 mg/dL Thyroid Function Summers Collection Time: 04/26/24 9:06 PM Result Value Ref Range TSH 10.28 (H) 0.30 - 4.20 mcIUnit/mL Differential, auto Collection Time: 04/26/24 9:06 PM Result Value Ref Range Neutrophil abs 6.1 1.5 - 6.5 K/cumm Imm gran abs 0.0 0.0 - 0.1 K/cumm Lymphocyte abs 1.8 0.8 - 3.3 K/cumm Monocyte abs 0.7 0.2 - 0.8 K/cumm Eosinophil abs 0.2 0.0 - 0.5 K/cumm Basophil abs 0.0 0.0 - 0.1 K/cumm Neutrophil pct 68.7 % Imm gran pct 0.5 % Lymphocyte pct 20.3 % Monocyte pct 7.9 % Eosinophil pct 2.1 % Basophil pct 0.5 % eGFR Collection Time: 04/26/24 9:06 PM Result Value Ref Range eGFR 70 >=60 mL/min/1.73 m2 T4, free Collection Time: 04/26/24 9:06 PM Result Value Ref Range Free T4 1.59 0.90 - 1.70 ng/dL Troponin T high-sensitivity 2-hour Collection Time: 04/26/24 11:40 PM Result Value Ref Range Trop T hs 13 <=22 ng/L Trop T hs delta 1 ng/L Trop T hs interp Insignificant CT Chest PE (CTA) W Contrast Final Result XR Chest 1 Vw Portable Final Result ED Course as of 04/27/24 0412 Time: 04/26 2150 Value: ECG 12 lead Comment: (Reviewed) By: Rosa Elena Joyce PA Time: 04/26 2150 Value: XR Chest 1 Vw Portable Comment: IMPRESSION: Low lung volumes. No evidence of an acute cardiopulmonary abnormality. By: Rosa Elena Joyce PA Time: 04/26 2231 Value: CT Chest PE (CTA) W Contrast Comment: IMPRESSION: 1. No CT evidence of pulmonary embolism. 2. Noncalcified pulmonary nodules measuring up to 5 mm. According to updated Fleischner Society guidelines, if the patient is at high risk for development of lung cancer, follow-up chest CT in 12 months could be considered. Reference :Radiographics. 2018 Nov-Dec;38(5):6644-5597 3. Moderate upper lobe predominant bilateral pulmonary emphysema. By: Rosa Elena Joyce PA Time: 04/26 2309 Value: TSH(!): 10.28 Comment: (Reviewed) By: Rosa Elena Joyce PA Time: 04/26 2330 Value: NT-proBNP(!): 1,996 Comment: (Reviewed) By: Rosa Elena Joyce PA Time: 04/26 9423 Comment: Discussed case with cardiology who recommeded continuing current medications. Digoxin and sotalol. By: Rosa Elena Joyce PA Time: 04/26 1442 Comment: Dr. Vaughn would like me to discuss case with the security nurse prior to acceptance due to hypotension By: Rosa Elena Joyce PA Time: 04/27 0009 Comment: Discussed case with tele ICU physician Dr. Torrez recommends monitoring the patient in the emergency department for a while longer before deciding bed placed By: Rosa Elena Joyce PA Time: 04/27 0040 Comment: Care transferred to Dr. Peace By: Rosa Elena Joyce PA 73-year-old male presenting with shortness of breath and tachycardia. Patient also found to be in heart failure this evening. Patient will be admitted for further management. Patient has been evaluated by hospitalist here in the ER. He is stable for admission at this time. Diagnosis: 1. COPD exacerbation (HCC) 2. Acute on chronic congestive heart failure, unspecified heart failure type (HCC) 3. Hypoxia 4. Atrial fibrillation with RVR (CMS/HCC) (HCC) Disposition: Admit Bethany Peace MD 04/27/24 0413 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 documented in this encounter Plan of Treatment Scheduled Orders Name Type Priority Associated Diagnoses Order Schedule Adult Bronchodilator Therapy Protocol Respiratory Care Routine Until disconti nued until discontinued starting 04/26/2024 Comprehensive metabolic panel Lab Routine AM draw - collec t with morning lab draw until discontinued starting 04/27/2024, 4 completed Magnesium Lab Routine AM draw - rupa ect with morning lab draw until discontinued starting 04/27/2024, 5 completed CBC with auto differential Lab Routine AM draw - collec t with morning lab draw until discontinued starting 04/27/2024, 4 completed Basic metabolic panel Lab Routine AM draw - collect with morning lab draw until discontinued starting 04/27/2024, 1 completed documented as of this encounter Procedures Procedure Name Priority Date/Time Associated Diagnosis Comments EGFR Routine 05/01/2024 3:46 AM HOME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 DIFFERENTIAL AUTO Routine 05/01/2024 3:4 6 AM HOME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 CBC WITH AUTO DIFFERENTIAL Routine 05/01/2024 3:46 AM HOME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 MAGNESIUM Routine 05/01/2024 3:46 AM HOME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 COMPREHENSIVE METABOLIC PANEL Routine 05/01/2024 3:46 AM HOME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 EGFR Routine 04/30/2024 2:29 AM HOME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 DIFFERENTIAL AUTO Routine 04/30/2024 2:2 9 AM HOME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 CBC WITH AUTO DIFFERENTIAL Routine 04/30/2024 2:29 AM HOME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 MAGNESIUM Routine 04/30/2024 2:29 AM HOME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 COMPREHENSIVE METABOLIC PANEL Routine 04/30/2024 2:29 AM HOME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 EGFR Routine 04/29/2024 2:17 AM HOME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 DIFFERENTIAL AUTO Routine 04/29/2024 2:1 7 AM HOME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 CBC WITH AUTO DIFFERENTIAL Routine 04/29/2024 2:17 AM HOME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 CBC WITHOUT DIFFERENTIAL Routine 04/29/2024 2:17 AM HOME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 MAGNESIUM Routine 04/29/2024 2:17 AM HOME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 COMPREHENSIVE METABOLIC PANEL Routine 04/29/2024 2:17 AM HOME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 EGFR Routine 04/28/2024 3:05 AM HOME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 DIFFERENTIAL AUTO Routine 04/28/2024 3:0 5 AM HOME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 CBC WITH AUTO DIFFERENTIAL Routine 04/28/2024 3:05 AM HOME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 CBC WITHOUT DIFFERENTIAL Routine 04/28/2024 3:05 AM HOME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 MAGNESIUM Routine 04/28/2024 3:05 AM HOME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 DIGOXIN LEVEL Routine 04/28/2024 3:05 AM HOME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 COMPREHENSIVE METABOLIC PANEL Routine 04/28/2024 3:05 AM HOME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 POCT GLUCOSE DEVICE Routine 04/27/2024 4 :45 PM HOME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 EGFR Routine 04/27/2024 9:08 AM HOME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 CBC WITHOUT DIFFERENTIAL Routine 04/27/2024 9:08 AM HOME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 MAGNESIUM Routine 04/27/2024 9:08 AM HOME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 BASIC METABOLIC PANEL Routine 04/27/2024 9:08 AM HOME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 TROPONIN T HIGH-SENSITIVITY 2-HOUR Timed 04/26/2024 11:40 PM HOME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 CT CHEST PE W CONTRAST ED 9:55 PM HOME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 XR CHEST 1 VIEW ED 04/26/2024 9:32 PM HOME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 ECG 12-LEAD STAT 04/26/2024 9:12 PM HOME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 TROPONIN T HIGH-SENSITIVITY SERIES (BASELINE, 2HR, 4HR, 6HR) STAT 04/26/2024 9:06 PM HOME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 INFLUENZA A/B, RSV, AND COVID-19 PCR Routine 04/26/2024 9:06 PM HOME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 SEPSIS LACTATE WITH REFLEX Routine 04/26/2024 9:06 PM HOME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 EGFR STAT 04/26/2024 9:06 PM HOME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 DIFFERENTIAL AUTO STAT 04/26/2024 9:0 6 PM HOME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 PRO B-TYPE NATRIURETIC PEPTIDE STAT 04/26/2024 9:06 PM HOME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 THYROID FUNCTION CASCADE Routine 04/26/2024 9:06 PM HOME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 CBC WITH AUTO DIFFERENTIAL STAT 04/26/2024 9:06 PM HOME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 APTT STAT 04/26/2024 9:06 PM HOME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 T4, FREE Routine 04/26/2024 9:06 PM HOME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 MAGNESIUM Routine 04/26/2024 9:06 PM HOME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 COMPREHENSIVE METABOLIC PANEL STAT 04/26/2024 9:06 PM HOME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 documented in this encounter Results * eGFR (05/01/2024 3:46 AM HOME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) [facility] Signature eGFR 79 >=60 mL/min/1. 73 m2 Comment: [...] last reviewed 2021. Blood 05/01/2024 3:46 AM HOME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 05/01/2024 4:16 AM HOME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 us Maggi Vaughn MD LAB BLOOD ORDERABLES Fi nal Result [facility] ([place]) 1 [facility] Department [place] [address] * (ABNORMAL) Differential, auto (05/01/2024 3:46 AM HOME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) Neutrophil abs 7.3(H) 1.5 - 6.5 K/cumm [...] revised on 2017. Blood 05/01/2024 3:46 AM HOME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 05/01/2024 4:14 AM HOME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 us Maggi Vaughn MD LAB BLOOD ORDERABLES Fi nal Result RONNIE CHERRIE ([place]) 1 [facility] Department [place] [address] * (ABNORMAL) CBC with auto differential (05/01/2024 3:46 AM HOME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) WBC 10.5(H) 3.8 - 9.9 K/cumm Hgb [...] [facility] ([place]) Blood 05/01/2024 3:46 AM HOME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 05/01/2024 4:14 AM HOME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 Maggi Vaughn MD LAB BLOOD ORDERABLES Fi nal Result Performing Organization Address City/[facility] Co de Phone Number RONNIE GRIER ([place]) 1 [facility] [place] [address] * Magnesium (05/01/2024 3:46 AM HOME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) Magnesium 2.4 1.4 - 2.5 mg/dL Blood 05/01/2024 3:46 AM HOME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 05/01/2024 4:16 AM HOME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 Maggi Vaughn MD LAB BLOOD ORDERABLES Fi nal Result Performing Organization Address City/[facility]/ZIP Co de Phone Number RONNIE GRIER ([place]) 1 [facility] [employer] [address] * (ABNORMAL) Comprehensive metabolic panel (05/01/2024 3:46 AM HOME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) Sodium 137 135 - 145 mmol/L Potassium, [...] Hemolyzed S pecimen Blood 05/01/2024 3:46 AM HOME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 05/01/2024 4:16 AM HOME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 Maggi Vaughn MD LAB BLOOD ORDERABLES Fi nal Result Performing Organization Address City/[facility]/ZIP Co de Phone Number RONNIE GRIER ([place]) 1 [facility] Department [place] [address] * eGFR (04/30/2024 2:29 AM HOME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) eGFR 79 >=60 mL/min/1. 73 m2 Comment: [...] last reviewed 2021. Blood 04/30/2024 2:29 AM HOME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 04/30/2024 2:59 AM HOME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 us Maggi Vaughn MD LAB BLOOD ORDERABLES Fi nal Result RONNIE GRIER ([place]) 1 [facility] Department [place] [address] * (ABNORMAL) Differential, auto (04/30/2024 2:29 AM HOME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) Neutrophil abs 7.7(H) 1.5 - 6.5 K/cumm [...] 2017. Monocyte pct 10.3 % [facility] ([place]) Comment: Interpretive Data Percent cell count reference [...] revised on 2017. Blood 04/30/2024 2:29 AM HOME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 04/30/2024 2:58 AM HOME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 Maggi Vaughn MD LAB BLOOD ORDERABLES Fi nal Result [facility] ([place]) 1 [facility] Department [place] [address] * (ABNORMAL) CBC with auto differential (04/30/2024 2:29 AM HOME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) WBC 10.8(H) 3.8 - 9.9 K/cumm Hgb [...] [facility] ([place]) Blood 04/30/2024 2:29 AM HOME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 04/30/2024 2:58 AM HOME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 Maggi Vaughn MD LAB BLOOD ORDERABLES Fi nal Result [facility] ([place]) 1 [facility] Department [place] [address] * Magnesium (04/30/2024 2:29 AM HOME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) Magnesium 2.5 1.4 - 2.5 mg/dL Blood 04/30/2024 2:29 AM HOME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 04/30/2024 2:59 AM HOME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 us Maggi Vaughn MD LAB BLOOD ORDERABLES Fi nal Result [facility] ([place]) 1 [facility] Department [place] [address] * (ABNORMAL) Comprehensive metabolic panel (04/30/2024 2:29 AM HOME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) Sodium 138 135 - 145 mmol/L Potassium, [...] [facility] ([place]) Blood 04/30/2024 2:29 AM HOME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 04/30/2024 2:59 AM HOME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 us Maggi Vaughn MD LAB BLOOD ORDERABLES Fi nal Result RONNIE GRIER ([place]) 1 [facility] Department [place] [address] * eGFR (04/29/2024 2:17 AM HOME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) eGFR 81 >=60 mL/min/1. 73 m2 Comment: [...] last reviewed 2021. Blood 04/29/2024 2:17 AM HOME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 04/29/2024 3:48 AM HOME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 us Maggi Vaughn MD LAB BLOOD ORDERABLES Fi nal Result RONNIE GRIER ([place]) 1 [facility] Department [place] [address] * Differential, auto (04/29/2024 2:17 AM HOME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) Neutrophil abs 6.5 1.5 - 6.5 K/cumm Imm gran abs 0.1 0.0 - 0.1 K/cumm [facility] ([place]) Lymphocyte abs 0.8 0.8 - 3.3 K/cumm [facility] ([place]) Monocyte abs 0.3 0.2 - 0.8 K/cumm [facility] ([place]) Eosinophil abs 0.0 0.0 - 0.5 K/cumm [facility] ([place]) Basophil abs 0.0 0.0 - 0.1 K/cumm [facility] ([place]) Neutrophil pct 84.9 % [facility] ([place]) Comment: Interpretive Data Percent cell count reference ranges are not reported, since discordance with absolute values may lead to misinterpretation of CBC data. Current Interpretive Data was last revised on 2017. Imm gran pct 0.8 % [facility] ([place]) Comment: Interpretive Data Percent cell count reference [...] 2017. Monocyte pct 3.8 % [facility] ([place]) Comment: Interpretive Data Percent cell count reference [...] revised on 2017. Blood 04/29/2024 2:17 AM HOME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 04/29/2024 3:46 AM HOME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 us Maggi Vaughn MD LAB BLOOD ORDERABLES Fi nal Result [facility] ([place]) 1 [facility] [place] [address] * (ABNORMAL) CBC without differential (04/29/2024 2:17 AM HOME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) WBC 7.7 3.8 - 9.9 K/cumm Hgb [...] [facility] ([place]) Blood 04/29/2024 2:17 AM HOME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 04/29/2024 3:46 AM HOME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 us Karissa Mchugh MD LAB BLOOD ORDERABLES Umm l Result [facility] ([place]) 1 [facility] [place] [address] * (ABNORMAL) CBC with auto differential (04/29/2024 2:17 AM HOME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) WBC 7.7 3.8 - 9.9 K/cumm Hgb [...] [facility] ([place]) Blood 04/29/2024 2:17 AM HOME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 04/29/2024 3:46 AM HOME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 us Maggi Vaughn MD LAB BLOOD ORDERABLES Fi nal Result [facility] ([place]) 1 [facility] [place] [address] * Magnesium (04/29/2024 2:17 AM HOME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) Magnesium 2.4 1.4 - 2.5 mg/dL Blood 04/29/2024 2:17 AM HOME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 04/29/2024 3:48 AM HOME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 us Maggi Vaughn MD LAB BLOOD ORDERABLES Fi nal Result [facility] ([place]) 1 [facility] Department [place] [address] * (ABNORMAL) Comprehensive metabolic panel (04/29/2024 2:17 AM HOME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) Sodium 138 135 - 145 mmol/L Potassium, [...] ([place]) AST 20 10 - 50 Units/L [facility] ([place]) Blood 04/29/2024 2:17 AM HOME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 04/29/2024 3:48 AM HOME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 us Maggi Vaughn MD LAB BLOOD ORDERABLES Fi nal Result R[facility]NIE G[facility] ([place]) 1 [facility] Department [place] [address] * eGFR (04/28/2024 3:05 AM HOME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) eGFR 76 >=60 mL/min/1. 73 m2 Comment: [...] last reviewed 2021. Blood 04/28/2024 3:05 AM HOME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 04/28/2024 4:33 AM HOME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 us Maggi Vaughn MD LAB BLOOD ORDERABLES Fi nal Result [facility] ([place]) 1 [facility] Department [place] [address] * (ABNORMAL) Differential, auto (04/28/2024 3:05 AM HOME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) Neutrophil abs 6.9(H) 1.5 - 6.5 K/cumm Imm gran abs 0.0 0.0 - 0.1 K/cumm [facility] ([place]) Lymphocyte abs 0.8 0.8 - 3.3 K/cumm [facility] ([place]) Monocyte abs 0.4 0.2 - 0.8 K/cumm [facility] ([place]) Eosinophil abs 0.0 0.0 - 0.5 K/cumm [facility] ([place]) Basophil abs 0.0 0.0 - 0.1 K/cumm [facility] ([place]) Neutrophil pct 84.8 % [facility] ([place]) Comment: Interpretive Data Percent cell count reference ranges are not reported, since discordance with absolute values may lead to misinterpretation of CBC data. Current Interpretive Data was last revised on 2017. Imm gran pct 0.5 % [facility] ([place]) Comment: Interpretive Data Percent cell count reference ranges are not reported, since discordance with absolute values may lead to misinterpretation of CBC data. Current Interpretive Data was last revised on 2017. Lymphocyte pct 9.9 % [facility] ([place]) Comment: Interpretive Data Percent cell count reference ranges are not reported, since discordance with absolute values may lead to misinterpretation of CBC data. Current Interpretive Data was last revised on 2017. Monocyte pct 4.7 % [facility] ([place]) Comment: Interpretive Data Percent cell count reference ranges are not reported, since discordance with absolute values may lead to misinterpretation of CBC data. Current Interpretive Data was last revised on 2017. Eosinophil pct 0.0 % [facility] ([place]) Comment: Interpretive Data Percent cell count reference [...] revised on 2017. Blood 04/28/2024 3:05 AM HOME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 04/28/2024 4:31 AM HOME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 us Maggi Vaughn MD LAB BLOOD ORDERABLES Fi nal Result [facility] ([place]) 1 [facility] [place] [address] * (ABNORMAL) CBC without differential (04/28/2024 3:05 AM HOME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) WBC 8.1 3.8 - 9.9 K/cumm Hgb [...] [facility] [facility] ([place]) Blood 04/28/2024 3:05 AM HOME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 04/28/2024 4:31 AM HOME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 us Karissa Mchugh MD LAB BLOOD ORDERABLES Umm l Result Performing Organization Address [facility] Co de Phone Number RONNIE GRIER ([place]) 1 [facility] [place] [address] * Digoxin level (04/28/2024 3:05 AM HOME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) [facility] Digoxin 0.7 0.5 - 1.2 ng/mL Comment: Interpretive data The therapeutic range for digoxin varies by indication: Heart failure: 0.5 to 0.8 ng/mL Atrial fibrillation: less than 1.2 ng/mL Toxicity: >2.4. Normal or low digoxin does not rule out toxicity. Current interpretive data was last revised on 2023. Blood 04/28/2024 3:05 AM HOME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 04/28/2024 4:33 AM HOME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 Karissa Mchugh MD LAB BLOOD ORDERABLES Umm l Result Performing Organization Address [facility] Co de Phone Number RONNIE GRIER ([place]) 1 [facility] [place] [address] * (ABNORMAL) CBC with auto differential (04/28/2024 3:05 AM HOME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) [facility] WBC 8.1 3.8 - 9.9 K/cumm Hgb [...] RDW SD 51.1(H) 35.7 - 48.1 fL [facility] ([place]) NRBC abs 0.00 0.00 - 0.01 K/cumm [facility] ([place]) Blood 04/28/2024 3:05 AM HOME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 04/28/2024 4:31 AM HOME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 Maggi Vaughn MD LAB BLOOD ORDERABLES Fi nal Result [facility]ONNIE [facility] ([place]) 1 [facility] [place] [address] * Magnesium (04/28/2024 3:05 AM HOME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) [facility] Magnesium 2.5 1.4 - 2.5 mg/dL Blood 04/28/2024 3:05 AM HOME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 04/28/2024 4:33 AM HOME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 Maggi Vaughn MD LAB BLOOD ORDERABLES Fi nal Result Performing Organization Address [facility]/ZIP Co de Phone Number [facility] ([place]) 1 [facility] [place] [address] * (ABNORMAL) Comprehensive metabolic panel (04/28/2024 3:05 AM HOME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) Sodium 136 135 - 145 mmol/L Potassium, pl 4.3 3.3 - 4.9 mmol/L [facility] ([place]) Chloride 96(L) 97 - 110 mmol/L [facility] ([place]) CO2 29 22 - 32 mmol/L [facility] ([place]) Anion gap 11 2 - 15 mmol/L [facility] ([place]) BUN 22 6 - 25 mg/dL [facility] ([place]) Creatinine 1.05 0.80 - 1.30 mg/dL [facility] ([place]) Glucose 132 70 - 199 mg/dL [facility] ([place]) Comment: Interpretive Data Fasting glucose >/= [...] Slightly Hemolyzed Specimen Blood 04/28/2024 3:05 AM HOME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 04/28/2024 4:33 AM HOME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 Maggi Vaughn MD LAB BLOOD ORDERABLES Fi nal Result RONNIE GRIER ([place]) 1 [facility] [employer] [place] [address] * POCT glucose (04/27/2024 4:45 PM HOME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) Glucose, POC 153 70 - 199 mg/dL Blood 04/27/2024 4:45 PM HOME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 04/27/2024 4:45 PM HOME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 Karissa Mchugh MD LAB POCT ORDERABLES - DEV ICE Final Result RONNIE [facility] ([place]) 1 [facility] [place] [address] * eGFR (04/27/2024 9:08 AM HOME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) eGFR 80 >=60 mL/min/1. 73 m2 Comment: [...] last reviewed 2021. Blood 04/27/2024 9:08 AM HOME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 04/27/2024 9:11 AM HOME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 us Karissa Mchugh MD LAB BLOOD ORDERABLES Umm bernal Result RONNIE GRIER ([place]) 1 [facility] Department [place] [address] * (ABNORMAL) CBC without differential (04/27/2024 9:08 AM HOME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) Pathologist [facility] WBC 6.5 3.8 - 9.9 K/cumm Hgb 12.4(L) 13.0 - 17.5 g/dL RONNIE GRIER ([place]) Hct 36.8(L) 38.9 - 50.3 % [facility] [...] abs 0.00 0.00 - 0.01 K/cumm [facility] Blood 04/27/2024 9:08 AM HOME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 04/27/2024 9:11 AM HOME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 us Karissa Mchugh MD LAB BLOOD ORDERABLES Umm bernal Result [facility] ([place] 1 [facility] [place] [address] * (ABNORMAL) Basic metabolic panel (04/27/2024 9:08 AM HOME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) Sodium 134(L) 135 - 145 mmol/L Potassium, pl 4.5 3.3 - 4.9 mmol/L [facility] ([place] Chloride 94(L) 97 - 110 mmol/L [facility] ([place] CO2 26 22 - 32 mmol/L [facility] ([place]) Anion gap 14 2 - 15 mmol/L [facility] ([place]) BUN 22 6 - 25 mg/dL [facility] ([place]) Creatinine 1.01 0.80 - 1.30 mg/dL [facility] ([place] Comment:Icteric sample, test results may be affected. Glucose 178 70 - 199 mg/dL [facility] ([place] Comment: Interpretive Data Fasting [...] 2022. Calcium 9.2 8.5 - 10.3 mg/dL [facility]IE [facility] ([place]) Blood 04/27/2024 9:08 AM HOME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 04/27/2024 9:11 AM HOME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 Karissa Mchugh MD LAB BLOOD ORDERABLES Umm l Result Performing Organization Address [facility]/ZIP Co de Phone Number [facility] ([place]) [address] [place] [address] [place] [address] * Magnesium (04/27/2024 9:08 AM HOME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) Magnesium 2.2 1.4 - 2.5 mg/dL Blood 04/27/2024 9:08 AM HOME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 04/27/2024 9:55 AM HOME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 Maggi Vaughn MD LAB BLOOD ORDERABLES Fi nal Result Performing Organization Address [facility] Co de Phone Number [facility] ([place]) [address] [place] [address] [place] [address] * Troponin T high-sensitivity 2-hour (04/26/2024 11:40 PM HOME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) Trop T hs 13 <=22 ng/L Comment: Interpretive Data For further hscTnT resources including the diagnostic algorithm and an aid in interpretation, copy and paste this link: https://nrl.testcatalog.org/show/hsTrop Current Interpretive Data last revised 2020. Trop T hs delta 1 ng/L [facility] ([facility]) Trop T hs interp Insignificant [facility] ([place]) Blood 04/26/2024 11:4 0 PM HOME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 04/26/2024 11:43 PM HOME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 us Rosa Elena IBARRA LAB BLOOD ORDERABLES Umm l Result RONNIE [facility] ([place]) 1 [facility] Department [place] [address] * CT Chest PE (CTA) W Contrast (04/26/2024 9:55 PM HOME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) Anatomical Region Laterality Modality Body N/A Computed Tomogra phy 04/26/2024 9:56 PM HOME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 Narrative 04/26/2024 10:12 PM HOMELAND SECURITY PROGRAM SPECIALIST EXAM DESCRIPTION: ?? CT CHEST PE (CTA) [...] months could be considered. Reference :Radiographics. 2018 Nov-Dec;38(5):8349-1729 3. ??Moderate upper lobe predominant bilateral pulmonary emphysema. THIS IS AN ELECTRONICALLY VERIFIED FINAL REPORT 04/26/2024 10:12 PM - Electronically signed by ??Eleuterio Bullard M.D. AT: AT D: ??04/26/2024 10:12 PM T: ??04/26/2024 10:12 PM Report ID: [id number] Reading Location: ??[id number] Procedure Note Eleuterio Bullard MD - 04/26/2024 EXAM DESCRIPTION: CT CHEST PE (CTA) W CONTRAST REASON FOR STUDY: Chest pain, PE suspected, high prob Pt had hip replacement on Thursday, shortness of breath and low [id number] today at the rehab facility. Concern for [...] months could be considered. Reference :Radiographics. 2018 Nov-Dec;38(5):3624-1638 3. Moderate upper lobe predominant bilateral pulmonary emphysema. THIS IS AN ELECTRONICALLY VERIFIED FINAL REPORT 04/26/2024 10:12 PM - Electronically signed by Eleuterio Bullard M.D. AT: AT Report ID: [id number] Reading Location: [id number] Rosa Elena IBARRA IMRangel CT PROCEDURES Final R esult * XR Chest 1 Vw Portable (04/26/2024 9:32 PM HOMELAND SECURITY PROGRAM SPECIALIST) Anatomical Region Laterality Modality Body, Chest N/A Computed Radiogr aphy 04/26/2024 9:34 PM HOMELAND SECURITY PROGRAM SPECIALIST Narrative 04/26/2024 9:40 PM HOMELAND SECURITY PROGRAM SPECIALIST EXAM DESCRIPTION: XR CHEST 1 VIEW REASON FOR STUDY: sob ?? PT BIBEMS from [facility] w c/o SOB, HR in the 150's. Recent dx of A-fib, hx of COPD and CHF. Pt was satting 95% on 5L. EMS gave douneb on route. Pt had right hip surgery and was discharged to [facility] today. Pt denies any pain and [...] PM T: ??04/26/2024 9:40 PM Report ID: [id number] Reading Location: ??[id number] Procedure Note Tom Miranda Jr., MD - 04/26/2024 EXAM DESCRIPTION: XR CHEST 1 VIEW REASON FOR STUDY: sob PT BIBEMS from [facility] w c/o SOB, HR in the 150's. Recent dx of A-fib, hx ofCOPD and CHF. Pt was satting 95% on 5L. EMS gave douneb on route. Pt had righthip surgery and was discharged to [facility] today. Pt denies any pain and [...] Tom Miranda M.D. CH: ANAHI Report ID: [id number] Reading Location: [id number] Rosa Elena IBARRA IMG XR PROCEDURES Final R esult * ECG 12 lead (04/26/2024 9:12 PM HOMELAND SECURITY PROGRAM SPECIALIST) 04/26/2024 9:12 PM HOMELAND SECURITY PROGRAM SPECIALIST Narrative [facility] - 04/27/2024 6:40 AM HOMELAND SECURITY PROGRAM SPECIALIST Vent Rate: 124 bpm RR Interval: 481 msec HI Interval: 0 msec QRS Duration: 139 msec QT Interval: 360 msec QTC Interval: 434 msec P-R-T Rincon: [id number] - 27 - 20 degrees IMPRESSION: ATRIAL FIBRILLATION WITH RAPID VENTRICULAR RESPONSE INDETERMINATE AXIS RIGHT BUNDLE BRANCH BLOCK ??[120+ ms QRS DURATION, UPRIGHT V1, 40+ ms S IN I/aVL/V4/V5/V6] ST DEPRESSION, CONSIDER SUBENDOCARDIAL INJURY ??[0.1+ mV ST DEPRESSION] ABNORMAL ECG NO CHANGE FROM PREVIOUS TRACING NOTED Electronically Signed By: Ruiz Arreaga MD Rosa Elena IBARRA ECG ORDERABLES Final Res ult [facility] * T4, free (04/26/2024 9:06 PM HOMELAND SECURITY PROGRAM SPECIALIST) Free T4 1.59 0.90 - 1.70 ng/dL Blood 04/26/2024 9:06 PM HOMELAND SECURITY PROGRAM SPECIALIST 04/26/2024 9:20 PM HOMELAND SECURITY PROGRAM SPECIALIST Narrative RONNIE GRIER ([place]) - 04/26/2024 11:37 PM HOMELAND SECURITY PROGRAM SPECIALIST This test was reflexed from a TSH result. Rosa Elena IBARRA LAB BLOOD ORDERABLES Umm l Result RONNIE GRIER ([place]) 1 [facility] [place] [address] * eGFR (04/26/2024 9:06 PM HOMELAND SECURITY PROGRAM SPECIALIST) eGFR 70 >=60 mL/min/1. 73 m2 Comment: [...] last reviewed 2021. Blood 04/26/2024 9:06 PM HOMELAND SECURITY PROGRAM SPECIALIST 04/26/2024 9:09 PM HOMELAND SECURITY PROGRAM SPECIALIST us Rosa Elena IBARRA LAB BLOOD ORDERABLES Umm l Result RONNIE [facility] ([place]) 1 [facility] Department [place] [address] * Differential, auto (04/26/2024 9:06 PM HOMELAND SECURITY PROGRAM SPECIALIST) Neutrophil abs 6.1 1.5 - 6.5 K/cumm [...] revised on 2017. Blood 04/26/2024 9:06 PM HOMELAND SECURITY PROGRAM SPECIALIST 04/26/2024 9:09 PM HOMELAND SECURITY PROGRAM SPECIALIST Rosa Elena IBARRA LAB BLOOD ORDERABLES Umm l Result Performing Organization Address [facility] Co de Phone Number RONNIE GRIER ([place]) 1 [facility] [place] [address] * (ABNORMAL) Thyroid Function Summers (04/26/2024 9:06 PM HOMELAND SECURITY PROGRAM SPECIALIST) TSH 10.28(H) 0.30 - 4.20 mcIUnit/mL Blood 04/26/2024 9:0 6 PM HOMELAND SECURITY PROGRAM SPECIALIST 04/26/2024 9:20 PM HOMELAND SECURITY PROGRAM SPECIALIST Rosa Elena IBARRA LAB BLOOD ORDERABLES Umm l Result Performing Organization Address [facility] Co de Phone Number RONNIE GRIER ([place]) 1 [facility] [place] [address] * Magnesium (04/26/2024 9:06 PM HOMELAND SECURITY PROGRAM SPECIALIST) Magnesium 2.4 1.4 - 2.5 mg/dL Blood 04/26/2024 9:06 PM HOMELAND SECURITY PROGRAM SPECIALIST 04/26/2024 9:20 PM HOMELAND SECURITY PROGRAM SPECIALIST Rosa Elena IBARRA LAB BLOOD ORDERABLES Umm l Result Performing Organization Address [facility] Co de Phone Number RONNIE GRIER ([place]) 1 [facility] [place] [address] * (ABNORMAL) Pro B-type natriuretic peptide (04/26/2024 9:06 PM HOMELAND SECURITY PROGRAM SPECIALIST) NT-proBNP 1,996(H) <=300 pg/mL Comment: Interpretive Comments: [...] Revised Date: 2017. Blood 04/26/2024 9:06 PM HOMELAND SECURITY PROGRAM SPECIALIST 04/26/2024 9:20 PM HOMELAND SECURITY PROGRAM SPECIALIST us Rosa Elena IBARRA LAB BLOOD ORDERABLES Umm bernal Result [facility] [place] 1 [facility] [place] [address] * Influenza A/B, RSV, and COVID-19 PCR Nasopharyngeal (04/26/2024 9:06 PM HOMELAND SECURITY PROGRAM SPECIALIST) COVID-19 RNA Negative Negative Influenza A RNA Negative Negative [facility] ([place]) Influenza B RNA Negative Negative [facility] ([place]) RSV RNA Negative Negative [facility] ([place]) Comment: Interpretive data: Testing performed by [facility]. This test is performed using the [employer] Xpert Xpress CoV-2/Flu/RSV plus assay. This is a multiplex, real- time reverse transcriptase PCR assay intended for the qualitative detection of nucleic acid from SARS-CoV-2, influenza A, influenza B, and respiratory syncytial virus. This assay has been cleared by the [place] Food and Drug administration. The performance characteristics have been verified by the [facility]. ?? Results must be considered in the clinical context, and a negative result does not rule out infection. Interpretive Data last revised 2023 Nasopharyngeal 04/26/2024 9: 06 PM HOMELAND SECURITY PROGRAM SPECIALIST 04/26/2024 9:09 PM HOMELAND SECURITY PROGRAM SPECIALIST Narrative [facility] ([place]) - 04/26/2024 9:47 PM HOMELAND SECURITY PROGRAM SPECIALIST Is the Patient experiencing symptoms consistent with COVID?->Yes Rosa Elena IBARRA LAB MICROBIOLOGY - GENERA L ORDERABLES Final Result Performing Organization Address [facility]/ZIP Co de Phone Number [facility] ([place]) 1 [facility] [address] * Sepsis Lactate w/ Reflex (04/26/2024 9:06 PM HOMELAND SECURITY PROGRAM SPECIALIST) Pathologist [facility] Sepsis Lactate 2.0 0.7 - 2.0 mmol/L Blood 04/26/2024 9:06 PM HOMELAND SECURITY PROGRAM SPECIALIST 04/26/2024 9:09 PM HOMELAND SECURITY PROGRAM SPECIALIST Rosa Elena IBARRA LAB BLOOD ORDERABLES Umm l Result [facility] ([place]) 1 [place] [address] * aPTT (04/26/2024 9:06 PM HOMELAND SECURITY PROGRAM SPECIALIST) Pathologist [facility] aPTT 35 28 - 38 sec [facility] ([place]) Comment: Interpretive Data Heparin therapeutic range: 66.0 - 100.0 seconds. Range based on correlation with therapeutic heparin activity range of 0.3 - 0.7 Units/mL. Current interpretive data was last revised on 2022. Blood 04/26/2024 9:06 PM HOMELAND SECURITY PROGRAM SPECIALIST 04/26/2024 9:09 PM HOMELAND SECURITY PROGRAM SPECIALIST Rosa Elena IBARRA LAB BLOOD ORDERABLES Umm l Result Performing Organization Address [facility] Co de Phone Number RONNIE GRIER ([place]) [address] [place] [address] [place] [address] * Troponin T high-sensitivity series (baseline, 2hr, 4hr, 6hr) (04/26/2024 9:06 PM HOMELAND SECURITY PROGRAM SPECIALIST) [facility] Trop T hs 12 <=22 ng/L Comment: Interpretive Data For further hscTnT resources including the diagnostic algorithm and an aid in interpretation, copy and paste this link: https://nrl.testcatalog.org/show/hsTrop Current Interpretive Data last revised 2020. Blood 04/26/2024 9:06 PM HOMELAND SECURITY PROGRAM SPECIALIST 04/26/2024 9:09 PM HOMELAND SECURITY PROGRAM SPECIALIST Rosa Elena IBARRA LAB BLOOD ORDERABLES Umm l Result RONNIE GRIER ([place]) 1 [facility] [address] * (ABNORMAL) Comprehensive metabolic panel (04/26/2024 9:06 PM HOMELAND SECURITY PROGRAM SPECIALIST) [facility] Sodium 134(L) 135 - 145 mmol/L Potassium, pl 3.8 3.3 - 4.9 mmol/L [facility] ([place]) Chloride 92(L) 97 - 110 mmol/L [facility] ([place]) CO2 31 22 - 32 mmol/L [...] [facility] ([place]) Blood 04/26/2024 9:06 PM HOMELAND SECURITY PROGRAM SPECIALIST 04/26/2024 9:09 PM HOMELAND SECURITY PROGRAM SPECIALIST us Rosa Elena IBARRA LAB BLOOD ORDERABLES Umm bernal Result RONNIE [facility] ([place]) 1 [facility] [place] [address] * (ABNORMAL) CBC with auto differential (04/26/2024 9:06 PM HOMELAND SECURITY PROGRAM SPECIALIST) WBC 8.9 3.8 - 9.9 K/cumm Hgb [...] [facility] ([place]) Blood 04/26/2024 9:06 PM HOMELAND SECURITY PROGRAM SPECIALIST 04/26/2024 9:09 PM HOMELAND SECURITY PROGRAM SPECIALIST Rosa Elena IBARRA LAB BLOOD ORDERABLES Umm bernal Result RONNIE [facility] ([place]) 1 [facility] [place] [address] documented in this encounter Visit Diagnoses Diagnosis Atrial fibrillation with RVR (CMS/HCC) (HCC)- Primary COPD exacerbation (HCC) Obstructive chronic bronchitis with exacerbation Acute on chronic congestive heart failure, unspecified heart failure type (HCC) Hypoxia Hypoxemia Atrial fibrillation with RVR (CMS/HCC) (HCC) COPD exacerbation (HCC) Obstructive chronic bronchitis with exacerbation Acute on chronic congestive heart failure (CMS/HCC) (HCC) Hypoxia Hypoxemia documented in this encounter Admitting Diagnoses Diagnosis Atrial fibrillation with RVR (CMS/HCC) (HCC) Acute on chronic congestive heart failure (CMS/HCC) (HCC) Hypoxia Hypoxemia documented in this encounter Administered Medications Active Administered Medications - up to 3 most recent administrations Medication Order MAR Action Action Date Dose Rate Site acetaminophen (TYLENOL) tablet 650 mg 650 mg, oral, Every 4 hours PRN, 1st line for pain, fever, fever greater than 38.3 C, Starting on Thu04/27/24 at 0243, Indications: Fever, PainIndications:Fever,Pain Given 04/30/2024 3:46 AM HOMELAND SECURITY PROGRAM SPECIALIST 650 mg Given 04/29/2024 10:25 PM HOMELAND SECURITY PROGRAM SPECIALIST 650 mg Given 04/29/2024 9:37 AM HOMELAND SECURITY PROGRAM SPECIALIST 650 mg budesonide-formoteroL (SYMBICORT) 80-4.5 mcg/actuation inhaler 2 puff 2 puff, inhalation, 2 times daily (respite provider), First dose on Thu04/27/24 at 0800, Rinse mouth with water after use. Do not swallow. Given 05/01/2024 8:32 AM HOMELAND SECURITY PROGRAM SPECIALIST 2 puffs Given 04/30/2024 7:15 PM HOMELAND SECURITY PROGRAM SPECIALIST 2 puffs Given 04/30/2024 8:36 AM HOMELAND SECURITY PROGRAM SPECIALIST 2 puffs digoxin (LANOXIN) tablet 250 mcg 250 mcg, oral, Daily, First dose on Thu04/27/24 at 0900, Indications: Ventricular Rate Control in Atrial FibrillationIndications:Ventricular Rate Control in Atrial Fibrillation Given 05/01/2024 9:08 AM HOMELAND SECURITY PROGRAM SPECIALIST 250 mcg Given 04/30/2024 8:42 AM HOMELAND SECURITY PROGRAM SPECIALIST 250 mcg Given 04/29/2024 8:37 AM HOMELAND SECURITY PROGRAM SPECIALIST 250 mcg doxycycline (VIBRAMYCIN) tablet/capsule 100 mg 100 mg, oral, 2 times daily (for quinolones,etc), First dose on Thu04/27/24 at 0600, Give 2 hrs before or 2 hrs after MVI, antacids, or other products containing sucralfate, magnesium, aluminum, iron, or zinc. May be taken without regard to meals., Indications: COPD ExacerbationIndications:COPD Exacerbation Given 05/01/2024 5:43 AM HOMELAND SECURITY PROGRAM SPECIALIST 10 0 mg Given 04/30/2024 5:14 PM HOMELAND SECURITY PROGRAM SPECIALIST 100 mg Given 04/30/2024 7:03 AM HOMELAND SECURITY PROGRAM SPECIALIST 100 mg furosemide (LASIX) tablet 20 mg 20 mg, oral, 2 times daily, First dose on Thu04/27/24 at 0244 Given 05/01/2024 9:08 AM HOMELAND SECURITY PROGRAM SPECIALIST 20 mg Given 04/30/2024 8:08 PM HOMELAND SECURITY PROGRAM SPECIALIST 20 mg Given 04/30/2024 8:42 AM HOMELAND SECURITY PROGRAM SPECIALIST 20 mg ipratropium-albuteroL (DUO-NEB) 0.5-2.5 mg/3 mL nebulizer solution 3 mL 3 mL, nebulization, Every 6 hours (respite provider), First dose (after last modification) on Rosalba 04/28/24 at 1500 Given 05/01/2024 1:53 PM HOMELAND SECURITY PROGRAM SPECIALIST 3 mL Given 05/01/2024 8:32 AM HOMELAND SECURITY PROGRAM SPECIALIST 3 mL Given 05/01/2024 1:46 AM HOMELAND SECURITY PROGRAM SPECIALIST 3 mL levothyroxine (SYNTHROID) tablet 125 mcg 125 mcg, oral, Daily (early AM), First dose (after last modification) on [facility] 04/28/24 at 0600, Administer on an empty stomach, preferably 30 minutes before breakfast. Take 4 hours apart from antacids, iron and calcium products. Separate from tube feeds, if applicable. Given 05/01/2024 5:43 AM HOMELAND SECURITY PROGRAM SPECIALIST 125 mcg Given 04/30/2024 7:03 AM HOMELAND SECURITY PROGRAM SPECIALIST 125 mcg Given 04/29/2024 5:35 AM HOMELAND SECURITY PROGRAM SPECIALIST 125 mcg ondansetron (ZOFRAN) injection 4 mg 4 mg, intravenous, Administer over 2 Minutes, Every 6 hours PRN, nausea, vomiting, if not tolerating PO, Starting on Thu04/27/24 at 0243, Indications: Nausea and VomitingIndications:Nausea and Vomiting ondansetron ODT (ZOFRAN-ODT) disintegrating tablet 4 mg 4 mg, oral, Every 6 hours PRN, nausea, vomiting, Starting on Thu04/27/24 at 0243, If administering by mouth, place tablet on tongue and allow to dissolve., Indications: Nausea and VomitingIndications:Nausea and Vomiting pantoprazole DR (PROTONIX) extended release tablet 40 mg 40 mg, oral, Daily, First dose on Thu04/27/24 at 0900, Do not crush, chew, cut, dissolve, open or otherwise manipulate tablet/capsule., Indications: Mucositis ProphylaxisIndications:Mucositis Prophylaxis Given 05/01/2024 9:08 AM HOMELAND SECURITY PROGRAM SPECIALIST 40 mg Given 04/30/2024 8:42 AM HOMELAND SECURITY PROGRAM SPECIALIST 40 mg Given 04/29/2024 8:37 AM HOMELAND SECURITY PROGRAM SPECIALIST 40 mg rivaroxaban (XARELTO) tablet 20 mg 20 mg, oral, Daily with dinner, First dose on Thu04/27/24 at 1800, If patient is eating, administer doses of 15 mg or greater with food. If patient is not eating, still administer dose unless instructed differently by provider., Indications: atrial fibrillationIndications:atrial fibrillation Given 04/30/2024 5:14 PM HOMELAND SECURITY PROGRAM SPECIALIST 20 mg Given 04/29/2024 5:04 PM HOMELAND SECURITY PROGRAM SPECIALIST 20 mg Given 04/28/2024 5:34 PM HOMELAND SECURITY PROGRAM SPECIALIST 20 mg rosuvastatin (CRESTOR) tablet 10 mg 10 mg, oral, Daily, First dose on Thu04/27/24 at 0900 Given 05/01/2024 9:08 AM HOMELAND SECURITY PROGRAM SPECIALIST 10 mg Given 04/30/2024 8:42 AM HOMELAND SECURITY PROGRAM SPECIALIST 10 mg Given 04/29/2024 8:37 AM HOMELAND SECURITY PROGRAM SPECIALIST 10 mg sotaloL (BETAPACE) tablet 120 mg 120 mg, oral, 2 times daily, First dose on Thu04/27/24 at 0900 Given 05/01/2024 9:08 AM HOMELAND SECURITY PROGRAM SPECIALIST 120 mg Given 04/30/2024 8:08 PM HOMELAND SECURITY PROGRAM SPECIALIST 120 mg Given 04/30/2024 8:42 AM HOMELAND SECURITY PROGRAM SPECIALIST 120 mg Inactive Administered Medications - up to 3 most recent administrations Medication Order MAR Action Action Date Dose Rate Site furosemide (LASIX) 10 mg/mL injection 40 mg 40 mg, intravenous, Once, On 04/30/24 at 1215, For 1 dose, For IV push: administer doses < 160 mg at a rate of 20 -40 mg/min. Doses >/= 160 mg should be administered no faster than 4 mg/min. Room temperature only Given 04/30/2024 12:14 PM [employer]IST 40 mg ioversoL (OPTIRAY 350) syringe 100 mL 100 mL, intravenous, Once in imaging, contrast, Starting on Thu04/26/24 at 2140, For 1 dose Contrast Given 04/26/2024 9:44 PM [employer]IST 100 mL ipratropium-albuteroL (DUO-NEB) 0.5-2.5 mg/3 mL nebulizer solution 3 mL 3 mL, nebulization, Once (respite provider), On Thu04/26/24 at 2144, For 1 dose Given 04/26/2024 9:57 PM [employer] SPECIALIST 3 mL ipratropium-albuteroL (DUO-NEB) 0.5-2.5 mg/3 mL nebulizer solution 3 mL 3 mL, nebulization, 3 times daily (respite provider), First dose (after last modification) on Thu04/27/24 at 0930 Given 04/28/2024 9:23 AM [employer] SPECIALIST 3 mL Given 04/27/2024 7:46 PM [employer]GRAM SPECIALIST 3 mL Given 04/27/2024 2:58 PM [employer] SPECIALIST 3 mL levothyroxine (SYNTHROID) tablet 112.5 mcg 112.5 mcg, oral, Daily (early AM), First dose on Thu04/27/24 at 0600, Administer on an empty stomach, preferably 30 minutes before breakfast. Take 4 hours apart from antacids, iron and calcium products. Separate from tube feeds, if applicable. Given 04/27/2024 5:53 AM [employer] SPECIALIST 112.5 mcg methylPREDNISolone sodium succinate (SOLU-medrol) preservative free injection 125 mg 125 mg, intravenous, Administer over 3 Minutes, Once, On Thu04/26/24 at 2144, For 1 dose Given 04/26/2024 10:26 PM [employer] SPECIALIST 125 mg methylPREDNISolone sodium succinate (SOLU-medrol) preservative free injection 40 mg 40 mg, intravenous, Administer over 3 Minutes, Every 8 hours, First dose on Thu04/27/24 at 0800, Administer 125 mg or less over 3 minutes Given 04/27/2024 8:15 AM [employer] SPECIALIST 40 mg methylPREDNISolone sodium succinate (SOLU-medrol) preservative free injection 40 mg 40 mg, intravenous, Administer over 3 Minutes, Every 12 hours scheduled, First dose (after last modification) on Thu04/27/24 at 2100, Administer 125 mg or less over 3 minutes Given 04/29/2024 8:36 AM [employer] SPECIALIST 40 mg Given 04/28/2024 8:52 PM [employer] SPECIALIST 40 mg Given 04/28/2024 8:07 AM [employer] SPECIALIST 40 mg midodrine (PROAMATINE) tablet 10 mg 10 mg, oral, Once, On Thu04/26/24 at 2353, For 1 dose, Indications: Symptomatic Orthostatic HypotensionIndications:Symptomatic Orthostatic Hypotension Given 04/27/2024 12:36 AM [employer]IST 10 mg predniSONE (DELTASONE) tablet 40 mg 40 mg, oral, Daily, First dose on Thu04/30/24 at 0900, For 2 days Given 05/01/2024 9:08 AM [employer] SPECIALIST 40 mg Given 04/30/2024 8:42 AM [employer]IST 40 mg sodium chloride 0.9% bolus 500 mL 500 mL, intravenous, Once, On Thu04/26/24 at 2256, For 1 dose New Bag 04/26/2024 11:02 PM [employer] SPECIALIST 500 mL sotaloL (BETAPACE) tablet 120 mg 120 mg, oral, Once, On Thu04/26/24 at 2345, For 1 dose Given 04/26/2024 11:50 PM [employer] SPECIALIST 120 mg documented in this encounter Discontinued Medications Medication Sig Discontinue Reason Start Date End Da te levothyroxine (SYNTHROID) 75 mcg tablet Take 1.5 tablets (112.5 mcg total) by mouth correctional case manager before breakfast Stop Taking at Discharge 05/01/2024 documented as of this encounter Active and Recently Administered Medications Times are shown in [employer]. Scheduled Medication Order 04/29/2024 04/30/2024 05/01/2024 budesonide-formoteroL (SYMBICORT) 80-4.5 mcg/actuation inhaler 2 puff 2 puff, inhalation, 2 times daily (respite provider), First dose on Thu04/27/24 at 0800, Rinse mouth with water after use. Do not swallow. 0849 (Given - Provider: Elba Bonner, MELO)2034 (Given - Provider: Sonia Gurrola, MELO) 0836 (Given - Provider: Bella Adam, MELO)191 (Given - Provider: Sonia Gurrola, MELO) 0832 (Given - Provider: Bella Adam, MELO)1999 (Due) digoxin (LANOXIN) tablet 250 mcg 250 mcg, oral, Daily, First dose on Thu04/27/24 at 0900, Indications: Ventricular Rate Control in Atrial Fibrillation 0837 (Given - Provider: Tamia Mendiola RN) 0842 (Given - Provider: Jody Owens RN) 0908 (Given - Provider: Jody Owens RN) doxycycline (VIBRAMYCIN) tablet/capsule 100 mg 100 mg, oral, 2 times daily (for quinolones,etc), First dose on Thu04/27/24 at 0600, Give 2 hrs before or 2 hrs after MVI, antacids, or other products containing sucralfate, magnesium, aluminum, iron, or zinc. May be taken without regard to meals., Indications: COPD Exacerbation 0535 (Given - Provider: Vandana Maloney RN)1704 (Given - Provider: Tamia Mendiola, CEDRIC) 0703 (Given - Provider: Leo Santos, CEDRIC)1714 (Given - Provider: Jody Owens, CEDRIC) 0543 (Given - Provider: Avelina Mccartney, CEDRIC)1800 (Due) furosemide (LASIX) 10 mg/mL injection 40 mg (COMPLETED) 40 mg, intravenous, Once, On 04/30/24 at 1215, For 1 dose, For IV push: administer doses < 160 mg at a rate of 20 -40 mg/min. Doses >/= 160 mg should be administered no faster than 4 mg/min. Room temperature only 1214 (Given - Provider: Jody Owens, CEDRIC) furosemide (LASIX) tablet 20 mg 20 mg, oral, 2 times daily, First dose on Thu04/27/24 at 0244 0837 (Given - Provider: Tamia Mendiola RN)202 (Given - Provider: Leo Santos RN) 0842 (Given - Provider: Jody Owens, CEDRIC)2008 (Given - Provider: Avelina Mccartney, CEDRIC) 0908 (Given - Provider: Jody Owens, CEDRIC)2100 (Due) ipratropium-albuteroL (DUO-NEB) 0.5-2.5 mg/3 mL nebulizer solution 3 mL 3 mL, nebulization, Every 6 hours (respite provider), First dose (after last modification) on Thu04/28/24 at 1500 0120 (Given - Provider: Chacha Saavedra, DORMITORY COUNSELOR)0848 (Given - Provider: Elba Bonner, DORMITORY COUNSELOR)1543 (Given - Provider: Dulce Alfonso, DORMITORY COUNSELOR)2035 (Given - Provider: Sonia Gurrola, DORMITORY COUNSELOR) 0232 (Given - Provider: Ara Hatch, DORMITORY COUNSELOR)0836 (Given - Provider: Bella Adam, DORMITORY COUNSELOR)1409 (Given - Provider: Bella Adam, DORMITORY COUNSELOR)1915 (Given - Provider: Sonia Gurrola, DORMITORY COUNSELOR) 0146 (Given - Provider: Sonia Gurrola, DORMITORY COUNSELOR)0832 (Given - Provider: Bella Adam, DORMITORY COUNSELOR)1353 (Given - Provider: Bella Adam, MELO)2100 (Due) levothyroxine (SYNTHROID) tablet 125 mcg 125 mcg, oral, Daily (early AM), First dose (after last modification) on Rosalba 04/28/24 at 0600, Administer on an empty stomach, preferably 30 minutes before breakfast. Take 4 hours apart from antacids, iron and calcium products. Separate from tube feeds, if applicable. 0535 (Given - Provider: Vandana Maloney RN) 0703 (Given - Provider: Leo Sanots RN) 0543 (Given - Provider: Avelina Mccartney RN) methylPREDNISolone sodium succinate (SOLU-medrol) preservative free injection 40 mg (CANCELED) 40 mg, intravenous, Administer over 3 Minutes, Every 12 hours scheduled, First dose (after last modification) on Thu04/27/24 at 2100, Administer 125 mg or less over 3 minutes 0836 (Given - Provider: Tamia Mendiola RN) pantoprazole DR (PROTONIX) extended release tablet 40 mg 40 mg, oral, Daily, First dose on Thu04/27/24 at 0900, Do not crush, chew, cut, dissolve, open or otherwise manipulate tablet/capsule., Indications: Mucositis Prophylaxis 0837 (Given - Provider: Tamia Mendiola RN) 0842 (Given - Provider: Jody Owens RN) 0908 (Given - Provider: Jody Owens RN) predniSONE (DELTASONE) tablet 40 mg (COMPLETED) 40 mg, oral, Daily, First dose on 04/30/24 at 0900, For 2 days 0842 (Given - Provider: Jody Owens RN) 0908 (Given - Provider: Jody Owens RN) rivaroxaban (XARELTO) tablet 20 mg 20 mg, oral, Daily with dinner, First dose on Thu04/27/24 at 1800, If patient is eating, administer doses of 15 mg or greater with food. If patient is not eating, still administer dose unless instructed differently by provider., Indications: atrial fibrillation 1704 (Given - Provider: Tamia Mendiola RN) 1714 (Given - Provider: Jody Owens RN) 1800 (Due) rosuvastatin (CRESTOR) tablet 10 mg 10 mg, oral, Daily, First dose on Thu04/27/24 at 0900 0837 (Given - Provider: Tamia Mendiola RN) 0842 (Given - Provider: Jody Owens RN) 0908 (Given - Provider: Jody Owens RN) sotaloL (BETAPACE) tablet 120 mg 120 mg, oral, 2 times daily, First dose on Thu04/27/24 at 0900 0837 (Given - Provider: Tamia Mendiola RN)2021 (Given - Provider: Leo Santos RN) 0842 (Given - Provider: Jody Owens RN)2007 (Given - Provider: Avelina Mccartney RN) 0908 (Given - Provider: Jody Owens RN)2100 (Due) PRN Medication Order 04/29/2024 04/30/2024 05/01/2024 acetaminophen (TYLENOL) tablet 650 mg 650 mg, oral, Every 4 hours PRN, 1st line for pain, fever, fever greater than 38.3 C, Starting on Thu04/27/24 at 0243, Indications: Fever, Pain 0535 (Given - Provider: Vandana Maloney RN)0937 (Given - Provider: Tamia Mendiola RN)2225 (Given - Provider: Leo Santos, CEDRIC) 0346 (Given - Provider: Leo Santos, CEDRIC) ondansetron (ZOFRAN) injection 4 mg(Linked Group 1) 4 mg, intravenous, Administer over 2 Minutes, Every 6 hours PRN, nausea, vomiting, if not tolerating PO, Starting on Thu04/27/24 at 0243, Indications: Nausea and Vomiting ondansetron ODT (ZOFRAN-ODT) disintegrating tablet 4 mg(Linked Group 1) 4 mg, oral, Every 6 hours PRN, nausea, vomiting, Starting on Thu04/27/24 at 0243, If administering by mouth, place tablet on tongue and allow to dissolve., Indications: Nausea and Vomiting polyethylene glycol (MIRALAX) packet 17 g 17 g, oral, Daily PRN, constipation, Starting on Thu04/27/24 at 0243, Indications: constipation ramelteon (ROZEREM) tablet 8 mg 8 mg, oral, Nightly PRN, sleep, Starting on Thu04/27/24 at 0243, Indications: Sleep-Onset Insomnia Linked Groups Order Group 1: ondansetron ODT (ZOFRAN-ODT) disintegrating tablet 4 mgJump to med 4 mg, oral, Every 6 hours PRN, nausea, vomiting, Starting on Thu04/27/24 at 0243, If administering by mouth, place tablet on tongue and allow to dissolve., Indications: Nausea and Vomiting Or ondansetron (ZOFRAN) injection 4 mgJump to med 4 mg, intravenous, Administer over 2 Minutes, Every 6 hours PRN, nausea, vomiting, if not tolerating PO, Starting on Thu04/27/24 at 0243, Indications: Nausea and Vomiting documented in this encounter Orders Medications Ordered That Curry ht Not Have Been Administered Count Last Ordered Date First Ordered Date ipratropium-albuteroL (DUO-N EB) 0.5-2.5 mg/3 mL nebulizer solution 3 mL 3 04/28/2024 04/27/19 25 ondansetron (ZOFRAN) injection 4 mg 1 04/27 ondansetron ODT (ZOFRAN-ODT) disintegrating tablet 4 mg 1 04/27/2024 polyethylene glycol (MIRALAX) packet 17 g 1 04/27/2024 ramelteon (ROZEREM) tablet 8 mg 1 sodium chloride 0.9% bolus 500 mL 1 025 tiotropium bromide (SPIRIVA RESPIMAT) 2.5 mcg/actuation inhaler 2 puff 1 04/27/2024 dilTIAZem (CARDIZEM) injection 10 mg 03/31 Diet Count Last Ordered Date First Orde red Date ADULT DISCHARGE DIET 1 05/01/2024 ADULT DIET 1 04/27/2024 Nursing Count Last Ordered Date First Orde red Date DISCHARGE ACTIVITY 1 05/01/2024 DISCHARGE CALL PROVIDER 9 05/01/2024 DISCHARGE INSTRUCTIONS 1 05/01/2024 DAILY WEIGHTS 1 04/27/2024 NOTIFY PROVIDER (SPECIFY) 04/27/2024 STRICT INTAKE AND OUTPUT 1 04/27/2024 VITAL SIGNS 1 04/27/2024 WEIGH PATIENT 1 04/27/2024 CARDIO RESPIRATORY MONITORING 1 04/26/2024 CONTINUOUS PULSE OXIMETRY 1 04/26/2024 Code Status Count Last Ordered Date First Orde red Date FULL CODE 1 04/27/2024 Consult Count Last Ordered Date First Orde red Date IP CONSULT TO CARDIOLOGY 1 04/27/2024 Nourishments Count Last Ordered Date First Orde red Date ORAL NUTRITION SUPPLEMENTS 1 04/27/2024 OT Count Last Ordered Date First Orde red Date OT EVALUATE AND TREAT 1 04/27/2024 PT Count Last Ordered Date First Orde red Date PT EVALUATE AND TREAT 1 04/27/2024 IV Count Last Ordered Date First Orde red Date DISCONTINUE IV 1 05/01/2024 SALINE LOCK IV 1 04/26/2024 Admission Count Last Ordered Date First Orde red Date ADMIT TO INPATIENT 1 04/27/2024 Discharge Count Last Ordered Date First Orde red Date DISCHARGE PATIENT 1 05/01/2024 Precaution Count Last Ordered Date First Orde red Date FALL PRECAUTIONS 2 04/27/2024 CORE MEASURES Count Last Ordered Date First Ord ered Date REASON FOR NO VTE PROPHYLAXIS AT ADMISSION 1 04/27/2024 documented in this encounter Additional Health Concerns Infection Onset Date Last Indicated Resolved Time COVID: Suspected 04/26/2024 04/26/2024 04/26/2024 9:48 PM [employer]IST documented as of this encounter Care Teams National Sales Associate Relationship Specialty Start Date End Date [facility], [facility] [address] [place] [address] PCP - General 10/24/19 Pawan Brown MD [address] [address] Surgeon Orthopedic Surgery 04/26/24 documented as of this encounter
--- OUTSIDE RECORDS SUMMARY | 2024-05-01 15:52 | XMS_ITS | Continuity of Care Document ---
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 It does not include entries that were removed or entered in error. Problem Status Onset Date Problem Type Date of Resolution Comments Source GIGIVITES Inactive 07/06/18 96 Condition 10/18/2013 [facility] Tooth Extraction Inactive 07/06/18 96 Condition 10/18/2013 [facility] Acute allergic reaction Active Condition [facility] AF- Atrial Fibrillation (SCT 50439190) Active Condition [facility] Anticoagulant effect Active Condition [facility] Atrial flutter Active Condition [facility] Chondrocalcinosis (SNOMED CT 844381213) Active Condition [facility] Chronic obstructive lung disease Active Condition Dec 16, 2019 Entered By: JESSICA MCCLAIN Comment: FEV1 31% [facility] djd neck Active Condition [facility] Eczema Active Condition [facility] History of percutaneous transluminal coronary angioplasty Active Condition [facility] Hypothyroidism Active Condition [facility] Impaired glucose tolerance Active Condition [facility] Nicotine dependence (SNOMED CT 06618878) Active Condition Feb 05, 2017 Entered By: WALE HORTON Comment: quit smoking in 2015 [facility] Osteoarthrosis involving the knee (ICD-9-CM 715.98) Active Condition [facility] Post percutaneous transluminal coronary angioplasty Active Condition [facility] Sciatica * (ICD-9-CM 724.3) Active Condition [facility] Therapeutic drug effect Active Condition [facility] Acute non-ST segment elevation myocardial infarction (SNOMED CT 175044466) Inactive Condition 10/18/2013 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 Diagnosis: ICD-10-CM J44.9 Chronic obstructive pulmonary disease, unspecified Active Diagnosis [facility] Diagnosis: ICD-10-CM I48.91 Unspecified atrial fibrillation Active Diagnosis [facility] Diagnosis: ICD-10-CM M11.29 Other chondrocalcinosis, multiple sites Active Diagnosis [facility] Diagnosis: ICD-10-CM I48.3 Typical atrial flutter Active Diagnosis [facility] Diagnosis: ICD-10-CM B35.1 Tinea unguium Active Diagnosis [facility] Diagnosis: ICD-10-CM M17.0 Bilateral primary osteoarthritis of knee Active Diagnosis [facility] Diagnosis: ICD-10-CM R06.02 Shortness of breath Active Diagnosis [facility] Diagnosis: ICD-10-CM 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 Medications Combined list of outpatient medications from Department of Defense and [facility] facilities.Medications provided include 1) outpatient medications from the last 15 months, and 2) patient-reported medications. Medication Details Route Status Patient Instructions Prescription Expires Prescription Number Last Dispense Date Ordering Provider Order Date Order Qty Source ALBUTEROL SO4 0.083% INHL,3ML INHALE 1 VIAL (2.5MG/3 ML) BY NEBULIZA TION EVERY 6 HOURS DIRECTED NEEDED FOR BREATHIN G NEBULI ZATION ACTIVE 02/26/2025 [id number] 5 ADDIS MENDES 2023 120 [facility] ALBUTEROL SO4 0.083% INHL,3ML INHALE 1 VIAL (2.5MG/3 ML) BY NEBULIZA TION EVERY 6 HOURS DIRECTED NEEDED FOR BREATHIN G NEBULI ZATION DISCONT INUED 02/21/2024 [id number] 4 RICKY MCCLAIN 2022 120 [facility] ALBUTEROL SO4 90MCG/ACTUA T (CFC-F) INHL,ORAL,8 .5GM INHALE 2 PUFFS ORAL INHALATI ON FOUR TIMES A DAY NEEDED SHAKE WELL. RINSE MOUTHPIE CE FREQUENT LY TO PREVENT CLOGGING . RESPIR ATORY (INHAL ATION) ACTIVE 10/27/2024 [id number] 4 Vickie SOUTH 2023 4 [facility] ALBUTEROL SO4 90MCG/ACTUA T (CFC-F) INHL,ORAL,8 .5GM INHALE 2 PUFFS ORAL INHALATI ON FOUR TIMES A DAY NEEDED FOR BREATHIN G. SHAKE WELL. RINSE MOUTHPIE CE FREQUENT LY TO PREVENT CLOGGING . RESPIR ATORY (INHAL ATION) DISCONT INUED 02/21/2024 [id number] 4 RICKY MCCLAIN 2022 4 [facility] Albuterol Sulfate (PROVENTIL Eq.) Solution 2.5MG/3ML Inhalation INHALE 1 VIAL (2.5MG/3 ML) BY NEBULIZA TION EVERY 6 HOURS DIRECTED NEEDED FOR BREATHIN G 02/21/2024 [id number] 4 SOHAM MCCLAIN 2023 120 [facility] ASPIRIN 81MG TAB,CHEWABL E CHEW AND SWALLOW ONE TABLET BY MOUTH ONCE A DAY FOR CARDIOVA SCULAR DISEASE (TAKE WITH FOOD) ORAL ACTIVE 05/20/2024 [id number] 4 Temitope BOSE S 2023 90 [facility] ASPIRIN 81MG TAB,CHEWABL E CHEW AND SWALLOW ONE TABLET BY MOUTH ONCE A DAY FOR CARDIOVA SCULAR DISEASE (TAKE WITH FOOD) ORAL 05/16/2023 [id number] 3 TORIBIO STEPHEN 2022 90 [facility] ASPIRIN CHEW (U/D) 81 MG ORAL CHEW CHEW AND SWALLOW ONE TABLET BY MOUTH ONCE A DAY FOR CARDIOVA SCULAR DISEASE (TAKE WITH FOOD) Active 05/20/2024 [id number] 4 STEFANI BOSE 2023 90 [facility] ASPIRIN CHEW (U/D) 81 MG ORAL CHEW CHEW AND SWALLOW ONE TABLET BY MOUTH ONCE A DAY FOR CARDIOVA SCULAR DISEASE (TAKE WITH FOOD) 05/16/2023 [id number] 3 TEGAN STEPHEN 2023 90 [facility] CRESTOR (BRAND) 20 MG ORAL TAB TAKE ONE-HALF TABLET BY MOUTH EVERY EVENING TO LOWER CHOLESTE ROL 03/18/2024 [id number] 4 SOHAM MCCLAIN 2023 45 [facility] DIPHENHYDRA MINE HCL 25MG CAP TAKE 1 CAPSULE BY MOUTH TWICE A DAY NEEDED ORAL ACTIVE DELANEY BOO 2006 [facility] FLUTICASONE 250MCG/SALM ETEROL 50MCG INHL,ORAL,D ISKUS,60 INHALE 1 INHALATI ON BY ORAL INHALATI ON TWICE A DAY FOR BREATHIN G (OPEN DISKUS; CLICK ONLY ONCE; MAY INHALE TWICE TO COMPLETE DOSE; CLOSE WHEN FINISHED ) RINSE MOUTH AND SPIT AFTER EACH USE. REPLACES SYMBICOR T RESPIR ATORY (INHAL ATION) SUSPEND ED 02/26/2025 [id number] 5 CINTHYAADDIS DALE BELLAMY 2023 3 [facility] FLUTICASONE 250MCG/SALM ETEROL 50MCG INHL,ORAL,D ISKUS,60 INHALE 1 INHALATI ON BY ORAL INHALATI ON TWICE A DAY FOR BREATHIN G (OPEN DISKUS; CLICK ONLY ONCE; MAY INHALE TWICE TO COMPLETE DOSE; CLOSE WHEN FINISHED ) RINSE MOUTH AND SPIT AFTER EACH USE. REPLACES SYMBICOR T RESPIR ATORY (INHAL ATION) DISCONT INUED 02/04/2024 [id number] 4 CINTHYAADDIS DALE BELLAMY 2022 3 [facility] Fluticasone Propionate/ Salmeterol Xinafoate (Advair Diskus Eq.) Device Not Specified 250-50 mcg Inhalation INHALE 1 INHALATI ON BY ORAL INHALATI ON TWICE A DAY FOR BREATHIN G (OPEN DISKUS; CLICK ONLY ONCE; MAY INHALE TWICE TO COMPLETE DOSE; CLOSE WHEN FINISHED ) RINSE MOUTH AND SPIT AFTER EACH USE. REPLACES SY 02/04/2024 [id number] 4 DIANA MENDES 2023 3 [facility] furosemide (U/D) 20 MG ORAL TAB TAKE ONE TABLET BY MOUTH EVERY MORNING FOR FLUID RETENTIO N (EDEMA) Active 05/20/2024 [id number] 4 STEFANI BOSE [address] [place] [address] Divisio n furosemide (U/D) 20 MG ORAL TAB TAKE ONE TABLET BY MOUTH EVERY MORNING FOR FLUID RETENTIO N (EDEMA) Discont inued 09/13/2023 [id number] 4 SOHAM MCCLAIN [address] [place] [address] Divisio n FUROSEMIDE 20MG TAB TAKE ONE TABLET BY MOUTH EVERY MORNING FOR FLUID RETENTIO N (EDEMA) ORAL ACTIVE 05/20/2024 [id number] 4 Temitope BOSE S 2023 90 [facility] FUROSEMIDE 20MG TAB TAKE ONE TABLET BY MOUTH EVERY MORNING FOR FLUID RETENTIO N (EDEMA) ORAL DISCONT INUED 09/13/2023 [id number] 4 RICKY MCCLAIN 2022 90 [facility] KETOCONAZOL E 2 % TOP CREA [15GM] APPLY LIGHTLY TO AFFECTED AREA(S) ONCE A DAY FOR FUNGAL INFECTIO N (EXTERNA L USE ONLY) OF FEET AND TOENAILS Active 08/04/2024 [id number] 4 ADDI WILKERSON 2023 60 [facility] KETOCONAZOL E 2% CREAM,TOP APPLY LIGHTLY TO AFFECTED AREA(S) ONCE A DAY FOR FUNGAL INFECTIO N (EXTERNA L USE ONLY) OF FEET AND TOENAILS TOPICA L ACTIVE 08/04/2024 [id number] 4 SA NIYAH WILKERSON 2023 60 [facility] LEVOTHYROXI NE NA 75MCG TAB (SYNTHROID) TAKE ONE AND ONE-HALF TABLETS BY MOUTH EVERY MORNING BEFORE A MEAL FOR THYROID. TAKE 30 MINUTES BEFORE FOOD. TAKE SEPARATE LY FROM ALL OTHER MEDICATI ONS. ORAL ACTIVE 10/09/2024 [id number] 4 RICKY MCCLAIN 2023 135 [facility] LEVOTHYROXI NE NA 75MCG TAB (SYNTHROID) TAKE ONE AND ONE-HALF TABLETS BY MOUTH EVERY MORNING BEFORE A MEAL FOR THYROID. TAKE 30 MINUTES BEFORE FOOD. TAKE SEPARATE LY FROM ALL OTHER MEDICATI ONS. ORAL 09/13/2023 [id number] 4 RICKY MCCLAIN 2022 135 [facility] Loratadine (Alavert ODT) Tablet 10 mg Oral TAKE ONE TABLET BY MOUTH ONCE A DAY FOR ALLERGIC RHINITIS ON EMPTY STOMACH FOR ALLERGIE S Active 05/20/2024 [id number] 4 STEFANI BOSE 2023 90 [facility] Loratadine (Alavert ODT) Tablet 10 mg Oral TAKE ONE TABLET BY MOUTH ONCE A DAY FOR ALLERGIC RHINITIS ON EMPTY STOMACH FOR ALLERGIE S Active 05/20/2024 [id number] 4 STEFANI BOSE S 2023 90 [facility] Loratadine (Alavert ODT) Tablet 10 mg Oral TAKE ONE TABLET BY MOUTH ONCE A DAY FOR ALLERGIC RHINITIS ON EMPTY STOMACH FOR ALLERGIE S Discont inued 09/13/2023 [id number] 4 SOHAM MCCLAIN [address] [place] [address] Divisio n LORATADINE 10MG TAB TAKE ONE TABLET BY MOUTH ONCE A DAY FOR ALLERGIC RHINITIS ON EMPTY STOMACH FOR ALLERGIE S ORAL ACTIVE 05/20/2024 [id number] 4 Temitope BOSE S [address] [place] [address] LORATADINE 10MG TAB TAKE ONE TABLET BY MOUTH ONCE A DAY FOR ALLERGIC RHINITIS ON EMPTY STOMACH FOR ALLERGIE S ORAL DISCONT INUED 09/13/2023 [id number] 4 RICKY MCCLAIN [address] [place] [address] RIVAROXABAN 20 MG ORAL TAB TAKE ONE TABLET BY MOUTH ONCE A DAY TO THIN BLOOD. TAKE WITH FOOD. 12/12/2023 [id number] 4 LILIAN TERRELL [address] [place] [address] Divisio n RIVAROXABAN 20MG TAB TAKE ONE TABLET BY MOUTH ONCE A DAY TO THIN BLOOD. TAKE WITH FOOD. ORAL ACTIVE 12/10/2024 [id number] 5 CAYLA GREER S [address] [place] [address] DIVISIO N RIVAROXABAN 20MG TAB TAKE ONE TABLET BY MOUTH ONCE A DAY TO THIN BLOOD. TAKE WITH FOOD. ORAL DISCONT INUED 12/12/2023 [id number] 4 Giselle TERRELL [address] [place] [address] DIVISIO N ROSUVASTATI N CA 20MG TAB TAKE ONE-HALF TABLET BY MOUTH EVERY EVENING TO LOWER CHOLESTE ROL ORAL ACTIVE 02/13/2025 [id number] 4 RICKY MCCLAIN 2023 45 [facility] ROSUVASTATI N CA 20MG TAB TAKE ONE-HALF TABLET BY MOUTH EVERY EVENING TO LOWER CHOLESTE ROL ORAL DISCONT INUED 03/18/2024 [id number] 4 RICKY MCCLAIN 2022 45 [facility] SOTALOL HCL 120MG TAB TAKE ONE TABLET BY MOUTH TWICE A DAY FOR HEART ORAL ACTIVE 06/18/2024 [id number] 5 CAYLA GREER 2023 180 [facility] SOTALOL HCL 120MG TAB TAKE ONE TABLET BY MOUTH TWICE A DAY FOR HEART ORAL DISCONT INUED 10/17/2023 [id number] 4 HARJINDER GREEN 2022 180 [facility] Sotalol Hydrochlori de (Betapace) Tablet 120 mg Oral TAKE ONE TABLET BY MOUTH TWICE A DAY FOR HEART Active 06/18/2024 [id number] 4 CANDELARIO GREER 2023 180 [facility] Sotalol Hydrochlori de (Betapace) Tablet 120 mg Oral TAKE ONE TABLET BY MOUTH TWICE A DAY FOR HEART Discont inued 10/17/2023 [id number] 4 HARJINDER GREEN 2023 180 [facility] TERBINAFINE 250 MG ORAL TAB TAKE ONE TABLET BY MOUTH ONCE A DAY FOR TINEA UNGUINUM (NOTE THAT YOUR NAILS TAKE MONTHS TO GROW OUT, WILL SEE IMPROVEM ENT OVER TIME (1 YR TOES, 6 MOS FINGERS) . SIDE EFFECTS INCLUDE LIVER PROBLEMS , 04/04/2023 [id number] 3 MAGNO SWENSON 2023 60 [facility] n TERBINAFINE HCL 250MG TAB TAKE ONE TABLET BY MOUTH ONCE A DAY FOR TINEA UNGUINUM (NOTE THAT YOUR NAILS TAKE MONTHS TO GROW OUT, WILL SEE IMPROVEM ENT OVER TIME (1 YR TOES, 6 MOS FINGERS) . SIDE EFFECTS INCLUDE LIVER PROBLEMS , ABDOMINA L PAIN; IF YOU EXPERIEN CE THESE CALL YOUR DOCTOR) (NOTE THAT YOUR NAILS TAKE MONTHS TO GROW OUT, WILL SEE IMPROVEM ENT OVER TIME (1 YR TOES, 6 MOS FINGERS) . SIDE EFFECTS INCLUDE LIVER PROBLEMS , ABDOMINA L PAIN; IF YOU EXPERIEN CE THESE CALL YOUR DOCTOR) ORAL 04/04/2023 [id number] 3 NO SWENSON LLIAM S 2022 60 [facility] TIOTROPIUM (MIST) 2.5 MCG INH [4 GM] INHALE 2 INHALATI ONS BY ORAL INHALATI ON ONCE A DAY (ADMINIS TER AT SAME TIME EACH DAY) FOR BREATHIN G. 02/04/2024 [id number] 4 DIANA MENDES 2023 3 [facility] TIOTROPIUM (MIST) 2.5 MCG INH [4 GM] INHALE 2 INHALATI ONS BY ORAL INHALATI ON ONCE A DAY (ADMINIS TER AT SAME TIME EACH DAY) FOR BREATHIN G. 02/04/2024 [id number] 3 DIANA MENDES 2022 3 [facility] TIOTROPIUM 2.5MCG/ACTU AT INHL,ORAL,6 0D,4GM INHALE 2 INHALATI ONS BY ORAL INHALATI ON ONCE A DAY (ADMINIS TER AT SAME TIME EACH DAY) FOR BREATHIN G. RESPIR ATORY (INHAL ATION) ACTIVE 02/26/2025 [id number] 4 ADDIS MENDES 2023 3 [facility] TIOTROPIUM 2.5MCG/ACTU AT INHL,ORAL,6 0D,4GM INHALE 2 INHALATI ONS BY ORAL INHALATI ON ONCE A DAY (ADMINIS TER AT SAME TIME EACH DAY) FOR BREATHIN G. RESPIR ATORY (INHAL ATION) DISCONT INUED 02/04/2024 [id number] 4 ADDIS MENDES 2022 3 [facility] Allergies, Adverse Reactions, Alerts Combined list of allergies from [facility] and [facility] facilities. It does not include entries that were removed or entered in error. Substance Category Reaction Severity Reaction type Status Date Reported Comments Source IMDUR 30MG TAB,SA Propensity to adverse reactions to drug (finding) Pharyngeal swelling active 0 [facility] ISOSORBIDE Drug allergy (disorder) Throat swelling active 0 [facility] Immunizations Combined list of available immunizations from the [facility] and [facility] facilities. 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 Order Name Results Value Reference Range Date Interpretation Specimen Comments Source BASIC METABOLIC PANEL CREATININE [MASS/VOLUM E] IN SERUM OR PLASMA 1.34 mg/dL 0.7 - 1.3 12/09 H Specimen Type: PLASMA Comment: No hemolysis noted. Ordering Provider: LYNNETTE MASCORRO Report Released Date/Time: Nov 16, 2023 09:31 AM Reporting Lab: [address] [address] Performing Lab: [address] [address] [facility] BASIC METABOLIC PANEL UREA NITROGEN [MASS/VOLUM E] IN SERUM OR PLASMA 23.3 mg/dL 9.0 - 25.0 12/09 Specimen Type: PLASMA Comment: No hemolysis noted. Ordering Provider: LYNNETTE MASCORRO Report Released Date/Time: Nov 16, 2023 09:31 AM Reporting Lab: [address] [address] Performing Lab: [address] [address] [facility] BASIC METABOLIC PANEL GLUCOSE [MASS/VOLUM E] IN SERUM OR PLASMA 149 mg/dL 72 - 99 12/09 H Specimen Type: PLASMA Comment: No hemolysis noted. Ordering Provider: LYNNETTE MASCORRO Report Released Date/Time: Nov 16, 2023 09:31 AM Reporting Lab: [facility] [address] [place] [phone] Performing Lab: [facility] [address] [place] [phone] [place] [address] BASIC METABOLIC PANEL SODIUM [MOLES/VOLU ME] IN SERUM OR PLASMA 138 meq/L 136 - 145 12/09 Specimen Type: PLASMA Comment: No hemolysis noted. Ordering Provider: LYNNETTE MASCORRO Report Released Date/Time: Nov 16, 2023 09:31 AM Reporting Lab: [address] [address] Performing Lab: [address] [phone] [place] [address] BASIC METABOLIC PANEL POTASSIUM [MOLES/VOLU ME] IN SERUM OR PLASMA 3.7 meq/L 3.5 - 5 12/09 Specimen Type: PLASMA Comment: No hemolysis noted. Ordering Provider: LYNNETTE MASCORRO Report Released Date/Time: Nov 16, 2023 09:31 AM Reporting Lab: [address] [address] Performing Lab: [address] [address] [facility] BASIC METABOLIC PANEL CHLORIDE [MOLES/VOLU ME] IN SERUM OR PLASMA 102 meq/L 98 - 107 12/09 Specimen Type: PLASMA Comment: No hemolysis noted. Ordering Provider: LYNNETTE MASCORRO Report Released Date/Time: Nov 16, 2023 09:31 AM Reporting Lab: [facility] [address] [place] [phone] Performing Lab: [facility] [address] [place] [phone] [facility] BASIC METABOLIC PANEL CARBON DIOXIDE, TOTAL [MOLES/VOLU ME] IN SERUM OR PLASMA 26 meq/L 22 - 31 12/09 Specimen Type: PLASMA Comment: No hemolysis noted. Ordering Provider: LYNNETTE MASCORRO Report Released Date/Time: Nov 16, 2023 09:31 AM Reporting Lab: [facility] [address] [facility] [phone] Performing Lab: [facility] [address] [facility] [phone] [facility] BASIC METABOLIC PANEL CALCIUM [MASS/VOLUM E] IN SERUM OR PLASMA 9.6 mg/dL 8.4 - 10.4 12/09 Specimen Type: PLASMA Comment: No hemolysis noted. Ordering Provider: LYNNETTE MASCORRO Report Released Date/Time: Nov 16, 2023 09:31 AM Reporting Lab: [facility] [address] [facility] [address] Performing Lab: [facility] [address] [place] [phone] [facility] BASIC METABOLIC PANEL GLOMERULAR FILTRATION RATE/1.73 SQ M.PREDICTED [VOLUME RATE/AREA] IN SERUM, PLASMA OR BLOOD BY CREATININE- BASED FORMULA (CKD-EPI 2020) 56.6 60 12/09 Specimen Type: PLASMA Comment: No hemolysis noted. Ordering Provider: LYNNETTE MASCORRO Report Released Date/Time: Nov 16, 2023 09:31 AM Reporting Lab: [facility] [address] [facility] [phone] Performing Lab: [facility] [address] [facility] [address] [facility] HGA1C HEMOGLOBIN A1C/HEMOGLO BIN.TOTAL IN BLOOD 6.0 4.0 - 6.0 12/09 Specimen Type: BLOOD No comment entered. Ordering Provider: JAUN GREER Report Released Date/Time: Dec 10, 2023 08:26 AM Reporting Lab: [facility] [address] [facility] [address] Performing Lab: [facility] [address] [place] [phone] [facility] COMPREHEN SIVE METABOLIC PANEL CREATININE [MASS/VOLUM E] IN SERUM OR PLASMA 1.34 mg/dL 0.7 - 1.3 12/09 H Specimen Type: PLASMA Comment: No hemolysis noted. Ordering Provider: JAUN GREER S Report Released Date/Time: Dec 10, 2023 08:23 AM Reporting Lab: [place] [address] [place] [phone] Performing Lab: [place] [phone] COMPREHEN SIVE METABOLIC PANEL UREA NITROGEN [MASS/VOLUM E] IN SERUM OR PLASMA 23.4 mg/dL 9.0 - 25.0 12/09 Specimen Type: PLASMA Comment: No hemolysis noted. Ordering Provider: JAUN GREER S Report Released Date/Time: Dec 10, 2023 08:23 AM Reporting Lab: [place] [phone] Performing Lab: [place] [phone] COMPREHEN SIVE METABOLIC PANEL GLUCOSE [MASS/VOLUM E] IN SERUM OR PLASMA 150 mg/dL 72 - 99 12/09 H Specimen Type: PLASMA Comment: No hemolysis noted. Ordering Provider: JAUN GREER S Report Released Date/Time: Dec 10, 2023 08:23 AM Reporting Lab: [place] [phone] Performing Lab: [address] [phone] COMPREHEN SIVE METABOLIC PANEL SODIUM [MOLES/VOLU ME] IN SERUM OR PLASMA 137 meq/L 136 - 145 12/09 Specimen Type: PLASMA Comment: No hemolysis noted. Ordering Provider: JAUN GREER S Report Released Date/Time: Dec 10, 2023 08:23 AM Reporting Lab: [place] [phone] Performing Lab: [address] [phone] [facility] COMPREHEN SIVE METABOLIC PANEL POTASSIUM [MOLES/VOLU ME] IN SERUM OR PLASMA 3.7 meq/L 3.5 - 5 12/09 Specimen Type: PLASMA Comment: No hemolysis noted. Ordering Provider: JAUN GREER S Report Released Date/Time: Dec 10, 2023 08:23 AM Reporting Lab: [place] [address] [facility] [phone] Performing Lab: [place] [address] [facility] [phone] [facility] COMPREHEN SIVE METABOLIC PANEL CHLORIDE [MOLES/VOLU ME] IN SERUM OR PLASMA 102 meq/L 98 - 107 12/09 Specimen Type: PLASMA Comment: No hemolysis noted. Ordering Provider: JAUN GREER S Report Released Date/Time: Dec 10, 2023 08:23 AM Reporting Lab: [place] [address] [facility] [phone] Performing Lab: [facility] [address] [facility] [phone] [facility] COMPREHEN SIVE METABOLIC PANEL CARBON DIOXIDE, TOTAL [MOLES/VOLU ME] IN SERUM OR PLASMA 27 meq/L 22 - 31 12/09 Specimen Type: PLASMA Comment: No hemolysis noted. Ordering Provider: JAUN GREER S Report Released Date/Time: Dec 10, 2023 08:23 AM Reporting Lab: [facility] [address] [facility] [phone] Performing Lab: [place] [address] [facility] [phone] [facility] COMPREHEN SIVE METABOLIC PANEL CALCIUM [MASS/VOLUM E] IN SERUM OR PLASMA 9.3 mg/dL 8.4 - 10.4 12/09 Specimen Type: PLASMA Comment: No hemolysis noted. Ordering Provider: JAUN GREER S Report Released Date/Time: Dec 10, 2023 08:23 AM Reporting Lab: [facility] [address] [facility] [phone] Performing Lab: [facility] [address] [facility] [address] [facility] COMPREHEN SIVE METABOLIC PANEL PROTEIN [MASS/VOLUM E] IN SERUM OR PLASMA 7.3 g/dL 6 - 8.6 12/09 Specimen Type: PLASMA Comment: No hemolysis noted. Ordering Provider: JAUN GREER IE S Report Released Date/Time: Dec 10, 2023 08:23 AM Reporting Lab: [facility] [address] [facility] [address] Performing Lab: [place] [address] [facility] [id number] [facility] COMPREHEN SIVE METABOLIC PANEL ALBUMIN [MASS/VOLUM E] IN SERUM OR PLASMA 4.2 g/dL 3.4 - 5 12/09 Specimen Type: PLASMA Comment: No hemolysis noted. Ordering Provider: JAUN GREER S Report Released Date/Time: Dec 10, 2023 08:23 AM Reporting Lab: [facility] [address] [facility] [address] Performing Lab: [place] [address] [facility] [id number] [facility] COMPREHEN SIVE METABOLIC PANEL BILIRUBIN.T OTAL [MASS/VOLUM E] IN SERUM OR PLASMA 1.1 mg/dL 0.2 - 1.2 12/09 Specimen Type: PLASMA Comment: No hemolysis noted. Ordering Provider: JAUN GREER IE S Report Released Date/Time: Dec 10, 2023 08:23 AM Reporting Lab: [place] [address] [facility] [id number] Performing Lab: [place] [address] [facility] [id number] [facility] COMPREHEN SIVE METABOLIC PANEL ALKALINE PHOSPHATASE [ENZYMATIC ACTIVITY/VO LUME] IN SERUM OR PLASMA 95 U/L 40 - 150 12/09 Specimen Type: PLASMA Comment: No hemolysis noted. Ordering Provider: ZOEY,CONN IE S Report Released Date/Time: Dec 10, 2023 08:23 AM Reporting Lab: [facility] [address] [facility] [address] Performing Lab: [facility] [address] [facility] [address] [facility] COMPREHEN SIVE METABOLIC PANEL ASPARTATE AMINOTRANSF ERASE [ENZYMATIC ACTIVITY/VO LUME] IN SERUM OR PLASMA 16 U/L 5 - 34 12/09 Specimen Type: PLASMA Comment: No hemolysis noted. Ordering Provider: JAUN GREER S Report Released Date/Time: Dec 10, 2023 08:23 AM Reporting Lab: [address] [address] Performing Lab: [address] [address] [facility] COMPREHEN SIVE METABOLIC PANEL ALANINE AMINOTRANSF ERASE [ENZYMATIC ACTIVITY/VO LUME] IN SERUM OR PLASMA 12 U/L 8 - 40 12/09 Specimen Type: PLASMA Comment: No hemolysis noted. Ordering Provider: JAUN GREER S Report Released Date/Time: Dec 10, 2023 08:23 AM Reporting Lab: [address] [address] Performing Lab: [place] [address] [facility] [address] [facility] COMPREHEN SIVE METABOLIC PANEL GLOMERULAR FILTRATION RATE/1.73 SQ M.PREDICTED [VOLUME RATE/AREA] IN SERUM, PLASMA OR BLOOD BY CREATININE- BASED FORMULA (CKD-EPI 2020) 56.6 60 12/09 Specimen Type: PLASMA Comment: No hemolysis noted. Ordering Provider: JAUN GREER S Report Released Date/Time: Dec 10, 2023 08:23 AM Reporting Lab: [facility] [address] [facility] [address] Performing Lab: [facility] [address] [facility] [address] [facility] CBC LEUKOCYTES [#/VOLUME] IN BLOOD BY AUTOMATED COUNT 8.1 10*3/u L 3.6 - 11.2 12/09 Specimen Type: BLOOD No comment entered. Ordering Provider: JAUN GREER Report Released Date/Time: Dec 10, 2023 08:23 AM Reporting Lab: [address] [address] Performing Lab: [address] [address] [facility] CBC ERYTHROCYTE S [#/VOLUME] IN BLOOD BY AUTOMATED COUNT 5.17 10*6/u L 4.10 - 5.70 12/09 Specimen Type: BLOOD No comment entered. Ordering Provider: JAUN GREER Report Released Date/Time: Dec 10, 2023 08:23 AM Reporting Lab: [address] [address] Performing Lab: [place] [phone] [place] [address] CBC HEMOGLOBIN [MASS/VOLUM E] IN BLOOD 15.6 g/dL 13.1 - 16.8 12/09 Specimen Type: BLOOD No comment entered. Ordering Provider: JAUN GREER Report Released Date/Time: Dec 10, 2023 08:23 AM Reporting Lab: [address] [address] Performing Lab: [address] [phone] [place] [address] CBC HEMATOCRIT [VOLUME FRACTION] OF BLOOD 46.7 38.2 - 48.4 12/09 Specimen Type: BLOOD No comment entered. Ordering Provider: JAUN GREER Report Released Date/Time: Dec 10, 2023 08:23 AM Reporting Lab: [address] [address] Performing Lab: [address] [address] [facility] CBC MCV [ENTITIC VOLUME] BY AUTOMATED COUNT 90.3 fL 80.0 - 100.0 12/09 Specimen Type: BLOOD No comment entered. Ordering Provider: JAUN GREER S Report Released Date/Time: Dec 10, 2023 08:23 AM Reporting Lab: [address] [address] Performing Lab: [address] [phone] [place] [address] CBC MCH [ENTITIC MASS] BY AUTOMATED COUNT 30.2 pg 27.0 - 34.0 12/09 Specimen Type: BLOOD No comment entered. Ordering Provider: JAUN GREER S Report Released Date/Time: Dec 10, 2023 08:23 AM Reporting Lab: [address] [address] Performing Lab: [address] [phone] CBC MCHC [MASS/VOLUM E] BY AUTOMATED COUNT 33.4 g/dL 33.0 - 36.0 12/09 Specimen Type: BLOOD No comment entered. Ordering Provider: JAUN GREER S Report Released Date/Time: Dec 10, 2023 08:23 AM Reporting Lab: [address] [address] Performing Lab: [address] CBC PLATELETS [#/VOLUME] IN BLOOD BY AUTOMATED COUNT 177 10*3/u L 150 - 400 12/09 Specimen Type: BLOOD No comment entered. Ordering Provider: JAUN GREER S Report Released Date/Time: Dec 10, 2023 08:23 AM Reporting Lab: [address] [address] Performing Lab: [address] [address] [facility] CBC PLATELET MEAN VOLUME [ENTITIC VOLUME] IN BLOOD BY AUTOMATED COUNT 10.5 fL 7.5 - 11.2 12/09 Specimen Type: BLOOD No comment entered. Ordering Provider: JAUN GREER Report Released Date/Time: Dec 10, 2023 08:23 AM Reporting Lab: [facility] [address] [facility] [address] Performing Lab: [facility] [address] [place] [address] [facility] CBC ERYTHROCYTE DISTRIBUTIO N WIDTH [RATIO] BY AUTOMATED COUNT 14.1 11.8 - 15.1 12/09 Specimen Type: BLOOD No comment entered. Ordering Provider: JAUN GREER Report Released Date/Time: Dec 10, 2023 08:23 AM Reporting Lab: [facility] [address] [facility] [address] Performing Lab: [facility] [address] [place] [phone] [place] [address] CBC LYMPHOCYTES /100 LEUKOCYTES IN BLOOD BY AUTOMATED COUNT 23 12/09 Specimen Type: BLOOD No comment entered. Ordering Provider: JAUN GREER Report Released Date/Time: Dec 10, 2023 08:23 AM Reporting Lab: [facility] [address] [place] [address] Performing Lab: [facility] [address] [place] [address] [facility] CBC MONOCYTES/1 00 LEUKOCYTES IN BLOOD BY AUTOMATED COUNT 6 12/09 Specimen Type: BLOOD No comment entered. Ordering Provider: JAUN GREER Report Released Date/Time: Dec 10, 2023 08:23 AM Reporting Lab: [facility] [address] [facility] [address] Performing Lab: [facility] [address] [place] [address] [facility] CBC NEUTROPHILS /100 LEUKOCYTES IN BLOOD BY AUTOMATED COUNT 68 12/09 Specimen Type: BLOOD No comment entered. Ordering Provider: JAUN GREER Report Released Date/Time: Dec 10, 2023 08:23 AM Reporting Lab: [address] [address] Performing Lab: [address] [address] [facility] CBC EOSINOPHILS /100 LEUKOCYTES IN BLOOD BY AUTOMATED COUNT 2 12/09 Specimen Type: BLOOD No comment entered. Ordering Provider: JAUN GREER Report Released Date/Time: Dec 10, 2023 08:23 AM Reporting Lab: [address] [address] Performing Lab: [place] [phone] CBC BASOPHILS/1 00 LEUKOCYTES IN BLOOD BY AUTOMATED COUNT 1 12/09 Specimen Type: BLOOD No comment entered. Ordering Provider: JAUN GREER S Report Released Date/Time: Dec 10, 2023 08:23 AM Reporting Lab: [address] [address] Performing Lab: [address] [address] [facility] CBC LYMPHOCYTES [#/VOLUME] IN BLOOD BY AUTOMATED COUNT 1.82 10*3/u L 0.77 - 4.50 12/09 Specimen Type: BLOOD No comment entered. Ordering Provider: JAUN GREER Report Released Date/Time: Dec 10, 2023 08:23 AM Reporting Lab: [address] [address] Performing Lab: [address] [address] [facility] CBC MONOCYTES [#/VOLUME] IN BLOOD BY AUTOMATED COUNT 0.50 10*3/u L 0.19 - 0.80 12/09 Specimen Type: BLOOD No comment entered. Ordering Provider: JAUN GREER S Report Released Date/Time: Dec 10, 2023 08:23 AM Reporting Lab: [address] [address] Performing Lab: [address] [address] [facility] CBC NEUTROPHILS [#/VOLUME] IN BLOOD BY AUTOMATED COUNT 5.49 10*3/u L 2.10 - 8.00 12/09 Specimen Type: BLOOD No comment entered. Ordering Provider: JAUN GREER S Report Released Date/Time: Dec 10, 2023 08:23 AM Reporting Lab: [place] [phone] Performing Lab: [address] CBC EOSINOPHILS [#/VOLUME] IN BLOOD BY AUTOMATED COUNT 0.19 10*3/u L 0.00 - 0.60 12/09 Specimen Type: BLOOD No comment entered. Ordering Provider: JAUN GREER S Report Released Date/Time: Dec 10, 2023 08:23 AM Reporting Lab: [place] [phone] Performing Lab: [place] [phone] CBC BASOPHILS [#/VOLUME] IN BLOOD BY AUTOMATED COUNT 0.06 10*3/u L 0.00 - 0.20 12/09 Specimen Type: BLOOD No comment entered. Ordering Provider: JAUN GREER S Report Released Date/Time: Dec 10, 2023 08:23 AM Reporting Lab: [place] [phone] Performing Lab: [address] BRAIN NATRIURET IC PEPTIDE NATRIURETIC PEPTIDE B [MASS/VOLUM E] IN SERUM OR PLASMA 113.0 pg/mL 0 - 100 09/02 H Specimen Type: PLASMA No comment entered. Ordering Provider: GREEN,S HIRLEY A Report Released Date/Time: Sep 03, 2023 10:40 AM Reporting Lab: [facility] [address] [facility] [address] Performing Lab: [facility] [address] [place] [address] [facility] LIPID PANEL (STL) CHOLESTEROL [MASS/VOLUM E] IN SERUM OR PLASMA 136 mg/dL 0 - 200 05/20 Specimen Type: PLASMA No comment entered. Ordering Provider: SA PEPPER BOSE Report Released Date/Time: May 20, 2023 09:13 AM Reporting Lab: [place] [address] [facility] [address] Performing Lab: [address] [address] [facility] LIPID PANEL (STL) TRIGLYCERID E [MASS/VOLUM E] IN SERUM OR PLASMA 224 mg/dL 0 - 150 05/20 H Specimen Type: PLASMA No comment entered. Ordering Provider: SA PEPPER BOSE Report Released Date/Time: May 20, 2023 09:13 AM Reporting Lab: [place] [address] [facility] [address] Performing Lab: [place] [address] [facility] [address] [facility] LIPID PANEL (STL) CHOLESTEROL IN LDL [MASS/VOLUM E] IN SERUM OR PLASMA BY CALCULATION 44 mg/dL 05/20 Specimen Type: PLASMA No comment entered. Ordering Provider: SA PEPPER BOSE Report Released Date/Time: May 20, 2023 09:13 AM Reporting Lab: [place] [address] [facility] [address] Performing Lab: [address] [address] [facility] LIPID PANEL (STL) CHOLESTEROL IN HDL [MASS/VOLUM E] IN SERUM OR PLASMA 47 mg/dL 40 05/20 Specimen Type: PLASMA No comment entered. Ordering Provider: SA PEPPER BOSE Report Released Date/Time: May 20, 2023 09:13 AM Reporting Lab: [address] [address] Performing Lab: [address] [phone] [place] [address] TSH (MA-PB-ST L) THYROTROPIN [UNITS/VOLU ME] IN SERUM OR PLASMA 1.943 u[IU]/ mL 0.47 - 5 05/20 Specimen Type: SERUM No comment entered. Ordering Provider: SA PEPPER BOSE Report Released Date/Time: May 20, 2023 09:13 AM Reporting Lab: [address] [address] Performing Lab: [place] [id number] [place] [address] HGA1C HEMOGLOBIN A1C/HEMOGLO BIN.TOTAL IN BLOOD 6.1 4.0 - 6.0 05/20 H Specimen Type: BLOOD No comment entered. Ordering Provider: SA PEPPER BOSE Report Released Date/Time: May 20, 2023 09:13 AM Reporting Lab: [address] [address] Performing Lab: [address] [phone] [place] [address] COMPREHEN SIVE METABOLIC PANEL CREATININE [MASS/VOLUM E] IN SERUM OR PLASMA 1.25 mg/dL 0.7 - 1.3 03/05 Specimen Type: PLASMA Comment: No hemolysis noted. Ordering Provider: MITZY SWENSON Report Released Date/Time: Feb 03, 2023 09:17 AM Reporting Lab: [address] [address] Performing Lab: [address] [address] [facility] COMPREHEN SIVE METABOLIC PANEL UREA NITROGEN [MASS/VOLUM E] IN SERUM OR PLASMA 9.9 mg/dL 9.0 - 25.0 03/05 Specimen Type: PLASMA Comment: No hemolysis noted. Ordering Provider: MITZY SWENSON Report Released Date/Time: Feb 03, 2023 09:17 AM Reporting Lab: [facility] [address] [facility] [address] Performing Lab: [facility] [address] [facility] [address] [facility] COMPREHEN SIVE METABOLIC PANEL GLUCOSE [MASS/VOLUM E] IN SERUM OR PLASMA 90 mg/dL 72 - 99 03/05 Specimen Type: PLASMA Comment: No hemolysis noted. Ordering Provider: MITZY SWENSON Report Released Date/Time: Feb 03, 2023 09:17 AM Reporting Lab: [facility] [address] [facility] [address] Performing Lab: [facility] [address] [facility] [address] [facility] COMPREHEN SIVE METABOLIC PANEL SODIUM [MOLES/VOLU ME] IN SERUM OR PLASMA 138 meq/L 136 - 145 03/05 Specimen Type: PLASMA Comment: No hemolysis noted. Ordering Provider: MITZY SWENSON Report Released Date/Time: Feb 03, 2023 09:17 AM Reporting Lab: [facility] [address] [facility] [address] Performing Lab: [facility] [address] [facility] [address] [facility] COMPREHEN SIVE METABOLIC PANEL POTASSIUM [MOLES/VOLU ME] IN SERUM OR PLASMA 3.8 meq/L 3.5 - 5 03/05 Specimen Type: PLASMA Comment: No hemolysis noted. Ordering Provider: MITZY SWENSON Report Released Date/Time: Feb 03, 2023 09:17 AM Reporting Lab: [facility] [address] [facility] [address] Performing Lab: [facility] [address] [facility] [address] [facility] COMPREHEN SIVE METABOLIC PANEL CHLORIDE [MOLES/VOLU ME] IN SERUM OR PLASMA 99 meq/L 98 - 107 03/05 Specimen Type: PLASMA Comment: No hemolysis noted. Ordering Provider: MITZY SWENSON Report Released Date/Time: Feb 03, 2023 09:17 AM Reporting Lab: [facility] [address] [facility] [address] Performing Lab: [facility] [address] [facility] [address] [facility] COMPREHEN SIVE METABOLIC PANEL CARBON DIOXIDE, TOTAL [MOLES/VOLU ME] IN SERUM OR PLASMA 30 meq/L 22 - 31 03/05 Specimen Type: PLASMA Comment: No hemolysis noted. Ordering Provider: MITZY SWENSON Report Released Date/Time: Feb 03, 2023 09:17 AM Reporting Lab: [place] [address] [facility] [address] Performing Lab: [place] [address] [facility] [address] [facility] COMPREHEN SIVE METABOLIC PANEL CALCIUM [MASS/VOLUM E] IN SERUM OR PLASMA 9.3 mg/dL 8.4 - 10.4 03/05 Specimen Type: PLASMA Comment: No hemolysis noted. Ordering Provider: MITZY SWENSON Report Released Date/Time: Feb 03, 2023 09:17 AM Reporting Lab: [place] [address] [facility] [address] Performing Lab: [place] [address] [facility] [address] [facility] COMPREHEN SIVE METABOLIC PANEL PROTEIN [MASS/VOLUM E] IN SERUM OR PLASMA 7.2 g/dL 6 - 8.6 03/05 Specimen Type: PLASMA Comment: No hemolysis noted. Ordering Provider: MITZY SWENSON Report Released Date/Time: Feb 03, 2023 09:17 AM Reporting Lab: [place] [address] [facility] [address] Performing Lab: [address] [address] [facility] COMPREHEN SIVE METABOLIC PANEL ALBUMIN [MASS/VOLUM E] IN SERUM OR PLASMA 4.2 g/dL 3.4 - 5 03/05 Specimen Type: PLASMA Comment: No hemolysis noted. Ordering Provider: MITZY SWENSON Report Released Date/Time: Feb 03, 2023 09:17 AM Reporting Lab: [place] [address] [place] [phone] Performing Lab: [place] [address] [place] [phone] [facility] COMPREHEN SIVE METABOLIC PANEL BILIRUBIN.T OTAL [MASS/VOLUM E] IN SERUM OR PLASMA 0.8 mg/dL 0.2 - 1.2 03/05 Specimen Type: PLASMA Comment: No hemolysis noted. Ordering Provider: MITZY SWENSON Report Released Date/Time: Feb 03, 2023 09:17 AM Reporting Lab: [place] [address] [place] [phone] Performing Lab: [place] [address] [facility] [phone] [place] [address] COMPREHEN SIVE METABOLIC PANEL ALKALINE PHOSPHATASE [ENZYMATIC ACTIVITY/VO LUME] IN SERUM OR PLASMA 95 U/L 40 - 150 03/05 Specimen Type: PLASMA Comment: No hemolysis noted. Ordering Provider: MITZY SWENSON Report Released Date/Time: Feb 03, 2023 09:17 AM Reporting Lab: [place] [address] [address] [place] [phone] Performing Lab: [place] [address] [facility] [phone] [place] [address] COMPREHEN SIVE METABOLIC PANEL ASPARTATE AMINOTRANSF ERASE [ENZYMATIC ACTIVITY/VO LUME] IN SERUM OR PLASMA 17 U/L 5 - 34 03/05 Specimen Type: PLASMA Comment: No hemolysis noted. Ordering Provider: MITZY SWENSON Report Released Date/Time: Feb 03, 2023 09:17 AM Reporting Lab: [facility] [address] Performing Lab: [address] [address] [facility] COMPREHEN SIVE METABOLIC PANEL ALANINE AMINOTRANSF ERASE [ENZYMATIC ACTIVITY/VO LUME] IN SERUM OR PLASMA 11 U/L 8 - 40 03/05 Specimen Type: PLASMA Comment: No hemolysis noted. Ordering Provider: MITZY SWENSON Report Released Date/Time: Feb 03, 2023 09:17 AM Reporting Lab: [address] [address] Performing Lab: [place] [phone] COMPREHEN SIVE METABOLIC PANEL GLOMERULAR FILTRATION RATE/1.73 SQ M.PREDICTED [VOLUME RATE/AREA] IN SERUM, PLASMA OR BLOOD BY CREATININE- BASED FORMULA (CKD-EPI 2020) 62.0 60 03/05 Specimen Type: PLASMA Comment: No hemolysis noted. Ordering Provider: MITZY SWENSON Report Released Date/Time: Feb 03, 2023 09:17 AM Reporting Lab: [address] [address] Performing Lab: [address] [phone] [place] [address] CBC LEUKOCYTES [#/VOLUME] IN BLOOD BY AUTOMATED COUNT 7.2 10*3/u L 3.6 - 11.2 03/05 Specimen Type: BLOOD No comment entered. Ordering Provider: MITZY SWENSON Report Released Date/Time: Feb 03, 2023 09:17 AM Reporting Lab: [place] [phone] Performing Lab: [address] [address] [facility] CBC ERYTHROCYTE S [#/VOLUME] IN BLOOD BY AUTOMATED COUNT 5.04 10*6/u L 4.10 - 5.70 03/05 Specimen Type: BLOOD No comment entered. Ordering Provider: MITZY SWENSON Report Released Date/Time: Feb 03, 2023 09:17 AM Reporting Lab: [place] [phone] Performing Lab: [facility] [address] [place] [address] [facility] CBC HEMOGLOBIN [MASS/VOLUM E] IN BLOOD 15.0 g/dL 13.1 - 16.8 03/05 Specimen Type: BLOOD No comment entered. Ordering Provider: MITZY SWENSON Report Released Date/Time: Feb 03, 2023 09:17 AM Reporting Lab: [place] [phone] Performing Lab: [place] [phone] CBC HEMATOCRIT [VOLUME FRACTION] OF BLOOD 46.7 38.2 - 48.4 03/05 Specimen Type: BLOOD No comment entered. Ordering Provider: MITZY SWENSON Report Released Date/Time: Feb 03, 2023 09:17 AM Reporting Lab: [place] [phone] Performing Lab: [address] [phone] CBC MCV [ENTITIC VOLUME] BY AUTOMATED COUNT 92.7 fL 80.0 - 100.0 03/05 Specimen Type: BLOOD No comment entered. Ordering Provider: MITZY SWENSON Report Released Date/Time: Feb 03, 2023 09:17 AM Reporting Lab: [place] [phone] Performing Lab: [place] [phone] CBC MCH [ENTITIC MASS] BY AUTOMATED COUNT 29.8 pg 27.0 - 34.0 03/05 Specimen Type: BLOOD No comment entered. Ordering Provider: MITZY SWENSON Report Released Date/Time: Feb 03, 2023 09:17 AM Reporting Lab: [place] [address] [facility] [address] Performing Lab: [address] [address] [facility] CBC MCHC [MASS/VOLUM E] BY AUTOMATED COUNT 32.1 g/dL 33.0 - 36.0 03/05 L Specimen Type: BLOOD No comment entered. Ordering Provider: MITZY SWENSON Report Released Date/Time: Feb 03, 2023 09:17 AM Reporting Lab: [place] [phone] Performing Lab: [address] [phone] CBC PLATELETS [#/VOLUME] IN BLOOD BY AUTOMATED COUNT 150 10*3/u L 150 - 400 03/05 Specimen Type: BLOOD No comment entered. Ordering Provider: MITZY SWENSON Report Released Date/Time: Feb 03, 2023 09:17 AM Reporting Lab: [address] [address] Performing Lab: [place] [address] [facility] [phone] [place] [address] CBC PLATELET MEAN VOLUME [ENTITIC VOLUME] IN BLOOD BY AUTOMATED COUNT 9.7 fL 7.5 - 11.2 03/05 Specimen Type: BLOOD No comment entered. Ordering Provider: MITZY SWENSON Report Released Date/Time: Feb 03, 2023 09:17 AM Reporting Lab: [place] [address] [facility] [address] Performing Lab: [address] [address] [facility] CBC ERYTHROCYTE DISTRIBUTIO N WIDTH [RATIO] BY AUTOMATED COUNT 14.4 11.8 - 15.1 03/05 Specimen Type: BLOOD No comment entered. Ordering Provider: MITZY SWENSON Report Released Date/Time: Feb 03, 2023 09:17 AM Reporting Lab: [facility] [address] [facility] [address] Performing Lab: [facility] [address] [facility] [address] [facility] CBC LYMPHOCYTES /100 LEUKOCYTES IN BLOOD BY AUTOMATED COUNT 32 03/05 Specimen Type: BLOOD No comment entered. Ordering Provider: MITZY SWENSON Report Released Date/Time: Feb 03, 2023 09:17 AM Reporting Lab: [facility] [address] [facility] [address] Performing Lab: [facility] [address] [facility] [address] [facility] CBC MONOCYTES/1 00 LEUKOCYTES IN BLOOD BY AUTOMATED COUNT 9 03/05 Specimen Type: BLOOD No comment entered. Ordering Provider: MITZY SWENSON Report Released Date/Time: Feb 03, 2023 09:17 AM Reporting Lab: [facility] [address] [facility] [address] Performing Lab: [facility] [address] [facility] [address] [facility] CBC NEUTROPHILS /100 LEUKOCYTES IN BLOOD BY AUTOMATED COUNT 53 03/05 Specimen Type: BLOOD No comment entered. Ordering Provider: MITZY SWENSON Report Released Date/Time: Feb 03, 2023 09:17 AM Reporting Lab: [facility] [address] [facility] [address] Performing Lab: [facility] [address] [facility] [address] [facility] CBC EOSINOPHILS /100 LEUKOCYTES IN BLOOD BY AUTOMATED COUNT 5 03/05 Specimen Type: BLOOD No comment entered. Ordering Provider: MITZY SWENSON Report Released Date/Time: Feb 03, 2023 09:17 AM Reporting Lab: [facility] [address] [address] Performing Lab: [facility] [address] [address] [facility] CBC BASOPHILS/1 00 LEUKOCYTES IN BLOOD BY AUTOMATED COUNT 1 03/05 Specimen Type: BLOOD No comment entered. Ordering Provider: MITZY SWENSON Report Released Date/Time: Feb 03, 2023 09:17 AM Reporting Lab: [place] [address] [address] Performing Lab: [place] [address] [facility] [address] [facility] CBC LYMPHOCYTES [#/VOLUME] IN BLOOD BY AUTOMATED COUNT 2.31 10*3/u L 0.77 - 4.50 03/05 Specimen Type: BLOOD No comment entered. Ordering Provider: MITZY SWENSON Report Released Date/Time: Feb 03, 2023 09:17 AM Reporting Lab: [address] [address] Performing Lab: [place] [address] [facility] [address] [facility] CBC MONOCYTES [#/VOLUME] IN BLOOD BY AUTOMATED COUNT 0.62 10*3/u L 0.19 - 0.80 03/05 Specimen Type: BLOOD No comment entered. Ordering Provider: MITZY SWENSON Report Released Date/Time: Feb 03, 2023 09:17 AM Reporting Lab: [address] [address] Performing Lab: [place] [address] [facility] [address] [facility] CBC NEUTROPHILS [#/VOLUME] IN BLOOD BY AUTOMATED COUNT 3.77 10*3/u L 2.10 - 8.00 03/05 Specimen Type: BLOOD No comment entered. Ordering Provider: MITZY SWENSON Report Released Date/Time: Feb 03, 2023 09:17 AM Reporting Lab: [place] [address] [facility] [address] Performing Lab: [address] [place] [address] [facility] CBC EOSINOPHILS [#/VOLUME] IN BLOOD BY AUTOMATED COUNT 0.34 10*3/u L 0.00 - 0.60 03/05 Specimen Type: BLOOD No comment entered. Ordering Provider: MITZY SWENSON Report Released Date/Time: Feb 03, 2023 09:17 AM Reporting Lab: [address] [address] Performing Lab: [address] [address] [facility] CBC BASOPHILS [#/VOLUME] IN BLOOD BY AUTOMATED COUNT 0.08 10*3/u L 0.00 - 0.20 03/05 Specimen Type: BLOOD No comment entered. Ordering Provider: MITZY SWENSON Report Released Date/Time: Feb 03, 2023 09:17 AM Reporting Lab: [address] [address] Performing Lab: [address] [address] [facility] Vital Signs Combined list of inpatient and outpatient Vital Signs from Department of Defense and Veterans Affairs, ranging from 12 months to all on record, depending upon the facility. Vital Sign Value Date Comments Source SYSTOLIC BLOOD PRESSURE 118 02/26/2024 08:09:07 [facility] DIASTOLIC BLOOD PRESSURE 75 02/26/2024 08:09:07 [facility] PULSE OXIMETRY 97 02/26/2024 08:09:07 S Siva [facility] WEIGHT 228.7 02/26/2024 08:09:[address] [facility] Yuri [facility] BMI 32kg/m2 02/26/2024 08:09:[address] [facility] Yuri [facility] PAIN 7 02/26/2024 08:09:07 [facility] HEIGHT 71 02/26/2024 08:09:[address] [facility] Yuri [facility] TEMPERATURE 98.2 02/26/2024 08:09:07 [facility] PULSE 64 02/26/2024 08:09:07 ST. Yuri [facility] RESPIRATION 16 02/26/2024 08:09:07 [facility] SYSTOLIC BLOOD PRESSURE 110 12/10/2023 07:58:52 [facility] DIASTOLIC BLOOD PRESSURE 71 12/10/2023 07:58:52 [facility] PULSE OXIMETRY 98 12/10/2023 07:58:52 S Siva [facility] WEIGHT 222.8 12/10/2023 07:58:52 [facility] BMI 31kg/m2 12/10/2023 07:58:[address] [facility] Yuri [facility] PAIN 5 12/10/2023 07:58:52 [facility] TEMPERATURE 97.9 12/10/2023 07:58:52 [facility] PULSE 67 12/10/2023 07:58:52 ST. Yuri [facility] RESPIRATION 20 12/10/2023 07:58:52 [facility] SYSTOLIC BLOOD PRESSURE 123 11/16/2023 08:57:08 [facility] DIASTOLIC BLOOD PRESSURE 75 11/16/2023 08:57:08 [facility] PULSE OXIMETRY 97 11/16/2023 08:57:08 [facility] WEIGHT 223.2 11/16/2023 08:57:08 [facility] BMI 31kg/m2 11/16/2023 08:57:08 [facility] PAIN 7 11/16/2023 08:57:08 [facility] TEMPERATURE 97.6 11/16/2023 08:57:08 [facility] PULSE 55 11/16/2023 08:57:08 [facility] RESPIRATION 20 11/16/2023 08:57:08 [facility] SYSTOLIC BLOOD PRESSURE 108 09/03/2023 08:30:14 [facility] DIASTOLIC BLOOD PRESSURE 65 09/03/2023 08:30:14 [facility] PULSE OXIMETRY 97 09/03/2023 08:30:14 S Siva [facility] WEIGHT 206 09/03/2023 08:30:14 ST. Yuri [facility] BMI 29kg/m2 09/03/2023 08:30:14 [facility] Yuri [facility] PAIN 4 09/03/2023 08:30:14 ST. Yuri [facility] TEMPERATURE 98.1 09/03/2023 08:30:14 [facility] PULSE 61 09/03/2023 08:30:14 . Yuri [facility] RESPIRATION 20 09/03/2023 08:30:14 [facility] SYSTOLIC BLOOD PRESSURE 101 07/07/2023 08:14:14 [facility] DIASTOLIC BLOOD PRESSURE 71 07/07/2023 08:14:14 [facility] PULSE OXIMETRY 98 07/07/2023 08:14:14 S Siva [facility] WEIGHT 214.8 07/07/2023 08:14:14 [facility] BMI 30kg/m2 07/07/2023 08:14:14 ST[facility] Yuri [facility] PAIN 8 07/07/2023 08:14:14 [facility] HEIGHT 71 07/07/2023 08:14:14 [facility] TEMPERATURE 97.7 07/07/2023 08:14:14 [facility] PULSE 97 07/07/2023 08:14:14 . [facility] RESPIRATION 18 07/07/2023 08:14:14 [facility] Encounters Combined list of: 1) Encounters from Department of [facility] facilities going back up to thelast 18 months. 2) Encounters from the Department of Defense facilities going back up to 280 months. Location Location Details Encounter Type Encounter Number Reason For Visit Attending Provider ADM Date DC Date Status Disposition Source [facility] Outpatient Encounter [id number] 11/[address] [facility] 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, multipl e sites<b r/> AKANKSHA MCCLAIN 11/17 [facility] Outpatient Encounter [id number] 11/20 [facility] Outpatient Encounter [id number] 12/10 [facility] Outpatient Encounter [id number] 12/11 [facility] OFFICE O/P EST MOD 30-39 MIN [id number] Diagnos is: ICD-10- CM I48.91 Unspeci fied atrial fibrill ation<b r/> RAEGAN TERRELL LLY 12/11 [facility] Outpatient Encounter [id number] 01/28 [facility] OFF/OP CNSLTJ NEW/EST MOD 40 [id number] Diagnos is: ICD-10- CM 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
ME YEE MERINO S 01/28 [facility] Outpatient Encounter [id number] 01/28 [facility] Outpatient Encounter [id number] RASHAWN MACIAS 01/29 [facility] Outpatient Encounter [id number] Diagnos is: ICD-10- CM F17.220 Nicotin e depende nce, chewing tobacco , uncompl icated< br/> JULISAYRNAnnelSay TESS 01/29 [facility] Outpatient Encounter [id number] Moses CAICEDO K 02/02 [facility] OFFICE O/P EST MOD 30-39 MIN [id number] Diagnos is: ICD-10- CM B35.1 Tinea unguium
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
ANTHONY MENDESL 04/03 [facility] MEASURE BLOOD OXYGEN LEVEL [id number] Diagnos is: ICD-10- CM J44.9 Chronic obstruc tive pulmona ry disease , unspeci fied
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, multipl e sites<b r/> SADA OJEDA I 05/20 [facility] Outpatient Encounter [id number] 06/16 [facility] OFFICE O/P EST MOD 30 MIN [id number] Diagnos is: ICD-10- CM I48.91 Unspeci fied atrial fibrill ation<b r/> JAUN GREER IE S 06/17 [facility] THER/PROPH /[place]J IV PUSH [id number] Diagnos is: ICD-10- CM R06.02 Shortne ss of breath< br/> ROBERT FLORES SH 06/22 [facility] OFFICE O/P EST LOW 20 MIN [id number] Diagnos is: ICD-10- CM 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
REZA HERRERA A 07/06 [facility] OFFICE O/P EST LOW 20 MIN [id number] Diagnos is: ICD-10- CM B35.1 Tinea unguium
ALECIAAnnel KEYON K 08/03 [facility] HC PRO PHONE CALL 5-10 MIN [id number] Diagnos is: ICD-10- CM J44.9 Chronic obstruc tive pulmona ry disease , unspeci fied
Virgen FELDMAN A 09/01 [facility] OFFICE O/P EST MOD 30 MIN [id number] Diagnos is: ICD-10- CM I48.3 Typical atrial flutter
Temitope GREEN A 09/02 [facility] Outpatient Encounter [id number] 10/08 [facility] Outpatient Encounter [id number] 10/26 [facility] Outpatient Encounter [id number] NANCY GARCIA L 10/26 [facility] OFF/OP EST JULY X REQ PHY/QHP [id number] Diagnos is: ICD-10- CM J44.9 Chronic obstruc tive pulmona ry disease , unspeci fied
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, multipl e sites<b r/> AKANKSHA MCCLAIN LIESE 11/15 [facility] Outpatient Encounter [id number] 12/08 [facility] OFFICE O/P EST HI 40 MIN [id number] Diagnos is: ICD-10- CM I48.91 Unspeci fied atrial fibrill ation<b r/> ZOEY,CONN IE S 12/09 [facility] Outpatient Encounter [id number] 02/25 [facility] OFFICE O/P EST MOD 30 MIN [id number] Diagnos is: ICD-10- CM J44.9 Chronic obstruc tive pulmona ry disease , unspeci fied
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
RAOUL NARAYANAN 03/03 [facility] Outpatient Encounter [id number] AKANKSHA MCCLAIN 04/21 [facility] Social History Combined list of available smoking, tobacco, and other social history from Department of Defense and Veterans Affairs facilities. Social History Type Response Date Comment [facility] e Tobacco smoking status NEIS DC-TOBACCO FORMER USER 05/20/2023 [facility] of [facility] 15 [facility]2023 [facility] History of tobacco use DC-TOBACCO FORMER USER 01/08/2022 [facility] History of tobacco use DC-TOBACCO FORMER USER 09/26/2020 [facility] of [facility] TO < 5 YRS 07/22/2019 [facility] History of tobacco use ORYX ADMIT TOBACCO SCREEN NO 09/07/2018 [facility] History of tobacco use QUIT TOBACCO IN THE LAST 12 MONTHS 09/07/2018 [facility] History of tobacco use DC-TOBACCO FORMER USER 04/22/2018 [facility] History of tobacco use QUIT TOBACCO >12 MO and <7 YRS AGO 12/10/2017 [facility] History of tobacco use QUIT TOBACCO >12 MO and <7 YRS AGO 06/08/2017 [facility] History of tobacco use QUIT TOBACCO >12 MO and <7 YRS AGO 02/05/2017 [facility] History of tobacco use QUIT TOBACCO IN THE LAST 12 MONTHS 11/04/2016 [facility] History of tobacco use CURRENT TOBACCO USER 01/08/2016 [facility] Kevin [facility] History of tobacco use TOBACCO OFFERRED PT MEDS (PROVIDER) 11/06/2014 [facility] History of tobacco use TOBACCO OFFERRED PT MEDS (PROVIDER) 08/17/2014 [facility] History of tobacco use QUIT TOBACCO IN THE LAST 12 MONTHS 10/18/2013 [facility] History of tobacco use TOBACCO OFFERED STOP SMOKING CLINIC 09/22/2013 [facility] History of tobacco use CURRENT TOBACCO USER 05/13/[address] [facility] History of tobacco use CURRENT TOBACCO USER 10/17/[address] [facility] History of tobacco use TOBACCO OFFERED STOP SMOKING CLINIC 06/10/2007 [facility] History of tobacco use CURRENT TOBACCO USER 10/15/2006 [facility] History of tobacco use TOB-SMOKES OR USES TOBACCO PRODUCTS 09/27/2002 1/2PPD [facility] This section is an empty social history section. [facility] Plan of Care List of future care activities from Department of [facility] facilities. Additional future care activities may be listed in the Assessment and Plan section. Date/Time Care Activity Care Activity Detail [facility] 05/20/2024 AMBULATORY - MEDICINE AMBULATORY - MEDICI [facility] 06/02/2024 AMBULATORY - MEDICINE AMBULATORY - MEDICI [facility] 09/01/2024 AMBULATORY - SURGERY AMBULATORY - SURGERY [facility] Advance Directives List of completed, amended, or rescinded Advance Directives on record at Department of Veterans Affairs facilities. An actual copy of the Directive is not included. Date Advance Directive Provider Source 09/23/2013 ADVANCE DIRECTIVE DISCUSSION CARLOS GREENE [facility]
--- OUTSIDE RECORDS SUMMARY | 2024-05-01 15:53 | XMS_ITS | Continuity of Care Document ---
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 It does not include entries that were removed or entered in error. Problem Status Onset Date Problem Type Date of Resolution Comments Source GIGIVITES Inactive 07/06/18 96 Condition 10/18/2013 [facility] Tooth Extraction Inactive 07/06/18 96 Condition 10/18/2013 [facility] Acute allergic reaction Active Condition [facility] AF- Atrial Fibrillation (SCT 33241426) Active Condition [facility] Anticoagulant effect Active Condition [facility] Atrial flutter Active Condition [facility] Chondrocalcinosis (SNOMED CT 427332430) Active Condition [facility] Chronic obstructive lung disease Active Condition Dec 16, 2019 Entered By: JESSICA MCCLAIN Comment: FEV1 31% [facility] djd neck Active Condition [facility] Eczema Active Condition [facility] History of percutaneous transluminal coronary angioplasty Active Condition [facility] Hypothyroidism Active Condition [facility] Impaired glucose tolerance Active Condition [facility] Nicotine dependence (SNOMED CT 47603665) Active Condition Feb 05, 2017 Entered By: WALE HORTON Comment: quit smoking in 2015 [facility] Osteoarthrosis involving the knee (ICD-9-CM 715.98) Active Condition [facility] Post percutaneous transluminal coronary angioplasty Active Condition [facility] Sciatica * (ICD-9-CM 724.3) Active Condition [facility] Therapeutic drug effect Active Condition [facility] Acute non-ST segment elevation myocardial infarction (SNOMED CT 419464454) Inactive Condition 10/18/2013 [facility] DJD Inactive Condition 10/18/2013 [facility] Epidermal Cyst * (ICD-9-CM 706.2) Inactive Condition 10/18/2013 [facility] Foot Pain Inactive Condition 10/18/2013 [facility] Low Back Pain * (ICD-9-CM 724.2) Inactive Condition 10/18/2013 [facility] Lymphadenopathy * (ICD-9-CM 785.6) Inactive Condition 10/18/2013 [facility] Diagnosis: ICD-10-CM 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 [facility] Diagnosis: ICD-10-CM Z12.2 Encntr screen for malignant neoplasm of respiratory organs Active Diagnosis [facility] Diagnosis: ICD-10-CM J44.9 Chronic obstructive pulmonary disease, unspecified Active Diagnosis [facility] Diagnosis: ICD-10-CM I48.91 Unspecified atrial fibrillation Active Diagnosis [facility] Diagnosis: ICD-10-CM M11.29 Other chondrocalcinosis, multiple sites Active Diagnosis [facility] Diagnosis: ICD-10-CM I48.3 Typical atrial flutter Active Diagnosis [facility] Diagnosis: ICD-10-CM B35.1 Tinea unguium Active Diagnosis [facility] Diagnosis: ICD-10-CM M17.0 Bilateral primary osteoarthritis of knee Active Diagnosis [facility] Diagnosis: ICD-10-CM R06.02 Shortness of breath Active Diagnosis [facility] Diagnosis: ICD-10-CM 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 Medication Details Route Status Patient Instructions Prescription Expires Prescription Number Last Dispense Date Ordering Provider Order Date Order Qty Source ALBUTEROL SO4 0.083% INHL,3ML INHALE 1 VIAL (2.5MG/3 ML) BY NEBULIZA TION EVERY 6 HOURS DIRECTED NEEDED FOR BREATHIN G NEBULI ZATION ACTIVE 02/26/2025 [id number] ADDIS MENDES 2023 120 [facility] ALBUTEROL SO4 0.083% INHL,3ML INHALE 1 VIAL (2.5MG/3 ML) BY NEBULIZA TION EVERY 6 HOURS DIRECTED NEEDED FOR BREATHIN G NEBULI ZATION DISCONT INUED 02/21/2024 [id number] 4 RICKY MCCLAIN 2022 120 [facility] ALBUTEROL SO4 90MCG/ACTUA T (CFC-F) INHL,ORAL,8 .5GM INHALE 2 PUFFS ORAL INHALATI ON FOUR TIMES A DAY NEEDED SHAKE WELL. RINSE MOUTHPIE CE FREQUENT LY TO PREVENT CLOGGING . RESPIR ATORY (INHAL ATION) ACTIVE 10/27/2024 [id number] 4 Vickie SOUTH 2023 4 [facility] ALBUTEROL SO4 90MCG/ACTUA T (CFC-F) INHL,ORAL,8 .5GM INHALE 2 PUFFS ORAL INHALATI ON FOUR TIMES A DAY NEEDED FOR BREATHIN G. SHAKE WELL. RINSE MOUTHPIE CE FREQUENT LY TO PREVENT CLOGGING . RESPIR ATORY (INHAL ATION) DISCONT INUED 02/21/2024 [id number] 4 RICKY MCCLAIN 2022 4 [facility] Albuterol Sulfate (PROVENTIL Eq.) Solution 2.5MG/3ML Inhalation INHALE 1 VIAL (2.5MG/3 ML) BY NEBULIZA TION EVERY 6 HOURS DIRECTED NEEDED FOR BREATHIN G 02/21/2024 [id number] 4 SOHAM MCCLAIN 2023 120 [facility] ASPIRIN 81MG TAB,CHEWABL E CHEW AND SWALLOW ONE TABLET BY MOUTH ONCE A DAY FOR CARDIOVA SCULAR DISEASE (TAKE WITH FOOD) ORAL ACTIVE 05/20/2024 [id number] 4 Temitope BOSE S 2023 90 [facility] ASPIRIN 81MG TAB,CHEWABL E CHEW AND SWALLOW ONE TABLET BY MOUTH ONCE A DAY FOR CARDIOVA SCULAR DISEASE (TAKE WITH FOOD) ORAL 05/16/2023 [id number] 3 TORIBIO STEPHEN 2022 90 [facility] ASPIRIN CHEW (U/D) 81 MG ORAL CHEW CHEW AND SWALLOW ONE TABLET BY MOUTH ONCE A DAY FOR CARDIOVA SCULAR DISEASE (TAKE WITH FOOD) Active 05/20/2024 [id number] 4 STEFANI BOSE 2023 90 [facility] ASPIRIN CHEW (U/D) 81 MG ORAL CHEW CHEW AND SWALLOW ONE TABLET BY MOUTH ONCE A DAY FOR CARDIOVA SCULAR DISEASE (TAKE WITH FOOD) 05/16/2023 [id number] 3 TEGAN STEPHEN 2023 90 [facility] CRESTOR (BRAND) 20 MG ORAL TAB TAKE ONE-HALF TABLET BY MOUTH EVERY EVENING TO LOWER CHOLESTE ROL 03/18/2024 [id number] 4 SOHAM MCCLAIN 2023 45 [facility] DIPHENHYDRA MINE HCL 25MG CAP TAKE 1 CAPSULE BY MOUTH TWICE A DAY NEEDED ORAL ACTIVE DELANEY BOO 2006 [facility] FLUTICASONE 250MCG/SALM ETEROL 50MCG INHL,ORAL,D ISKUS,60 INHALE 1 INHALATI ON BY ORAL INHALATI ON TWICE A DAY FOR BREATHIN G (OPEN DISKUS; CLICK ONLY ONCE; MAY INHALE TWICE TO COMPLETE DOSE; CLOSE WHEN FINISHED ) RINSE MOUTH AND SPIT AFTER EACH USE. REPLACES SYMBICOR T RESPIR ATORY (INHAL ATION) SUSPEND ED 02/26/2025 [id number] 5 CINTHYAADDIS DALE BELLAMY 2023 3 [facility] FLUTICASONE 250MCG/SALM ETEROL 50MCG INHL,ORAL,D ISKUS,60 INHALE 1 INHALATI ON BY ORAL INHALATI ON TWICE A DAY FOR BREATHIN G (OPEN DISKUS; CLICK ONLY ONCE; MAY INHALE TWICE TO COMPLETE DOSE; CLOSE WHEN FINISHED ) RINSE MOUTH AND SPIT AFTER EACH USE. REPLACES SYMBICOR T RESPIR ATORY (INHAL ATION) DISCONT INUED 02/04/2024 [id number] 4 CINTHYAADDIS DALE BELLAMY 2022 3 [facility] Fluticasone Propionate/ Salmeterol Xinafoate (Advair Diskus Eq.) Device Not Specified 250-50 mcg Inhalation INHALE 1 INHALATI ON BY ORAL INHALATI ON TWICE A DAY FOR BREATHIN G (OPEN DISKUS; CLICK ONLY ONCE; MAY INHALE TWICE TO COMPLETE DOSE; CLOSE WHEN FINISHED ) RINSE MOUTH AND SPIT AFTER EACH USE. REPLACES SY 02/04/2024 [id number] 4 DIANA MENDES 2023 3 [facility] furosemide (U/D) 20 MG ORAL TAB TAKE ONE TABLET BY MOUTH EVERY MORNING FOR FLUID RETENTIO N (EDEMA) Active 05/20/2024 [id number] 4 STEFANI BOSE [address] [place] [address] Divis[facility] n furosemide (U/D) 20 MG ORAL TAB TAKE ONE TABLET BY MOUTH EVERY MORNING FOR FLUID RETENTIO N (EDEMA) Discont inued 09/13/2023 [id number] 4 SOHAM MCCLAIN [address] [place] [address] [facility]is[facility] n FUROSEMIDE 20MG TAB TAKE ONE TABLET BY MOUTH EVERY MORNING FOR FLUID RETENTIO N (EDEMA) ORAL ACTIVE 05/20/2024 [id number] Temitope BOSE S 2023 90 [facility] FUROSEMIDE 20MG TAB TAKE ONE TABLET BY MOUTH EVERY MORNING FOR FLUID RETENTIO N (EDEMA) ORAL DISCONT INUED 09/13/2023 [id number] 4 RICKY MCCLAIN 2022 90 [facility] KETOCONAZOL E 2 % TOP CREA [15GM] APPLY LIGHTLY TO AFFECTED AREA(S) ONCE A DAY FOR FUNGAL INFECTIO N (EXTERNA L USE ONLY) OF FEET AND TOENAILS Active 08/04/2024 [id number] 4 ADDI WILKERSON 2023 60 [facility] KETOCONAZOL E 2% CREAM,TOP APPLY LIGHTLY TO AFFECTED AREA(S) ONCE A DAY FOR FUNGAL INFECTIO N (EXTERNA L USE ONLY) OF FEET AND TOENAILS TOPICA L ACTIVE 08/04/2024 [id number] 4 SA NIYAH WILKERSON 2023 60 [facility] LEVOTHYROXI NE NA 75MCG TAB (SYNTHROID) TAKE ONE AND ONE-HALF TABLETS BY MOUTH EVERY MORNING BEFORE A MEAL FOR THYROID. TAKE 30 MINUTES BEFORE FOOD. TAKE SEPARATE LY FROM ALL OTHER MEDICATI ONS. ORAL ACTIVE 10/09/2024 [id number] 4 RICKY MCCLAIN 2023 135 [facility] LEVOTHYROXI NE NA 75MCG TAB (SYNTHROID) TAKE ONE AND ONE-HALF TABLETS BY MOUTH EVERY MORNING BEFORE A MEAL FOR THYROID. TAKE 30 MINUTES BEFORE FOOD. TAKE SEPARATE LY FROM ALL OTHER MEDICATI ONS. ORAL 09/13/2023 [id number] 4 RICKY MCCLAIN 2022 135 [facility] Loratadine (Alavert ODT) Tablet 10 mg Oral TAKE ONE TABLET BY MOUTH ONCE A DAY FOR ALLERGIC RHINITIS ON EMPTY STOMACH FOR ALLERGIE S Active 05/20/2024 [id number] 4 STEFANI BOSE 2023 90 [facility] Loratadine (Alavert ODT) Tablet 10 mg Oral TAKE ONE TABLET BY MOUTH ONCE A DAY FOR ALLERGIC RHINITIS ON EMPTY STOMACH FOR ALLERGIE S Active 05/20/2024 [id number] 4 STEFANI BOSE S 2023 90 [facility] Loratadine (Alavert ODT) Tablet 10 mg Oral TAKE ONE TABLET BY MOUTH ONCE A DAY FOR ALLERGIC RHINITIS ON EMPTY STOMACH FOR ALLERGIE S Discont inued 09/13/2023 [id number] 4 SOHAM MCCLAIN [address] [place] [address] Divisio n LORATADINE 10MG TAB TAKE ONE TABLET BY MOUTH ONCE A DAY FOR ALLERGIC RHINITIS ON EMPTY STOMACH FOR ALLERGIE S ORAL ACTIVE 05/20/2024 [id number] 4 Temitope BOSE S [address] [place] [address] LORATADINE 10MG TAB TAKE ONE TABLET BY MOUTH ONCE A DAY FOR ALLERGIC RHINITIS ON EMPTY STOMACH FOR ALLERGIE S ORAL DISCONT INUED 09/13/2023 [id number] 4 RICKY MCCLAIN [address] [place] [address] RIVAROXABAN 20 MG ORAL TAB TAKE ONE TABLET BY MOUTH ONCE A DAY TO THIN BLOOD. TAKE WITH FOOD. 12/12/2023 [id number] 4 LILIAN TERRELL [address] [place] [address] Divisio n RIVAROXABAN 20MG TAB TAKE ONE TABLET BY MOUTH ONCE A DAY TO THIN BLOOD. TAKE WITH FOOD. ORAL ACTIVE 12/10/2024 [id number] 5 CAYLA GREER S [address] [place] [address] DIVISIO N RIVAROXABAN 20MG TAB TAKE ONE TABLET BY MOUTH ONCE A DAY TO THIN BLOOD. TAKE WITH FOOD. ORAL DISCONT INUED 12/12/2023 [id number] 4 Giselle TERRELL [address] [place] [address] DIVISIO N ROSUVASTATI N CA 20MG TAB TAKE ONE-HALF TABLET BY MOUTH EVERY EVENING TO LOWER CHOLESTE ROL ORAL ACTIVE 02/13/2025 [id number] 4 RICKY MCCLAIN 2023 45 [facility] ROSUVASTATI N CA 20MG TAB TAKE ONE-HALF TABLET BY MOUTH EVERY EVENING TO LOWER CHOLESTE ROL ORAL DISCONT INUED 03/18/2024 [id number] 4 RICKY MCCLAIN 2022 45 [facility] SOTALOL HCL 120MG TAB TAKE ONE TABLET BY MOUTH TWICE A DAY FOR HEART ORAL ACTIVE 06/18/2024 [id number] 5 CAYLA GREER 2023 180 [facility] SOTALOL HCL 120MG TAB TAKE ONE TABLET BY MOUTH TWICE A DAY FOR HEART ORAL DISCONT INUED 10/17/2023 [id number] 4 HARJINDER GREEN 2022 180 [facility] Sotalol Hydrochlori de (Betapace) Tablet 120 mg Oral TAKE ONE TABLET BY MOUTH TWICE A DAY FOR HEART Active 06/18/2024 [id number] 4 CANDELARIO GREER 2023 180 [facility] Sotalol Hydrochlori de (Betapace) Tablet 120 mg Oral TAKE ONE TABLET BY MOUTH TWICE A DAY FOR HEART Discont inued 10/17/2023 [id number] 4 HARJINDER GREEN 2023 180 [facility] TERBINAFINE 250 MG ORAL TAB TAKE ONE TABLET BY MOUTH ONCE A DAY FOR TINEA UNGUINUM (NOTE THAT YOUR NAILS TAKE MONTHS TO GROW OUT, WILL SEE IMPROVEM ENT OVER TIME (1 YR TOES, 6 MOS FINGERS) . SIDE EFFECTS INCLUDE LIVER PROBLEMS , 04/04/2023 [id number] 3 MAGNO SWENSON 2023 60 [facility] TERBINAFINE HCL 250MG TAB TAKE [...] CE THESE CALL YOUR DOCTOR) ORAL 04/04/2023 [id number] 3 NO SWENSON LLIAM S 2022 60 [facility] TIOTROPIUM (MIST) 2.5 MCG INH [4 GM] INHALE 2 INHALATI ONS BY ORAL INHALATI ON ONCE A DAY (ADMINIS TER AT SAME TIME EACH DAY) FOR BREATHIN G. 02/04/2024 [id number] 4 DIANA MENDES 2023 3 [facility] TIOTROPIUM (MIST) 2.5 MCG INH [4 GM] INHALE 2 INHALATI ONS BY ORAL INHALATI ON ONCE A DAY (ADMINIS TER AT SAME TIME EACH DAY) FOR BREATHIN G. 02/04/2024 [id number] 3 DIANA MENDES 2022 3 [facility] TIOTROPIUM 2.5MCG/ACTU AT INHL,ORAL,6 0D,4GM INHALE 2 INHALATI ONS BY ORAL INHALATI ON ONCE A DAY (ADMINIS TER AT SAME TIME EACH DAY) FOR BREATHIN G. RESPIR ATORY (INHAL ATION) ACTIVE 02/26/2025 [id number] 4 ADDIS MENDES 2023 3 [facility] TIOTROPIUM 2.5MCG/ACTU AT INHL,ORAL,6 0D,4GM INHALE 2 INHALATI ONS BY ORAL INHALATI ON ONCE A DAY (ADMINIS TER AT SAME TIME EACH DAY) FOR BREATHIN G. RESPIR ATORY (INHAL ATION) DISCONT INUED 02/04/2024 [id number] 4 ADDIS MENDES 2022 3 [facility] Allergies, Adverse Reactions, Alerts Combined list [facility] from [facility] facilities. It does not include entries that were removed or entered in error. Substance Category Reaction Severity Reaction type Status Date Reported Comments Source IMDUR 30MG TAB,SA Propensity to adverse reactions to drug (finding) Pharyngeal swelling active 0 [facility] ISOSORBIDE Drug allergy (disorder) Throat swelling active 0 [facility] Immunizations Combined list of available immunizations from the [facility] facilities. Immunization Series Date Given Administered By Site Reaction Lot Number CVX Code Drug Fire Prevention Engineer Status Comments Source TD(ADULT) UNSPECIFIED FORMULATION 2002 139 complet ed ZZ [facility] AM [place] [facility] Results Combined list of recent chemistry, hematology and other laboratory results from [facility], ranging from 15 months to [...] 16, 2023 09:31 AM Reporting Lab: [address] [address] Performing Lab: [address] [address] [facility] BASIC METABOLIC PANEL UREA NITROGEN [MASS/VOLUM E] IN SERUM OR PLASMA 23.3 mg/dL 9.0 - 25.0 12/09 Specimen Type: PLASMA Comment: No hemolysis noted. Ordering Provider: LYNNETTE MASCORRO Report Released Date/Time: Nov 16, 2023 09:31 AM Reporting Lab: [address] [address] Performing Lab: [address] [address] [facility] BASIC METABOLIC PANEL GLUCOSE [MASS/VOLUM E] IN SERUM OR PLASMA 149 mg/dL 72 - 99 12/09 H Specimen Type: PLASMA Comment: No hemolysis noted. Ordering Provider: LYNNETTE MASCORRO Report Released Date/Time: Nov 16, 2023 09:31 AM Reporting Lab: [facility] [address] [place] [phone] Performing Lab: [facility] [address] [place] [phone] [place] [address] BASIC METABOLIC PANEL SODIUM [MOLES/VOLU ME] IN SERUM OR PLASMA 138 meq/L 136 - 145 12/09 Specimen Type: PLASMA Comment: No hemolysis noted. Ordering Provider: LYNNETTE MASCORRO Report Released Date/Time: Nov 16, 2023 09:31 AM Reporting Lab: [address] [address] Performing Lab: [address] [phone] [place] [address] BASIC METABOLIC PANEL POTASSIUM [MOLES/VOLU ME] IN SERUM OR PLASMA 3.7 meq/L 3.5 - 5 12/09 Specimen Type: PLASMA Comment: No hemolysis noted. Ordering Provider: LYNNETTE MASCORRO Report Released Date/Time: Nov 16, 2023 09:31 AM Reporting Lab: [address] [address] Performing Lab: [address] [address] [facility] BASIC METABOLIC PANEL CHLORIDE [MOLES/VOLU ME] IN SERUM OR PLASMA 102 meq/L 98 - 107 12/09 Specimen Type: PLASMA Comment: No hemolysis noted. Ordering Provider: LYNNETTE MASCORRO Report Released Date/Time: Nov 16, 2023 09:31 AM Reporting Lab: [facility] [address] [place] [phone] Performing Lab: [facility] [address] [place] [phone] [facility] BASIC METABOLIC PANEL CARBON DIOXIDE, TOTAL [MOLES/VOLU ME] IN SERUM OR PLASMA 26 meq/L 22 - 31 12/09 Specimen Type: PLASMA Comment: No hemolysis noted. Ordering Provider: LYNNETTE MASCORRO Report Released Date/Time: Nov 16, 2023 09:31 AM Reporting Lab: [facility] [address] [facility] [address] Performing Lab: [facility] [address] [place] [phone] [facility] BASIC METABOLIC PANEL CALCIUM [MASS/VOLUM E] IN SERUM OR PLASMA 9.6 mg/dL 8.4 - 10.4 12/09 Specimen Type: PLASMA Comment: No hemolysis noted. Ordering Provider: LYNNETTE MASCORRO Report Released Date/Time: Nov 16, 2023 09:31 AM Reporting Lab: [facility] [address] [place] [phone] Performing Lab: [address] [address] [facility] BASIC METABOLIC PANEL GLOMERULAR FILTRATION RATE/1.73 SQ M.PREDICTED [VOLUME RATE/AREA] IN SERUM, PLASMA OR BLOOD BY CREATININE- BASED FORMULA (CKD-EPI 2020) 56.6 60 12/09 Specimen Type: PLASMA Comment: No hemolysis noted. Ordering Provider: LYNNETTE MASCORRO Report Released Date/Time: Nov 16, 2023 09:31 AM Reporting Lab: [facility] [address] [facility] [address] Performing Lab: [facility] [address] [place] [phone] [facility] CBC LEUKOCYTES [#/VOLUME] IN BLOOD BY AUTOMATED COUNT 8.1 10*3/u L 3.6 - 11.2 12/09 Specimen Type: BLOOD No comment entered. Ordering Provider: JAUN GREER Report Released Date/Time: Dec 10, 2023 08:23 AM Reporting Lab: [facility] [address] [place] [phone] Performing Lab: [facility] [address] [place] [phone] [facility] CBC ERYTHROCYTE S [#/VOLUME] IN BLOOD BY AUTOMATED COUNT 5.17 10*6/u L 4.10 - 5.70 12/09 Specimen Type: BLOOD No comment entered. Ordering Provider: JAUN GREER Report Released Date/Time: Dec 10, 2023 08:23 AM Reporting Lab: [place] [phone] Performing Lab: [address] CBC HEMOGLOBIN [MASS/VOLUM E] IN BLOOD 15.6 g/dL 13.1 - 16.8 12/09 Specimen Type: BLOOD No comment entered. Ordering Provider: JAUN GREER Report Released Date/Time: Dec 10, 2023 08:23 AM Reporting Lab: [place] [id number] Performing Lab: [address] CBC HEMATOCRIT [VOLUME FRACTION] OF BLOOD 46.7 38.2 - 48.4 12/09 Specimen Type: BLOOD No comment entered. Ordering Provider: JAUN GREER Report Released Date/Time: Dec 10, 2023 08:23 AM Reporting Lab: [place] [phone] Performing Lab: [place] [phone] CBC MCV [ENTITIC VOLUME] BY AUTOMATED COUNT 90.3 fL 80.0 - 100.0 12/09 Specimen Type: BLOOD No comment entered. Ordering Provider: JAUN GREER Report Released Date/Time: Dec 10, 2023 08:23 AM Reporting Lab: [place] [phone] Performing Lab: [address] [phone] [place] [address] CBC MCH [ENTITIC MASS] BY AUTOMATED COUNT 30.2 pg 27.0 - 34.0 12/09 Specimen Type: BLOOD No comment entered. Ordering Provider: JAUN GREER S Report Released Date/Time: Dec 10, 2023 08:23 AM Reporting Lab: [address] [address] Performing Lab: [address] [phone] [place] [address] CBC MCHC [MASS/VOLUM E] BY AUTOMATED COUNT 33.4 g/dL 33.0 - 36.0 12/09 Specimen Type: BLOOD No comment entered. Ordering Provider: JAUN GREER S Report Released Date/Time: Dec 10, 2023 08:23 AM Reporting Lab: [address] [address] Performing Lab: [phone] [place] [address] CBC PLATELETS [#/VOLUME] IN BLOOD BY AUTOMATED COUNT 177 10*3/u L 150 - 400 12/09 Specimen Type: BLOOD No comment entered. Ordering Provider: JAUN GREER S Report Released Date/Time: Dec 10, 2023 08:23 AM Reporting Lab: [address] [address] Performing Lab: [address] [phone] [place] [address] CBC PLATELET MEAN VOLUME [ENTITIC VOLUME] IN BLOOD BY AUTOMATED COUNT 10.5 fL 7.5 - 11.2 12/09 Specimen Type: BLOOD No comment entered. Ordering Provider: JAUN GREER S Report Released Date/Time: Dec 10, 2023 08:23 AM Reporting Lab: [address] [address] Performing Lab: [address] [phone] [place] [address] CBC ERYTHROCYTE DISTRIBUTIO N WIDTH [RATIO] BY AUTOMATED COUNT 14.1 11.8 - 15.1 12/09 Specimen Type: BLOOD No comment entered. Ordering Provider: JAUN GREER Report Released Date/Time: Dec 10, 2023 08:23 AM Reporting Lab: [facility] [address] [facility] [address] Performing Lab: [facility] [address] [address] [facility] CBC LYMPHOCYTES /100 LEUKOCYTES IN BLOOD BY AUTOMATED COUNT 23 12/09 Specimen Type: BLOOD No comment entered. Ordering Provider: JAUN GREER Report Released Date/Time: Dec 10, 2023 08:23 AM Reporting Lab: [facility] [address] [facility] [address] Performing Lab: [facility] [address] [facility] [phone] [facility] CBC MONOCYTES/1 00 LEUKOCYTES IN BLOOD BY AUTOMATED COUNT 6 12/09 Specimen Type: BLOOD No comment entered. Ordering Provider: JAUN GREER Report Released Date/Time: Dec 10, 2023 08:23 AM Reporting Lab: [facility] [address] [facility] [address] Performing Lab: [facility] [address] [place] [phone] [facility] CBC NEUTROPHILS /100 LEUKOCYTES IN BLOOD BY AUTOMATED COUNT 68 12/09 Specimen Type: BLOOD No comment entered. Ordering Provider: JAUN RGEER Report Released Date/Time: Dec 10, 2023 08:23 AM Reporting Lab: [facility] [address] [facility] [id number] Performing Lab: [facility] [address] [place] [id number] [facility] CBC EOSINOPHILS /100 LEUKOCYTES IN BLOOD BY AUTOMATED COUNT 2 12/09 Specimen Type: BLOOD No comment entered. Ordering Provider: JAUN GREER Report Released Date/Time: Dec 10, 2023 08:23 AM Reporting Lab: [facility] [address] [facility] [id number] Performing Lab: [facility] [address] [place] [phone] [facility] CBC BASOPHILS/1 00 LEUKOCYTES IN BLOOD BY AUTOMATED COUNT 1 12/09 Specimen Type: BLOOD No comment entered. Ordering Provider: JAUN GREER S Report Released Date/Time: Dec 10, 2023 08:23 AM Reporting Lab: [address] [id number] Performing Lab: [phone] [place] [address] CBC LYMPHOCYTES [#/VOLUME] IN BLOOD BY AUTOMATED COUNT 1.82 10*3/u L 0.77 - 4.50 12/09 Specimen Type: BLOOD No comment entered. Ordering Provider: JAUN GREER S Report Released Date/Time: Dec 10, 2023 08:23 AM Reporting Lab: [place] [address] [facility] [address] Performing Lab: [address] [phone] CBC MONOCYTES [#/VOLUME] IN BLOOD BY AUTOMATED COUNT 0.50 10*3/u L 0.19 - 0.80 12/09 Specimen Type: BLOOD No comment entered. Ordering Provider: JAUN GREER Report Released Date/Time: Dec 10, 2023 08:23 AM Reporting Lab: [address] [address] Performing Lab: [address] [address] [facility] CBC NEUTROPHILS [#/VOLUME] IN BLOOD BY AUTOMATED COUNT 5.49 10*3/u L 2.10 - 8.00 12/09 Specimen Type: BLOOD No comment entered. Ordering Provider: JAUN GREER Report Released Date/Time: Dec 10, 2023 08:23 AM Reporting Lab: [place] [address] [facility] [address] Performing Lab: [place] [address] [facility] [address] [facility] CBC EOSINOPHILS [#/VOLUME] IN BLOOD BY AUTOMATED COUNT 0.19 10*3/u L 0.00 - 0.60 12/09 Specimen Type: BLOOD No comment entered. Ordering Provider: JAUN GREER S Report Released Date/Time: Dec 10, 2023 08:23 AM Reporting Lab: [place] [address] [place] [phone] Performing Lab: [place] [phone] CBC BASOPHILS [#/VOLUME] IN BLOOD BY AUTOMATED COUNT 0.06 10*3/u L 0.00 - 0.20 12/09 Specimen Type: BLOOD No comment entered. Ordering Provider: JAUN GREER S Report Released Date/Time: Dec 10, 2023 08:23 AM Reporting Lab: [place] [address] [place] [phone] Performing Lab: [place] [address] [facility] [address] [facility] COMPREHEN SIVE METABOLIC PANEL CREATININE [MASS/VOLUM E] IN SERUM OR PLASMA 1.34 mg/dL 0.7 - 1.3 12/09 H Specimen Type: PLASMA Comment: No hemolysis noted. Ordering Provider: JAUN GREER S Report Released Date/Time: Dec 10, 2023 08:23 AM Reporting Lab: [place] [phone] Performing Lab: [address] [address] [facility] COMPREHEN SIVE METABOLIC PANEL UREA NITROGEN [MASS/VOLUM E] IN SERUM OR PLASMA 23.4 mg/dL 9.0 - 25.0 12/09 Specimen Type: PLASMA Comment: No hemolysis noted. Ordering Provider: JAUN GREER S Report Released Date/Time: Dec 10, 2023 08:23 AM Reporting Lab: [facility] [address] [place] [phone] Performing Lab: [facility] [address] [facility] [address] [facility] COMPREHEN SIVE METABOLIC PANEL GLUCOSE [MASS/VOLUM E] IN SERUM OR PLASMA 150 mg/dL 72 - 99 12/09 H Specimen Type: PLASMA Comment: No hemolysis noted. Ordering Provider: JAUN GREER S Report Released Date/Time: Dec 10, 2023 08:23 AM Reporting Lab: [place] [phone] Performing Lab: [address] [address] [facility] COMPREHEN SIVE METABOLIC PANEL SODIUM [MOLES/VOLU ME] IN SERUM OR PLASMA 137 meq/L 136 - 145 12/09 Specimen Type: PLASMA Comment: No hemolysis noted. Ordering Provider: JAUN GREER S Report Released Date/Time: Dec 10, 2023 08:23 AM Reporting Lab: [address] [address] Performing Lab: [facility] [address] [place] [phone] [facility] COMPREHEN SIVE METABOLIC PANEL POTASSIUM [MOLES/VOLU ME] IN SERUM OR PLASMA 3.7 meq/L 3.5 - 5 12/09 Specimen Type: PLASMA Comment: No hemolysis noted. Ordering Provider: JAUN GREER S Report Released Date/Time: Dec 10, 2023 08:23 AM Reporting Lab: [address] [address] Performing Lab: [facility] [address] [place] [phone] [facility] COMPREHEN SIVE METABOLIC PANEL CHLORIDE [MOLES/VOLU ME] IN SERUM OR PLASMA 102 meq/L 98 - 107 12/09 Specimen Type: PLASMA Comment: No hemolysis noted. Ordering Provider: JAUN GREER S Report Released Date/Time: Dec 10, 2023 08:23 AM Reporting Lab: [facility] [address] [facility] [address] Performing Lab: [facility] [address] [place] [phone] [facility] COMPREHEN SIVE METABOLIC PANEL CARBON DIOXIDE, TOTAL [MOLES/VOLU ME] IN SERUM OR PLASMA 27 meq/L 22 - 31 12/09 Specimen Type: PLASMA Comment: No hemolysis noted. Ordering Provider: JAUN GREER Report Released Date/Time: Dec 10, 2023 08:23 AM Reporting Lab: [facility] [address] [place] [address] Performing Lab: [address] [address] [facility] COMPREHEN SIVE METABOLIC PANEL CALCIUM [MASS/VOLUM E] IN SERUM OR PLASMA 9.3 mg/dL 8.4 - 10.4 12/09 Specimen Type: PLASMA Comment: No hemolysis noted. Ordering Provider: JAUN GREER S Report Released Date/Time: Dec 10, 2023 08:23 AM Reporting Lab: [facility] [address] [facility] [address] Performing Lab: [facility] [address] [place] [phone] [facility] COMPREHEN SIVE METABOLIC PANEL PROTEIN [MASS/VOLUM E] IN SERUM OR PLASMA 7.3 g/dL 6 - 8.6 12/09 Specimen Type: PLASMA Comment: No hemolysis noted. Ordering Provider: JAUN GREER S Report Released Date/Time: Dec 10, 2023 08:23 AM Reporting Lab: [facility] [address] [facility] [address] Performing Lab: [facility] [address] [place] [address] [facility] COMPREHEN SIVE METABOLIC PANEL ALBUMIN [MASS/VOLUM E] IN SERUM OR PLASMA 4.2 g/dL 3.4 - 5 12/09 Specimen Type: PLASMA Comment: No hemolysis noted. Ordering Provider: JAUN GREER S Report Released Date/Time: Dec 10, 2023 08:23 AM Reporting Lab: [place] [address] [place] [phone] Performing Lab: [place] [address] [place] [phone] [facility] COMPREHEN SIVE METABOLIC PANEL BILIRUBIN.T OTAL [MASS/VOLUM E] IN SERUM OR PLASMA 1.1 mg/dL 0.2 - 1.2 12/09 Specimen Type: PLASMA Comment: No hemolysis noted. Ordering Provider: JAUN GREER S Report Released Date/Time: Dec 10, 2023 08:23 AM Reporting Lab: [place] [phone] Performing Lab: [place] [address] [place] [phone] [facility] COMPREHEN SIVE METABOLIC PANEL ALKALINE PHOSPHATASE [ENZYMATIC ACTIVITY/VO LUME] IN SERUM OR PLASMA 95 U/L 40 - 150 12/09 Specimen Type: PLASMA Comment: No hemolysis noted. Ordering Provider: JAUN GREER S Report Released Date/Time: Dec 10, 2023 08:23 AM Reporting Lab: [place] [phone] Performing Lab: [place] [address] [facility] [address] [facility] COMPREHEN SIVE METABOLIC PANEL ASPARTATE AMINOTRANSF ERASE [ENZYMATIC ACTIVITY/VO LUME] IN SERUM OR PLASMA 16 U/L 5 - 34 12/09 Specimen Type: PLASMA Comment: No hemolysis noted. Ordering Provider: JAUN GREER S Report Released Date/Time: Dec 10, 2023 08:23 AM Reporting Lab: [place] [address] [place] [phone] Performing Lab: [place] [address] [facility] [address] [facility] COMPREHEN SIVE METABOLIC PANEL ALANINE AMINOTRANSF ERASE [ENZYMATIC ACTIVITY/VO LUME] IN SERUM OR PLASMA 12 U/L 8 - 40 12/09 Specimen Type: PLASMA Comment: No hemolysis noted. Ordering Provider: JAUN GREER S Report Released Date/Time: Dec 10, 2023 08:23 AM Reporting Lab: [place] [phone] Performing Lab: [place] [phone] COMPREHEN SIVE METABOLIC PANEL GLOMERULAR FILTRATION RATE/1.73 SQ M.PREDICTED [VOLUME RATE/AREA] IN SERUM, PLASMA OR BLOOD BY CREATININE- BASED FORMULA (CKD-EPI 2020) 56.6 60 12/09 Specimen Type: PLASMA Comment: No hemolysis noted. Ordering Provider: JAUN GREER S Report Released Date/Time: Dec 10, 2023 08:23 AM Reporting Lab: [place] [phone] Performing Lab: [place] [id number] HGA1C HEMOGLOBIN A1C/HEMOGLO BIN.TOTAL IN BLOOD 6.0 4.0 - 6.0 12/09 Specimen Type: BLOOD No comment entered. Ordering Provider: JAUN GREER S Report Released Date/Time: Dec 10, 2023 08:26 AM Reporting Lab: [place] [phone] Performing Lab: [place] [phone] BRAIN NATRIURET IC PEPTIDE NATRIURETIC PEPTIDE B [MASS/VOLUM E] IN SERUM OR PLASMA 113.0 pg/mL 0 - 100 09/02 H Specimen Type: PLASMA No comment entered. Ordering Provider: GREEN,S HIRLEY A Report Released Date/Time: Sep 03, 2023 10:40 AM Reporting Lab: [facility] [address] [facility] [address] Performing Lab: [facility] [address] [place] [address] [facility] HGA1C HEMOGLOBIN A1C/HEMOGLO BIN.TOTAL IN BLOOD 6.1 4.0 - 6.0 05/20 H Specimen Type: BLOOD No comment entered. Ordering Provider: SA PEPPER BOSE Report Released Date/Time: May 20, 2023 09:13 AM Reporting Lab: [place] [address] [facility] [address] Performing Lab: [address] [address] [facility] LIPID PANEL (STL) CHOLESTEROL [MASS/VOLUM E] IN SERUM OR PLASMA 136 mg/dL 0 - 200 05/20 Specimen Type: PLASMA No comment entered. Ordering Provider: SA PEPPER BOSE Report Released Date/Time: May 20, 2023 09:13 AM Reporting Lab: [place] [address] [facility] [address] Performing Lab: [place] [address] [facility] [address] [facility] LIPID PANEL (STL) TRIGLYCERID E [MASS/VOLUM E] IN SERUM OR PLASMA 224 mg/dL 0 - 150 05/20 H Specimen Type: PLASMA No comment entered. Ordering Provider: SA PEPPER BOSE Report Released Date/Time: May 20, 2023 09:13 AM Reporting Lab: [place] [address] [facility] [address] Performing Lab: [address] [address] [facility] LIPID PANEL (STL) CHOLESTEROL IN LDL [MASS/VOLUM E] IN SERUM OR PLASMA BY CALCULATION 44 mg/dL 05/20 Specimen Type: PLASMA No comment entered. Ordering Provider: SA PEPPER BOSE Report Released Date/Time: May 20, 2023 09:13 AM Reporting Lab: [address] [address] Performing Lab: [address] [phone] [place] [address] LIPID PANEL (STL) CHOLESTEROL IN HDL [MASS/VOLUM E] IN SERUM OR PLASMA 47 mg/dL 40 05/20 Specimen Type: PLASMA No comment entered. Ordering Provider: SA PEPPER BOSE Report Released Date/Time: May 20, 2023 09:13 AM Reporting Lab: [address] [address] Performing Lab: [address] [phone] [place] [address] TSH (MA-PB-ST L) THYROTROPIN [UNITS/VOLU ME] IN SERUM OR PLASMA 1.943 u[IU]/ mL 0.47 - 5 05/20 Specimen Type: SERUM No comment entered. Ordering Provider: SA PEPPER BOSE Report Released Date/Time: May 20, 2023 09:13 AM Reporting Lab: [address] [address] Performing Lab: [address] [phone] [place] [address] CBC LEUKOCYTES [#/VOLUME] IN BLOOD BY AUTOMATED COUNT 7.2 10*3/u L 3.6 - 11.2 03/05 Specimen Type: BLOOD No comment entered. Ordering Provider: MITZY SWENSON Report Released Date/Time: Feb 03, 2023 09:17 AM Reporting Lab: [facility] [address] [place] [phone] Performing Lab: [address] [address] [facility] CBC ERYTHROCYTE S [#/VOLUME] IN BLOOD BY AUTOMATED COUNT 5.04 10*6/u L 4.10 - 5.70 03/05 Specimen Type: BLOOD No comment entered. Ordering Provider: MITZY SWENSON Report Released Date/Time: Feb 03, 2023 09:17 AM Reporting Lab: [place] [phone] Performing Lab: [facility] [address] [place] [phone] [place] [address] CBC HEMOGLOBIN [MASS/VOLUM E] IN BLOOD 15.0 g/dL 13.1 - 16.8 03/05 Specimen Type: BLOOD No comment entered. Ordering Provider: MITZY SWENSON Report Released Date/Time: Feb 03, 2023 09:17 AM Reporting Lab: [place] [address] Performing Lab: [place] [phone] CBC HEMATOCRIT [VOLUME FRACTION] OF BLOOD 46.7 38.2 - 48.4 03/05 Specimen Type: BLOOD No comment entered. Ordering Provider: MITZY SWENSON Report Released Date/Time: Feb 03, 2023 09:17 AM Reporting Lab: [place] [address] Performing Lab: [address] [phone] [address] CBC MCV [ENTITIC VOLUME] BY AUTOMATED COUNT 92.7 fL 80.0 - 100.0 03/05 Specimen Type: BLOOD No comment entered. Ordering Provider: MITZY SWENSON Report Released Date/Time: Feb 03, 2023 09:17 AM Reporting Lab: [place] [address] Performing Lab: [place] [phone] CBC MCH [ENTITIC MASS] BY AUTOMATED COUNT 29.8 pg 27.0 - 34.0 03/05 Specimen Type: BLOOD No comment entered. Ordering Provider: MITZY SWENSON Report Released Date/Time: Feb 03, 2023 09:17 AM Reporting Lab: [place] [phone] Performing Lab: [address] [address] [facility] CBC MCHC [MASS/VOLUM E] BY AUTOMATED COUNT 32.1 g/dL 33.0 - 36.0 03/05 L Specimen Type: BLOOD No comment entered. Ordering Provider: MITZY SWENSON Report Released Date/Time: Feb 03, 2023 09:17 AM Reporting Lab: [place] [address] Performing Lab: [address] [phone] [address] CBC PLATELETS [#/VOLUME] IN BLOOD BY AUTOMATED COUNT 150 10*3/u L 150 - 400 03/05 Specimen Type: BLOOD No comment entered. Ordering Provider: MITZY SWENSON Report Released Date/Time: Feb 03, 2023 09:17 AM Reporting Lab: [place] [phone] Performing Lab: [address] [phone] [address] CBC PLATELET MEAN VOLUME [ENTITIC VOLUME] IN BLOOD BY AUTOMATED COUNT 9.7 fL 7.5 - 11.2 03/05 Specimen Type: BLOOD No comment entered. Ordering Provider: MITZY SWENSON Report Released Date/Time: Feb 03, 2023 09:17 AM Reporting Lab: [address] [address] Performing Lab: [address] [address] [facility] CBC ERYTHROCYTE DISTRIBUTIO N WIDTH [RATIO] BY AUTOMATED COUNT 14.4 11.8 - 15.1 03/05 Specimen Type: BLOOD No comment entered. Ordering Provider: MITZY SWENSON Report Released Date/Time: Feb 03, 2023 09:17 AM Reporting Lab: [facility] [address] [facility] [address] Performing Lab: [facility] [address] [facility] [address] [facility] CBC LYMPHOCYTES /100 LEUKOCYTES IN BLOOD BY AUTOMATED COUNT 32 03/05 Specimen Type: BLOOD No comment entered. Ordering Provider: MITZY SWENSON Report Released Date/Time: Feb 03, 2023 09:17 AM Reporting Lab: [facility] [address] [facility] [address] Performing Lab: [facility] [address] [facility] [address] [facility] CBC MONOCYTES/1 00 LEUKOCYTES IN BLOOD BY AUTOMATED COUNT 9 03/05 Specimen Type: BLOOD No comment entered. Ordering Provider: MITZY SWENSON Report Released Date/Time: Feb 03, 2023 09:17 AM Reporting Lab: [facility] [address] [facility] [address] Performing Lab: [facility] [address] [facility] [address] [facility] CBC NEUTROPHILS /100 LEUKOCYTES IN BLOOD BY AUTOMATED COUNT 53 03/05 Specimen Type: BLOOD No comment entered. Ordering Provider: MITZY SWENSON Report Released Date/Time: Feb 03, 2023 09:17 AM Reporting Lab: [facility] [address] [facility] [address] Performing Lab: [facility] [address] [facility] [address] [facility] CBC EOSINOPHILS /100 LEUKOCYTES IN BLOOD BY AUTOMATED COUNT 5 03/05 Specimen Type: BLOOD No comment entered. Ordering Provider: MITZY SWENSON Report Released Date/Time: Feb 03, 2023 09:17 AM Reporting Lab: [facility] [address] [facility] [address] Performing Lab: [address] [address] [facility] CBC BASOPHILS/1 00 LEUKOCYTES IN BLOOD BY AUTOMATED COUNT 1 03/05 Specimen Type: BLOOD No comment entered. Ordering Provider: MITZY SWENSON Report Released Date/Time: Feb 03, 2023 09:17 AM Reporting Lab: [address] [address] Performing Lab: [address] [address] [facility] CBC LYMPHOCYTES [#/VOLUME] IN BLOOD BY AUTOMATED COUNT 2.31 10*3/u L 0.77 - 4.50 03/05 Specimen Type: BLOOD No comment entered. Ordering Provider: MITZY SWENSON Report Released Date/Time: Feb 03, 2023 09:17 AM Reporting Lab: [address] [address] Performing Lab: [address] [address] [facility] CBC MONOCYTES [#/VOLUME] IN BLOOD BY AUTOMATED COUNT 0.62 10*3/u L 0.19 - 0.80 03/05 Specimen Type: BLOOD No comment entered. Ordering Provider: MITZY SWENSON Report Released Date/Time: Feb 03, 2023 09:17 AM Reporting Lab: [address] [address] Performing Lab: [address] [address] [facility] CBC NEUTROPHILS [#/VOLUME] IN BLOOD BY AUTOMATED COUNT 3.77 10*3/u L 2.10 - 8.00 03/05 Specimen Type: BLOOD No comment entered. Ordering Provider: MITZY SWENSON Report Released Date/Time: Feb 03, 2023 09:17 AM Reporting Lab: [address] [address] Performing Lab: [address] [address] [facility] CBC EOSINOPHILS [#/VOLUME] IN BLOOD BY AUTOMATED COUNT 0.34 10*3/u L 0.00 - 0.60 03/05 Specimen Type: BLOOD No comment entered. Ordering Provider: MITZY SWENSON Report Released Date/Time: Feb 03, 2023 09:17 AM Reporting Lab: [place] [phone] Performing Lab: [place] [phone] CBC BASOPHILS [#/VOLUME] IN BLOOD BY AUTOMATED COUNT 0.08 10*3/u L 0.00 - 0.20 03/05 Specimen Type: BLOOD No comment entered. Ordering Provider: MITZY SWENSON Report Released Date/Time: Feb 03, 2023 09:17 AM Reporting Lab: [place] [phone] Performing Lab: [place] [phone] COMPREHEN SIVE METABOLIC PANEL CREATININE [MASS/VOLUM E] IN SERUM OR PLASMA 1.25 mg/dL 0.7 - 1.3 03/05 Specimen Type: PLASMA Comment: No hemolysis noted. Ordering Provider: MITZY SWENSON Report Released Date/Time: Feb 03, 2023 09:17 AM Reporting Lab: [place] [phone] Performing Lab: [place] [phone] COMPREHEN SIVE METABOLIC PANEL UREA NITROGEN [MASS/VOLUM E] IN SERUM OR PLASMA 9.9 mg/dL 9.0 - 25.0 03/05 Specimen Type: PLASMA Comment: No hemolysis noted. Ordering Provider: MITZY SWENSON Report Released Date/Time: Feb 03, 2023 09:17 AM Reporting Lab: [place] [address] [facility] [address] Performing Lab: [facility] [address] [facility] [address] [facility] COMPREHEN SIVE METABOLIC PANEL GLUCOSE [MASS/VOLUM E] IN SERUM OR PLASMA 90 mg/dL 72 - 99 03/05 Specimen Type: PLASMA Comment: No hemolysis noted. Ordering Provider: MITZY SWENSON Report Released Date/Time: Feb 03, 2023 09:17 AM Reporting Lab: [place] [address] [facility] [address] Performing Lab: [address] [address] [facility] COMPREHEN SIVE METABOLIC PANEL SODIUM [MOLES/VOLU ME] IN SERUM OR PLASMA 138 meq/L 136 - 145 03/05 Specimen Type: PLASMA Comment: No hemolysis noted. Ordering Provider: MITZY SWENSON Report Released Date/Time: Feb 03, 2023 09:17 AM Reporting Lab: [facility] [address] [facility] [address] Performing Lab: [place] [address] [facility] [address] [facility] COMPREHEN SIVE METABOLIC PANEL POTASSIUM [MOLES/VOLU ME] IN SERUM OR PLASMA 3.8 meq/L 3.5 - 5 03/05 Specimen Type: PLASMA Comment: No hemolysis noted. Ordering Provider: MITZY SWENSON Report Released Date/Time: Feb 03, 2023 09:17 AM Reporting Lab: [place] [address] [facility] [address] Performing Lab: [address] [address] [facility] COMPREHEN SIVE METABOLIC PANEL CHLORIDE [MOLES/VOLU ME] IN SERUM OR PLASMA 99 meq/L 98 - 107 03/05 Specimen Type: PLASMA Comment: No hemolysis noted. Ordering Provider: MITZY SWENSON Report Released Date/Time: Feb 03, 2023 09:17 AM Reporting Lab: [place] [address] [facility] [address] Performing Lab: [place] [address] [facility] [address] [facility] COMPREHEN SIVE METABOLIC PANEL CARBON DIOXIDE, TOTAL [MOLES/VOLU ME] IN SERUM OR PLASMA 30 meq/L 22 - 31 03/05 Specimen Type: PLASMA Comment: No hemolysis noted. Ordering Provider: MITZY SWENSON Report Released Date/Time: Feb 03, 2023 09:17 AM Reporting Lab: [place] [address] [facility] [address] Performing Lab: [place] [address] [facility] [address] [facility] COMPREHEN SIVE METABOLIC PANEL CALCIUM [MASS/VOLUM E] IN SERUM OR PLASMA 9.3 mg/dL 8.4 - 10.4 03/05 Specimen Type: PLASMA Comment: No hemolysis noted. Ordering Provider: MITZY SWENSON Report Released Date/Time: Feb 03, 2023 09:17 AM Reporting Lab: [place] [address] [facility] [address] Performing Lab: [place] [address] [facility] [address] [facility] COMPREHEN SIVE METABOLIC PANEL PROTEIN [MASS/VOLUM E] IN SERUM OR PLASMA 7.2 g/dL 6 - 8.6 03/05 Specimen Type: PLASMA Comment: No hemolysis noted. Ordering Provider: MITZY SWENSON Report Released Date/Time: Feb 03, 2023 09:17 AM Reporting Lab: [place] [address] [facility] [address] Performing Lab: [address] [address] [facility] COMPREHEN SIVE METABOLIC PANEL ALBUMIN [MASS/VOLUM E] IN SERUM OR PLASMA 4.2 g/dL 3.4 - 5 03/05 Specimen Type: PLASMA Comment: No hemolysis noted. Ordering Provider: MITZY SWENSON Report Released Date/Time: Feb 03, 2023 09:17 AM Reporting Lab: [facility] [address] [facility] [phone] Performing Lab: [facility] [address] [facility] [address] [facility] COMPREHEN SIVE METABOLIC PANEL BILIRUBIN.T OTAL [MASS/VOLUM E] IN SERUM OR PLASMA 0.8 mg/dL 0.2 - 1.2 03/05 Specimen Type: PLASMA Comment: No hemolysis noted. Ordering Provider: MITZY SWENSON Report Released Date/Time: Feb 03, 2023 09:17 AM Reporting Lab: [facility] [address] [place] [phone] Performing Lab: [facility] [address] [place] [address] [id number] [place] [address] COMPREHEN SIVE METABOLIC PANEL ALKALINE PHOSPHATASE [ENZYMATIC ACTIVITY/VO LUME] IN SERUM OR PLASMA 95 U/L 40 - 150 03/05 Specimen Type: PLASMA Comment: No hemolysis noted. Ordering Provider: MITZY SWENSON Report Released Date/Time: Feb 03, 2023 09:17 AM Reporting Lab: [facility] [address] [place] [phone] Performing Lab: [facility] [address] [place] [phone] [facility] COMPREHEN SIVE METABOLIC PANEL ASPARTATE AMINOTRANSF ERASE [ENZYMATIC ACTIVITY/VO LUME] IN SERUM OR PLASMA 17 U/L 5 - 34 03/05 Specimen Type: PLASMA Comment: No hemolysis noted. Ordering Provider: MITZY SWENSON Report Released Date/Time: Feb 03, 2023 09:17 AM Reporting Lab: [facility] [address] [place] [phone] Performing Lab: [facility] [address] [place] [phone] [facility] COMPREHEN SIVE METABOLIC PANEL ALANINE AMINOTRANSF ERASE [ENZYMATIC ACTIVITY/VO LUME] IN SERUM OR PLASMA 11 U/L 8 - 40 03/05 Specimen Type: PLASMA Comment: No hemolysis noted. Ordering Provider: MITZY SWENSON Report Released Date/Time: Feb 03, 2023 09:17 AM Reporting Lab: [address] [address] Performing Lab: [place] [address] [address] [facility] COMPREHEN SIVE METABOLIC PANEL GLOMERULAR FILTRATION RATE/1.73 SQ M.PREDICTED [VOLUME RATE/AREA] IN SERUM, PLASMA OR BLOOD BY CREATININE- BASED FORMULA (CKD-EPI 2020) 62.0 60 03/05 Specimen Type: PLASMA Comment: No hemolysis noted. Ordering Provider: MITZY SWENSON Report Released Date/Time: Feb 03, 2023 09:17 AM Reporting Lab: [address] [address] Performing Lab: [address] [address] [facility] Vital Signs Combined list of inpatient and outpatient Vital Signs from Department of Defense and Veterans Affairs, ranging from 12 months to all on record, depending upon the facility. Vital Sign Value Date Comments Source SYSTOLIC BLOOD PRESSURE 118 02/26/2024 08:09:07 [facility] DIASTOLIC BLOOD PRESSURE 75 02/26/2024 08:09:07 [facility] PULSE OXIMETRY 97 02/26/2024 08:09:07 S Siva [facility] WEIGHT 228.7 02/26/2024 08:09:07 Kyle Welch [facility] BMI 32kg/m2 02/26/2024 08:09:07 [facility]. Yuri [facility] PAIN 7 02/26/2024 08:09:07 [facility] Yuri [facility] HEIGHT 71 02/26/2024 08:09:07 [facility] Yuri [facility] TEMPERATURE 98.2 02/26/2024 08:09:07 [facility] PULSE 64 02/26/2024 08:09:07 [facility]. Yuri [facility] RESPIRATION 16 02/26/2024 08:09:07 [facility] SYSTOLIC BLOOD PRESSURE 110 12/10/2023 07:58:52 [facility] DIASTOLIC BLOOD PRESSURE 71 12/10/2023 07:58:52 [facility] PULSE OXIMETRY 98 12/10/2023 07:58:52 S Siva [facility] WEIGHT 222.8 12/10/2023 07:58:52 [facility] BMI 31kg/m2 12/10/2023 07:58:52 [facility] Yuri [facility] PAIN 5 12/10/2023 07:58:52 [facility] TEMPERATURE 97.9 12/10/2023 07:58:52 [facility] PULSE 67 12/10/2023 07:58:52 [facility] Yuri [facility] RESPIRATION 20 12/10/2023 07:58:52 [facility] SYSTOLIC BLOOD PRESSURE 123 11/16/2023 08:57:08 [facility] DIASTOLIC BLOOD PRESSURE 75 11/16/2023 08:57:08 [facility] PULSE OXIMETRY 97 11/16/2023 08:57:08 [facility] WEIGHT 223.2 11/16/2023 08:57:08 [facility] BMI 31kg/m2 11/16/2023 08:57:08 [facility] PAIN 7 11/16/2023 08:57:08 [facility] TEMPERATURE 97.6 11/16/2023 08:57:08 [facility] PULSE 55 11/16/2023 08:57:08 [facility] RESPIRATION 20 11/16/2023 08:57:08 [facility] SYSTOLIC BLOOD PRESSURE 108 09/03/2023 08:30:14 [facility] DIASTOLIC BLOOD PRESSURE 65 09/03/2023 08:30:14 [facility] PULSE OXIMETRY 97 09/03/2023 08:30:14 S Siva [facility] WEIGHT 206 09/03/2023 08:30:14 [facility] Yuri [facility] BMI 29kg/m2 09/03/2023 08:30:14 [facility] Yuri [facility] PAIN 4 09/03/2023 08:30:14 [facility] Yuri [facility] TEMPERATURE 98.1 09/03/2023 08:30:14 [facility] PULSE 61 09/03/2023 08:30:14 . Yuri [facility] RESPIRATION 20 09/03/2023 08:30:14 [facility] SYSTOLIC BLOOD PRESSURE 101 07/07/2023 08:14:14 [facility] DIASTOLIC BLOOD PRESSURE 71 07/07/2023 08:14:14 [facility] PULSE OXIMETRY 98 07/07/2023 08:14:14 S Siva [facility] WEIGHT 214.8 07/07/2023 08:14:14 [facility] BMI 30kg/m2 07/07/2023 08:14:14 [facility] Y[facility] PAIN 8 07/07/2023 08:14:14 [facility] HEIGHT 71 07/07/2023 08:14:14 [facility] TEMPERATURE 97.7 07/07/2023 08:14:14 [facility] PULSE 97 07/07/2023 08:14:14 . [facility] RESPIRATION 18 07/07/2023 08:14:14 [facility] Encounters Combined list of: 1) Encounters from Department of [facility] Affairs facilities going back up to thelast 18 months. 2) Encounters from the Department of Defense facilities going back up to 280 months. Location Location Details Encounter Type Encounter Number Reason For Visit Attending Provider ADM Date DC Date Status Disposition Source [facility] Outpatient Encounter [id number] 11/10 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 Outpatient Encounter [id number] 12/10 [facility] Outpatient Encounter [id number] 12/11 [facility] OFFICE O/P EST MOD 30-39 MIN [id number] Diagnos is: ICD-10- CM I48.91 Unspeci fied atrial fibrill ation<b r/> RAEGAN TERRELL LLY 12/11 [facility] Outpatient Encounter [id number] 01/28 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
ME YEE MERINO S 01/28 [facility] Outpatient Encounter [id number] 01/28 [facility] Outpatient Encounter [id number] RASHAWN MACIAS 01/29 [facility] Outpatient Encounter [id number] Diagnos is: ICD-10- CM F17.220 Nicotin e depende nce, chewing tobacco , uncompl icated< br/> JULISAYRNAnnelaSy TESS 01/29 [facility] Outpatient Encounter [id number] Moses CAICEDO K 02/02 [facility] OFFICE O/P EST MOD 30-39 MIN [id number] Diagnos is: ICD-10- CM B35.1 Tinea unguium
Annel ALSTON K 02/03 [facility] Outpatient Encounter [id number] 02/03 [facility] Outpatient Encounter [id number] JOSE RMARIANO BATRES T 02/12 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
ANTHONY MENDESL 04/03 [facility] MEASURE BLOOD OXYGEN LEVEL [id number] Diagnos is: ICD-10- CM J44.9 Chronic obstruc tive pulmona ry disease , unspeci fied
BEN PUENTES LITA M 04/03 [facility] Outpatient Encounter [id number] LINDSAY,MALLO RY A 05/19 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
REZA HERRERA A 07/06 [facility] OFFICE O/P EST LOW 20 MIN [id number] Diagnos is: ICD-10- CM B35.1 Tinea unguium
ALECIAAnnel KEYON K 08/03 [facility] HC PRO PHONE CALL 5-10 MIN [id number] Diagnos is: ICD-10- CM J44.9 Chronic obstruc tive pulmona ry disease , unspeci fied
Virgen FELDMAN A 09/01 [facility] OFFICE O/P EST MOD 30 MIN [id number] Diagnos is: ICD-10- CM I48.3 Typical atrial flutter
Temitope GREEN A 09/02 [facility] Outpatient Encounter [id number] 10/08 [facility] Outpatient Encounter [id number] 10/26 [facility] Outpatient Encounter [id number] NANCY GARCIA L 10/26 [facility] HARMON[facility] OFF/OP EST JULY X REQ PHY/QHP [id number] Diagnos is: ICD-10- CM J44.9 Chronic obstruc tive pulmona ry disease , unspeci fied
KLIPFEL,LA URENCIA A 11/05 [facility] Outpatient Encounter [id number] MARISELA MONTOYA RY A 11/11 [facility] OFFICE O/P EST MOD 30 MIN [id number] Diagnos is: ICD-10- CM M11.29 Other chondro calcino sis, multipl e sites<b r/> AKANKSHA MCCLAIN LIESE 11/15 [facility] Outpatient Encounter [id number] 12/08 [facility] OFFICE O/P EST HI 40 MIN [id number] Diagnos is: ICD-10- CM I48.91 Unspeci fied atrial fibrill ation<b r/> ZOEY,CONN IE S 12/09 [facility] Outpatient Encounter [id number] 02/25 [facility] OFFICE O/P EST MOD 30 MIN [id number] Diagnos is: ICD-10- CM J44.9 Chronic obstruc tive pulmona ry disease , unspeci fied
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
RAOUL NARAYANAN 03/03 [facility] Outpatient Encounter [id number] AKANKSHA MCCLAIN 04/21 [facility] Social History Combined list of available smoking, tobacco, and other social history from Department of Defense and Veterans Affairs facilities. Social History Type Response Date Comment [facility] e Tobacco smoking status MNIS HI-TOBACCO FORMER USER 05/20/2023 [facility] of [facility] 15 Y[facility] 05/20/2023 [facility] History of tobacco use HI-TOBACCO FORMER USER 01/08/2022 [facility] History of tobacco use HI-TOBACCO FORMER USER 09/26/2020 [facility] of [facility] TO < 5 YRS 07/22/2019 [facility] History of tobacco use ORYX ADMIT TOBACCO SCREEN NO 09/07/2018 [facility] History of tobacco use QUIT TOBACCO IN THE LAST 12 MONTHS 09/07/2018 [facility] History of tobacco use HI-TOBACCO FORMER USER 04/22/2018 [facility] History of tobacco use QUIT TOBACCO >12 MO and <7 YRS AGO 12/10/2017 [facility] History of tobacco use QUIT TOBACCO >12 MO and <7 YRS AGO 06/08/2017 [facility] History of tobacco use QUIT TOBACCO >12 MO and <7 YRS AGO 02/05/2017 [facility] History of tobacco use QUIT TOBACCO IN THE LAST 12 MONTHS 11/04/2016 [facility] History of tobacco use CURRENT TOBACCO USER 01/08/2016 Kyle [facility] Kevin [facility] History of tobacco use TOBACCO OFFERRED PT MEDS (PROVIDER) 11/06/2014 [facility] History of tobacco use TOBACCO OFFERRED PT MEDS (PROVIDER) 08/17/2014 [facility] History of tobacco use QUIT TOBACCO IN THE LAST 12 MONTHS 10/18/2013 [facility] History of tobacco use TOBACCO OFFERED STOP SMOKING CLINIC 09/22/2013 [facility] History of tobacco use CURRENT TOBACCO USER 05/13/2011 [facility] History of tobacco use CURRENT TOBACCO USER 10/17/2008 [facility] History of tobacco use TOBACCO OFFERED STOP SMOKING CLINIC 06/10/2007 [facility] History of tobacco use CURRENT TOBACCO USER 10/15/2006 [facility] History of tobacco use TOB-SMOKES OR USES TOBACCO PRODUCTS 09/27/2002 1/2PPD [facility] This section is an empty social history section. [facility] Plan of Care List of future care activities from Department of [facility] Affairs facilities. Additional future care activities may be listed in the Assessment and Plan section. Date/Time Care Activity Care Activity Detail [facility] 05/20/2024 AMBULATORY - MEDICINE AMBULATORY - MEDICI [facility] 06/02/2024 AMBULATORY - MEDICINE AMBULATORY - MEDICI [facility] 09/01/2024 AMBULATORY - SURGERY AMBULATORY - SURGERY [facility] Advance Directives List of completed, amended, or rescinded Advance Directives on record at Department of Veterans Affairs facilities. An actual copy of the Directive is not included. Date Advance Directive Provider Source 09/23/2013 ADVANCE DIRECTIVE DISCUSSION CARLOS GREENE [facility]
[2024-05-01 16:00] VITALS: O2SAT 94
[2024-05-01 16:49] VITALS: BMI 29.0
[2024-05-01 17:47] VITALS: PULSE 70; RESP 20; O2SAT 97
[2024-05-01] MEDS: SALMET XINAFT/FLUTIC PROPIN 250 MCG/50 MCG INH CAP 1 PUFF INHALATION (18:50)
[2024-05-01] MEDS: FUROSEMIDE 20 MG TABLET PO (18:51)
[2024-05-01] MEDS: SENNA/DOCUSATE SODIUM TABLET 1 TAB PO (21:08)
[2024-05-01] MEDS: oxyCODONE/ACETAMINOPHEN (*CRX) 5-325 MG TABLET 1 TABLET PO (21:08)
[2024-05-01] MEDS: DOXYCYCLINE HYCLATE 100 MG TABLET PO (21:51)
[2024-05-01] MEDS: IPRATROPIUM 0.5 MG/ALBUTEROL SULFATE 2.5 MG AMPUL.NEB 3 ML INHALATION (21:51)
[2024-05-01 22:03] VITALS: PULSE 68
[2024-05-01] MEDS: SOTALOL HCL 40 MG TABLET 120 MG PO (22:03)
[2024-05-02] VITALS (13 sets, daily range): BP systolic 104–142; BP diastolic 69–76; PULSE 54–68; RESP 18–20; TEMP 36–36.4; O2SAT 94–99
[2024-05-02] MEDS: SALMET XINAFT/FLUTIC PROPIN 250 MCG/50 MCG INH CAP 1 PUFF INHALATION ×2 (05:15→18:25)
[2024-05-02] MEDS: LEVOTHYROXINE SODIUM 25 MCG TABLET PO (05:17)
[2024-05-02] MEDS: LEVOTHYROXINE SODIUM 100 MCG TABLET PO (05:18)
[2024-05-02] MEDS: FUROSEMIDE 20 MG TABLET PO ×2 (05:18→18:25)
[2024-05-02] MEDS: IPRATROPIUM 0.5 MG/ALBUTEROL SULFATE 2.5 MG AMPUL.NEB 3 ML INHALATION ×2 (06:01→14:40)
[2024-05-02] MEDS: guaiFENesin 12 HR 600 MG TABCR 1200 MG PO ×2 (09:47→21:25)
[2024-05-02] MEDS: UMECLIDINIUM BROMIDE 62.5 MCG ELLIPTA 1 PUFF INHALATION (09:47)
[2024-05-02] MEDS: DIGOXIN 250 MCG TABLET PO (09:47)
[2024-05-02] MEDS: RIVAROXABAN 10 MG TABLET 20 MG PO (09:47)
[2024-05-02] MEDS: ROSUVASTATIN 10 MG TABLET PO (09:47)
[2024-05-02] MEDS: SOTALOL HCL 40 MG TABLET 120 MG PO (09:48)
[2024-05-02] MEDS: polyethylene glycoL 3350 17 GM POWD.PACK PO (09:49)
--- NOTE | 2024-05-02 11:21 | P.HP_ITS ---
H&P: HPI History of Present Illness Date/Time: 05/02/24 11:21 Chief Complaint: Rehabilitation Narrative: patient is a 73-year-old male who was a direct admit from [facility] for continued physical and occupational therapy post right hip fracture repair. patient with a past medical history of COPD, hypothyroidism, hypertension, hyperlipidemia, CAD, CHF, and atrial fibrillation. patient seen and assessed after arrival up in chair denies any chest pain, shortness a breath, nausea, vomiting dizziness, abdominal pain, or visual changes. patient currently on oxygen was not prior to arrival to [facility]. patient will continue admission for rehab to increase strength and endurance with plans to return home with . Review of Systems 2 Review of Systems: All systems reviewed & are unremarkable except as noted in HPI and below PMFSH Past Medical History Medical History (Updated 05/02/24 @ 11:28 by Elba Gupta APRN) Former smoker Chronic obstructive pulmonary disease Hypothyroidism Hypertension Hyperlipidemia Coronary artery disease With history of stent. Followed by a service unit operator at the [place]. Congestive heart failure Paroxysmal atrial fibrillation Surgical History Surgical History History of arthroscopic knee surgery History of appendectomy History of heart artery stent History of loop recorder Patient is unclear as to why this was inserted. Family History Family History Father Diabetes mellitus Acute myocardial infarction Mother Anemia Breast cancer Sibling Breast cancer Social History Social History Social History: Surrogate decision maker: Jody Cabral, spouse. Code status: Full code. Smoking packs per day: 1.5 Smoking cigarettes per day: 30.0 Years smoked: 40 Smoking pack-years: 60.00 Smoking status: Former smoker Tobacco type: cigarettes Alcohol intake: never Substance use: never Do You Feel Safe in your Home?: Yes Lack of Transportation: No Lack of Food: Never True Current Housing: I Have Housing Concerned About Future Housing: No Difficulty Paying Gas/Electric Bills: No Difficulty Paying for Meds: YES Currently Unemployed: No Education: Associate Degree Difficulty w/ Childcare or Family Care: No Additional living arrangements comments: The patient lives with his in [place], [place]. Additional occupation/education comments: Retired from working in [employer]. Gender identity (if verbalized by the patient): Male Spiritual care concerns: No Meds Home Medications and Allergies Home Medications ?Medication ?Instructions ?Recorded ?Confirmed ?Type albuterol sulfate 90 mcg/actuation 2 puff inhalation QID 10/24/19 05/01/24 History aerosol inhaler atorvastatin 80 mg tablet 40 mg PO DAILY 10/24/19 05/01/24 History levothyroxine 125 mcg tablet 125 mcg PO DAILY 10/24/19 05/01/24 History loratadine 10 mg tablet 10 mg PO DAILY 10/24/19 05/01/24 History rivaroxaban 20 mg tablet 20 mg PO DAILY 10/24/19 05/01/24 History tiotropium bromide 2.5 2 puff inhalation DAILY 10/24/19 05/01/24 History mcg/actuation mist for inhalation sotalol 120 mg tablet (Sorine) 120 mg PO Q12HR #90 tabs 10/25/19 05/01/24 Rx sotalol 80 mg tablet 120 mg (1.5 x 80 mg) PO Q12H #90 10/25/19 05/01/24 Rx tabs digoxin 250 mcg (0.25 mg) tablet 250 mcg PO DAILY 05/01/24 05/01/24 History (Amberek) doxycycline monohydrate 100 mg 100 mg PO ONCE 05/01/24 05/01/24 History capsule fluticasone 250 mcg-salmeterol 50 1 inh inhalation Q12H 05/01/24 05/01/24 History mcg/dose blistr powdr for inhalation (Jonnaxela Inhub) furosemide 20 mg tablet 20 mg PO Q12H 05/01/24 05/01/24 History rosuvastatin 10 mg tablet (Crestor) 10 mg PO DAILY 05/01/24 05/01/24 History Allergies Allergy/AdvReac Type Severity Reaction Status Date / Time No Known Allergies Allergy Verified 10/24/19 09:01 Vital Signs Vital Signs - 24 hr 05/01/24 16:00 05/01/24 17:47 05/01/24 22:03 Temperature Pulse Rate 70 68 Respiratory Rate 20 Blood Pressure Pulse Oximetry 94 97 Oxygen Delivery Room Air Oxygen Flow Rate 05/02/24 00:00 05/02/24 06:02 05/02/24 06:14 Temperature 97.6 F Pulse Rate 66 66 64 Respiratory Rate 18 20 20 Blood Pressure 142/76 H Pulse Oximetry 97 95 99 Oxygen Delivery Room Air Oxygen Flow Rate 2 2 05/02/24 09:47 05/02/24 09:48 Temperature Pulse Rate 60 60 Respiratory Rate Blood Pressure Pulse Oximetry Oxygen Delivery Oxygen Flow Rate Exam Narrative: * GENERAL: Alert and oriented x 3 male. No acute distress. at beside * EYES: PERRLA. * HEENT: Moist mucous membranes. * LUNGS: scant wheezing throughout to auscultation bilaterally. No accessory muscle use. On 2L NC supplemental oxygen * CARDIOVASCULAR: Regular rate and rhythm. * ABDOMEN: Soft, non tenderness and non-distended. * EXTREMITIES: 2+ non-pitting edema RLE. Non-tender * SKIN: No rashes or lesions. Skin warm, dry. Incision dry with no edema or erythema to RT uppper thigh * NEUROLOGIC: No focal neurological deficits. CN II-XII grossly intact * PSYCHIATRIC: Appropriate mood and affect. Good judgement and insight. Assessment and Plan Assessment and plan (1) Closed fracture of right hip requiring operative repair: Code(s): S72.001A - Fracture of unspecified part of neck of right femur, initial encounter for closed fracture Status: Acute Assessment and Plan: * Patient admit to swing * PT/OT strength training * fall precautions * resumed Xarelto for DVT * 2+ swelling to RLE encourage compression stocking and elevation 2+pedal pulse * monitor neurovascular to effected extremity * pain control (2) PAF (paroxysmal atrial fibrillation): Code(s): I48.0 - Paroxysmal atrial fibrillation Status: Acute Assessment and Plan: * Resumed sotalol and Xarelto * resume digoxin (3) Hypothyroidism: Code(s): E03.9 - Hypothyroidism, unspecified Status: Acute Assessment and Plan: * patient had been increased from 75 mcg to 125 mcg * patient will need prescription for 125 mcg (4) Chronic obstructive pulmonary disease: Code(s): J44.9 - Chronic obstructive pulmonary disease, unspecified Status: Acute Assessment and Plan: * continuous supplemental oxygen will need home oxygen walk study prior to discharge to continue oxygen at home * resume inhalers p.r.n. * DuoNebs p.r.n. * incentive spirometer p.r.n. * former smoker (5) Hypertension: Code(s): I10 - Essential (primary) hypertension Status: Acute Assessment and Plan: * resume sotalol and Lasix (6) Congestive heart failure: Qualifiers: Heart failure chronicity: unspecified Heart failure type: unspecified Qualified Code(s): I50.9 - Heart failure, unspecified Code(s): I50.9 - Heart failure, unspecified Status: Acute Assessment and Plan: * resume Lasix * monitor fluid * Q daily weights (7) Coronary artery disease: Code(s): I25.10 - Atherosclerotic heart disease of [place] coronary artery without angina pectoris Status: Acute Assessment and Plan: * resume Crestor * resume Xarelto Plan Code status: Full code per patient DVT prophylaxis: Xarelto Stress ulcer prophylaxis: NA PT/OT notes: swing bed Disposition: patient admitted to [facility] for continued rehabilitation for strength training post right hip fracture repair. plan is to return home with once medically stable. Quality VTE Prophylaxis VTE prophylaxis: pharmacologic ordered -Patient's previous records reviewed on admission -ER notes reviewed in detail on admission -discussed all findings and current treatment plan with patient/Family/POA -Consultations reviewed for recommendations -Patient's disposition for safe discharge discussed with shelter case manager Dictation performed by [employer] direct speech recognition software, therefore shipsmith variants and typographical errors may occur. Hospitalist [facility] Advance Care Plan I have confirmed that the patient's Advanced Care Plan is present, code status is documented, or surrogate decision maker is listed in patient medical record.: Yes Medication Reconciliation I have utilized all available resources to obtain, update and review the patients current medications (includes all prescriptions, OTC, herbals, cannabis, and nutritional supplements).: Yes The patient is not eligible for med reconciliation; the patient is in a emergent medical situation where delaying treatment would jeopardize the patients health.: No
[2024-05-02] MEDS: oxyCODONE/ACETAMINOPHEN (*CRX) 5-325 MG TABLET 1 TABLET PO (14:19)
[2024-05-02] MEDS: SOTALOL HCL 40 MG, SOTALOL HCL 80 MG 120 MG PO (21:25)
[2024-05-02] MEDS: SENNA/DOCUSATE SODIUM TABLET 1 TAB PO (21:25)
[2024-05-03] VITALS (16 sets, daily range): BP systolic 106–123; BP diastolic 63–71; PULSE 54–70; RESP 20–22; TEMP 36.1–36.8; O2SAT 92–100
--- NOTE | 2024-05-03 00:05 | PC.NURSE ---
Pt assisted to the commode with the walker, gait belt and assist of one. Pt tried to move his bowels but wasnt able to. Pt assisted back to bed with the walker and standby assist of one.
--- NOTE | 2024-05-03 01:00 | PC.NURSE ---
Pt called to use the commode; Pt assisted to the commode with the walker and assist of one. Pt was able to pass a firm, formed medium sized stool. pt back to bed with the walker and assist of one.
[2024-05-03] MEDS: IPRATROPIUM 0.5 MG/ALBUTEROL SULFATE 2.5 MG AMPUL.NEB 3 ML INHALATION ×4 (01:55→21:41)
--- NOTE | 2024-05-03 01:55 | PC.NURSE ---
Pt given a duoneb treatment per his request.
--- NOTE | 2024-05-03 04:20 | PC.NURSE ---
Pt asleep; 250 ml of clear, yellow urine emptied from the urinal.
[2024-05-03] MEDS: SALMET XINAFT/FLUTIC PROPIN 250 MCG/50 MCG INH CAP 1 PUFF INHALATION ×2 (05:49→17:52)
[2024-05-03] MEDS: FUROSEMIDE 20 MG TABLET PO ×2 (05:50→17:52)
[2024-05-03] MEDS: LEVOTHYROXINE SODIUM 25 MCG TABLET PO (05:51)
[2024-05-03] MEDS: LEVOTHYROXINE SODIUM 100 MCG TABLET PO (05:51)
--- NOTE | 2024-05-03 05:55 | PC.NURSE ---
Pt given synthroid 125 mcg po, lasix 20 mg po and advair inhaler 1 puff po as ordered.
[2024-05-03] MEDS: RIVAROXABAN 10 MG TABLET 20 MG PO (09:51)
[2024-05-03] MEDS: DIGOXIN 250 MCG TABLET PO (09:51)
[2024-05-03] MEDS: guaiFENesin 12 HR 600 MG TABCR 1200 MG PO ×2 (09:52→20:41)
[2024-05-03] MEDS: SOTALOL HCL 40 MG, SOTALOL HCL 80 MG 120 MG PO ×2 (09:52→20:41)
[2024-05-03] MEDS: UMECLIDINIUM BROMIDE 62.5 MCG ELLIPTA 1 PUFF INHALATION (09:52)
[2024-05-03] MEDS: ROSUVASTATIN 10 MG TABLET PO (09:52)
[2024-05-03] MEDS: LORATADINE 10 MG TABLET PO (09:52)
[2024-05-03] MEDS: oxyCODONE/ACETAMINOPHEN (*CRX) 5-325 MG TABLET 1 TABLET PO (20:41)
[2024-05-04] VITALS (13 sets, daily range): BP systolic 107–112; BP diastolic 66–71; PULSE 59–95; RESP 20–24; TEMP 36.1–36.6; O2SAT 91–100
[2024-05-04] MEDS: LEVOTHYROXINE SODIUM 100 MCG TABLET PO (06:32)
[2024-05-04] MEDS: LEVOTHYROXINE SODIUM 25 MCG TABLET PO (06:32)
[2024-05-04] MEDS: FUROSEMIDE 20 MG TABLET PO ×2 (06:32→18:23)
[2024-05-04] MEDS: SALMET XINAFT/FLUTIC PROPIN 250 MCG/50 MCG INH CAP 1 PUFF INHALATION ×2 (06:32→18:22)
[2024-05-04] MEDS: guaiFENesin 12 HR 600 MG TABCR 1200 MG PO ×2 (08:48→20:43)
[2024-05-04] MEDS: SOTALOL HCL 40 MG, SOTALOL HCL 80 MG 120 MG PO ×2 (08:49→20:41)
[2024-05-04] MEDS: DIGOXIN 250 MCG TABLET PO (08:50)
[2024-05-04] MEDS: ROSUVASTATIN 10 MG TABLET PO (08:50)
[2024-05-04] MEDS: IPRATROPIUM 0.5 MG/ALBUTEROL SULFATE 2.5 MG AMPUL.NEB 3 ML INHALATION ×2 (08:51→20:57)
[2024-05-04] MEDS: RIVAROXABAN 10 MG TABLET 20 MG PO (08:51)
[2024-05-04] MEDS: UMECLIDINIUM BROMIDE 62.5 MCG ELLIPTA 1 PUFF INHALATION (08:51)
[2024-05-04] MEDS: LORATADINE 10 MG TABLET PO (08:52)
--- NOTE | 2024-05-04 10:38 | P.PNIM_ITS ---
Progress Note: A&P Assessment and Plan (1) Closed fracture of right hip requiring operative repair: Code(s): S72.001A - Fracture of unspecified part of neck of right femur, initial encounter for closed fracture Status: Acute Assessment and Plan: * Patient admit to swing * PT/OT strength training * fall precautions * resumed Xarelto for DVT * 2+ swelling to RLE encourage compression stocking and elevation 2+pedal pulse * monitor neurovascular to effected extremity * pain control 2/5 * continue pain control * will wrap bilateral lower extremities today for his swelling * continue fall precautions * continue PT and OT * continue pain control (2) PAF (paroxysmal atrial fibrillation): Code(s): I48.0 - Paroxysmal atrial fibrillation Status: Acute Assessment and Plan: * Resumed sotalol and Xarelto * resume digoxin 2/5 * no change to current treatment plan (3) Hypothyroidism: Code(s): E03.9 - Hypothyroidism, unspecified Status: Acute Assessment and Plan: * patient had been increased from 75 mcg to 125 mcg * patient will need prescription for 125 mcg 2/5 * will add TSH today with labs (4) Chronic obstructive pulmonary disease: Code(s): J44.9 - Chronic obstructive pulmonary disease, unspecified Status: Acute Assessment and Plan: * continuous supplemental oxygen will need home oxygen walk study prior to discharge to continue oxygen at home * resume inhalers p.r.n. * DuoNebs p.r.n. * incentive spirometer p.r.n. * former smoker 05/04 * no change to current treatment plan (5) Hypertension: Code(s): I10 - Essential (primary) hypertension Status: Acute Assessment and Plan: * resume sotalol and Lasix 05/04 * no change to current treatment plan (6) Congestive heart failure: Qualifiers: Heart failure chronicity: unspecified Heart failure type: unspecified Qualified Code(s): I50.9 - Heart failure, unspecified Code(s): I50.9 - Heart failure, unspecified Status: Acute Assessment and Plan: * resume Lasix * monitor fluid * Q daily weights 05/04 * checking chest x-ray, BNP today * wrap bilateral lower extremity with Harpreet wraps (7) Coronary artery disease: Code(s): I25.10 - Atherosclerotic heart disease of [place] coronary artery without angina pectoris Status: Acute Assessment and Plan: * resume Crestor * resume Xarelto 05/04 * no change to current treatment plan Time Spent With Patient Time with patient: Greater than 35 minutes Subjective Date/time seen: 05/04/24 10:38 Interval history: interval history: This is a 73-year-old male With a significant past medical history of COPD, hypothyroidism, hypertension, hyperlipidemia, coronary artery disease, CHF, atrial fibrillation who presented to [facility] for additional rehab after sustaining a right hip fracture. He was admitted at [facility] and had surgical repair of his right hip femur fracture. subjective: patient complaining of bilateral lower extremity swelling which appears to be 3 to 4+ pitting. He does have some shortness a breath with mild rhonchi. There is no echo to review in chart however patient takes 20 mg of Lasix twice a day at baseline. EMR reviewed Review of Systems Review of Systems: All systems reviewed & are unremarkable except as noted in HPI and below Exam Narrative: General: In no acute distress, well nourished Head: atraumatic, no encephalopathy Eyes: PERRLA, sclera clear ENT: moist mucous membranes, nasal passages clear Neck: supple, no JVD, no adenopathy, trachea midline Cardiac: Normal S1 and S2. No murmur, gallops or friction rubs, peripheral pulses intact. Respiratory: Mild Rhonchi noted, no adventitious lung sounds, currently on room air, SOB with exertion Gastrointestinal: soft, non-distended, non-tender, normoactive bowel sounds. : voiding without difficulty clear yellow urine Extremities: moves all extremities well, bilateral LE edema 2-3+ pitting Skin: clean, dry, intact. No wounds or lesions. Neuro: Alert and oriented x4, cranial nerves intact, no neuro deficits. Psych: normal mood, normal affect, interactive Objective Data Vital Signs Vital Signs: Vital Signs - 24 hr 05/03/24 14:54 05/03/24 15:05 05/03/24 16:30 Temperature 97 F L Pulse Rate 63 65 59 L Respiratory Rate 20 20 20 Blood Pressure 123/70 Pulse Oximetry 95 98 97 Oxygen Delivery Room Air Oxygen Flow Rate 05/03/24 20:41 05/03/24 21:43 05/03/24 21:55 Temperature Pulse Rate 70 Respiratory Rate Blood Pressure Pulse Oximetry 95 100 Oxygen Delivery Oxygen Flow Rate 0 0 05/04/24 00:00 05/04/24 08:00 05/04/24 08:49 Temperature 97.3 F L 97.3 F L Pulse Rate 67 59 L 60 Respiratory Rate 20 20 Blood Pressure 112/66 107/70 Pulse Oximetry 94 91 Oxygen Delivery Room Air Room Air Oxygen Flow Rate 05/04/24 08:50 05/04/24 08:57 05/04/24 09:07 Temperature Pulse Rate 60 66 68 Respiratory Rate 24 H 22 H Blood Pressure Pulse Oximetry 93 98 Oxygen Delivery Oxygen Flow Rate Intake/Output Intake/Output: Intake & Output 05/01/24 05/02/24 05/03/24 05/04/24 23:59 23:59 23:59 23:59 Intake Total 400 1880 1345 980 Output Total 250 1000 1225 900 Balance 150 880 120 80 Meds/Results Medications: Active Medications Generic Name Dose Route Start Last Admin Trade Name Freq PRN Reason Stop Dose Admin Acetaminophen 650 mg 05/01/24 17:47 Acetaminophen 325 Mg Tablet PO Q6H PRN Mild Pain (1-3) or Fever Albuterol/Ipratropium 3 ml 05/01/24 21:20 05/04/24 08:51 Ipratropium 0.5 Mg/Albuterol Sulfate 2.5 Mg Ampul.Neb 3 Ml INHALATION 3 ml Q6HRT PRN Administration Congestion Digoxin 250 mcg 05/02/24 09:00 05/04/24 08:50 Digoxin 250 Mcg Tablet PO 250 mcg DAILY [facility] Administration Furosemide 20 mg 05/01/24 18:00 05/04/24 06:32 Furosemide 20 Mg Tablet PO 20 mg Q12H [place] Administration Guaifenesin 1,200 mg 05/02/24 09:00 05/04/24 08:48 Guaifenesin 12 Hr 600 Mg Tabcr PO 1,200 mg Q12HR [place] Administration Levothyroxine Sodium 25 mcg 05/02/24 06:30 05/04/24 06:32 Levothyroxine Sodium 25 Mcg Tablet PO 25 mcg DAILY@0630 [facility] Administration Levothyroxine Sodium 100 mcg 05/02/24 06:30 05/04/24 06:32 Levothyroxine Sodium 100 Mcg Tablet PO 100 mcg DAILY@0630 [facility] Administration Loratadine 10 mg 05/03/24 09:00 05/04/24 08:52 Loratadine 10 Mg Tablet PO 10 mg DAILY [place] Administration Ondansetron HCl 4 mg 05/01/24 17:47 Ondansetron Hcl Odt 4 Mg Tablet PO Q6H PRN Nausea And Vomiting Oxycodone/Acetaminophen 1 tablet 05/01/24 17:47 05/03/24 20:41 Oxycodone/Acetaminophen (*Crx) 5-325 Mg Tablet PO 1 tablet Q4H PRN Administration Pain Rated 7-10 Polyethylene Glycol 17 gm 05/01/24 17:50 05/02/24 09:49 Polyethylene Glycol 3350 17 Gm Powd.Pack PO 17 gm QAM PRN Administration Constipation Rivaroxaban 20 mg 05/02/24 09:00 05/04/24 08:51 Rivaroxaban 10 Mg Tablet PO 20 mg QAM [facility] Administration Rosuvastatin Calcium 10 mg 05/02/24 09:00 05/04/24 08:50 Rosuvastatin 10 Mg Tablet PO 10 mg DAILY [facility] Administration Fluticasone/Salmeterol 1 puff 05/01/24 17:45 05/04/24 06:32 Salmet Xinaft/Flutic Propin 250 Mcg/50 Mcg Inh Cap INHALATION 1 puff Q12H [place] Administration Senna/Docusate Sodium 1 tab 05/01/24 21:00 05/03/24 20:43 Senna/Docusate Sodium Tablet PO Not Given HS [facility] Sotalol HCl 40 mg/ Sotalol HCl 120 mg 05/02/24 21:00 05/04/24 08:49 80 mg PO 120 mg Q12HR [place] Administration Umeclidinium [place] 1 puff 05/02/24 09:00 05/04/24 08:51 Umeclidinium [place] 62.5 Mcg Ellipta INHALATION 1 puff DAILY [facility] Administration Quality VTE Prophylaxis VTE prophylaxis: pharmacologic ordered
[2024-05-04 11:24] LABS: Eosinophils Absolute Auto 0.21 K/mm3 (0.02-0.50); Eosinophils Percent Auto 2.4 % (1.0-6.0); Hematocrit 36.6 % (37.0-46.0); Hemoglobin 11.8 g/dL (12.4-15.3); Immature Granulocyte Absolute 0.06 K/mm3 (0.00-0.00); Immature Granulocyte Percent A 0.7 % (0.0-0.0); Lymphocytes Absolute Auto 1.25 K/mm3 (1.10-4.50); Lymphocytes Percent Auto 14.4 % (18.0-42.0); Mean Corpuscular HGB Conc 32.2 g/dL (32-36); Mean Corpuscular Hemoglobin 30.9 pg (27.0-31.0); Mean Corpuscular Volume 95.8 fL (78.0-102.0); Mean Platelet Volume 9.7 fl (8.7-11.0); Monocytes Absolute Auto 0.73 K/mm3 (0.10-0.90); Monocytes Percent Auto 8.4 % (2.0-11.0); Neutrophils Absolute Auto 6.45 K/mm3 (1.70-7.20); Neutrophils Percent Auto 74.1 % (50.0-70.0); Platelet Count Result 182 K/mm3 (150-420); Red Blood Count 3.82 M/mm3 (4.70-6.10); Red Cell Distribution Width 16.1 % (11.6-14.4); White Blood Count 8.7 K/mm3 (4.8-10.8)
[2024-05-04 11:47] LABS: Alanine Aminotransferase 22 U/L (16-63); Alkaline Phosphatase 98 U/L (46-116); Anion Gap 4 mmol/L (4-12); Aspartate Amino Transferase 16 U/L (15-37); Bilirubin,Total 1.7 mg/dL (0.00-1.00); Blood Urea Nitrogen 20 mg/dL (7-18); Calcium 8.3 mg/dL (8.5-10.1); Carbon Dioxide 34 mmol/L (21-32); Chloride 99 mmol/L (98-108); Estimated CRCL calculation 58 ml/min; Estimated Glomerular Filt Rate > 60; Glucose 138 mg/dL (70-99); NT Pro B Type Natriuretic Pept 74 pg/mL (0-125); Osmolality Calculated 288 mOsm/kg (285-295); Potassium 3.8 mmol/L (3.5-5.1); Sodium 137 mmol/L (136-145)
[2024-05-04 12:25] LABS: Magnesium 2.3 mg/dL (1.8-2.4)
[2024-05-04] MEDS: oxyCODONE/ACETAMINOPHEN (*CRX) 5-325 MG TABLET 1 TABLET PO ×2 (13:22→20:43)
[2024-05-04] MEDS: SENNA/DOCUSATE SODIUM TABLET 1 TAB PO (20:41)
[2024-05-05] VITALS (9 sets, daily range): BP systolic 90–113; BP diastolic 60–63; PULSE 65–96; RESP 18–24; TEMP 36–36.3; O2SAT 94–98
--- NOTE | 2024-05-05 03:15 | PC.NURSE ---
Pt given a blanket per his request.
--- NOTE | 2024-05-05 04:10 | PC.NURSE ---
Pt asleep and no signs of discomfort noted.
[2024-05-05] MEDS: SALMET XINAFT/FLUTIC PROPIN 250 MCG/50 MCG INH CAP 1 PUFF INHALATION ×2 (05:57→18:27)
[2024-05-05] MEDS: FUROSEMIDE 20 MG TABLET PO ×2 (05:57→18:27)
[2024-05-05] MEDS: LEVOTHYROXINE SODIUM 25 MCG TABLET PO (05:58)
[2024-05-05] MEDS: LEVOTHYROXINE SODIUM 100 MCG TABLET PO (05:58)
--- NOTE | 2024-05-05 06:14 | PC.NURSE ---
Pt assisted to the chair with the walker and assist of one. Pt given [id number] mcg and lasix 20 mg PO and he was also given his Advair inhaler 1 puff as ordered.
[2024-05-05] MEDS: SOTALOL HCL 40 MG, SOTALOL HCL 80 MG 120 MG PO ×2 (09:36→20:47)
[2024-05-05] MEDS: DIGOXIN 250 MCG TABLET PO (09:37)
[2024-05-05] MEDS: oxyCODONE/ACETAMINOPHEN (*CRX) 5-325 MG TABLET 1 TABLET PO ×2 (09:37→20:47)
[2024-05-05] MEDS: guaiFENesin 12 HR 600 MG TABCR 1200 MG PO ×2 (09:37→20:47)
[2024-05-05] MEDS: ROSUVASTATIN 10 MG TABLET PO (09:37)
[2024-05-05] MEDS: RIVAROXABAN 10 MG TABLET 20 MG PO (09:37)
[2024-05-05] MEDS: LORATADINE 10 MG TABLET PO (09:37)
[2024-05-05] MEDS: UMECLIDINIUM BROMIDE 62.5 MCG ELLIPTA 1 PUFF INHALATION (09:39)
--- NOTE | 2024-05-05 11:21 | P.PNCROSS_ITS ---
Event Note Event Note Event Note: Patient is very anxious and I have ordered him PRN atarax for this as he contin ue to state he is not able to breath although he is 94-95 % according to patient it will come all of a sudden. He just feels panicked
[2024-05-05] MEDS: hydrOXYzine HCL 25 MG TABLET PO ×2 (13:36→20:47)
[2024-05-05] MEDS: IPRATROPIUM 0.5 MG/ALBUTEROL SULFATE 2.5 MG AMPUL.NEB 3 ML INHALATION (20:47)
[2024-05-05] MEDS: SENNA/DOCUSATE SODIUM TABLET 1 TAB PO (20:47)
[2024-05-06] VITALS (8 sets, daily range): BP systolic 103–119; BP diastolic 61–69; PULSE 62–72; RESP 18–20; TEMP 36.3–36.9; O2SAT 95–97
[2024-05-06] MEDS: FUROSEMIDE 20 MG TABLET PO ×2 (06:01→18:09)
[2024-05-06] MEDS: LEVOTHYROXINE SODIUM 100 MCG TABLET PO (06:01)
[2024-05-06] MEDS: LEVOTHYROXINE SODIUM 25 MCG TABLET PO (06:01)
[2024-05-06] MEDS: SALMET XINAFT/FLUTIC PROPIN 250 MCG/50 MCG INH CAP 1 PUFF INHALATION ×2 (06:01→18:09)
[2024-05-06] MEDS: UMECLIDINIUM BROMIDE 62.5 MCG ELLIPTA 1 PUFF INHALATION (08:27)
[2024-05-06] MEDS: polyethylene glycoL 3350 17 GM POWD.PACK PO (08:27)
[2024-05-06] MEDS: SOTALOL HCL 40 MG, SOTALOL HCL 80 MG 120 MG PO ×2 (08:28→20:22)
[2024-05-06] MEDS: oxyCODONE/ACETAMINOPHEN (*CRX) 5-325 MG TABLET 1 TABLET PO ×2 (08:29→20:22)
[2024-05-06] MEDS: LORATADINE 10 MG TABLET PO (08:29)
[2024-05-06] MEDS: DIGOXIN 250 MCG TABLET PO (08:29)
[2024-05-06] MEDS: guaiFENesin 12 HR 600 MG TABCR 1200 MG PO ×2 (08:29→20:22)
[2024-05-06] MEDS: hydrOXYzine HCL 25 MG TABLET PO (08:29)
[2024-05-06] MEDS: RIVAROXABAN 10 MG TABLET 20 MG PO (08:29)
[2024-05-06] MEDS: ROSUVASTATIN 10 MG TABLET PO (08:29)
--- NOTE | 2024-05-06 11:55 | P.PNCROSS_ITS ---
Event Note Event Note Event Note: Changed patient Atarax to Xanax as the Atarax is not helped at all. We will con tinue to monitor for response.
[2024-05-06 13:03] LABS: SARS-CoV-2 RNA PCR Negative (Negative)
[2024-05-06] MEDS: IPRATROPIUM 0.5 MG/ALBUTEROL SULFATE 2.5 MG AMPUL.NEB 3 ML INHALATION (20:21)
[2024-05-06] MEDS: SENNA/DOCUSATE SODIUM TABLET 1 TAB PO (20:22)
[2024-05-06] MEDS: ALPRAZolam (*CRX) 0.25 MG TABLET PO (20:23)
[2024-05-07] VITALS (10 sets, daily range): BP systolic 107–132; BP diastolic 54–68; PULSE 64–83; RESP 18–24; TEMP 36.3–37.2; O2SAT 92–97
[2024-05-07] MEDS: LEVOTHYROXINE SODIUM 25 MCG TABLET PO (05:01)
[2024-05-07] MEDS: LEVOTHYROXINE SODIUM 100 MCG TABLET PO (05:01)
[2024-05-07] MEDS: FUROSEMIDE 20 MG TABLET PO ×2 (05:01→17:29)
[2024-05-07] MEDS: IPRATROPIUM 0.5 MG/ALBUTEROL SULFATE 2.5 MG AMPUL.NEB 3 ML INHALATION ×3 (05:02→22:13)
[2024-05-07] MEDS: SALMET XINAFT/FLUTIC PROPIN 250 MCG/50 MCG INH CAP 1 PUFF INHALATION ×2 (05:02→17:29)
[2024-05-07] MEDS: UMECLIDINIUM BROMIDE 62.5 MCG ELLIPTA 1 PUFF INHALATION (08:28)
[2024-05-07] MEDS: guaiFENesin 12 HR 600 MG TABCR 1200 MG PO ×2 (08:29→20:28)
[2024-05-07] MEDS: SOTALOL HCL 40 MG, SOTALOL HCL 80 MG 120 MG PO ×2 (08:29→20:27)
[2024-05-07] MEDS: RIVAROXABAN 10 MG TABLET 20 MG PO (08:29)
[2024-05-07] MEDS: ALPRAZolam (*CRX) 0.25 MG TABLET PO ×2 (08:29→20:27)
[2024-05-07] MEDS: DIGOXIN 250 MCG TABLET PO (08:30)
[2024-05-07] MEDS: LORATADINE 10 MG TABLET PO (08:30)
[2024-05-07] MEDS: ROSUVASTATIN 10 MG TABLET PO (08:30)
--- NOTE | 2024-05-07 08:49 | PC.NURSE ---
Patient has called out several times stating that he is having trouble breathing. 02 sat 93% on room air, all other vital signs stable. 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 Patient continues to carp breathe. States he understands teaching but continues to not implement technique. Room air conditioning turned to cooler, patient states he is hot. Xanax given per order. Will cont. to monitor patient.
--- NOTE | 2024-05-07 14:09 | P.PNIM_ITS ---
Progress Note: A&P Assessment and Plan (1) Closed fracture of right hip requiring operative repair: Code(s): S72.001A - Fracture of unspecified part of neck of right femur, initial encounter for closed fracture Status: Acute Assessment and Plan: * Patient admit to swing * PT/OT strength training * fall precautions * resumed Xarelto for DVT * 2+ swelling to RLE encourage compression stocking and elevation 2+pedal pulse * monitor neurovascular to effected extremity * pain control 2/ * continue pain control * will wrap bilateral lower extremities today for his swelling * continue fall precautions * continue PT and OT * continue pain control 05/07 * continue PT and OT * continue fall precautions * continue pain control (2) PAF (paroxysmal atrial fibrillation): Code(s): I48.0 - Paroxysmal atrial fibrillation Status: Acute Assessment and Plan: * Resumed sotalol and Xarelto * resume digoxin 2/ * no change to current treatment plan (3) Hypothyroidism: Code(s): E03.9 - Hypothyroidism, unspecified Status: Acute Assessment and Plan: * patient had been increased from 75 mcg to 125 mcg * patient will need prescription for 125 mcg 2 * will add TSH today with labs 05/07 * TSH 10.4 (4) Chronic obstructive pulmonary disease: Code(s): J44.9 - Chronic obstructive pulmonary disease, unspecified Status: Acute Assessment and Plan: * continuous supplemental oxygen will need home oxygen walk study prior to discharge to continue oxygen at home * resume inhalers p.r.n. * DuoNebs p.r.n. * incentive spirometer p.r.n. * former smoker 05/04 * no change to current treatment plan 05/07 * shortness a breath at rest * chest x-ray today was negative * continue DuoNebs * continue incentive spirometry (5) Hypertension: Code(s): I10 - Essential (primary) hypertension Status: Acute Assessment and Plan: * resume sotalol and Lasix 05/04 * no change to current treatment plan (6) Congestive heart failure: Qualifiers: Heart failure chronicity: unspecified Heart failure type: unspecified Qualified Code(s): I50.9 - Heart failure, unspecified Code(s): I50.9 - Heart failure, unspecified Status: Acute Assessment and Plan: * resume Lasix * monitor fluid * Q daily weights 05/04 * checking chest x-ray, BNP today * wrap bilateral lower extremity with Harpreet wraps 05/07 * chest x-ray was negative today * patient still has bilateral lower extremity swelling that is significant, refused wraps * COVID negative (7) Coronary artery disease: Code(s): I25.10 - Atherosclerotic heart disease of [place] coronary artery without angina pectoris Status: Acute Assessment and Plan: * resume Crestor * resume Adirelto 05/04 * no change to current treatment plan Time Spent With Patient Time with patient: 25 - 35 minutes Subjective Date/time seen: 05/07/24 14:09 Interval history: interval history: This is a 73-year-old male With a significant past medical history of COPD, hypothyroidism, hypertension, hyperlipidemia, coronary artery disease, CHF, atrial fibrillation who presented to [facility] for additional rehab after sustaining a right hip fracture. He was admitted at [facility] and had surgical repair of his right hip femur fracture. subjective: patient reports that he is more short of breath than usual today. He states he is not feeling very well. He does have a raspy cough. Labs reviewed. Review of Systems Review of Systems: All systems reviewed & are unremarkable except as noted in HPI and below Exam Narrative: General: In no acute distress, well nourished Cardiac: Normal S1 and S2. No murmur, gallops or friction rubs, peripheral pulses intact. Respiratory: Mild Rhonchi noted, raspy cough, currently on room air, SOB with rest Gastrointestinal: soft, non-distended, non-tender, normoactive bowel sounds. : voiding without difficulty clear yellow urine Extremities: moves all extremities well, bilateral LE edema 3-4+ pitting Skin: clean, dry, intact. No wounds or lesions. Neuro: Alert and oriented x4, cranial nerves intact, no neuro deficits. Psych: normal mood, normal affect, interactive Objective Data Vital Signs Vital Signs: Vital Signs - 24 hr 05/06/24 16:00 05/06/24 20:22 05/06/24 20:26 Temperature 97.3 F L Pulse Rate 62 71 71 Respiratory Rate 20 18 Blood Pressure 117/69 Pulse Oximetry 95 96 Oxygen Delivery Room Air 05/07/24 00:00 05/07/24 07:45 05/07/24 08:29 Temperature 98.6 F 98.9 F Pulse Rate 71 82 82 Respiratory Rate 18 24 H Blood Pressure 120/67 116/63 Pulse Oximetry 97 93 Oxygen Delivery Room Air Room Air 05/07/24 08:30 05/07/24 08:35 Temperature Pulse Rate 82 82 Respiratory Rate 24 H Blood Pressure Pulse Oximetry 93 Oxygen Delivery Room Air Intake/Output Intake/Output: Intake & Output 05/04/24 05/05/24 05/06/24 05/07/24 23:59 23:59 23:59 23:59 Intake Total 2105 2440 1200 500 Output Total 1825 1650 125 Balance 424 842 1749 500 Meds/Results Medications: Active Medications Generic Name Dose Route Start Last Admin Trade Name Freq PRN Reason Stop Dose Admin Acetaminophen 650 mg 05/01/24 17:47 Acetaminophen 325 Mg Tablet PO Q6H PRN Mild Pain (1-3) or Fever Albuterol/Ipratropium 3 ml 05/07/24 09:43 05/07/24 10:36 Ipratropium 0.5 Mg/Albuterol Sulfate 2.5 Mg Ampul.Neb 3 Ml INHALATION 3 ml Q4-6H PRN Administration Congestion Alprazolam 0.25 mg 05/06/24 11:54 05/07/24 08:29 Alprazolam (*Crx) 0.25 Mg Tablet PO 0.25 mg TID PRN Administration Anxiety Digoxin 250 mcg 05/02/24 09:00 05/07/24 08:30 Digoxin 250 Mcg Tablet PO 250 mcg DAILY [facility] Administration Furosemide 20 mg 05/01/24 18:00 05/07/24 05:01 Furosemide 20 Mg Tablet PO 20 mg Q12H [place] Administration Guaifenesin 1,200 mg 05/02/24 09:00 05/07/24 08:29 Guaifenesin 12 Hr 600 Mg Tabcr PO 1,200 mg Q12HR [place] Administration Levothyroxine Sodium 25 mcg 05/02/24 06:30 05/07/24 05:01 Levothyroxine Sodium 25 Mcg Tablet PO 25 mcg DAILY@0630 [place] Administration Levothyroxine Sodium 100 mcg 05/02/24 06:30 05/07/24 05:01 Levothyroxine Sodium 100 Mcg Tablet PO 100 mcg DAILY@0630 [place] Administration Loratadine 10 mg 05/03/24 09:00 05/07/24 08:30 Loratadine 10 Mg Tablet PO 10 mg DAILY [facility] Administration Ondansetron HCl 4 mg 05/01/24 17:47 Ondansetron Hcl Odt 4 Mg Tablet PO Q6H PRN Nausea And Vomiting Oxycodone/Acetaminophen 1 tablet 05/01/24 17:47 05/06/24 20:22 Oxycodone/Acetaminophen (*Crx) 5-325 Mg Tablet PO 1 tablet Q4H PRN Administration Pain Rated 7-10 Polyethylene Glycol 17 gm 05/01/24 17:50 05/06/24 08:27 Polyethylene Glycol 3350 17 Gm Powd.Pack PO 17 gm QAM PRN Administration Constipation Rivaroxaban 20 mg 05/02/24 09:00 05/07/24 08:29 Rivaroxaban 10 Mg Tablet PO 20 mg QAM [facility] Administration Rosuvastatin Calcium 10 mg 05/02/24 09:00 05/07/24 08:30 Rosuvastatin 10 Mg Tablet PO 10 mg DAILY [facility] Administration Fluticasone/Salmeterol 1 puff 05/01/24 17:45 05/07/24 05:02 Salmet Xinaft/Flutic Propin 250 Mcg/50 Mcg Inh Cap INHALATION 1 puff Q12H [place] Administration Senna/Docusate Sodium 1 tab 05/01/24 21:00 05/06/24 20:22 Senna/Docusate Sodium Tablet PO 1 tab HS [facility] Administration Sotalol HCl 40 mg/ Sotalol HCl 120 mg 05/02/24 21:00 05/07/24 08:29 80 mg PO 120 mg Q12HR [place] Administration Umeclidinium [place] 1 puff 05/02/24 09:00 05/07/24 08:28 Umeclidinium [place] 62.5 Mcg Ellipta INHALATION 1 puff DAILY [facility] Administration Radiology Results: ITS Impressions Chest X-Ray 05/04/24 11:26 Impression: Clear lungs. Quality VTE Prophylaxis VTE prophylaxis: pharmacologic ordered
[2024-05-07] MEDS: SENNA/DOCUSATE SODIUM TABLET 1 TAB PO (20:28)
[2024-05-07] MEDS: oxyCODONE/ACETAMINOPHEN (*CRX) 5-325 MG TABLET 1 TABLET PO (22:30)
[2024-05-08] VITALS (9 sets, daily range): BP systolic 130–165; BP diastolic 71–91; PULSE 68–83; RESP 18–28; TEMP 36–36.6; O2SAT 80–98
[2024-05-08] MEDS: LEVOTHYROXINE SODIUM 25 MCG TABLET PO (06:33)
[2024-05-08] MEDS: LEVOTHYROXINE SODIUM 100 MCG TABLET PO (06:33)
[2024-05-08] MEDS: SALMET XINAFT/FLUTIC PROPIN 250 MCG/50 MCG INH CAP 1 PUFF INHALATION ×2 (06:33→18:06)
[2024-05-08] MEDS: FUROSEMIDE 20 MG TABLET PO ×2 (06:33→18:06)
[2024-05-08] MEDS: guaiFENesin 12 HR 600 MG TABCR 1200 MG PO ×2 (09:05→21:03)
[2024-05-08] MEDS: ROSUVASTATIN 10 MG TABLET PO (09:05)
[2024-05-08] MEDS: RIVAROXABAN 10 MG TABLET 20 MG PO (09:05)
[2024-05-08] MEDS: DIGOXIN 250 MCG TABLET PO (09:06)
[2024-05-08] MEDS: SOTALOL HCL 40 MG, SOTALOL HCL 80 MG 120 MG PO ×2 (09:06→21:02)
[2024-05-08] MEDS: UMECLIDINIUM BROMIDE 62.5 MCG ELLIPTA 1 PUFF INHALATION (09:07)
[2024-05-08] MEDS: LORATADINE 10 MG TABLET PO (09:07)
[2024-05-08] MEDS: IPRATROPIUM 0.5 MG/ALBUTEROL SULFATE 2.5 MG AMPUL.NEB 3 ML INHALATION (09:16)
--- NOTE | 2024-05-08 20:55 | PC.NURSE ---
Patient called nurse to room saying he couldn't breath. Patient obviously SOB. Color pale. Audible congestion noted. Lungs coarse with rhonchi. Patient did not have his oxygen mask on, instead it was laying in his lap. SpO2 at 80%. Oxygen mask applied at 6 lpm and SpO2 increased to 98%. Encouraged patient to try to cough but he weakly coughs. HOB elevated more. Call light in reach.
[2024-05-08] MEDS: ALPRAZolam (*CRX) 0.25 MG TABLET PO (21:02)
[2024-05-08] MEDS: oxyCODONE/ACETAMINOPHEN (*CRX) 5-325 MG TABLET 1 TABLET PO (21:02)
[2024-05-08] MEDS: SENNA/DOCUSATE SODIUM TABLET 1 TAB PO (21:03)
--- NOTE | 2024-05-08 21:05 | PC.NURSE ---
Patient's respirations easier. O2 continues @ 6 lpm/simple mask. SpO2 remains at 98%. Weak cough continues. Patient complaining of generalized achiness with PRN pain med given along with PRN Xanax to help calm patient, who is very anxious. Call light in reach.
--- NOTE | 2024-05-08 21:10 | PC.NURSE ---
Tara Durbin NP notified of patient's change in condition by Ferdinand White RN. No new orders received.
--- NOTE | 2024-05-08 22:15 | PC.NURSE ---
Patient sleeping with HOB elevated. Oxygen continues @ 6 lpm/simple mask. No distress noted. Call light in reach.
--- NOTE | 2024-05-08 23:48 | PC.NURSE ---
Patient awakened easily for VS. Respirations non-labored. Pt says he's been sleeping well since taking the pain and anxiety meds. O2 continues @ 6 lpm/simple mask. SpO2 @ 98%. Patient takes it off and puts it back on. Encouraged patient to leave the mask on. VS stable. Call light in reach.
--- NOTE | 2024-05-09 01:15 | PC.NURSE ---
Patient sleeping. Respirations non-labored. O2 continues @ 6 lpm/simple mask. Call light in reach.
--- NOTE | 2024-05-09 02:10 | PC.NURSE ---
This nurse and Temitope Barnett RN were passing patient's room to go to another room and stopped to check on patient at 0145. Patient was found with no respirations, no pulse and cool to the touch. No mottling noted. Patient still had his O2 simple mask on @ 6 lpm. Chest compressions were started immediately by Temitope Barnett RN while this nurse called out for a code to be called. Tasha Chamberlain RN called a code to the room. Crash cart brought to room and Dr Schroeder, ER nurse and tech, slab depiler operator and cvt tech all showed up quickly. Patient was coded for 15 minutes with time of being called at 0200. Post mortem care provided. Patient's belongings put in bags for family.
--- NOTE | 2024-05-09 02:11 | PDCODEBLUE ---
Code Blue Note Code Blue Note Time Arrived at Code Blue: 0147 Initial Rhythm on Arrival: Asystole Airway Management: Pt intubated during resuscitation (LMA placed ) Chest Compressions: In process on arrival to bedside Result of Code Blue: Pt Cardiac Rhythm Post Code: asystole Code Blue Summary: A code was call to 203 where patient was found without a pulse. CPR was initiated. He was stiff on arrival and had soiled himself shortly after my arrival. An IV was placed as well as LMA. 3 rounds of epi were given and rhythm remained asystole. He was pronounced at 0200 I attempted to call his spouse Jody at [phone] but she did not picking table worker.
--- NOTE | 2024-05-09 02:45 | PC.NURSE ---
Attempted to notify Du Cadena RN regarding pt's but no answer and unable to leave message.
--- NOTE | 2024-05-09 02:46 | PC.NURSE ---
Ania Rodriguez RN notified of pt's passing.
--- NOTE | 2024-05-09 02:48 | PC.NURSE ---
Call attempted to Jody Cabral to notify her of the pt's change of declining status to expiration. Call not answered, sent to .
--- NOTE | 2024-05-09 02:50 | PC.NURSE ---
Tara Durbin ECONOMIC MANAGER notified of patient being coded and expiring. ECONOMIC MANAGER was called from this nurse's personal cell phone.
--- NOTE | 2024-05-09 03:41 | PC.NURSE ---
Message left for Jody Cabral to call the hospital.
--- NOTE | 2024-05-09 04:52 | PC.NURSE ---
Rosaura Cadena RN, Nurse Full Stack Java Developer, returned call and was notified of patient's code and expiration.
--- NOTE | 2024-05-09 05:39 | PC.NURSE ---
Attempted to contact Jody Misha regarding her but was unable to reach her. Message left on voice mail to call the hospital.
--- NOTE | 2024-05-09 06:22 | PC.NURSE ---
Fransico from [facility] returned call to say that patient may be an eligible donor and they would like called @ [phone] after family is notified of patient's .
--- NOTE | 2024-05-09 08:05 | PC.NURSE ---
Today at 0705
--- NOTE | 2024-05-09 08:05 | PC.NURSE ---
Today at 0653 called of patient, no answer, left message on VM to return call. 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 chief Salazar informs this is [facility] office jurisdiction. Called [facility] office at 0710. Spoke with Savage at dispatch who took all information. He will get an officer to patients residence and second residents we have on file and request them to call facility.
--- NOTE | 2024-05-09 09:23 | PC.NURSE ---
At 0920 Called [facility] department, dispatch informs that residents on [address] was vacant and the residents on [address] under wifes name no one answered door.
--- NOTE | 2024-05-09 09:24 | PC.NURSE ---
Called Jody again, Answered by a woman named Flora. She informs she does not know an Jody. Confirmed number dialed was correct @ , Flora confirms Yes and informs she has had this order for 10 years.
--- NOTE | 2024-05-09 10:12 | PC.NURSE ---
Spoke with after getting correct number from patients cell phone, she is on her way.
--- NOTE | 2024-05-09 10:16 | P.DN_ITS ---
Discharge Summary Date and Time Date of : 05/09/24 Time of : 02:00 Provider Pronounced By: Provider Name of Provider That Pronounced: Du Schroeder MD Additional Data Confirmation of as documented by pronouncing clinician: Pupillary Reflex, Palpable Pulses, Response to Stimuli, Heart Tones and Breath Sounds Name of Provider Notified: Mercedes Durbin NP Time Provider Notified: 02:50 Provider Requests Autopsy: No Date [facility] Notified of : 05/09/24 Time [facility] Notified of : 03:15
--- NOTE | 2024-05-09 12:48 | PC.NURSE ---
At 1100 today Jody/ comes to view body and gather belongings. Informs to use [facility].
--- NOTE | 2024-05-09 12:55 | PC.NURSE ---
1120 Called [facility], informed of and request picker packer, gave Jody/ phone number.
--- NOTE | 2024-05-09 12:56 | PC.NURSE ---
1150 [facility] home here to sisal picker body, Permit for Release of Body signed and dated.
== END 2024-05-09 02:00 | disposition expired | DRG 561 ==
PROVIDERS: Nurse Practitioner Family; Admitting Provider Internal Medicine; Visit Provider Nurse Practitioner Acute Care
DX: S72.001D Fracture of unspecified part of neck of right femur, subsequent encounter for closed fracture with routine healing (principal); I46.9 Cardiac arrest, cause unspecified; I11.0 Hypertensive heart disease with heart failure; I50.9 Heart failure, unspecified; I48.0 Paroxysmal atrial fibrillation; I25.10 Atherosclerotic heart disease of native coronary artery without angina pectoris; J44.9 Chronic obstructive pulmonary disease, unspecified; E03.9 Hypothyroidism, unspecified; E78.5 Hyperlipidemia, unspecified; R06.02 Shortness of breath; Z20.822 Contact with and (suspected) exposure to COVID-19; Z95.5 Presence of coronary angioplasty implant and graft; Z87.891 Personal history of nicotine dependence; Z79.01 Long term (current) use of anticoagulants
CPT/HCPCS: 36415; 71045; 80053; 83735; 83880; 84443; 85025; 87635; 94640; 97110; 97161; 97166; 97530; 97535; A9270; J0171; J7030